=== PATIENT | male | born 1945 | race Caucasian/White ===

== ENCOUNTER → 2017-02-25 | Outpatient (POV) | payer MEDICARE, SELFPAY | PROVIDERS: Family Provider Emergency Medicine; PCP Emergency Medicine; Visit Provider Internal Medicine | DX: C91.10 Chronic lymphocytic leukemia of B-cell type not having achieved remission (principal) | CPT/HCPCS: 99212; 80053; 85025; J1642 ==

== ENCOUNTER 2017-02-27 08:40 | Outpatient (CLI) | payer MEDICARE, SELFPAY | END 2017-02-27 12:40 | disposition home or self-care (01) | PROVIDERS: Visit Provider Internal Medicine | DX: C91.10 Chronic lymphocytic leukemia of B-cell type not having achieved remission (principal); Z51.11 Encounter for antineoplastic chemotherapy | CPT/HCPCS: 96413; 96415; J1642; J9310 ==

== ENCOUNTER 2017-04-03 08:34 | Outpatient (CLI) | payer MEDICARE, SELFPAY ==
[2017-04-03] VITALS (14 sets, daily range): BP systolic 102–139; BP diastolic 66–85; PULSE 49–61; RESP 18–20; TEMP 36.5–36.7; O2SAT 95–98; BMI 30.7
[2017-04-03 09:21] LABS: Basophils % 0.5 % (0.1-2.0); Eosinophils # 0.1 K/mm3 (0.0-0.4); Eosinophils % 1.4 % (0.1-12.0); Hematocrit 38.1 % (42.0-52.0); Hemoglobin 12.7 g/dL (14.1-18.0); Lymphocytes # 4.8 K/mm3 (0.7-4.5); Lymphocytes % 54.6 K/mm3 (10-50); Mean Corpuscular HGB Conc 33.5 g/dL (31.8-35.4); Mean Corpuscular Hemoglobin 33.9 pg (27.0-31.2); Mean Corpuscular Volume 101.3 fl (80-94); Mean Platelet Volume 8.7 fl (7.4-10.4); Monocytes # 0.3 K/mm3 (0.1-1.0); Monocytes % 3.1 % (1.7-9.3); Neutrophils # 3.6 K/mm3 (1.8-7.8); Neutrophils % 40.5 % (37.0-80.0); Platelet Count 63 K/mm3 (142-424); Red Blood Count 3.76 M/mm3 (4.60-6.20); Red Cell Distribution Width 13.1 % (11.5-17.5); White Blood Count 8.9 K/mm3 (4.8-10.8)
[2017-04-03 09:27] LABS: MANUAL DIFFERENTIAL MANUAL DIFFERENTIAL (MANUAL DIFF)
[2017-04-03 10:26] LABS: Eosinophils % 1 % (0-3); Lymphocytes % 50 % (10-50); Monocytes % 2 % (2-9); Neutrophils % 43 % (42-76); Platelet Estimate Moderate Decrease; Total Cells Counted 100
== END 2017-04-03 13:45 | disposition home or self-care (01) ==
LOC: INF 08:44
PROVIDERS: Family Provider Emergency Medicine; PCP Emergency Medicine; Visit Provider Internal Medicine
DX: C91.10 Chronic lymphocytic leukemia of B-cell type not having achieved remission (principal); Z51.11 Encounter for antineoplastic chemotherapy
CPT/HCPCS: 85007; 85025; 96413; 96415; J9310

== ENCOUNTER 2017-05-01 08:35 | Outpatient (CLI) | payer MEDICARE, SELFPAY ==
[2017-05-01] VITALS (15 sets, daily range): BP systolic 110–142; BP diastolic 62–84; PULSE 50–68; RESP 18–20; TEMP 36.4–36.6; O2SAT 96–97; BMI 31.1
[2017-05-01 09:04] LABS: Basophils % 0.4 % (0.1-2.0); Eosinophils # 0.1 K/mm3 (0.0-0.4); Hematocrit 36.5 % (42.0-52.0); Hemoglobin 12.4 g/dL (14.1-18.0); Lymphocytes # 4.9 K/mm3 (0.7-4.5); Lymphocytes % 54.8 K/mm3 (10-50); Mean Platelet Volume 8.5 fl (7.4-10.4); Monocytes # 0.3 K/mm3 (0.1-1.0); Monocytes % 2.9 % (1.7-9.3); Neutrophils # 3.6 K/mm3 (1.8-7.8); Neutrophils % 40.9 % (37.0-80.0); Platelet Count 72 K/mm3 (142-424); Red Blood Count 3.65 M/mm3 (4.60-6.20); Red Cell Distribution Width 13.3 % (11.5-17.5); White Blood Count 8.9 K/mm3 (4.8-10.8)
[2017-05-01 09:08] LABS: MANUAL DIFFERENTIAL MANUAL DIFFERENTIAL (MANUAL DIFF)
[2017-05-01 09:45] LABS: Lymphocytes % 57 % (10-50); Monocytes % 2 % (2-9); Neutrophils % 39 % (42-76); Total Cells Counted 100
[2017-05-01 09:46] LABS: Macrocytosis 1+; Platelet Estimate Moderate Decrease
== END 2017-05-01 13:10 | disposition home or self-care (01) ==
LOC: INF 09:00
PROVIDERS: Family Provider Emergency Medicine; PCP Emergency Medicine; Visit Provider Internal Medicine
DX: C91.10 Chronic lymphocytic leukemia of B-cell type not having achieved remission (principal); Z51.11 Encounter for antineoplastic chemotherapy
CPT/HCPCS: 85007; 85025; 96413; 96415; J9310

== ENCOUNTER 2017-05-29 08:43 | Outpatient (CLI) | payer MEDICARE, SELFPAY ==
[2017-05-29] VITALS (13 sets, daily range): BP systolic 100–139; BP diastolic 60–88; PULSE 49–67; RESP 18; TEMP 36.4–36.5; O2SAT 96–97; BMI 31.0
[2017-05-29 09:05] LABS: Basophils % 0.5 % (0.1-2.0); Eosinophils # 0.1 K/mm3 (0.0-0.4); Eosinophils % 0.9 % (0.1-12.0); Hematocrit 36.9 % (42.0-52.0); Hemoglobin 12.6 g/dL (14.1-18.0); Lymphocytes # 4.5 K/mm3 (0.7-4.5); Lymphocytes % 55.5 K/mm3 (10-50); Mean Corpuscular HGB Conc 34.1 g/dL (31.8-35.4); Mean Corpuscular Hemoglobin 34.2 pg (27.0-31.2); Mean Corpuscular Volume 100.3 fl (80-94); Mean Platelet Volume 9.6 fl (7.4-10.4); Monocytes # 0.2 K/mm3 (0.1-1.0); Monocytes % 2.4 % (1.7-9.3); Neutrophils # 3.3 K/mm3 (1.8-7.8); Neutrophils % 40.7 % (37.0-80.0); Platelet Count 63 K/mm3 (142-424); Red Blood Count 3.68 M/mm3 (4.60-6.20); Red Cell Distribution Width 13.5 % (11.5-17.5); White Blood Count 8.2 K/mm3 (4.8-10.8)
[2017-05-29 09:47] LABS: MANUAL DIFFERENTIAL MANUAL DIFFERENTIAL (MANUAL DIFF)
[2017-05-29 10:22] LABS: Eosinophils % 1 % (0-3); Lymphocytes % 41 % (10-50); Monocytes % 4 % (2-9); Neutrophils % 53 % (42-76); Platelet Estimate Moderate Increase; Total Cells Counted 100
[2017-05-29 10:23] LABS: Macrocytosis 1+
== END 2017-05-29 13:40 | disposition home or self-care (01) ==
LOC: INF 08:43
PROVIDERS: Family Provider Emergency Medicine; PCP Emergency Medicine; Visit Provider Internal Medicine
DX: Z51.11 Encounter for antineoplastic chemotherapy (principal); C91.10 Chronic lymphocytic leukemia of B-cell type not having achieved remission
CPT/HCPCS: 85007; 85025; 96413; 96415; J9310

== ENCOUNTER 2017-06-26 08:25 | Outpatient (CLI) | payer MEDICARE, SELFPAY ==
[2017-06-26 08:38] VITALS: BMI 31.6
[2017-06-26 08:48] LABS: Basophils % 0.4 % (0.1-2.0); Eosinophils # 0.1 K/mm3 (0.0-0.4); Eosinophils % 1.7 % (0.1-12.0); Hematocrit 36.2 % (42.0-52.0); Hemoglobin 11.9 g/dL (14.1-18.0); Lymphocytes # 3.4 K/mm3 (0.7-4.5); Lymphocytes % 48.5 K/mm3 (10-50); Mean Corpuscular Hemoglobin 34.3 pg (27.0-31.2); Mean Corpuscular Volume 104.2 fl (80-94); Mean Platelet Volume 9.4 fl (7.4-10.4); Monocytes # 0.2 K/mm3 (0.1-1.0); Monocytes % 2.3 % (1.7-9.3); Neutrophils # 3.3 K/mm3 (1.8-7.8); Neutrophils % 47.1 % (37.0-80.0); Platelet Count 70 K/mm3 (142-424); Red Blood Count 3.48 M/mm3 (4.60-6.20); Red Cell Distribution Width 13.6 % (11.5-17.5)
[2017-06-26 09:03] LABS: Alanine Aminotransferase 21 U/L (12-78); Albumin Level 3.3 gm/dL (3.4-5.0); Albumin/Globulin Ratio 1.4 (1.1-1.8); Alkaline Phosphatase 73 U/L (46-116); Aspartate Amino Transferase 13 U/L (15-37); Bilirubin,Total 0.7 mg/dL (0.2-1.0); Blood Urea Nitrogen 20 mg/dL (7-18); Calcium 8.3 mg/dL (8.5-10.1); Carbon Dioxide 28 mmol/L (21.0-32.0); Chloride 107 mmol/L (98-107); Creatinine Clearance Estimated 92 mL/min (0-300); Estimated Glomerular Filt Rate 111 ml/min (>60); GFR (African American) 135 ML/MIN (>60); Globulin 2.4 gm/dl (1.3-3.2); Glucose 129 mg/dL (74-106); Sodium 140 mmol/L (136-145); Total Protein,Serum 5.7 gm/dL (6.4-8.2)
--- NOTE | 2017-06-26 09:42 | PC.NURSE ---
06/26/2017 0935-pt returned from md clinic. md ordered to hold treatment for today, pt is going to be starting a different therapy. pac access removed after flushing per protocol, no bleeding noted-bandaid appplied. scheduled for pt to return to outpt clinic in 1 mo for pac flush. pt d/c'd home-pt able to ambulate self from facility.
== END 2017-06-26 09:40 | disposition home or self-care (01) ==
LOC: INF 09:40
PROVIDERS: Family Provider Emergency Medicine; PCP Emergency Medicine; Visit Provider Internal Medicine
DX: C91.10 Chronic lymphocytic leukemia of B-cell type not having achieved remission (principal)
CPT/HCPCS: 80053; 85025; J1642

== ENCOUNTER → 2017-07-26 11:26 | Outpatient (REF) | payer MEDICARE, SELFPAY ==
[2017-07-29 06:10] LABS: PSA, Free 0.18 ng/mL; Prostate Specific Ag 0.8 ng/mL (0.0-4.0)
== END ==
LOC: LAB 11:26
PROVIDERS: Visit Provider Nurse Practitioner Family
DX: N40.0 Benign prostatic hyperplasia without lower urinary tract symptoms (principal); R10.9 Unspecified abdominal pain
CPT/HCPCS: 84153; 84154

== ENCOUNTER 2017-07-31 12:30 | Outpatient (CLI) | payer MEDICARE, SELFPAY ==
[2017-07-31 12:36] VITALS: BMI 31.9
[2017-07-31 13:00] LABS: Basophils # 0.1 K/mm3 (0-0.2); Basophils % 0.5 % (0.1-2.0); Eosinophils # 0.1 K/mm3 (0.0-0.4); Eosinophils % 0.3 % (0.1-12.0); Hematocrit 33.9 % (42.0-52.0); Hemoglobin 11.8 g/dL (14.1-18.0); Lymphocytes # 20.8 K/mm3 (0.7-4.5); Lymphocytes % 80.4 K/mm3 (10-50); Mean Corpuscular HGB Conc 34.7 g/dL (31.8-35.4); Mean Corpuscular Hemoglobin 35.5 pg (27.0-31.2); Mean Corpuscular Volume 102.3 fl (80-94); Mean Platelet Volume 9.5 fl (7.4-10.4); Monocytes # 0.3 K/mm3 (0.1-1.0); Neutrophils # 4.6 K/mm3 (1.8-7.8); Neutrophils % 17.7 % (37.0-80.0); Platelet Count 94 K/mm3 (142-424); Red Blood Count 3.32 M/mm3 (4.60-6.20); Red Cell Distribution Width 13.6 % (11.5-17.5); White Blood Count 25.8 K/mm3 (4.8-10.8)
[2017-07-31 13:06] LABS: MANUAL DIFFERENTIAL MANUAL DIFFERENTIAL (MANUAL DIFF)
[2017-07-31 13:18] LABS: Alanine Aminotransferase 22 U/L (12-78); Albumin Level 3.4 gm/dL (3.4-5.0); Albumin/Globulin Ratio 1.4 (1.1-1.8); Alkaline Phosphatase 70 U/L (46-116); Aspartate Amino Transferase 16 U/L (15-37); Bilirubin,Total 0.7 mg/dL (0.2-1.0); Blood Urea Nitrogen 20 mg/dL (7-18); Calcium 8.2 mg/dL (8.5-10.1); Carbon Dioxide 28 mmol/L (21.0-32.0); Chloride 108 mmol/L (98-107); Creatinine Clearance Estimated 93 mL/min (0-300); Creatinine,Serum 0.74 mg/dL (0.70-1.30); Estimated Glomerular Filt Rate 105 ml/min (>60); GFR (African American) 127 ML/MIN (>60); Globulin 2.4 gm/dl (1.3-3.2); Glucose 100 mg/dL (74-106); Sodium 142 mmol/L (136-145); Total Protein,Serum 5.8 gm/dL (6.4-8.2)
[2017-07-31 13:42] LABS: Lymphocytes % 80 % (10-50); Monocytes % 5 % (2-9); Neutrophils % 15 % (42-76); Platelet Estimate Marked Decrease; RBC Morphology Normal; Total Cells Counted 100
== END 2017-07-31 13:05 | disposition home or self-care (01) ==
LOC: INF 12:41
PROVIDERS: Family Provider Emergency Medicine; PCP Emergency Medicine; Visit Provider Internal Medicine
DX: C91.10 Chronic lymphocytic leukemia of B-cell type not having achieved remission (principal); Z45.2 Encounter for adjustment and management of vascular access device
CPT/HCPCS: 80053; 85007; 85025; J1642

== ENCOUNTER 2017-08-21 08:55 | Outpatient (CLI) | payer MEDICARE, SELFPAY ==
[2017-08-21 09:06] VITALS: BMI 31.0
[2017-08-21 09:40] LABS: Basophils # 0.2 K/mm3 (0-0.2); Basophils % 0.8 % (0.1-2.0); Eosinophils # 0.1 K/mm3 (0.0-0.4); Eosinophils % 0.5 % (0.1-12.0); Hematocrit 36.9 % (42.0-52.0); Hemoglobin 11.8 g/dL (14.1-18.0); Lymphocytes # 24.3 K/mm3 (0.7-4.5); Mean Corpuscular Hemoglobin 33.4 pg (27.0-31.2); Mean Corpuscular Volume 104.4 fl (80-94); Mean Platelet Volume 8.6 fl (7.4-10.4); Monocytes # 0.3 K/mm3 (0.1-1.0); Monocytes % 1.2 % (1.7-9.3); Neutrophils # 3.3 K/mm3 (1.8-7.8); Platelet Count 99 K/mm3 (142-424); Red Blood Count 3.54 M/mm3 (4.60-6.20); Red Cell Distribution Width 13.7 % (11.5-17.5)
[2017-08-21 09:43] LABS: Neutrophils % 11.6 % (37.0-80.0)
[2017-08-21 09:50] LABS: Alanine Aminotransferase 20 U/L (12-78); Albumin Level 3.2 gm/dL (3.4-5.0); Albumin/Globulin Ratio 1.3 (1.1-1.8); Alkaline Phosphatase 61 U/L (46-116); Anion Gap 9.7 mEq/L (5-15); Blood Urea Nitrogen 17 mg/dL (7-18); Calcium 8.6 mg/dL (8.5-10.1); Carbon Dioxide 29 mmol/L (21.0-32.0); Chloride 109 mmol/L (98-107); Creatinine Clearance Estimated 93 mL/min (0-300); Estimated Glomerular Filt Rate 111 ml/min (>60); GFR (African American) 135 ML/MIN (>60); Globulin 2.5 gm/dl (1.3-3.2); Glucose 103 mg/dL (74-106); Sodium 144 mmol/L (136-145); Total Protein,Serum 5.7 gm/dL (6.4-8.2)
[2017-08-21 09:51] LABS: Aspartate Amino Transferase 16 U/L (15-37); Potassium 3.7 mmoL/L (3.5-5.1)
[2017-08-21 10:00] LABS: White Blood Count 27.9 K/mm3 (4.8-10.8)
[2017-08-21 10:01] LABS: MANUAL DIFFERENTIAL MANUAL DIFFERENTIAL (MANUAL DIFF)
[2017-08-21 10:39] LABS: Anisocytosis 1+; Lymphocytes % 83 % (10-50); Macrocytosis 1+; Monocytes % 3 % (2-9); Neutrophils % 14 % (42-76); Total Cells Counted 100
[2017-08-21 10:41] LABS: Platelet Estimate Marked Decrease
== END 2017-08-21 09:30 | disposition home or self-care (01) ==
LOC: INF 09:03
PROVIDERS: Family Provider Emergency Medicine; PCP Emergency Medicine; Visit Provider Internal Medicine
DX: C91.10 Chronic lymphocytic leukemia of B-cell type not having achieved remission (principal)
CPT/HCPCS: 80053; 85007; 85025; J1642

== ENCOUNTER 2017-08-28 09:38 | Outpatient (CLI) | payer MEDICARE, SELFPAY ==
[2017-08-28 10:36] VITALS: BMI 31.0
[2017-08-28 10:45] VITALS: BP 105/69; PULSE 51; RESP 20; TEMP 36.6; O2SAT 99
[2017-08-28 11:08] LABS: Basophils # 0.3 K/mm3 (0-0.2); Basophils % 0.8 % (0.1-2.0); Eosinophils # 0.2 K/mm3 (0.0-0.4); Eosinophils % 0.4 % (0.1-12.0); Hematocrit 38.3 % (42.0-52.0); Hemoglobin 12.2 g/dL (14.1-18.0); Lymphocytes % 86.2 K/mm3 (10-50); Mean Corpuscular HGB Conc 31.8 g/dL (31.8-35.4); Mean Corpuscular Hemoglobin 33.1 pg (27.0-31.2); Mean Corpuscular Volume 104.3 fl (80-94); Mean Platelet Volume 8.4 fl (7.4-10.4); Monocytes # 0.4 K/mm3 (0.1-1.0); Monocytes % 1.2 % (1.7-9.3); Neutrophils # 4.1 K/mm3 (1.8-7.8); Platelet Count 108 K/mm3 (142-424); Red Blood Count 3.68 M/mm3 (4.60-6.20); Red Cell Distribution Width 13.2 % (11.5-17.5); White Blood Count 35.9 K/mm3 (4.8-10.8)
[2017-08-28 11:10] LABS: Alanine Aminotransferase 19 U/L (12-78); Albumin Level 3.3 gm/dL (3.4-5.0); Albumin/Globulin Ratio 1.3 (1.1-1.8); Alkaline Phosphatase 68 U/L (46-116); Anion Gap 10.1 mEq/L (5-15); Aspartate Amino Transferase 15 U/L (15-37); Bilirubin,Total 0.8 mg/dL (0.2-1.0); Blood Urea Nitrogen 18 mg/dL (7-18); Calcium 8.3 mg/dL (8.5-10.1); Carbon Dioxide 29 mmol/L (21.0-32.0); Chloride 108 mmol/L (98-107); Creatinine Clearance Estimated 93 mL/min (0-300); Creatinine,Serum 0.94 mg/dL (0.70-1.30); Estimated Glomerular Filt Rate 79 ml/min (>60); GFR (African American) 96 ML/MIN (>60); Globulin 2.6 gm/dl (1.3-3.2); Glucose 103 mg/dL (74-106); Potassium 4.1 mmoL/L (3.5-5.1); Sodium 143 mmol/L (136-145); Total Protein,Serum 5.9 gm/dL (6.4-8.2)
[2017-08-28 11:29] LABS: Neutrophils % 11.4 % (37.0-80.0)
[2017-08-28 11:30] LABS: MANUAL DIFFERENTIAL MANUAL DIFFERENTIAL (MANUAL DIFF)
[2017-08-28 11:31] LABS: Lymphocytes % 93 % (10-50); Macrocytosis 1+; Monocytes % 2 % (2-9); Neutrophils % 5 % (42-76); Platelet Estimate Slight Decrease; Total Cells Counted 100
[2017-08-28 11:32] LABS: Hypochromasia 1+
== END 2017-08-28 10:50 | disposition home or self-care (01) ==
LOC: INF 11:56
PROVIDERS: Family Provider Emergency Medicine; PCP Emergency Medicine; Visit Provider Internal Medicine
DX: C91.10 Chronic lymphocytic leukemia of B-cell type not having achieved remission (principal); R60.0 Localized edema
CPT/HCPCS: 80053; 85007; 85025; 93005; J1642

== ENCOUNTER 2017-09-04 08:15 | Outpatient (CLI) | payer MEDICARE, SELFPAY ==
[2017-09-04 13:33] VITALS: BMI 31.6
[2017-09-04 14:08] LABS: Basophils # 0.1 K/mm3 (0-0.2); Basophils % 0.2 % (0.1-2.0); Eosinophils # 0.1 K/mm3 (0.0-0.4); Eosinophils % 0.5 % (0.1-12.0); Hematocrit 34.8 % (42.0-52.0); Hemoglobin 11.1 g/dL (14.1-18.0); Lymphocytes # 21.9 K/mm3 (0.7-4.5); Lymphocytes % 89.7 K/mm3 (10-50); Mean Corpuscular HGB Conc 31.9 g/dL (31.8-35.4); Mean Corpuscular Hemoglobin 33.3 pg (27.0-31.2); Mean Corpuscular Volume 104.4 fl (80-94); Mean Platelet Volume 8.9 fl (7.4-10.4); Monocytes # 0.3 K/mm3 (0.1-1.0); Neutrophils # 2.1 K/mm3 (1.8-7.8); Platelet Count 98 K/mm3 (142-424); Red Blood Count 3.33 M/mm3 (4.60-6.20); Red Cell Distribution Width 13.2 % (11.5-17.5); White Blood Count 24.4 K/mm3 (4.8-10.8)
[2017-09-04 14:10] LABS: Alanine Aminotransferase 16 U/L (12-78); Albumin Level 3.1 gm/dL (3.4-5.0); Albumin/Globulin Ratio 1.3 (1.1-1.8); Alkaline Phosphatase 67 U/L (46-116); Anion Gap 9.6 mEq/L (5-15); Aspartate Amino Transferase 14 U/L (15-37); Blood Urea Nitrogen 17 mg/dL (7-18); Calcium 7.7 mg/dL (8.5-10.1); Carbon Dioxide 29 mmol/L (21.0-32.0); Chloride 108 mmol/L (98-107); Creatinine Clearance Estimated 94 mL/min (0-300); Estimated Glomerular Filt Rate 74 ml/min (>60); GFR (African American) 89 ML/MIN (>60); Globulin 2.3 gm/dl (1.3-3.2); Glucose 123 mg/dL (74-106); Potassium 3.6 mmoL/L (3.5-5.1); Sodium 143 mmol/L (136-145); Total Protein,Serum 5.4 gm/dL (6.4-8.2)
[2017-09-04 14:30] LABS: MANUAL DIFFERENTIAL MANUAL DIFFERENTIAL (MANUAL DIFF); Neutrophils % 8.6 % (37.0-80.0)
[2017-09-04 14:32] LABS: Lymphocytes % 85 % (10-50); Macrocytosis 1+; Monocytes % 1 % (2-9); Neutrophils % 10 % (42-76); Platelet Estimate Moderate Decrease; Total Cells Counted 100
== END 2017-09-04 15:16 | disposition home or self-care (01) ==
LOC: INF 08:23
PROVIDERS: Family Provider Emergency Medicine; PCP Emergency Medicine; Visit Provider Internal Medicine
DX: C91.10 Chronic lymphocytic leukemia of B-cell type not having achieved remission (principal); I99.8 Other disorder of circulatory system; Z45.2 Encounter for adjustment and management of vascular access device
CPT/HCPCS: 80053; 85007; 85025; J1642

== ENCOUNTER 2017-09-23 13:21 | Outpatient (CLI) | payer MEDICARE, SELFPAY ==
[2017-09-23 13:17] VITALS: BMI 31.0
[2017-09-23 13:53] LABS: Alanine Aminotransferase 18 U/L (12-78); Albumin Level 3.2 gm/dL (3.4-5.0); Albumin/Globulin Ratio 1.3 (1.1-1.8); Alkaline Phosphatase 65 U/L (46-116); Anion Gap 11.7 mEq/L (5-15); Aspartate Amino Transferase 11 U/L (15-37); Bilirubin,Total 0.9 mg/dL (0.2-1.0); Blood Urea Nitrogen 19 mg/dL (7-18); Calcium 7.9 mg/dL (8.5-10.1); Carbon Dioxide 28 mmol/L (21.0-32.0); Chloride 113 mmol/L (98-107); Creatinine Clearance Estimated 89 mL/min (0-300); Creatinine,Serum 1.04 mg/dL (0.70-1.30); Estimated Glomerular Filt Rate 71 ml/min (>60); GFR (African American) 85 ML/MIN (>60); Globulin 2.4 gm/dl (1.3-3.2); Glucose 125 mg/dL (74-106); Potassium 3.7 mmoL/L (3.5-5.1); Sodium 149 mmol/L (136-145); Total Protein,Serum 5.6 gm/dL (6.4-8.2)
[2017-09-23 14:08] LABS: Basophils # 0.2 K/mm3 (0-0.2); Basophils % 0.7 % (0.1-2.0); Eosinophils # 0.1 K/mm3 (0.0-0.4); Eosinophils % 0.3 % (0.1-12.0); Hematocrit 33.6 % (42.0-52.0); Hemoglobin 10.6 g/dL (14.1-18.0); Lymphocytes # 27.4 K/mm3 (0.7-4.5); Mean Corpuscular HGB Conc 31.7 g/dL (31.8-35.4); Mean Corpuscular Hemoglobin 32.5 pg (27.0-31.2); Mean Corpuscular Volume 102.6 fl (80-94); Mean Platelet Volume 9.2 fl (7.4-10.4); Monocytes # 0.4 K/mm3 (0.1-1.0); Monocytes % 1.3 % (1.7-9.3); Neutrophils # 5.3 K/mm3 (1.8-7.8); Neutrophils % 15.7 % (37.0-80.0); Platelet Count 106 K/mm3 (142-424); Red Blood Count 3.27 M/mm3 (4.60-6.20); White Blood Count 33.5 K/mm3 (4.8-10.8)
[2017-09-23 14:11] LABS: MANUAL DIFFERENTIAL MANUAL DIFFERENTIAL (MANUAL DIFF)
[2017-09-23 15:17] LABS: Eosinophils % 1 % (0-3); Lymphocytes % 81 % (10-50); Macrocytosis 1+; Monocytes % 2 % (2-9); Neutrophils % 16 % (42-76); Platelet Estimate Moderate Decrease; Total Cells Counted 100
== END 2017-09-23 13:43 | disposition home or self-care (01) ==
LOC: INF 13:21
PROVIDERS: Family Provider Emergency Medicine; PCP Emergency Medicine; Visit Provider Internal Medicine
DX: C91.10 Chronic lymphocytic leukemia of B-cell type not having achieved remission (principal)
CPT/HCPCS: 80053; 85007; 85025; J1642

== ENCOUNTER → 2017-09-30 06:52 | Outpatient (CLI) | payer MEDICARE, SELFPAY ==
--- NOTE | 2017-09-30 06:55 | NM_ITS ---
History and Indications: Coronary artery disease, hypertension, shortness of breath Procedure: Patient received a 0.4 mg of Lexiscan, resting heart rate was 61 bpm, resting blood pressure 159/71, with Lexiscan maximum heart rate achieved was 85 bpm just less than 85% of the maximum predicted heart rate and a blood pressure was 126/72. With Lexiscan patient complained of shortness of breath and nausea. Electrocardiogram: Resting electrocardiogram showed sinus rhythm nonspecific ST-T changes, with Lexiscan there is less than 1.[address] segment depression noted from the baseline EKG. The EKG portion of the Lexiscan Myoview is nondiagnostic. Cardiac stress and resting SPECT images: Cardiac stress and rest SPECT images were obtained using technetium 99 Myoview 31.6 mCi at stress and 10.7 mCi at rest. Gated SPECT further analysis of segmental wall motion and calculation of the ejection fraction also done. Cardiac stress and rest SPECT images show a fixed defect involving the wall with normal contractility gated SPECT is likely secondary to soft tissue attenuation, no reversible ischemia seen, computer derived ejection fraction is 49% with no obvious regional wall motion abnormality, right ventricle is normal size and contractility. Conclusion: 1. The EKG portion of the Lexiscan Myoview is nondiagnostic. 2. No obvious scintigraphic evidence of reversible ischemia seen, a fixed defect in the inferior wall is likely secondary to soft tissue attenuation from the diaphragm, computer derived ejection fraction is 49% with no obvious regional wall motion abnormality, right ventricle is normal size and contractility.
--- NOTE | 2017-09-30 06:55 | CA_ITS ---
PROCEDURE: 2-D M-mode and color Doppler study INDICATIONS FOR THE TEST: Chest pain COPD Heart Murmur Tobacco Smoking Palpitations Fatigue Syncope Edema Hypertension+Diabetes Mellitus Rheumatic Fever SOB ARITA Obesity+Hyperlipidemia+ Family History HD Additional History liudmila, cad, mi, afib, stents PATIENT INFORMATION HEIGHT:69 WEIGHT:213 GENDER: Male B/P:149/79 2-D/M-MODE INTERPRETATION: 2-D MEASUREMENTS OBSERVED VALUES IN CMS Right Ventricular Dimension (RVDd) 2.5 Interventricular Septum (Thickness)(IVsd) 1.0 Left Ventricular Internal Dimensions(LVIDd) 5.7 Left Ventricular Posterior Wall (Thickness)(LVPWd) 0.9 Aortic Root 3.5 Aortic Cusp Separation 1.9 Left Atrial Dimensions (LAD) 4.4 2D 1. Left atrium is mildly enlarged, left ventricle is normal size, mild concentric left ventricular hypertrophy, visually estimated ejection fraction 55% with no obvious regional wall motion abnormality. 2. The right atrium and right ventricle are normal size and contractility. 3. The aortic valve is minimally thickened and fibrosed. 4. The mitral and tricuspid valve are grossly normal. 5. The pulmonic valve is poorly visualized. 6. No significant pericardial effusion noted. DOPPLER INTERROGATION: Doppler interrogation of the aortic, mitral and tricuspid valvular presence of mild mitral and tricuspid regurgitation, tricuspid and jet velocity is insufficient for calculation of the right ventricular systolic pressure, grade 1 diastolic dysfunction seen without tissue Doppler evidence of raised left atrial pressure. CONCLUSION: 1. Mildly left atrium, normal left ventricular size, mild concentric left ventricular hypertrophy, visually estimated ejection fraction 55% with no obvious regional wall motion abnormality, grade 1 diastolic dysfunction seen without tissue Doppler evidence of raised left atrial pressure. 2. Mild mitral and tricuspid regurgitation 3. No significant pericardial effusion noted.
--- NOTE | 2017-09-30 07:53 | HMH.ITSHM ---
ASA LOSARTAN PANTOPRAZOLE ATORVASTATIN IMBRUVICA
== END ==
PROVIDERS: Family Provider Emergency Medicine; PCP Emergency Medicine; Visit Provider Physician Assistant
DX: I25.10 Atherosclerotic heart disease of native coronary artery without angina pectoris (principal); R06.00 Dyspnea, unspecified; R00.1 Bradycardia, unspecified; R94.31 Abnormal electrocardiogram [ECG] [EKG]; R60.9 Edema, unspecified
CPT/HCPCS: 78452; 93017; 93306; A9502; J2785

== ENCOUNTER 2017-10-16 09:00 | Outpatient (RCR) | payer MEDICARE, SELFPAY ==
--- NOTE | 2017-09-03 11:35 | HMH.PTOPWND ---
Rehab Outpt Wound Evaluation Rehab OP Wound Evaluation Start: 09/03/17 10:02 Freq: Status: Active Protocol: Document 09/03/17 11:27 KEN (Rec: 09/03/17 11:35 PHORMATTY [id number]) Electronically Signed By Chucho Samayoa, LINETTE 09/03/17 11:27 Subjective/History History History Pt is a 72 yo white male who presents with edelmira LE edema x 3 -4 mos with insidious onset of symptoms. He has hx of CLL x 7 yrs which he has received chemo for on/off since his diagnosis. He reports ni pain or numbness associated with his edema, but he does have moderate to severe tenderness to palpation in edelmira lower legs . He has PMH of CAD, FL, HTN. Lymphedema Eval Classification of Lymphedema Secondary Lymphedema Yes Other Lymphedema Cause Yes: CVI and CLL Stemmer's sign Stemmer's Sign no Stage of Lymphedema Lymphedema stages Stage I (Pitting edema, reduces w/ elevation, no fibrosis) Skin Changes Dry Skin Yes Taut, Shiny Skin Yes Redness Yes Blisters Yes Wounds Yes Discoloration of Skin Yes Chemo Therapy Has received chemo therapy yes Affected Extremities Areas Affected by Lymphedema/Edema Right Lower Extremity Left Lower Extremity Lower Extremity Measurements Left MTP Measurement (cm) 22.8 Heel Measurement (cm) 35.3 10 cm Proximal to Lateral Malleoli 27.6 Measurement (cm) 20 cm Proximal to Lateral Malleoli 35.0 Measurement (cm) 30 cm Proximal to Lateral Malleoli 41.2 Measurement (cm) 40 cm Proximal to Lateral Malleoli 37.7 Measurement (cm) 50 cm Proximal to Lateral Malleoli 43.5 Measurement (cm) 60 cm Proximal to Lateral Malleoli 49.5 Measurement (cm) Right MTP Measurement (cm) 23.6 Heel Measurement (cm) 35.5 10 cm Proximal to Lateral Malleoli 27.2 Measurement (cm) 20 cm Proximal to Lateral Malleoli 33.3 Measurement (cm) 30 cm Proximal to Lateral Malleoli 40.8 Measurement (cm) 40 cm Proximal to Lateral Malleoli 37.4 Measurement (cm) 50 cm Proximal to Lateral Malleoli 43.0 Measurement (cm) 60 cm Proximal to Lateral Malleoli 49.3 Measureme
== END 2017-10-16 09:01 | disposition home or self-care (01) ==
LOC: PT 09:00
PROVIDERS: Family Provider Emergency Medicine; PCP Emergency Medicine; Visit Provider Internal Medicine
DX: I89.0 Lymphedema, not elsewhere classified (principal); C91.10 Chronic lymphocytic leukemia of B-cell type not having achieved remission
CPT/HCPCS: 97140; 97162; 97760

== ENCOUNTER → 2017-10-22 20:04 | Outpatient (CLI) | payer MEDICARE, SELFPAY | PROVIDERS: PCP Emergency Medicine; Visit Provider Nurse Practitioner Family | DX: G47.33 Obstructive sleep apnea (adult) (pediatric) (principal) | CPT/HCPCS: 95811 ==

== ENCOUNTER 2017-10-23 08:24 | Outpatient (CLI) | payer MEDICARE, SELFPAY ==
[2017-10-23 08:42] VITALS: BMI 31.1
[2017-10-23 08:58] LABS: Basophils # 0.2 K/mm3 (0-0.2); Basophils % 0.6 % (0.1-2.0); Eosinophils # 0.1 K/mm3 (0.0-0.4); Eosinophils % 0.4 % (0.1-12.0); Hematocrit 32.1 % (42.0-52.0); Hemoglobin 10.5 g/dL (14.1-18.0); Lymphocytes % 82.2 K/mm3 (10-50); Mean Corpuscular HGB Conc 32.6 g/dL (31.8-35.4); Mean Corpuscular Hemoglobin 33.5 pg (27.0-31.2); Mean Corpuscular Volume 102.6 fl (80-94); Mean Platelet Volume 8.6 fl (7.4-10.4); Monocytes # 0.4 K/mm3 (0.1-1.0); Monocytes % 1.4 % (1.7-9.3); Neutrophils # 4.3 K/mm3 (1.8-7.8); Neutrophils % 15.4 % (37.0-80.0); Platelet Count 146 K/mm3 (142-424); Red Blood Count 3.13 M/mm3 (4.60-6.20); Red Cell Distribution Width 13.2 % (11.5-17.5)
[2017-10-23 09:01] LABS: MANUAL DIFFERENTIAL MANUAL DIFFERENTIAL (MANUAL DIFF)
[2017-10-23 09:13] LABS: Alanine Aminotransferase 17 U/L (12-78); Albumin Level 3.2 gm/dL (3.4-5.0); Albumin/Globulin Ratio 1.1 (1.1-1.8); Alkaline Phosphatase 75 U/L (46-116); Anion Gap 10.3 mEq/L (5-15); Aspartate Amino Transferase 9 U/L (15-37); Bilirubin,Total 0.8 mg/dL (0.2-1.0); Blood Urea Nitrogen 21 mg/dL (7-18); Calcium 8.4 mg/dL (8.5-10.1); Carbon Dioxide 30 mmol/L (21.0-32.0); Chloride 108 mmol/L (98-107); Creatinine Clearance Estimated 57 mL/min (0-300); Creatinine,Serum 1.62 mg/dL (0.70-1.30); Estimated Glomerular Filt Rate 42 ml/min (>60); GFR (African American) 51 ML/MIN (>60); Globulin 2.8 gm/dl (1.3-3.2); Glucose 113 mg/dL (74-106); Potassium 4.3 mmoL/L (3.5-5.1); Sodium 144 mmol/L (136-145)
[2017-10-23 09:41] LABS: Lymphocytes % 83 % (10-50); Monocytes % 4 % (2-9); Neutrophils % 13 % (42-76); Total Cells Counted 100
[2017-10-23 09:44] LABS: Macrocytosis 1+; Platelet Estimate Normal
== END 2017-10-23 08:45 | disposition home or self-care (01) ==
LOC: INF 08:24
PROVIDERS: Family Provider Emergency Medicine; PCP Emergency Medicine; Visit Provider Internal Medicine
DX: C91.10 Chronic lymphocytic leukemia of B-cell type not having achieved remission (principal)
CPT/HCPCS: 80053; 85007; 85025; J1642

== ENCOUNTER 2017-11-14 08:26 | Outpatient (CLI) | payer MEDICARE, SELFPAY ==
[2017-11-14 08:30] VITALS: BMI 29.2
[2017-11-14 08:54] LABS: Basophils # 0.2 K/mm3 (0-0.2); Basophils % 0.7 % (0.1-2.0); Eosinophils # 0.2 K/mm3 (0.0-0.4); Hematocrit 30.7 % (42.0-52.0); Hemoglobin 10.2 g/dL (14.1-18.0); Lymphocytes # 18.8 K/mm3 (0.7-4.5); Lymphocytes % 84.7 K/mm3 (10-50); Mean Corpuscular HGB Conc 33.1 g/dL (31.8-35.4); Mean Corpuscular Hemoglobin 33.6 pg (27.0-31.2); Mean Corpuscular Volume 101.5 fl (80-94); Monocytes # 0.5 K/mm3 (0.1-1.0); Monocytes % 2.2 % (1.7-9.3); Neutrophils # 2.5 K/mm3 (1.8-7.8); Platelet Count 157 K/mm3 (142-424); Red Blood Count 3.02 M/mm3 (4.60-6.20); Red Cell Distribution Width 13.6 % (11.5-17.5); White Blood Count 22.2 K/mm3 (4.8-10.8)
[2017-11-14 08:55] LABS: Neutrophils % 11.3 % (37.0-80.0)
[2017-11-14 08:57] LABS: MANUAL DIFFERENTIAL MANUAL DIFFERENTIAL (MANUAL DIFF)
[2017-11-14 09:07] LABS: Alanine Aminotransferase 15 U/L (12-78); Albumin Level 2.8 gm/dL (3.4-5.0); Albumin/Globulin Ratio 0.9 (1.1-1.8); Alkaline Phosphatase 66 U/L (46-116); Anion Gap 9.1 mEq/L (5-15); Aspartate Amino Transferase 10 U/L (15-37); Bilirubin,Total 0.7 mg/dL (0.2-1.0); Blood Urea Nitrogen 15 mg/dL (7-18); Calcium 8.1 mg/dL (8.5-10.1); Carbon Dioxide 31 mmol/L (21.0-32.0); Chloride 108 mmol/L (98-107); Creatinine Clearance Estimated 68 mL/min (0-300); Creatinine,Serum 1.25 mg/dL (0.70-1.30); Estimated Glomerular Filt Rate 57 ml/min (>60); GFR (African American) 69 ML/MIN (>60); Globulin 3.2 gm/dl (1.3-3.2); Glucose 92 mg/dL (74-106); Potassium 3.1 mmoL/L (3.5-5.1); Sodium 145 mmol/L (136-145)
[2017-11-14 09:29] LABS: Lymphocytes % 91 % (10-50); Monocytes % 2 % (2-9); Neutrophils % 7 % (42-76); Total Cells Counted 100
[2017-11-14 09:31] LABS: Macrocytosis 1+; Platelet Estimate Normal
== END 2017-11-14 08:45 | disposition home or self-care (01) ==
LOC: INF 08:27
PROVIDERS: PCP Emergency Medicine; Visit Provider Internal Medicine
DX: C91.10 Chronic lymphocytic leukemia of B-cell type not having achieved remission (principal); Z45.2 Encounter for adjustment and management of vascular access device
CPT/HCPCS: 80053; 85007; 85025; J1642

== ENCOUNTER 2017-12-12 08:45 | Outpatient (CLI) | payer MEDICARE, SELFPAY ==
[2017-12-12 08:56] VITALS: BMI 27.0
[2017-12-12 09:16] LABS: Basophils # 0.1 K/mm3 (0-0.2); Basophils % 0.3 % (0.1-2.0); Eosinophils % 0.2 % (0.1-12.0); Hematocrit 29.4 % (42.0-52.0); Hemoglobin 9.4 g/dL (14.1-18.0); Lymphocytes % 49.5 K/mm3 (10-50); Mean Corpuscular HGB Conc 31.8 g/dL (31.8-35.4); Mean Corpuscular Hemoglobin 31.9 pg (27.0-31.2); Mean Corpuscular Volume 100.4 fl (80-94); Mean Platelet Volume 8.1 fl (7.4-10.4); Monocytes # 0.4 K/mm3 (0.1-1.0); Monocytes % 1.5 % (1.7-9.3); Neutrophils # 12.7 K/mm3 (1.8-7.8); Neutrophils % 48.5 % (37.0-80.0); Platelet Count 210 K/mm3 (142-424); Red Blood Count 2.93 M/mm3 (4.60-6.20); Red Cell Distribution Width 13.8 % (11.5-17.5); White Blood Count 26.2 K/mm3 (4.8-10.8)
[2017-12-12 09:19] LABS: MANUAL DIFFERENTIAL MANUAL DIFFERENTIAL (MANUAL DIFF)
[2017-12-12 09:30] LABS: Alanine Aminotransferase 12 U/L (12-78); Albumin Level 2.4 gm/dL (3.4-5.0); Albumin/Globulin Ratio 0.6 (1.1-1.8); Alkaline Phosphatase 79 U/L (46-116); Anion Gap 15.7 mEq/L (5-15); Aspartate Amino Transferase 7 U/L (15-37); Bilirubin,Total 0.8 mg/dL (0.2-1.0); Blood Urea Nitrogen 15 mg/dL (7-18); Calcium 8.5 mg/dL (8.5-10.1); Carbon Dioxide 25 mmol/L (21.0-32.0); Chloride 102 mmol/L (98-107); Creatinine Clearance Estimated 72 mL/min (0-300); Creatinine,Serum 1.12 mg/dL (0.70-1.30); Estimated Glomerular Filt Rate 65 ml/min (>60); GFR (African American) 78 ML/MIN (>60); Globulin 3.7 gm/dl (1.3-3.2); Glucose 109 mg/dL (74-106); Potassium 3.7 mmoL/L (3.5-5.1); Sodium 139 mmol/L (136-145); Total Protein,Serum 6.1 gm/dL (6.4-8.2)
[2017-12-12 10:03] LABS: Lymphocytes % 49 % (10-50); Monocytes % 3 % (2-9); Neutrophils % 44 % (42-76); Total Cells Counted 100
[2017-12-12 10:04] LABS: Platelet Estimate Normal
== END 2017-12-12 09:05 | disposition home or self-care (01) ==
LOC: INF 08:55
PROVIDERS: Family Provider Emergency Medicine; PCP Emergency Medicine; Visit Provider Internal Medicine Medical Oncology
DX: C91.10 Chronic lymphocytic leukemia of B-cell type not having achieved remission (principal)
CPT/HCPCS: 80053; 85007; 85025; J1642

== ENCOUNTER 2018-01-23 08:49 | Outpatient (CLI) | payer MEDICARE, SELFPAY ==
[2018-01-23 08:49] VITALS: BMI 26.6
[2018-01-23 09:30] LABS: Basophils # 0.2 K/mm3 (0-0.2); Basophils % 0.8 % (0.1-2.0); Eosinophils # 0.2 K/mm3 (0.0-0.4); Eosinophils % 1.1 % (0.1-12.0); Hematocrit 33.2 % (42.0-52.0); Hemoglobin 10.6 g/dL (14.1-18.0); Lymphocytes # 14.1 K/mm3 (0.7-4.5); Lymphocytes % 68.8 % (10-50); Mean Corpuscular Hemoglobin 32.8 pg (27.0-31.2); Mean Corpuscular Volume 102.4 fl (80-94); Mean Platelet Volume 8.2 fl (7.4-10.4); Monocytes # 0.4 K/mm3 (0.1-1.0); Monocytes % 1.8 % (1.7-9.3); Neutrophils # 5.6 K/mm3 (1.8-7.8); Neutrophils % 27.4 % (37.0-80.0); Platelet Count 137 K/mm3 (142-424); Red Blood Count 3.24 M/mm3 (4.60-6.20); Red Cell Distribution Width 15.1 % (11.5-17.5); White Blood Count 20.5 K/mm3 (4.8-10.8)
[2018-01-23 09:33] LABS: MANUAL DIFFERENTIAL MANUAL DIFFERENTIAL (MANUAL DIFF)
[2018-01-23 09:38] LABS: Alanine Aminotransferase 14 U/L (12-78); Albumin Level 2.9 gm/dL (3.4-5.0); Alkaline Phosphatase 77 U/L (46-116); Anion Gap 11.6 mEq/L (5-15); Aspartate Amino Transferase 5 U/L (15-37); Bilirubin,Total 0.6 mg/dL (0.2-1.0); Blood Urea Nitrogen 18 mg/dL (7-18); Calcium 8.3 mg/dL (8.5-10.1); Carbon Dioxide 27 mmol/L (21.0-32.0); Chloride 105 mmol/L (98-107); Creatinine Clearance Estimated 79 mL/min (50-200); Creatinine,Serum 0.72 mg/dL (0.70-1.30); Estimated Glomerular Filt Rate 108 ml/min (>60); GFR (African American) 131 ML/MIN (>60); Globulin 2.8 gm/dl (1.3-3.2); Glucose 92 mg/dL (74-106); Potassium 3.6 mmoL/L (3.5-5.1); Sodium 140 mmol/L (136-145); Total Protein,Serum 5.7 gm/dL (6.4-8.2)
[2018-01-23 10:09] LABS: Hypochromasia 1+; Lymphocytes % 79 % (10-50); Monocytes % 1 % (2-9); Neutrophils % 19 % (42-76); Total Cells Counted 100
[2018-01-23 10:10] LABS: Platelet Estimate Normal
== END 2018-01-23 10:25 | disposition home or self-care (01) ==
LOC: INF 08:49
PROVIDERS: Visit Provider Internal Medicine Medical Oncology
DX: Z45.2 Encounter for adjustment and management of vascular access device (principal); C91.10 Chronic lymphocytic leukemia of B-cell type not having achieved remission
CPT/HCPCS: 36415; 80053; 85007; 85025; J1642

== ENCOUNTER 2018-02-20 09:45 | Outpatient (CLI) | payer MEDICARE, SELFPAY ==
[2018-02-20 09:56] VITALS: BMI 28.6
[2018-02-20 10:21] LABS: Basophils # 0.1 K/mm3 (0-0.2); Basophils % 0.5 % (0.1-2.0); Eosinophils # 0.3 K/mm3 (0.0-0.4); Eosinophils % 1.6 % (0.1-12.0); Hemoglobin 11.3 g/dL (14.1-18.0); Lymphocytes # 10.6 K/mm3 (0.7-4.5); Lymphocytes % 68.7 % (10-50); Mean Corpuscular HGB Conc 32.3 g/dL (31.8-35.4); Mean Corpuscular Hemoglobin 32.6 pg (27.0-31.2); Mean Corpuscular Volume 100.9 fl (80-94); Mean Platelet Volume 8.3 fl (7.4-10.4); Monocytes # 0.4 K/mm3 (0.1-1.0); Monocytes % 2.8 % (1.7-9.3); Neutrophils # 4.1 K/mm3 (1.8-7.8); Neutrophils % 26.5 % (37.0-80.0); Platelet Count 113 K/mm3 (142-424); Red Blood Count 3.46 M/mm3 (4.60-6.20); Red Cell Distribution Width 14.9 % (11.5-17.5); White Blood Count 15.5 K/mm3 (4.8-10.8)
[2018-02-20 10:25] LABS: MANUAL DIFFERENTIAL MANUAL DIFFERENTIAL (MANUAL DIFF)
[2018-02-20 10:33] LABS: Alanine Aminotransferase 16 U/L (12-78); Albumin/Globulin Ratio 1.2 (1.1-1.8); Alkaline Phosphatase 71 U/L (46-116); Anion Gap 12.9 mEq/L (5-15); Aspartate Amino Transferase 7 U/L (15-37); Bilirubin,Total 0.5 mg/dL (0.2-1.0); Blood Urea Nitrogen 25 mg/dL (7-18); Calcium 8.2 mg/dL (8.5-10.1); Carbon Dioxide 26 mmol/L (21.0-32.0); Chloride 105 mmol/L (98-107); Creatinine Clearance Estimated 86 mL/min (50-200); Creatinine,Serum 0.81 mg/dL (0.70-1.30); Estimated Glomerular Filt Rate 94 ml/min (>60); GFR (African American) 114 ML/MIN (>60); Globulin 2.6 gm/dl (1.3-3.2); Glucose 100 mg/dL (74-106); Potassium 3.9 mmoL/L (3.5-5.1); Sodium 140 mmol/L (136-145); Total Protein,Serum 5.6 gm/dL (6.4-8.2)
[2018-02-20 10:45] LABS: Eosinophils % 1 % (0-3); Lymphocytes % 65 % (10-50); Monocytes % 2 % (2-9); Neutrophils % 32 % (42-76); Total Cells Counted 100
[2018-02-20 10:49] LABS: Anisocytosis 1+; Macrocytosis 1+; Platelet Estimate Normal
== END 2018-02-20 11:00 | disposition home or self-care (01) ==
LOC: INF 09:54
PROVIDERS: Visit Provider Internal Medicine Medical Oncology
DX: C91.10 Chronic lymphocytic leukemia of B-cell type not having achieved remission (principal); Z45.2 Encounter for adjustment and management of vascular access device
CPT/HCPCS: 80053; 85007; 85025; J1642

== ENCOUNTER 2018-03-20 10:10 | Outpatient (CLI) | payer MEDICARE, SELFPAY ==
[2018-03-20 10:20] VITALS: BMI 32.4
[2018-03-20 10:36] LABS: Basophils # 0.1 K/mm3 (0-0.2); Basophils % 0.5 % (0.1-2.0); Eosinophils # 0.2 K/mm3 (0.0-0.4); Eosinophils % 0.9 % (0.1-12.0); Hematocrit 36.4 % (42.0-52.0); Hemoglobin 11.5 g/dL (14.1-18.0); Lymphocytes # 10.5 K/mm3 (0.7-4.5); Lymphocytes % 64.2 % (10-50); Mean Corpuscular HGB Conc 31.6 g/dL (31.8-35.4); Mean Corpuscular Hemoglobin 32.1 pg (27.0-31.2); Mean Corpuscular Volume 101.7 fl (80-94); Mean Platelet Volume 8.7 fl (7.4-10.4); Monocytes # 0.6 K/mm3 (0.1-1.0); Monocytes % 3.5 % (1.7-9.3); Neutrophils % 30.9 % (37.0-80.0); Platelet Count 113 K/mm3 (142-424); Red Blood Count 3.58 M/mm3 (4.60-6.20); Red Cell Distribution Width 14.7 % (11.5-17.5); White Blood Count 16.3 K/mm3 (4.8-10.8)
[2018-03-20 10:40] LABS: MANUAL DIFFERENTIAL MANUAL DIFFERENTIAL (MANUAL DIFF)
[2018-03-20 10:47] LABS: Alanine Aminotransferase 18 U/L (12-78); Albumin Level 3.1 gm/dL (3.4-5.0); Albumin/Globulin Ratio 1.1 (1.1-1.8); Alkaline Phosphatase 74 U/L (46-116); Anion Gap 11.9 mEq/L (5-15); Aspartate Amino Transferase 14 U/L (15-37); Bilirubin,Total 0.7 mg/dL (0.2-1.0); Blood Urea Nitrogen 25 mg/dL (7-18); Calcium 7.9 mg/dL (8.5-10.1); Carbon Dioxide 27 mmol/L (21.0-32.0); Chloride 107 mmol/L (98-107); Creatinine Clearance Estimated 91 mL/min (50-200); Creatinine,Serum 0.99 mg/dL (0.70-1.30); Estimated Glomerular Filt Rate 75 ml/min (>60); GFR (African American) 90 ML/MIN (>60); Globulin 2.7 gm/dl (1.3-3.2); Glucose 111 mg/dL (74-106); Potassium 3.9 mmoL/L (3.5-5.1); Sodium 142 mmol/L (136-145); Total Protein,Serum 5.8 gm/dL (6.4-8.2)
[2018-03-20 11:15] LABS: Lymphocytes % 65 % (10-50); Monocytes % 4 % (2-9); Neutrophils % 31 % (42-76); Total Cells Counted 100
[2018-03-20 11:20] LABS: Macrocytosis 1+
[2018-03-20 11:25] LABS: Platelet Estimate Moderate Decrease
== END 2018-03-20 10:35 | disposition home or self-care (01) ==
LOC: INF 10:18
PROVIDERS: Visit Provider Internal Medicine Medical Oncology
DX: Z45.2 Encounter for adjustment and management of vascular access device (principal); C91.10 Chronic lymphocytic leukemia of B-cell type not having achieved remission
CPT/HCPCS: 80053; 85007; 85025; J1642

== ENCOUNTER → 2018-03-24 10:33 | Outpatient (CLI) | payer MEDICARE, SELFPAY ==
[2018-03-24 11:46] LABS: Anion Gap 8.7 mEq/L (5-15); Blood Urea Nitrogen 20 mg/dL (7-18); Calcium 8.4 mg/dL (8.5-10.1); Carbon Dioxide 31 mmol/L (21.0-32.0); Chloride 106 mmol/L (98-107); Creatinine,Serum 1.06 mg/dL (0.70-1.30); Estimated Glomerular Filt Rate 69 ml/min (>60); GFR (African American) 84 ML/MIN (>60); Glucose 102 mg/dL (74-106); Potassium 3.7 mmoL/L (3.5-5.1); Sodium 142 mmol/L (136-145)
== END ==
PROVIDERS: Visit Provider Internal Medicine Cardiovascular Disease
DX: G47.33 Obstructive sleep apnea (adult) (pediatric); I25.10 Atherosclerotic heart disease of native coronary artery without angina pectoris; R00.1 Bradycardia, unspecified; R06.09 Other forms of dyspnea; R60.0 Localized edema; R94.31 Abnormal electrocardiogram [ECG] [EKG]; Z95.5 Presence of coronary angioplasty implant and graft; E78.49 Other hyperlipidemia
CPT/HCPCS: 36415; 80048

== ENCOUNTER 2018-04-24 13:30 | Outpatient (CLI) | payer MEDICARE, SELFPAY ==
[2018-04-24 13:45] VITALS: BMI 29.2
[2018-04-24 14:07] LABS: Basophils # 0.1 K/mm3 (0-0.2); Basophils % 0.6 % (0.1-2.0); Eosinophils # 0.2 K/mm3 (0.0-0.4); Eosinophils % 1.3 % (0.1-12.0); Hematocrit 35.1 % (42.0-52.0); Hemoglobin 11.7 g/dL (14.1-18.0); Lymphocytes # 9.9 K/mm3 (0.7-4.5); Lymphocytes % 68.1 % (10-50); Mean Corpuscular HGB Conc 33.3 g/dL (31.8-35.4); Mean Corpuscular Hemoglobin 32.9 pg (27.0-31.2); Mean Corpuscular Volume 98.7 fl (80-94); Mean Platelet Volume 8.8 fl (7.4-10.4); Monocytes # 0.5 K/mm3 (0.1-1.0); Monocytes % 3.7 % (1.7-9.3); Neutrophils # 3.9 K/mm3 (1.8-7.8); Neutrophils % 26.5 % (37.0-80.0); Platelet Count 118 K/mm3 (142-424); Red Blood Count 3.56 M/mm3 (4.60-6.20); Red Cell Distribution Width 14.5 % (11.5-17.5); White Blood Count 14.6 K/mm3 (4.8-10.8)
[2018-04-24 14:10] LABS: MANUAL DIFFERENTIAL MANUAL DIFFERENTIAL (MANUAL DIFF)
[2018-04-24 14:29] LABS: Eosinophils % 1 % (0-3); Lymphocytes % 68 % (10-50); Monocytes % 2 % (2-9); Neutrophils % 29 % (42-76); Platelet Estimate Normal; RBC Morphology Normal; Total Cells Counted 100
[2018-04-24 14:32] LABS: Alanine Aminotransferase 16 U/L (12-78); Albumin Level 3.1 gm/dL (3.4-5.0); Albumin/Globulin Ratio 1.2 (1.1-1.8); Alkaline Phosphatase 65 U/L (46-116); Anion Gap 9.1 mEq/L (5-15); Aspartate Amino Transferase 15 U/L (15-37); Bilirubin,Total 0.7 mg/dL (0.2-1.0); Blood Urea Nitrogen 25 mg/dL (7-18); Calcium 8.4 mg/dL (8.5-10.1); Carbon Dioxide 28 mmol/L (21.0-32.0); Chloride 106 mmol/L (98-107); Creatinine Clearance Estimated 86 mL/min (50-200); Creatinine,Serum 0.99 mg/dL (0.70-1.30); Estimated Glomerular Filt Rate 75 ml/min (>60); GFR (African American) 90 ML/MIN (>60); Globulin 2.6 gm/dl (1.3-3.2); Glucose 88 mg/dL (74-106); Potassium 4.1 mmoL/L (3.5-5.1); Sodium 139 mmol/L (136-145); Total Protein,Serum 5.7 gm/dL (6.4-8.2)
== END 2018-04-24 14:00 | disposition home or self-care (01) ==
LOC: INF 13:43
PROVIDERS: Visit Provider Internal Medicine Medical Oncology
DX: Z45.2 Encounter for adjustment and management of vascular access device (principal); C91.10 Chronic lymphocytic leukemia of B-cell type not having achieved remission
CPT/HCPCS: 80053; 85007; 85025; J1642

== ENCOUNTER 2018-05-02 09:38 | Outpatient (CLI) | payer MEDICARE, SELFPAY ==
--- NOTE | 2018-05-02 09:41 | CT_ITS ---
CT chest w con HISTORY: ITS.REASON: LEUKEMIA ORDERING PHYSICIAN: Capri Gonzales MD PATIENT AGE: 73 years COMPARISON: 06/17/2012 TECHNIQUE: Axial images obtained following the administration of 75 mL of Optiray 350. Sagittal, and coronal reformatted images are also generated and reviewed. All CT scans at the facility use one or more dose reduction, viz: automated exposure control, ma/kV adjustment per patient size (including targeted exams where dose is matched to indication, i.e. head), or iterative reconstruction technique. FINDINGS: There are scattered small mediastinal and neck for lymph nodes. These are slightly larger than when compared to the previous exam. Coronary artery calcifications are present. The largest axillary node on the right measures approximately 2 x 1.4 cm previously 1.2 x 0.4 cm. The largest mediastinal node is in the right paratracheal area at 1.6 x 1.7 cm previously 1.7 x 1 cm. No evidence of aortic aneurysm or dissection or central pulmonary embolus. There is a small hiatal hernia with mild thickening of the distal esophagus. Mildly enlarged nodes are present posterior to the distal esophagus measuring 2.4 x 2.3 cm previously 1.5 x 1.5 cm. No lobar consolidation or collapse is evident. There are mild atelectatic changes in the left lung base. No effusions or infiltrates. There are degenerative changes in the thoracic spine with slight loss of height at T12 which may be old. IMPRESSION: 1. Mild axillary and mediastinal adenopathy. Mildly enlarged nodes are present also along the distal esophagus posteriorly. The adenopathy is slightly worsened when compared to the previous exam. 2. Coronary artery calcifications.
--- NOTE | 2018-05-02 09:41 | CT_ITS ---
CT abdomen pelvis w con CLINICAL INDICATION: ITS.REASON: LEUKEMIA ORDERING PHYSICIAN: Capri Gonzales MD PATIENT AGE: 73 years COMPARISON: None TECHNIQUE: Axial images obtained with sagittal and coronal reformats. All CT scans at the facility use one or more dose reduction, viz: automated exposure control, ma/kV adjustment per patient size (including targeted exams where dose is matched to indication, i.e. head), or iterative reconstruction technique. PROCEDURE: Oral Contrast: Redicat IV Contrast: 75 mL's Optiray 350 performed in conjunction with the chest CT. FINDINGS: The liver, spleen, adrenal glands, pancreas, and kidneys have an unremarkable appearance. Gallstone is noted. Mesenteric adenopathy is once again noted which is decreased in volume when compared to the previous study. There is dilatation of the infrarenal abdominal aorta at 3 cm. No intestinal obstruction or free air. Colonic diverticulosis. No evidence of diverticulitis. No evidence of appendicitis. Urinary bladder wall is thickened. There is mild dilatation of the left common iliac artery at 2 cm and the left internal iliac artery at 1.7 cm. No acute bony findings. There is a small focal hernia containing fat IMPRESSION: 1. Mesenteric adenopathy. This has improved since 11/12/2017 2. Cholelithiasis. 3. Fusiform dilatation of the abdominal aorta and left common and internal iliac arteries not significant changed
== END 2018-05-02 10:30 | disposition home or self-care (01) ==
LOC: RAD 09:39
PROVIDERS: PCP Emergency Medicine; Visit Provider Internal Medicine Medical Oncology
DX: C91.10 Chronic lymphocytic leukemia of B-cell type not having achieved remission (principal)
CPT/HCPCS: 71260; 74177; J1642; Q9967

== ENCOUNTER 2018-05-22 12:00 | Outpatient (CLI) | payer MEDICARE, SELFPAY ==
[2018-05-22 12:22] VITALS: BMI 32.2
[2018-05-22 12:31] LABS: Basophils # 0.1 K/mm3 (0-0.2); Basophils % 0.6 % (0.1-2.0); Eosinophils # 0.1 K/mm3 (0.0-0.4); Eosinophils % 0.7 % (0.1-12.0); Hematocrit 36.7 % (42.0-52.0); Hemoglobin 12.4 g/dL (14.1-18.0); Lymphocytes # 8.9 K/mm3 (0.7-4.5); Lymphocytes % 68.3 % (10-50); Mean Corpuscular HGB Conc 33.6 g/dL (31.8-35.4); Mean Corpuscular Hemoglobin 33.4 pg (27.0-31.2); Mean Corpuscular Volume 99.2 fl (80-94); Mean Platelet Volume 9.6 fl (7.4-10.4); Monocytes # 0.4 K/mm3 (0.1-1.0); Monocytes % 2.9 % (1.7-9.3); Neutrophils # 3.6 K/mm3 (1.8-7.8); Neutrophils % 27.3 % (37.0-80.0); Platelet Count 101 K/mm3 (142-424); Red Cell Distribution Width 14.3 % (11.5-17.5)
[2018-05-22 12:35] LABS: MANUAL DIFFERENTIAL MANUAL DIFFERENTIAL (MANUAL DIFF)
[2018-05-22 12:49] LABS: Lymphocytes % 70 % (10-50); Monocytes % 2 % (2-9); Neutrophils % 28 % (42-76); Platelet Estimate Normal; RBC Morphology Normal; Total Cells Counted 100
[2018-05-22 12:51] LABS: Alanine Aminotransferase 20 U/L (12-78); Albumin Level 3.4 gm/dL (3.4-5.0); Albumin/Globulin Ratio 1.2 (1.1-1.8); Alkaline Phosphatase 68 U/L (46-116); Anion Gap 11.9 mEq/L (5-15); Aspartate Amino Transferase 26 U/L (15-37); Bilirubin,Total 1.3 mg/dL (0.2-1.0); Blood Urea Nitrogen 25 mg/dL (7-18); Calcium 8.6 mg/dL (8.5-10.1); Carbon Dioxide 29 mmol/L (21.0-32.0); Chloride 104 mmol/L (98-107); Creatinine Clearance Estimated 87 mL/min (50-200); Creatinine,Serum 1.03 mg/dL (0.70-1.30); Estimated Glomerular Filt Rate 71 ml/min (>60); GFR (African American) 86 ML/MIN (>60); Globulin 2.8 gm/dl (1.3-3.2); Glucose 91 mg/dL (74-106); Potassium 3.9 mmoL/L (3.5-5.1); Sodium 141 mmol/L (136-145); Total Protein,Serum 6.2 gm/dL (6.4-8.2)
== END 2018-05-22 13:26 | disposition home or self-care (01) ==
LOC: INF 13:27
PROVIDERS: Visit Provider Internal Medicine Medical Oncology
DX: Z45.2 Encounter for adjustment and management of vascular access device (principal); C91.10 Chronic lymphocytic leukemia of B-cell type not having achieved remission
CPT/HCPCS: 80053; 85007; 85025; J1642

== ENCOUNTER 2018-06-16 10:04 | Outpatient (CLI) | payer MEDICARE, SELFPAY | END 2018-06-16 10:30 | disposition home or self-care (01) | LOC: INF 10:04 | PROVIDERS: Visit Provider Internal Medicine Medical Oncology | DX: Z45.2 Encounter for adjustment and management of vascular access device (principal); C91.90 Lymphoid leukemia, unspecified not having achieved remission | CPT/HCPCS: 96523; J1642 ==

== ENCOUNTER → 2018-07-07 08:42 | Outpatient (CLI) | payer MEDICARE, SELFPAY | PROVIDERS: PCP Emergency Medicine; Visit Provider Internal Medicine Cardiovascular Disease | DX: R06.02 Shortness of breath (principal) | CPT/HCPCS: 93225; 93226 ==

== ENCOUNTER 2018-07-10 10:15 | Outpatient (CLI) | payer MEDICARE, SELFPAY ==
[2018-07-10 10:20] VITALS: BMI 31.3
[2018-07-10 10:40] LABS: Basophils # 0.1 K/mm3 (0-0.2); Basophils % 0.4 % (0.1-2.0); Eosinophils # 0.1 K/mm3 (0.0-0.4); Eosinophils % 0.7 % (0.1-12.0); Hematocrit 35.5 % (42.0-52.0); Hemoglobin 11.8 g/dL (14.1-18.0); Lymphocytes # 8.3 K/mm3 (0.7-4.5); Lymphocytes % 61.8 % (10-50); Mean Corpuscular HGB Conc 33.1 g/dL (31.8-35.4); Mean Corpuscular Hemoglobin 32.2 pg (27.0-31.2); Mean Corpuscular Volume 97.3 fl (80-94); Mean Platelet Volume 8.9 fl (7.4-10.4); Monocytes # 0.4 K/mm3 (0.1-1.0); Monocytes % 2.7 % (1.7-9.3); Neutrophils # 4.6 K/mm3 (1.8-7.8); Neutrophils % 34.3 % (37.0-80.0); Platelet Count 134 K/mm3 (142-424); Red Blood Count 3.65 M/mm3 (4.60-6.20); Red Cell Distribution Width 14.7 % (11.5-17.5); White Blood Count 13.4 K/mm3 (4.8-10.8)
[2018-07-10 10:41] LABS: MANUAL DIFFERENTIAL MANUAL DIFFERENTIAL (MANUAL DIFF)
[2018-07-10 10:52] LABS: Alanine Aminotransferase 23 U/L (12-78); Albumin Level 3.4 gm/dL (3.4-5.0); Albumin/Globulin Ratio 1.2 (1.1-1.8); Alkaline Phosphatase 66 U/L (46-116); Anion Gap 11.6 mEq/L (5-15); Aspartate Amino Transferase 11 U/L (15-37); Bilirubin,Total 1.4 mg/dL (0.2-1.0); Blood Urea Nitrogen 21 mg/dL (7-18); Calcium 8.4 mg/dL (8.5-10.1); Carbon Dioxide 28 mmol/L (21.0-32.0); Chloride 104 mmol/L (98-107); Creatinine Clearance Estimated 90 mL/min (50-200); Creatinine,Serum 0.79 mg/dL (0.70-1.30); Estimated Glomerular Filt Rate 97 ml/min (>60); GFR (African American) 117 ML/MIN (>60); Globulin 2.8 gm/dl (1.3-3.2); Glucose 86 mg/dL (74-106); Potassium 3.6 mmoL/L (3.5-5.1); Sodium 140 mmol/L (136-145); Total Protein,Serum 6.2 gm/dL (6.4-8.2)
[2018-07-10 11:36] LABS: Eosinophils % 2 % (0-3); Lymphocytes % 63 % (10-50); Monocytes % 3 % (2-9); Neutrophils % 32 % (42-76); Total Cells Counted 100
[2018-07-10 11:37] LABS: Platelet Estimate Slight Decrease; RBC Morphology Normal
== END 2018-07-10 11:05 | disposition home or self-care (01) ==
LOC: INF 10:18
PROVIDERS: Visit Provider Internal Medicine Medical Oncology
DX: Z45.2 Encounter for adjustment and management of vascular access device (principal); C91.10 Chronic lymphocytic leukemia of B-cell type not having achieved remission
CPT/HCPCS: 80053; 85007; 85025; J1642

== ENCOUNTER → 2018-07-15 15:00 | Outpatient (CLI) | payer MEDICARE, SELFPAY ==
--- NOTE | 2018-07-15 15:03 | NVE_ITS ---
Venous Exam Indications: 729.5 Pain in limb. IMPRESSIONS 1. There is no evidence of significant Reflux. 2. No evidence of deep or superficial vein thrombosis involving the left lower extremity Left lower extremity venous duplex evaluation. Doppler flow study including spectral analysis, color and shankar scale imaging. Location: Vascular laboratory. Patient status: Outpatient. CRITICAL FINDINGS - Reported to: MONA - Read back and verified. - 07/15/18 - 1530 - NONE Tables: Venous flow and imaging: + +-------+ + Location Overall Flow properties + +-------+ + Left common femoral Patent Normal phasicity; spontaneous; normal augmentation; compressible + +-------+ + Left saphenofemoral junction Patent Compressible + +-------+ + Left profunda femoral Patent Compressible + +-------+ + Left femoral Patent Normal phasicity; spontaneous; normal augmentation; compressible + +-------+ + Left greater saphenous Patent Normal phasicity; spontaneous; normal augmentation; compressible + +-------+ + Left popliteal Patent Normal phasicity; spontaneous; normal augmentation; compressible + +-------+ + Left posterior tibial Patent Compressible + +-------+ + Left peroneal Patent Compressible + +-------+ + Left gastrocnemius Patent Compressible + +-------+ + Left soleal Patent Compressible + +-------+ + (Report amended ) Electronically signed by: Jose Giron [id number]
== END ==
PROVIDERS: PCP Family Medicine; Visit Provider Family Medicine
DX: M79.605 Pain in left leg (principal)
CPT/HCPCS: 93971

== ENCOUNTER 2018-07-31 12:00 | Outpatient (CLI) | payer MEDICARE, SELFPAY ==
[2018-07-31 12:07] VITALS: BMI 31.1
[2018-07-31 12:31] LABS: Basophils # 0.1 K/mm3 (0-0.2); Basophils % 0.4 % (0.1-2.0); Eosinophils # 0.1 K/mm3 (0.0-0.4); Eosinophils % 0.6 % (0.1-12.0); Hematocrit 34.2 % (42.0-52.0); Hemoglobin 11.7 g/dL (14.1-18.0); Lymphocytes # 6.9 K/mm3 (0.7-4.5); Lymphocytes % 52.5 % (10-50); MANUAL DIFFERENTIAL MANUAL DIFFERENTIAL (MANUAL DIFF); Mean Corpuscular HGB Conc 34.1 g/dL (31.8-35.4); Mean Corpuscular Hemoglobin 33.4 pg (27.0-31.2); Mean Corpuscular Volume 98.1 fl (80-94); Mean Platelet Volume 9.3 fl (7.4-10.4); Monocytes # 0.5 K/mm3 (0.1-1.0); Monocytes % 3.6 % (1.7-9.3); Neutrophils # 5.6 K/mm3 (1.8-7.8); Neutrophils % 42.9 % (37.0-80.0); Platelet Count 119 K/mm3 (142-424); Red Blood Count 3.49 M/mm3 (4.60-6.20); Red Cell Distribution Width 14.6 % (11.5-17.5); White Blood Count 13.1 K/mm3 (4.8-10.8)
[2018-07-31 12:43] LABS: Alanine Aminotransferase 20 U/L (12-78); Albumin Level 3.1 gm/dL (3.4-5.0); Albumin/Globulin Ratio 1.2 (1.1-1.8); Alkaline Phosphatase 64 U/L (46-116); Anion Gap 12.6 mEq/L (5-15); Aspartate Amino Transferase 10 U/L (15-37); Blood Urea Nitrogen 25 mg/dL (7-18); Carbon Dioxide 27 mmol/L (21.0-32.0); Chloride 105 mmol/L (98-107); Creatinine Clearance Estimated 89 mL/min (50-200); Creatinine,Serum 0.85 mg/dL (0.70-1.30); Estimated Glomerular Filt Rate 89 ml/min (>60); GFR (African American) 108 ML/MIN (>60); Globulin 2.5 gm/dl (1.3-3.2); Glucose 116 mg/dL (74-106); Potassium 3.6 mmoL/L (3.5-5.1); Sodium 141 mmol/L (136-145); Total Protein,Serum 5.6 gm/dL (6.4-8.2)
[2018-07-31 12:55] LABS: Eosinophils % 1 % (0-3); Lymphocytes % 52 % (10-50); Monocytes % 3 % (2-9); Neutrophils % 44 % (42-76); Platelet Estimate Moderate Decrease; Total Cells Counted 100
== END 2018-07-31 12:20 | disposition home or self-care (01) ==
LOC: INF 12:05
PROVIDERS: Visit Provider Internal Medicine Medical Oncology
DX: C91.10 Chronic lymphocytic leukemia of B-cell type not having achieved remission (principal)
CPT/HCPCS: 80053; 85007; 85025; J1642

== ENCOUNTER 2018-10-19 15:57 | Observation (INO) ==
[2018-10-19 16:25] LABS: Basophils % 0.4 % (0.1-2.0); Eosinophils # 0.1 K/mm3 (0.0-0.4); Eosinophils % 0.8 % (0.1-12.0); Hematocrit 27.1 % (42.0-52.0); Lymphocytes # 4.8 K/mm3 (0.7-4.5); Lymphocytes % 41.5 % (10-50); Mean Corpuscular HGB Conc 33.1 g/dL (31.8-35.4); Mean Corpuscular Volume 100.7 fl (80-94); Mean Platelet Volume 10.1 fl (7.4-10.4); Monocytes # 0.5 K/mm3 (0.1-1.0); Monocytes % 4.6 % (1.7-9.3); Neutrophils # 6.1 K/mm3 (1.8-7.8); Neutrophils % 52.8 % (37.0-80.0); Platelet Count 117 K/mm3 (142-424); Red Blood Count 2.69 M/mm3 (4.60-6.20); Red Cell Distribution Width 14.3 % (11.5-17.5); White Blood Count 11.6 K/mm3 (4.8-10.8)
[2018-10-19 16:37] LABS: INR 1.32 (0.9-1.1); Prothrombin Time 13.5 seconds (9.4-11.8)
[2018-10-19 16:39] LABS: Activated Partial Thrombo Time 42.7 seconds (23.6-34.0)
[2018-10-19 16:40] LABS: Albumin/Globulin Ratio 1.3 (1.1-1.8); Anion Gap 10.5 mEq/L (5-15); Bilirubin,Total 2.8 mg/dL (0.2-1.0); Calcium 8.1 mg/dL (8.5-10.1); Globulin 2.4 gm/dl (1.3-3.2); Total Protein,Serum 5.4 gm/dL (6.4-8.2)
--- NOTE | 2018-10-19 17:21 | Emergency Department Note ---
ED Disposition Clinical Impression: DVT (deep venous thrombosis), Edema, Stented coronary artery Disposition: Admitted As Inpatient Condition on Discharge: Fair Referrals: Harleen Barrientos MD [Primary Care Provider] - Time of Disposition: 17:28 - Critical Care Critical Care Time: No Attestation: On 10/19/18, the high probability of a clinically significant, sudden or life threatening deterioration of the following system(s) required my full and direct attention, intervention and personal management. The time I documented below is in addition to time spent performing reported procedures but includes the following listed in this critical care notation. Medical Decision Making - Medical Records Medical records reviewed: Yes: I reviewed the patient's medical records. - Shemar Inquiry Pt receiving controlled substance: No Vital Signs: 10/19/18 16:01 Temperature 98.5 F Temperature Source Oral Pulse Rate [Right Brachial] 60 Respiratory Rate 22 Blood Pressure [Right Arm] 90/40 L Blood Pressure Mean [Right Arm] 56 Blood Pressure Source [Right Arm] Automatic Cuff Blood Pressure Position [Right Arm] Sitting 02 Sat by Pulse Oximetry 95 Oxygen Delivery Method Room Air - Lab Data Lab results reviewed: Yes: I reviewed the patient's lab results. Lab Results 10/19/18 16:15: WBC 11.6 H, RBC 2.69 L, Hgb 9.0 L, Hct 27.1 L, MCV 100.7 H, MCH 33.4 H, MCHC 33.1, RDW 14.3, Plt Count 117 L, MPV 10.1, Neut % (Auto) 52.8, Lymph % (Auto) 41.5, [place] % (Auto) 4.6, Eos % (Auto) 0.8, Baso % (Auto) 0.4, Neut # (Auto) 6.1, Lymph # (Auto) 4.8 H, [place] # (Auto) 0.5, Eos # (Auto) 0.1, Ba so # (Auto) 0.0 10/19/18 16:15: PT 13.5 H, INR 1.32 H, APTT 42.7 H 10/19/18 16:15: Sodium 142, Potassium 3.5, Chloride 108 H, Carbon Dioxide 27, Anion Gap 10.5, BUN 41 H, Creatinine 1.17, Estimated Creat Clear 67, Estimated GFR 61, Est GFR ( Amer) 74, Glucose 88, Calcium 8.1 L, Total Bilirubin 2.8 H, AST 23, ALT 16, Alkaline Phosphatase 56, Total Protein 5.4 L, Albumin 3.0 L, Globulin 2.4, Albumin/Globulin Ratio 1.3 10/19/18 16:15: B-Natriuretic Peptide 8 Result diagrams: 10/19/18 16:15 10/19/18 16:15 Orders (Tests/Meds): ED MEDICATIONS Generic Name Dose Route Start Last Admin Trade Name Merline PRN Reason Stop Dose Admin Sodium Chloride 500 mls @ 500 mls/hr 10/19/18 16:34 10/19/18 16:35 Sod Chlor 0.9% 500ml Bag IV 10/19/18 17:33 500 mls/hr .Q1H LYNDSAY Administration General Adult HPI - General Chief complaint: Weakness Stated complaint: blood clot in r leg bruises Time Seen by Provider: 10/19/18 17:20 Mode of Arrival: Family Vehicle Limitations: No Limitations Description of Symptoms (Recalled from ER Triage Doc. by RN): blood clot diagnosed earlier. blurred vision, bruising, sent to be evaluated per his pcp, difficulty with hands swelling, legs swelling; has a history of cancer, cardiac issues - History of Present Illness HPI narrative: This patient is a 73-year-old male who has had bladder cancer and surgery for that. The patient is also had 2 stents placed in his heart. The patient now has swollen lower legs. The patient was seen and had ultrasound of his right leg approximately a week ago and still has problems with that. His report by the patient shows a yellow thrombosis. The patient now has tenderness around his vascular tree up to his mid thigh. Patient did not have this amount of tenderness in the past and has just begun to have this in the last day. Has swelling in both legs to 4+. Brawny edema is also put present. Cellulitis seems to be playing a part as well. Onset (ago): day(s) Location: left, right, lower extremity Radiation: non-radiation Severity: severe Quality: aching Consistency: constant Relieving factors: immobilization Exacerbating factors: movement Treatments prior to arrival: none - Related Data Home Medications Medication Instructions Recorded Confirmed nitroglycerin 0.4 mg sublingual 0.4 mg SUBLINGUAL Q5M PRN 03/12/17 07/31/18 tablet Ascorbic Acid [Vitamin C] 500 mg PO DAILY 04/03/17 07/31/18 Cholecalciferol (Vitamin D3) 1,000 unit PO DAILY 04/03/17 07/31/18 [Vitamin D3 1,000 Unit Cap] Multivit-Min/FA/Lycopen/Lutein 1 each PO DAILY 04/03/17 07/31/18 [Centrum Silver Men Tablet] ibrutinib 420 mg tablet 420 mg PO DAILY tab 07/26/17 07/31/18 Tamsulosin HCl [Flomax 0.4mg 0.4 mg PO HS 11/22/17 07/31/18 capsule] finasteride 5 mg tablet 5 mg PO DAILY 12/12/17 07/31/18 aspirin 81 mg tablet,delayed 81 mg PO DAILY 02/13/18 07/31/18 release clopidogrel 75 mg tablet 75 mg PO DAILY 02/13/18 07/31/18 oxybutynin chloride ER 10 mg 10 mg PO DAILY 03/20/18 07/31/18 tablet,extended release 24 hr Potassium Chloride [Pot Chlor 8 80 meq PO DAILY 06/16/18 07/31/18 mEq Cap] Previous Rx's Medication Instructions Recorded atorvastatin 40 mg tablet 40 mg PO QDAY #90 tab 01/08/18 pantoprazole 40 mg tablet,delayed 40 mg PO QAM #90 tab 01/08/18 release losartan 100 1 tab PO DAILY #90 tab 07/14/18 mg-hydrochlorothiazide 25 mg tablet Rivaroxaban [Xarelto 15mg tablet] 15 mg PO BID 30 Days #60 tab 10/09/18 Allergies Allergy/AdvReac Type Severity Reaction Status Date / Time levofloxacin [From Levaquin] Allergy Unknown Verified 07/31/18 12:42 [facility] History - Hepatitis A Screen Drug use history?: No High risk sexual behaviors?: No History of sexually transmitted infection?: No Currently employed?: No Childcare worker?: No Do you have indoor plumbing?: Yes Do you have electricity?: Yes Attestation statement:: This patient has been screened for Hepatitis A risk factors. I have reviewed the patient's past medical history: Yes Medical History: Reports:: Atrial Fibrillation, Cancer, Coronary Artery Disease, Hyperlipidemia, Hypertension, Myocardial Infarction Denies:: Diabetes Mellitus Type 1, Diabetes Mellitus Type 2, Internal Pac emaker, Lung Disease, MRSA, Seizures Other Medical History: Reports: Other. Denies: Blood Transfusion Reaction Comment: Afib Other Surgeries: Yes: No Previous Surgery, Cardiac Catheterization, Coronary Stent, Other. No: Pacemaker Amputation: No Fractures: No Comment: Port - Social History Smoking Status: Never smoker Alcohol Intake: never Alcohol Intake Frequency:: other Substance Use Type: denies use Occupational Status: employed Housing: house Household Members: significant other Family Hx:: No significant family history ROS Obtained: Yes All systems reviewed & no additional complaints - Constitutional Constitutional: Reports system reviewed and no additional complaints, except as docu - Eyes Eyes: Reports system reviewed and no additional complaints, except as docu - ENT Ears, Nose, Mouth, and Throat: Reports system reviewed and no additional complaints, except as docu - Cardiovascular Cardiovascular: Reports system reviewed and no additional complaints, except as docu - Respiratory Respiratory: Yes system reviewed and no additional complaints, except as docu - Gastrointestinal Gastrointestingal: Reports: system reviewed and no additional complaints, except as docu - Genitourinary Male Genitourinary: Reports system reviewed and no additional complaints, except as docu - Musculoskeletal Musculoskeletal: Reports joint stiffness - Neurologic Neurologic: Reports system reviewed and no additional complaints, except as docu Physical Exam - General General appearance: alert, in no apparent distress - Chest Chest inspection: Present: normal inspection, symmetric chest wall rise. Absent: tenderness - Respiratory Respiratory exam: Present: normal lung sounds bilaterally. Absent: respiratory distress - Cardiovascular Cardiovascular exam: Present: regular rate, normal rhythm. Absent: JVD - Abdominal Exam Abdominal exam: Present: soft, normal bowel sounds. Absent: distention, tenderness, guarding - Expanded Lower Extremity Exam Right Upper leg exam: Present: tenderness Knee exam: Present: tenderness, swelling Lower leg exam: Present: tenderness, swelling Ankle exam: Present: tenderness, swelling Foot/toe exam: Present: tenderness, swelling - Neurological Exam Neurological exam: Present: alert, oriented X3, CN II-XII intact Procedures - Risk/Benefits of Procedure(s) Were Explained: Yes
[2018-10-19 23:52] LABS: ABG Base Excess -2.1 mmol/L (-2.4-2.3); ABG HCO3 21.6 mmhg (22.0-26.0); ABG Oxygen Saturation 94 % (90-100); ABG PCO2 30.9 mmhg (35.0-45.0); ABG PH 7.46 mmol/L (7.35-7.45); ABG PO2 74.6 mmhg (80-100); ABG TCO2 22.6 mmhg (23-27); Allen's Test Y; Oxygen 2 %
--- NOTE | 2018-10-20 07:28 | Pharmacy Consult Notes ---
[facility] Pharmacy VTE Monitoring - Patient Demographics Admission date: 10/19/18 Report Date: 10/20/18 Time: 07:28 Allergies/Adverse Reactions: Patient Allergies levofloxacin [From Levaquin] Allergy (Unknown, Verified 07/31/18 12:42) Height: 1.7 m Weight: 97.664 kg Patient Problems: Current Active Problems DVT (deep venous thrombosis) (Acute) Edema (Acute) Stented coronary artery (Chronic) - VTE Risk Labs: VTE Related Lab Results Hgb 9.0 g/dL (14.1-18.0) L 10/19/18 16:15 Hct 27.1 % (42.0-52.0) L 10/19/18 16:15 Plt Count 117 K/mm3 (142-424) L 10/19/18 16:15 PT 13.5 seconds (9.4-11.8) H 10/19/18 16:15 INR 1.32 (0.9-1.1) H 10/19/18 16:15 APTT 42.7 seconds (23.6-34.0) H 10/19/18 16:15 BUN 41 mg/dL (7-18) H 10/19/18 16:15 Creatinine 1.17 mg/dL (0.70-1.30) 10/19/18 16:15 Estimated Creat Clear 67 mL/min (50-200) 10/19/18 16:15 VTE Score: 3 VTE Risk Level: Low Risk - Prophylaxis VTE Prophylaxis Ordered?: Yes Types of VTE Prophylaxis: Pharmacological Pharmacologic Type: Enoxaparin - VTE Diagnosis Confirmed Treatment or plan recommended: Continue Current Treatment
--- NOTE | 2018-10-20 07:36 | Non-Invasive Vascular Report ---
"Venous Exam Indications: 729.5 Pain in limb. 782.3 Edema. IMPRESSIONS 1. There is no evidence of significant reflux. 2. No evidence of deep or superficial vein thrombosis involving the veins of the left upper extremity 3. Pt has thickened joiner of theCephalic vein consistent with an old, chronicSVT. History: Left upper extremity pain. Swelling in the left upper extremity. PMH: Deep vein thrombosis. LLE DVT 10/09/18. Xarelto since then. Risk factors: Former tobacco use. Left upper extremity venous duplex. Doppler flow study including spectral analysis, color and shankar scale imaging. Location: Vascular laboratory. Patient status: Inpatient. Tables: Venous flow and imaging: + +-------+ + |Location |Overall|Flow properties | + +-------+ + |Left internal jugular|Patent |Normal phasicity; spontaneous; | | | |compressible | + +-------+ + |Left subclavian |Patent |Normal phasicity; spontaneous; normal | | | |augmentation; compressible | + +-------+ + |Left axillary |Patent |Normal phasicity; spontaneous; normal | | | |augmentation; compressible | + +-------+ + |Left brachial |Patent |Normal phasicity; spontaneous; normal | | | |augmentation; compressible | + +-------+ + |Left cephalic |Patent |Diminished phasicity; diminished | | | |spontaneity; normal augmentation ; | | | |compressible | + +-------+ + |Left basilic |Patent |Normal phasicity; spontaneous; normal | | | |augmentation; compressible | + +-------+ + |Left radial |Patent |Compressible | + +-------+ + |Left ulnar |Patent |Compressible | + +-------+ + Electronically signed by: Lita Whitley [id number]"
--- NOTE | 2018-10-20 07:57 | Non-Invasive Vascular Report ---
"Venous Exam Indications: 729.5 Pain in limb. IMPRESSIONS 1. There is no evidence of significant Reflux. 2. No evidence of acute deep or superficial vein thrombosis involving the left lower extremity 3. Appears to be 1 small area within the gastrocnemius,of chronic old thrombus. Vessel compresses around this section. Left lower extremity venous duplex evaluation. Doppler flow study including spectral analysis, color and shankar scale imaging. Location: Vascular laboratory. Patient status: Inpatient. Incidental findings: A conspicuous lymph is noted incidentally on the left. Tables: Venous flow and imaging: + + + + + |Location |Overall |Flow properties |Comments | + + + + + |Left common femoral|Patent |Normal phasicity; | | | | |spontaneous; | | | | |normal | | | | |augmentation; | | | | |compressible | | + + + + + |Left saphenofemoral|Patent |Compressible | | |junction | | | | + + + + + |Left profunda |Patent |Compressible | | |femoral | | | | + + + + + |Left femoral |Patent |Normal phasicity; | | | | |spontaneous; | | | | |normal | | | | |augmentation; | | | | |compressible | | + + + + + |Left greater |Patent |Normal phasicity; | | |saphenous | |spontaneous; | | | | |normal | | | | |augmentation; | | | | |compressible | | + + + + + |Left popliteal |Patent |Normal phasicity; | | | | |spontaneous; | | | | |normal | | | | |augmentation; | | | | |compressible | | + + + + + |Left posterior |Patent |Compressible |Small portion of| |tibial | | |vein visualized.| + + + + + |Left peroneal |Not visualized | | | + + + + + |Left gastrocnemius |Partially |Partially |Appears to have | | |occluded |compressible |old chronic DVT,| | | | |compresses | | | | |around chronic | | | | |area. | + + + + + |Left soleal |Not visualized | | | + + + + + (Report amended ) Electronically signed by: Jose Giron [id number]"
--- NOTE | 2018-10-20 08:04 | Consult Report ---
*Admission Date: 10/19/18 *Reason for consult:: "Check port site" *History of present illness: Patient had right venous access port placed by Dr. Hagan in 2010. Apparently this is no longer being utilized for chemotherapy. He does have some tenderness when it is accessed for flushing. Review of Systems - Review of Systems Review of systems:: other [facility] History Medical History: Reports:: Atrial Fibrillation, Cancer, Coronary Artery Disease, Hyperlipidemia, Hypertension, Myocardial Infarction Denies:: Diabetes Mellitus Type 1, Diabetes Mellitus Type 2, Internal Pacemaker, Lung Disease, MRSA, Seizures *Have you ever received a pneumonia vaccine?: No *Have you received a flu vaccine this season?: No Other Medical History: Reports: Other. Denies: Blood Transfusion Reaction Other Surgeries: Yes: No Previous Surgery, Cardiac Catheterization, Coronary Stent, Other. No: Pacemaker Amputation: No Fractures: No - *Social History Educational Level: Completed High School Smoking Status: Never smoker Alcohol Intake: never Alcohol Intake Frequency:: other Substance Use Type: denies use *Occupational Status:: employed Housing: house Household Members: spouse *Travel in the last 8 weeks: None - Psychiatric History Expresses thoughts of harming self/others: None Suicide Plan Description: No Plan Family Hx:: No significant family history Meds Home Medications Medication Instructions Recorded Confirmed Type nitroglycerin 0.4 mg sublingual 0.4 mg SUBLINGUAL Q5M PRN 03/12/17 07/31/18 History tablet Ascorbic Acid [Vitamin C] 500 mg PO DAILY 04/03/17 07/31/18 History Cholecalciferol (Vitamin D3) 1,000 unit PO DAILY 04/03/17 07/31/18 History [Vitamin D3 1,000 Unit Cap] Multivit-Min/FA/Lycopen/Lutein 1 each PO DAILY 04/03/17 07/31/18 History [Centrum Silver Men Tablet] ibrutinib 420 mg tablet 420 mg PO DAILY tab 07/26/17 07/31/18 History Tamsulosin HCl [Flomax 0.4mg 0.4 mg PO HS 11/22/17 07/31/18 History capsule] finasteride 5 mg tablet 5 mg PO DAILY 12/12/17 07/31/18 History atorvastatin 40 mg tablet 40 mg PO QDAY #90 tab 01/08/18 07/31/18 Rx pantoprazole 40 mg tablet,delayed 40 mg PO QAM #90 tab 01/08/18 07/31/18 Rx release aspirin 81 mg tablet,delayed 81 mg PO DAILY 02/13/18 07/31/18 History release clopidogrel 75 mg tablet 75 mg PO DAILY 02/13/18 07/31/18 History oxybutynin chloride ER 10 mg 10 mg PO DAILY 03/20/18 07/31/18 History tablet,extended release 24 hr Potassium Chloride [Pot Chlor 8 80 meq PO DAILY 06/16/18 07/31/18 History mEq Cap] losartan 100 1 tab PO DAILY #90 tab 07/14/18 07/31/18 Rx mg-hydrochlorothiazide 25 mg tablet Rivaroxaban [Xarelto 15mg tablet] 15 mg PO BID 30 Days #60 tab 10/09/18 Rx Allergies Allergy/AdvReac Type Severity Reaction Status Date / Time levofloxacin [From Levaquin] Allergy Unknown Verified 07/31/18 12:42 Exam Vital signs and Labs for Last 24 Hours: Temp Pulse Resp BP Pulse Ox 98.6 F 61 18 103/52 L 100 10/20/18 07:51 10/20/18 07:51 10/20/18 07:51 10/20/18 07:51 10/20/18 07:51 Laboratory Results - last 24 hr 10/19/18 16:15: WBC 11.6 H, RBC 2.69 L, Hgb 9.0 L, Hct 27.1 L, MCV 100.7 H, MCH 33.4 H, MCHC 33.1, RDW 14.3, Plt Count 117 L, MPV 10.1, Neut % (Auto) 52.8, Lymph % (Auto) 41.5, [place] % (Auto) 4.6, Eos % (Auto) 0.8, Baso % (Auto) 0.4, Neut # (Auto) 6.1, Lymph # (Auto) 4.8 H, [place] # (Auto) 0.5, Eos # (Auto) 0.1, Baso # (Auto) 0.0 10/19/18 16:15: PT 13.5 H, INR 1.32 H, APTT 42.7 H 10/19/18 16:15: Sodium 142, Potassium 3.5, Chloride 108 H, Carbon Dioxide 27, Anion Gap 10.5, BUN 41 H, Creatinine 1.17, Estimated Creat Clear 67, Estimated GFR 61, Est GFR ( Amer) 74, Glucose 88, Calcium 8.1 L, Total Bilirubin 2.8 H, AST 23, ALT 16, Alkaline Phosphatase 56, Total Protein 5.4 L, Albumin 3.0 L, Globulin 2.4, Albumin/Globulin Ratio 1.3 10/19/18 16:15: B-Natriuretic Peptide 8 10/19/18 19:52: POC Glucose 103 10/19/18 23:41: POC Glucose 103 10/19/18 23:45: Troponin I 0.07 H 10/19/18 23:51: Specimen Source R/r, O2 % 2, ABG pH 7.46 H, ABG pCO2 30.9 L, ABG pO2 74.6 L, ABG HCO3 21.6 L, ABG Total CO2 22.6 L, ABG O2 Saturation 94, ABG Base Excess -2.1, Jose Test Y 10/20/18 05:41: POC Glucose 129 H I & O for Last 24 hours: Intake & Output 10/17/18 10/18/18 10/19/18 10/20/18 11:59 11:59 11:59 11:59 Intake Total 664 / 664 Output Total 650 / 650 Balance Weight 215 lb 5 oz - Routine Chest/Breast/Axilla Exam Comments: Port site is clean and intact. No abnormalities. Results - Labs 10/19/18 16:15 10/19/18 16:15 Laboratory Results - last 24 hr 10/19/18 16:15: WBC 11.6 H, RBC 2.69 L, Hgb 9.0 L, Hct 27.1 L, MCV 100.7 H, MCH 33.4 H, MCHC 33.1, RDW 14.3, Plt Count 117 L, MPV 10.1, Neut % (Auto) 52.8, Lymph % (Auto) 41.5, [place] % (Auto) 4.6, Eos % (Auto) 0.8, Baso % (Auto) 0.4, Neut # (Auto) 6.1, Lymph # (Auto) 4.8 H, [place] # (Auto) 0.5, Eos # (Auto) 0.1, Baso # (Auto) 0.0 10/19/18 16:15: PT 13.5 H, INR 1.32 H, APTT 42.7 H 10/19/18 16:15: Sodium 142, Potassium 3.5, Chloride 108 H, Carbon Dioxide 27, Anion Gap 10.5, BUN 41 H, Creatinine 1.17, Estimated Creat Clear 67, Estimated GFR 61, Est GFR ( Amer) 74, Glucose 88, Calcium 8.1 L, Total Bilirubin 2.8 H, AST 23, ALT 16, Alkaline Phosphatase 56, Total Protein 5.4 L, Albumin 3.0 L, Globulin 2.4, Albumin/Globulin Ratio 1.3 10/19/18 16:15: B-Natriuretic Peptide 8 10/19/18 19:52: POC Glucose 103 10/19/18 23:41: POC Glucose 103 10/19/18 23:45: Troponin I 0.07 H 10/19/18 23:51: Specimen Source R/r, O2 % 2, ABG pH 7.46 H, ABG pCO2 30.9 L, ABG pO2 74.6 L, ABG HCO3 21.6 L, ABG Total CO2 22.6 L, ABG O2 Saturation 94, ABG Base Excess -2.1, Jose Test Y 10/20/18 05:41: POC Glucose 129 H Assessment and Plan - Assessment and plan all Dx Assessment and Plan for all problems:: New port site abnormalities. If port is problematic and no longer necessary it may be removed in the future but I would advocate doing so when patient is not anticoagulated as there are no indications for immediate removal.
--- NOTE | 2018-10-20 09:18 | History & Physical Report ---
*Admission Date: 10/19/18 *Chief complaint: Edema and pain in left lower extremity. *History of present illness: Mr. Anne is a 73-year-old male with a history of atrial fibrillation, coronary artery disease status post angioplasty with stent., Hyperlipidemia, hypertension, OR, GERD, BPH, peripheral vascular disease, sleep apnea and CLL diagnosed in 2015 currently on oral chemotherapy who presented to [facility] emergency room after having increased pain and edema in his left lower extremity. He states he was also worried about swelling and pain in the left arm. Patient also was complaining of pain in his right shoulder area and around the site of his Port-A-Cath. He does have a history of DVT recently diagnosed and placed on Xarelto. He has noticed increased bruising on his legs and arms. He does has discontinued the Xarelto on his own. He is also on aspirin and Plavix for his stent. Evaluation in the emergency room included CT of the head and the chest which were negative. He did have venous Doppler studies done of the left arm and left leg with negative preliminary reports. This a.m. patient has some discomfort in his midsternal chest area. He states this started after being placed on CPAP at a higher pressure than what he is used to. It does hurt to take a deep breath. He does denies shortness of breath. He is trying to eat his breakfast. He notes all the bruising on his left arm and legs. [facility] History Medical History: Reports:: Atrial Fibrillation, Cancer, Coronary Artery Disease, Hyperlipidemia, Hypertension, Myocardial Infarction Denies:: Diabetes Mellitus Type 1, Diabetes Mellitus Type 2, Internal Pac emaker, Lung Disease, MRSA, Seizures *Have you ever received a pneumonia vaccine?: No *Have you received a flu vaccine this season?: No Other Medical History: Reports: Other. Denies: Blood Transfusion Reaction Other Surgeries: Yes: No Previous Surgery, Cardiac Catheterization, Coronary Stent, Other. No: Pacemaker Amputation: No Fractures: No - *Social History Educational Level: Completed High School Smoking Status: Never smoker Alcohol Intake: never Alcohol Intake Frequency:: other Substance Use Type: denies use *Occupational Status:: employed Housing: house Household Members: spouse *Travel in the last 8 weeks: None - Psychiatric History Expresses thoughts of harming self/others: None Suicide Plan Description: No Plan Family Hx:: No significant family history Meds Home Medications Medication Instructions Recorded Confirmed Type nitroglycerin 0.4 mg sublingual 0.4 mg SUBLINGUAL Q5M PRN 03/12/17 07/31/18 History tablet Cholecalciferol (Vitamin D3) 1,000 unit PO DAILY 04/03/17 07/31/18 History [Vitamin D3 1,000 Unit Cap] Tamsulosin HCl [Flomax 0.4mg 0.4 mg PO HS 11/22/17 07/31/18 History capsule] finasteride 5 mg tablet 5 mg PO DAILY 12/12/17 07/31/18 History aspirin 81 mg tablet,delayed 81 mg PO DAILY 02/13/18 07/31/18 History release clopidogrel 75 mg tablet 75 mg PO DAILY 02/13/18 07/31/18 History Potassium Chloride [Pot Chlor 8 80 meq PO DAILY 06/16/18 07/31/18 History mEq Cap] Rivaroxaban [Xarelto 15mg tablet] 15 mg PO BID 30 Days #60 tab 10/09/18 Rx Ascorbic Acid [Vitamin C] 1,000 mg PO DAILY 10/20/18 10/20/18 History Atorvastatin Calcium [Atorvastatin 40 mg PO HS 10/20/18 10/20/18 History 40mg Tab] Echinacea Angust,Purpurea Rtxt 1 each PO DAILY 10/20/18 10/20/18 History [Echinacea 500 mg Capsule] Ibrutinib [Imbruvica] 420 mg PO DAILY 10/20/18 10/20/18 History Losartan/Hydrochlorothiazide 1 tab PO DAILY 10/20/18 10/20/18 History [Losartan-Hctz 100-25 mg Tab] Multivitamin with Minerals [Men's 1 each PO DAILY 10/20/18 10/20/18 History One Daily] Oxybutynin Chloride [Oxybutynin 10 mg PO DAILY 10/20/18 10/20/18 History Chloride ER] Pantoprazole Sodium [Protonix 40mg 40 mg PO DAILY 10/20/18 10/20/18 History tablet] Allergies Allergy/AdvReac Type Severity Reaction Status Date / Time levofloxacin [From Levaquin] Allergy Unknown Verified 07/31/18 12:42 Exam Vital signs and Labs for Last 24 Hours: Temp Pulse Resp BP Pulse Ox 98.6 F 61 18 103/52 L 100 10/20/18 07:51 10/20/18 07:51 10/20/18 07:51 10/20/18 07:51 10/20/18 07:51 Laboratory Results - last 24 hr 10/19/18 16:15: WBC 11.6 H, RBC 2.69 L, Hgb 9.0 L, Hct 27.1 L, MCV 100.7 H, MCH 33.4 H, MCHC 33.1, RDW 14.3, Plt Count 117 L, MPV 10.1, Neut % (Auto) 52.8, Lymph % (Auto) 41.5, [place] % (Auto) 4.6, Eos % (Auto) 0.8, Baso % (Auto) 0.4, Neut # (Auto) 6.1, Lymph # (Auto) 4.8 H, [place] # (Auto) 0.5, Eos # (Auto) 0.1, Baso # (Auto) 0.0 10/19/18 16:15: PT 13.5 H, INR 1.32 H, APTT 42.7 H 10/19/18 16:15: Sodium 142, Potassium 3.5, Chloride 108 H, Carbon Dioxide 27, Anion Gap 10.5, BUN 41 H, Creatinine 1.17, Estimated Creat Clear 67, Estimated GFR 61, Est GFR ( Amer) 74, Glucose 88, Calcium 8.1 L, Total Bilirubin 2.8 H, AST 23, ALT 16, Alkaline Phosphatase 56, Total Protein 5.4 L, Albumin 3.0 L, Globulin 2.4, Albumin/Globulin Ratio 1.3 10/19/18 16:15: B-Natriuretic Peptide 8 10/19/18 19:52: POC Glucose 103 10/19/18 23:41: POC Glucose 103 10/19/18 23:45: Troponin I 0.07 H 10/19/18 23:51: Specimen Source R/r, O2 % 2, ABG pH 7.46 H, ABG pCO2 30.9 L, ABG pO2 74.6 L, ABG HCO3 21.6 L, ABG Total CO2 22.6 L, ABG O2 Saturation 94, ABG Base Excess -2.1, Jose Test Y 10/20/18 05:41: POC Glucose 129 H I & O for Last 24 hours: Intake & Output 10/17/18 10/18/18 10/19/18 10/20/18 11:59 11:59 11:59 11:59 Intake Total 904 / 904 Output Total 650 / 650 Balance 254 / 254 Weight 215 lb 5 oz
--- NOTE | 2018-10-20 09:54 | H&P/Discharge Summary ---
<Francisca Kruse - Last Filed: 10/20/18 09:51> General - General Admission date:: 10/19/18 t Discharge date: 10/20/18 *Admission Date: 10/19/18 *History of present illness: Mr. Anne is a 73-year-old male with a history of atrial fibrillation, coronary artery disease status post angioplasty with stent., Hyperlipidemia, hypertension, [place], GERD, BPH, peripheral vascular disease, sleep apnea and CLL diagnosed in 2014 currently on oral chemotherapy who presented to [facility] emergency room after having increased pain and edema in his left lower extremity. He states he was also worried about swelling and pain in the left arm. Patient also was complaining of pain in his right shoulder area around the site of his Port-A-Cath. He does have a history of DVT recently diagnosed and placed on Xarelto. He has noticed increased bruising on his legs and arms. He discontinued the Xarelto on his own. He is also on aspirin and Plavix for the stent. Evaluation in the emergency room included CT of the head and the chest which were negative. He did have venous Doppler studies done of the left arm and left leg with negative preliminary reports. This a.m. patient has some discomfort in his midsternal chest area. He states this started after being placed on CPAP at a higher pressure than what he is used to. It does hurt to take a deep breath. He does denies shortness of breath. He is trying to eat his breakfast. He notes all the bruising on his left arm and legs. [facility] History Medical History: Reports:: Atherosclerotic Heart Disease, Atrial Fibrillation, Cancer, Coronary Artery Disease, Hyperlipidemia, Hypertension, Myocardial Infarction, Peripheral Vascular Disease Denies:: Diabetes Mellitus Type 1, Diabetes Mellitus Type 2, Gastroesophageal Reflux Disease(GERD), Internal Pacemaker, Lung Disease, MRSA, Seizures *Have you ever received a pneumonia vaccine?: No *Have you received a flu vaccine this season?: No Other Medical History: Reports: Other. Denies: Blood Transfusion Reaction Other Surgeries: Yes: No Previous Surgery, Cardiac Catheterization, Coronary Stent, Other (TURP). No: Pacemaker Amputation: No Fractures: No - *Social History Educational Level: Completed High School Smoking Status: Never smoker Alcohol Intake: never Alcohol Intake Frequency:: other Substance Use Type: denies use *Occupational Status:: employed Housing: house Household Members: spouse *Travel in the last 8 weeks: None - Psychiatric History Expresses thoughts of harming self/others: None Suicide Plan Description: No Plan Family Hx:: No significant family history Review of Systems - Constitutional Denies body ache(s), Denies fever(s), Denies headache(s), Denies lack of energy - Eyes Denies change in vision - ENT Denies ear pain, Denies headache(s), Denies sore throat, Denies dizziness - *Cardiovascular Denies chest pain, Denies shortness of breath - *Respiratory Denies chest congestion, Denies cough, Denies shortness of breath, Denies coughing up blood - *Gastrointestinal Denies abdominal pain, Denies change in stools, Denies constipation, Denies bright, red blood in stools, Denies black, tarry stools, Denies nausea, Denies vomiting - *Genitourinary Denies difficulty urinating, Denies blood in urine - *Musculoskeletal Comments: Bilateral leg edema and bruising. Pain in the left leg. - *Neurologic Denies abnormal walking, Denies abnormal speech, Denies behavioral changes, De nies seizure-like activity, Denies dizziness Exam Vital signs and Labs for Last 24 Hours: Temp Pulse Resp BP Pulse Ox 98.6 F 61 18 103/52 L 100 10/20/18 07:51 10/20/18 07:51 10/20/18 07:51 10/20/18 07:51 10/20/18 07:51 Laboratory Results - last 24 hr 10/19/18 16:15: WBC 11.6 H, RBC 2.69 L, Hgb 9.0 L, Hct 27.1 L, MCV 100.7 H, MCH 33.4 H, MCHC 33.1, RDW 14.3, Plt Count 117 L, MPV 10.1, Neut % (Auto) 52.8, Lymph % (Auto) 41.5, [facility] % (Auto) 4.6, Eos % (Auto) 0.8, Baso % (Auto) 0.4, Neut # (Auto) 6.1, Lymph # (Auto) 4.8 H, [facility] # (Auto) 0.5, Eos # (Auto) 0.1, Baso # (Auto) 0.0 10/19/18 16:15: PT 13.5 H, INR 1.32 H, APTT 42.7 H 10/19/18 16:15: Sodium 142, Potassium 3.5, Chloride 108 H, Carbon Dioxide 27, Anion Gap 10.5, BUN 41 H, Creatinine 1.17, Estimated Creat Clear 67, Estimated GFR 61, Est GFR ( Amer) 74, Glucose 88, Calcium 8.1 L, Total Bilirubin 2.8 H, AST 23, ALT 16, Alkaline Phosphatase 56, Total Protein 5.4 L, Albumin 3.0 L, Globulin 2.4, Albumin/Globulin Ratio 1.3 10/19/18 16:15: B-Natriuretic Peptide 8 10/19/18 19:52: POC Glucose 103 10/19/18 23:41: POC Glucose 103 10/19/18 23:45: Troponin I 0.07 H 10/19/18 23:51: Specimen Source R/r, O2 % 2, ABG pH 7.46 H, ABG pCO2 30.9 L, ABG pO2 74.6 L, ABG HCO3 21.6 L, ABG Total CO2 22.6 L, ABG O2 Saturation 94, ABG Base Excess -2.1, Jose Test Y 10/20/18 05:41: POC Glucose 129 H I & O for Last 24 hours: Intake & Output 10/17/18 10/18/18 10/19/18 10/20/18 11:59 11:59 11:59 11:59 Intake Total 904 / 904 Output Total 650 / 650 Balance 254 / 254 Weight 215 lb 5 oz Radiology Reports for the Last 24 Hours: Chest x-ray 10/19/2018 IMPRESSION: Left basilar atelectasis. CT of the head 10/19/2018 IMPRESSION: ...... No acute intracranial findings. Stable CT of the head. 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 Absent: conjunctival icterus, scleral injection ENT: Present: mucous membranes moist, oropharynx clear - *Routine Neck Exam Present: supple. Absent: full ROM, carotid bruit, lymphadenopathy, thyromegaly - *Routine Respiratory Exam Present: CTA bilaterally (Anteriorly and posteriorly) - *Routine Cardiovascular Exam Present: RRR - *Routine Abdominal Exam Present: soft, normoactive bowel sounds. Absent: tenderness - *Routine Extremities Exam Present: edema (Bilateral lower leg and left arm) - *Routine Skin Exam Present: ecchymosis (Left arm and bilateral lower legs) - *Routine Neurological Exam Present: alert, oriented X3 Hospital Course Hospital Course: After admission patient was placed on CPAP machine from home for sleep apnea. Pressure was set up to high causing some midsternal chest discomfort. He slept intermittently without it. This was his only complaint the following a.m. He feels his leg pain improved. The following morning preliminary vascular Doppler studies were reported as negative. He will thus be discharged home on Lovenox while discontinuing Xarelto and aspirin. He will remain on Plavix. He will follow-up in the office with Dr. Barrientos. See discharge orders.. Results Labs on day of discharge: Labs from last 24 hours 10/20/18 10/19/18 10/19/18 05:41 23:51 23:45 WBC RBC Hgb Hct MCV MCH MCHC RDW Plt Count MPV Neut % (Auto) Lymph % (Auto) [facility] % (Auto) Eos % (Auto) Baso % (Auto) Neut # (Auto) Lymph # (Auto) [facility] # (Auto) Eos # (Auto) Baso # (Auto) PT INR APTT Specimen Source R/r O2 % 2 ABG pH 7.46 H ABG pCO2 30.9 L ABG pO2 74.6 L ABG HCO3 21.6 L ABG Total CO2 22.6 L ABG O2 Saturation 94 ABG Base Excess -2.1 Jose Test Y Sodium Potassium Chloride Carbon Dioxide Anion Gap BUN Creatinine Estimated Creat Clear Estimated GFR Est GFR ( Amer) Glucose POC Glucose 129 H Calcium Total Bilirubin AST ALT Alkaline Phosphatase Troponin I 0.07 H B-Natriuretic Peptide Total Protein Albumin Globulin Albumin/Globulin Ratio 10/19/18 10/19/18 10/19/18 23:41 19:52 16:15 WBC RBC Hgb Hct MCV MCH MCHC RDW Plt Count MPV Neut % (Auto) Lymph % (Auto) [facility] % (Auto) Eos % (Auto) Baso % (Auto) Neut # (Auto) Lymph # (Auto) [facility] # (Auto) Eos # (Auto) Baso # (Auto) PT INR APTT Specimen Source O2 % ABG pH ABG pCO2 ABG pO2 ABG HCO3 ABG Total CO2 ABG O2 Saturation ABG Base Excess Jose Test Sodium Potassium Chloride Carbon Dioxide Anion Gap BUN Creatinine Estimated Creat Clear Estimated GFR Est GFR ( Amer) Glucose POC Glucose 103 103 Calcium Total Bilirubin AST ALT Alkaline Phosphatase Troponin I B-Natriuretic Peptide 8 Total Protein Albumin Globulin Albumin/Globulin Ratio 10/19/18 10/19/18 10/19/18 16:15 16:15 16:15 WBC 11.6 H RBC 2.69 L Hgb 9.0 L Hct 27.1 L MCV 100.7 H MCH 33.4 H MCHC 33.1 RDW 14.3 Plt Count 117 L MPV 10.1 Neut % (Auto) 52.8 Lymph % (Auto) 41.5 [facility] % (Auto) 4.6 Eos % (Auto) 0.8 Baso % (Auto) 0.4 Neut # (Auto) 6.1 Lymph # (Auto) 4.[address] [facility] # (Auto) 0.5 Eos # (Auto) 0.1 Baso # (Auto) 0.0 PT 13.5 H INR 1.32 H APTT 42.7 H Specimen Source O2 % ABG pH ABG pCO2 ABG pO2 ABG HCO3 ABG Total CO2 ABG O2 Saturation ABG Base Excess Jose Test Sodium 142 Potassium 3.5 Chloride 108 H Carbon Dioxide 27 Anion Gap 10.5 BUN 41 H Creatinine 1.17 Estimated Creat Clear 67 Estimated GFR 61 Est GFR ( Amer) 74 Glucose 88 POC Glucose Calcium 8.1 L Total Bilirubin 2.8 H AST 23 ALT 16 Alkaline Phosphatase 56 Troponin I B-Natriuretic Peptide Total Protein 5.4 L Albumin 3.0 L Globulin 2.4 Albumin/Globulin Ratio 1.3 DS: Diagnosis - Discharge Diagnosis (1) Ecchymosis Status: Acute (2) DVT (deep venous thrombosis) Status: Acute (3) Edema Status: Acute (4) Stented coronary artery Status: Chronic (5) CLL (chronic lymphocytic leukemia) Status: Acute (6) CAD (coronary artery disease) Status: Chronic Problem details: Discharge Plan - Patient Discharge Instructions ACTIVITY: Ambulate as tolerated DIET: continue same diet Patient Instructions: DI for Deep Vein Thrombosis - Follow up Plan Follow up with: Francisca Kruse APRN [Nurse Practitioner] - 10/27/18 10:45 am Harleen Barrientos MD [Primary Care Provider] - 1 week Disposition: Home Health Service Home Medications: Home Medications Medication Instructions Recorded Confirmed Type nitroglycerin 0.4 mg sublingual 0.4 mg SUBLINGUAL Q5M PRN 03/12/17 10/20/18 History tablet Cholecalciferol (Vitamin D3) 1,000 unit PO DAILY 04/03/17 10/20/18 History [Vitamin D3 1,000 Unit Cap] Tamsulosin HCl [Flomax 0.4mg 0.4 mg PO HS 11/22/17 10/20/18 History capsule] aspirin 81 mg tablet,delayed 81 mg PO DAILY 02/13/18 10/20/18 History release Potassium Chloride [Pot Chlor 8 80 meq PO DAILY 06/16/18 10/20/18 History mEq Cap] Ascorbic Acid [Vitamin C] 1,000 mg PO DAILY 10/20/18 10/20/18 History Atorvastatin Calcium [Atorvastatin 40 mg PO HS 10/20/18 10/20/18 History 40mg Tab] Clopidogrel Bisulfate [Plavix 75mg 75 mg PO DAILY 30 Days #30 tab 10/20/18 Rx Tab] Echinacea Angust,Purpurea Rtxt 1 each PO DAILY 10/20/18 10/20/18 History [Echinacea 500 mg Capsule] Enoxaparin Sodium [Lovenox 100 mg SQ DAILY 30 Days #30 syringe 10/20/18 Rx 100mg/mL syringe] Ibrutinib [Imbruvica] 420 mg PO DAILY 10/20/18 10/20/18 History Losartan/Hydrochlorothiazide 1 tab PO DAILY 10/20/18 10/20/18 History [Losartan-Hctz 100-25 mg Tab] Multivitamin with Minerals [Men's 1 each PO DAILY 10/20/18 10/20/18 History One Daily] Oxybutynin Chloride [Oxybutynin 10 mg PO DAILY 10/20/18 10/20/18 History Chloride ER] Pantoprazole Sodium [Protonix 40mg 40 mg PO DAILY 10/20/18 10/20/18 History tablet] Prescriptions/Medication Reconciliation: New Enoxaparin Sodium [Lovenox 100mg/mL syringe] 100 mg SQ DAILY 30 Days #30 syringe Clopidogrel Bisulfate [Plavix 75mg Tab] 75 mg PO DAILY 30 Days #30 tab Continued aspirin 81 mg tablet,delayed release 81 mg PO DAILY nitroglycerin 0.4 mg sublingual tablet 0.4 mg SUBLINGUAL Q5M PRN PRN Reason: Chest Pain Cholecalciferol (Vitamin D3) [Vitamin D3 1,000 Unit Cap] 1,000 unit PO DAILY Atorvastatin Calcium [Atorvastatin 40mg Tab] 40 mg PO HS Oxybutynin Chloride [Oxybutynin Chloride ER] 10 mg PO DAILY Ascorbic Acid [Vitamin C] 1,000 mg PO DAILY Multivitamin with Minerals [Men's One Daily] 1 each PO DAILY Losartan/Hydrochlorothiazide [Losartan-Hctz 100-25 mg Tab] 1 tab PO DAILY Echinacea Angust,Purpurea Rtxt [Echinacea 500 mg Capsule] 1 each PO DAILY Ibrutinib [Imbruvica] 420 mg PO DAILY Tamsulosin HCl [Flomax 0.4mg capsule] 0.4 mg PO HS Potassium Chloride [Pot Chlor 8 mEq Cap] 80 meq PO DAILY Pantoprazole Sodium [Protonix 40mg tablet] 40 mg PO DAILY Discontinued Rivaroxaban [Xarelto 15mg tablet] 15 mg PO BID - Problem Reconciliation Problems Reviewed?: Yes <Harleen Barrientos - Last Filed: 10/20/18 11:42> General - General Admission date:: 10/19/18 Exam Vital signs and Labs for Last 24 Hours: Temp Pulse Resp BP Pulse Ox 98.6 F 60 18 103/52 L 100 10/20/18 07:51 10/20/18 08:00 10/20/18 10:28 10/20/18 07:51 10/20/18 07:51 Laboratory Results - last 24 hr 10/19/18 16:15: WBC 11.6 H, RBC 2.69 L, Hgb 9.0 L, Hct 27.1 L, MCV 100.7 H, MCH 33.4 H, MCHC 33.1, RDW 14.3, Plt Count 117 L, MPV 10.1, Neut % (Auto) 52.8, Lymph % (Auto) 41.5, [facility] % (Auto) 4.6, Eos % (Auto) 0.8, Baso % (Auto) 0.4, Neut # (Auto) 6.1, Lymph # (Auto) 4.8 H, [facility] # (Auto) 0.5, Eos # (Auto) 0.1, Baso # (Auto) 0.0 10/19/18 16:15: PT 13.5 H, INR 1.32 H, APTT 42.7 H 10/19/18 16:15: Sodium 142, Potassium 3.5, Chloride 108 H, Carbon Dioxide 27, Anion Gap 10.5, BUN 41 H, Creatinine 1.17, Estimated Creat Clear 67, Estimated GFR 61, Est GFR ( Amer) 74, Glucose 88, Calcium 8.1 L, Total Bilirubin 2.8 H, AST 23, ALT 16, Alkaline Phosphatase 56, Total Protein 5.4 L, Albumin 3.0 L, Globulin 2.4, Albumin/Globulin Ratio 1.3 10/19/18 16:15: B-Natriuretic Peptide 8 10/19/18 19:52: POC Glucose 103 10/19/18 23:41: POC Glucose 103 10/19/18 23:45: Troponin I 0.07 H 10/19/18 23:51: Specimen Source R/r, O2 % 2, ABG pH 7.46 H, ABG pCO2 30.9 L, ABG pO2 74.6 L, ABG HCO3 21.6 L, ABG Total CO2 22.6 L, ABG O2 Saturation 94, ABG Base Excess -2.1, Jose Test Y 10/20/18 05:41: POC Glucose 129 H I & O for Last 24 hours: Intake & Output 10/17/18 10/18/18 10/19/18 10/20/18 11:59 11:59 11:59 11:59 Intake Total 904 / 904 Output Total 650 / 650 Balance 254 / 254 Weight 215 lb 5 oz Results Labs on day of discharge: Labs from last 24 hours 10/20/18 10/19/18 10/19/18 05:41 23:51 23:45 WBC RBC Hgb Hct MCV MCH MCHC RDW Plt Count MPV Neut % (Auto) Lymph % (Auto) [facility] % (Auto) Eos % (Auto) Baso % (Auto) Neut # (Auto) Lymph # (Auto) [facility] # (Auto) Eos # (Auto) Baso # (Auto) PT INR APTT Specimen Source R/r O2 % 2 ABG pH 7.46 H ABG pCO2 30.9 L ABG pO2 74.6 L ABG HCO3 21.6 L ABG Total CO2 22.6 L ABG O2 Saturation 94 ABG Base Excess -2.1 Jose Test Y Sodium Potassium Chloride Carbon Dioxide Anion Gap BUN Creatinine Estimated Creat Clear Estimated GFR Est GFR (Located Within [facility] Am) Glucose POC Glucose 129 H Calcium Total Bilirubin AST ALT Alkaline Phosphatase Troponin I 0.07 H B-Natriuretic Peptide Total Protein Albumin Globulin Albumin/Globulin Ratio 10/19/18 10/19/18 10/19/18 23:41 19:52 16:15 WBC RBC Hgb Hct MCV MCH MCHC RDW Plt Count MPV Neut % (Auto) Lymph % (Auto) [facility] % (Auto) Eos % (Auto) Baso % (Auto) Neut # (Auto) Lymph # (Auto) [facility] # (Auto) Eos # (Auto) Baso # (Auto) PT INR APTT Specimen Source O2 % ABG pH ABG pCO2 ABG pO2 ABG HCO3 ABG Total CO2 ABG O2 Saturation ABG Base Excess Jose Test Sodium Potassium Chloride Carbon Dioxide Anion Gap BUN Creatinine Estimated Creat Clear Estimated GFR Est GFR (Located Within [facility] Am) Glucose POC Glucose 103 103 Calcium Total Bilirubin AST ALT Alkaline Phosphatase Troponin I B-Natriuretic Peptide 8 Total Protein Albumin Globulin Albumin/Globulin Ratio 10/19/18 10/19/18 10/19/18 16:15 16:15 16:15 WBC 11.6 H RBC 2.69 L Hgb 9.0 L Hct 27.1 L MCV 100.7 H MCH 33.4 H MCHC 33.1 RDW 14.3 Plt Count 117 L MPV 10.1 Neut % (Auto) 52.8 Lymph % (Auto) 41.5 [facility] % (Auto) 4.6 Eos % (Auto) 0.8 Baso % (Auto) 0.4 Neut # (Auto) 6.1 Lymph # (Auto) 4.[address] [facility] # (Auto) 0.5 Eos # (Auto) 0.1 Baso # (Auto) 0.0 PT 13.5 H INR 1.32 H APTT 42.7 H Specimen Source O2 % ABG pH ABG pCO2 ABG pO2 ABG HCO3 ABG Total CO2 ABG O2 Saturation ABG Base Excess Jose Test Sodium 142 Potassium 3.5 Chloride 108 H Carbon Dioxide 27 Anion Gap 10.5 BUN 41 H Creatinine 1.17 Estimated Creat Clear 67 Estimated GFR 61 Est GFR ( Amer) 74 Glucose 88 POC Glucose Calcium 8.1 L Total Bilirubin 2.8 H AST 23 ALT 16 Alkaline Phosphatase 56 Troponin I B-Natriuretic Peptide Total Protein 5.4 L Albumin 3.0 L Globulin 2.4 Albumin/Globulin Ratio 1.3 DS: Diagnosis - Discharge Diagnosis (1) Ecchymosis Status: Acute (2) DVT (deep venous thrombosis) Status: Acute (3) Edema Status: Acute (4) Stented coronary artery Status: Chronic (5) CLL (chronic lymphocytic leukemia) Status: Acute (6) CAD (coronary artery disease) Status: Chronic Problem details: Discharge Plan - Problem Reconciliation Problems Reviewed?: Yes
== END 2018-10-20 13:50 | disposition home health service (06) ==
LOC: ER 15:57 → 2ND 15:57
PROVIDERS: ADMIT Emergency Medicine; ATTEND Emergency Medicine
DX: I48.91 Unspecified atrial fibrillation
CPT/HCPCS: 36415; 70450; 71010; 71020; 71045; 71046; 80053; 82803; 82962; 83880; 84484; 85025; 85610; 85730; 93005; 93971; 96365; 99284; G0378

== ENCOUNTER 2018-10-20 14:32 | Inpatient (IN) ==
[2018-10-20 15:47] LABS: Microscopic, Urine URINE MICROSCOPIC (MICROSCOPIC)
--- NOTE | 2018-10-20 15:47 | Emergency Department Note ---
ED Disposition Clinical Impression: Weakness, GI bleed, DVT (deep venous thrombosis), Anemia Disposition: [facility] Condition on Discharge: Fair Referrals: Harleen Barrientos MD [Primary Care Provider] - Time of Disposition: 19:37 - Critical Care Critical Care Time: No Attestation: On 10/20/18, the high probability of a clinically significant, sudden or life threatening deterioration of the following system(s) required my full and direct attention, intervention and personal management. The time I documented below is in addition to time spent performing reported procedures but includes the following listed in this critical care notation. Medical Decision Making - Medical Records Medical records reviewed: Yes: I reviewed the patient's medical records. - Shemar Inquiry Pt receiving controlled substance: No Shemar was queried for this patient: No Vital Signs: 10/20/18 15:12 10/20/18 15:54 10/20/18 16:49 Temperature 98.2 F Temperature Source Oral Pulse Rate [Left Radial] 60 60 58 L Respiratory Rate 22 Blood Pressure [Right Arm] 103/50 L 114/63 111/56 L Blood Pressure Mean [Right Arm] 67 80 74 Blood Pressure Source [Right Arm] Automatic Cuff Blood Pressure Position [Right Arm] Sitting 02 Sat by Pulse Oximetry 94 L 96 98 Oxygen Delivery Method Room Air 10/20/18 18:13 10/20/18 19:09 Temperature Temperature Source Pulse Rate [Left Radial] 58 L 66 Respiratory Rate Blood Pressure [Right Arm] 112/68 121/63 Blood Pressure Mean [Right Arm] 82 82 Blood Pressure Source [Right Arm] Blood Pressure Position [Right Arm] 02 Sat by Pulse Oximetry 98 98 Oxygen Delivery Method - Lab Data Lab results reviewed: Yes: I reviewed the patient's lab results. Lab Results 10/20/18 15:40: Urine Color Yellow, Urine Appearance Clear, Urine pH 6.0, Ur Specific [place] 1.020, Urine Protein Negative, Urine Glucose (UA) Negative, Urine Ketones Negative, Urine Blood Trace-i, Urine Nitrate Negative, Urine Bilirubin Negative, Urine Urobilinogen 0.2, Ur Leukocyte Esterase Negative, Urine RBC Occasional, Urine WBC Occasional, Ur Squamous Epith Cells Occasional, Urine Bacteria Trace, Urine Mucus 2+ 10/20/18 16:13: WBC 9.5, RBC 2.43 L, Hgb 8.2 L, Hct 24.4 L, MCV 100.3 H, MCH 33.9 H, MCHC 33.8, RDW 14.3, Plt Count 113 L, MPV 8.5, Neut % (Auto) 61.9, Lymph % (Auto) 32.8, [place] % (Auto) 4.6, Eos % (Auto) 0.4, Baso % (Auto) 0.3, Neut # (Auto) 5.9, Lymph # (Auto) 3.1, [place] # (Auto) 0.4, Eos # (Auto) 0.0, Baso # (Aut o) 0.0 10/20/18 16:13: Sodium 140, Potassium 4.0, Chloride 107, Carbon Dioxide 27, Anion Gap 10.0, BUN 29 H D, Creatinine 0.96, Estimated Creat Clear 96, Estimated GFR 77, Est GFR ( Amer) 93 D, Glucose 102, Calcium 7.8 L, Total Bilirubin 2.9 H, AST 15 D, ALT 15, Alkaline Phosphatase 56, Troponin I 0.06, Total Protein 5.2 L, Albumin 2.8 L, Globulin 2.4, Albumin/Globulin Ratio 1.2 10/20/18 16:13: B-Natriuretic Peptide 12 10/20/18 17:06: Lactate 0.9 10/20/18 18:40: Stool Occult Blood Positive A Result diagrams: 10/20/18 16:13 10/20/18 16:13 Orders (Tests/Meds): ED MEDICATIONS Discontinued Medications Generic Name Dose Route Start Last Admin Trade Name Freq PRN Reason Stop Dose Admin Ioversol 70 ml 10/20/18 16:54 10/20/18 16:55 Rad-Optiray 350 100ml Vial IV 10/20/18 16:55 70 ml ONCE ONE Administration Protocol Sodium Chloride 40 ml 10/20/18 16:54 10/20/18 16:55 Rad-Ns 50ml Vial IV 10/20/18 16:55 40 ml ONCE ONE Administration Sodium Chloride 10 ml 10/20/18 16:54 10/20/18 16:55 Rad-Saline Flush 10ml Syringe IV 10/20/18 16:55 10 ml ONCE ONE Administration ORDERS Category Date Time Status Procalcitonin Routine Lab 10/20/18 15:55 Received Blood Culture Stat Micro 10/20/18 17:12 Received - Physician Consults Physician Consulted: gurinder Time: 19:35 Reason -: Admission, Pt condition Comment/Response: eval gi bleed General Adult HPI - General Chief complaint: Weakness Stated complaint: Dizzy weak Time Seen by Provider: 10/20/18 15:46 Mode of Arrival: EMS Limitations: No Limitations Description of Symptoms (Recalled from ER Triage Doc. by RN): pt DC from hospital this am but states he had to call the EMS to help him get in the house after DC due to weakness. States when he stands up he gets really dizzy. - History of Present Illness HPI narrative: dyspnea, severe generalized weakness, severe pain in left leg. Large blister on dorsum left pretibial area, leg is red and warm to touch - Related Data Home Medications Medication Instructions Recorded Confirmed nitroglycerin 0.4 mg sublingual 0.4 mg SUBLINGUAL Q5M PRN 03/12/17 10/20/18 tablet Cholecalciferol (Vitamin D3) 1,000 unit PO DAILY 04/03/17 10/20/18 [Vitamin D3 1,000 Unit Cap] Tamsulosin HCl [Flomax 0.4mg 0.4 mg PO HS 11/22/17 10/20/18 capsule] aspirin 81 mg tablet,delayed 81 mg PO DAILY 02/13/18 10/20/18 release Potassium Chloride [Pot Chlor 8 80 meq PO DAILY 06/16/18 10/20/18 mEq Cap] Ascorbic Acid [Vitamin C] 1,000 mg PO DAILY 10/20/18 10/20/18 Atorvastatin Calcium [Atorvastatin 40 mg PO HS 10/20/18 10/20/18 40mg Tab] Echinacea Angust,Purpurea Rtxt 1 each PO DAILY 10/20/18 10/20/18 [Echinacea 500 mg Capsule] Ibrutinib [Imbruvica] 420 mg PO DAILY 10/20/18 10/20/18 Losartan/Hydrochlorothiazide 1 tab PO DAILY 10/20/18 10/20/18 [Losartan-Hctz 100-25 mg Tab] Multivitamin with Minerals [Men's 1 each PO DAILY 10/20/18 10/20/18 One Daily] Oxybutynin Chloride [Oxybutynin 10 mg PO DAILY 10/20/18 10/20/18 Chloride ER] Pantoprazole Sodium [Protonix 40mg 40 mg PO DAILY 10/20/18 10/20/18 tablet] Previous Rx's Medication Instructions Recorded Clopidogrel Bisulfate [Plavix 75mg 75 mg PO DAILY 30 Days #30 tab 10/20/18 Tab] Enoxaparin Sodium [Lovenox 100 mg SQ DAILY 30 Days #30 syringe 10/20/18 100mg/mL syringe] Allergies Allergy/AdvReac Type Severity Reaction Status Date / Time levofloxacin [From Levaquin] Allergy Unknown Verified 07/31/18 12:42 [facility] History - Hepatitis A Screen Drug use history?: No High risk sexual behaviors?: No History of sexually transmitted infection?: No Currently employed?: No Childcare worker?: No Do you have indoor plumbing?: Yes Do you have electricity?: Yes Attestation statement:: This patient has been screened for Hepatitis A risk factors. I have reviewed the patient's past medical history: Yes Medical History: Reports:: Atherosclerotic Heart Disease, Atrial Fibrillation, Cancer, Coronary Artery Disease, Hyperlipidemia, Hypertension, Myocardial Infarction, Peripheral Vascular Disease Denies:: Diabetes Mellitus Type 1, Diabetes Mellitus Type 2, Gastroesophageal Reflux Disease(GERD), Internal Pacemaker, Lung Disease, MRSA, Seizures Other Medical History: Reports: Other. Denies: Blood Transfusion Reaction Comment: Afib Other Surgeries: Yes: No Previous Surgery, Cardiac Catheterization, Coronary Stent, Other (TURP). No: Pacemaker Amputation: No Fractures: No Comment: [place] - Social History Smoking Status: Never smoker Alcohol Intake: never Alcohol Intake Frequency:: other Substance Use Type: denies use Occupational Status: employed Housing: house Household Members: spouse Family Hx:: No significant family history ROS Obtained: Yes All systems reviewed & no additional complaints - Constitutional Constitutional: Reports chills, Denies fever(s) - Eyes Eyes: Denies change in vision - Cardiovascular Cardiovascular: Denies chest pain, Denies chest pain at rest, Reports dyspnea, Reports edema, Reports leg edema - Respiratory Respiratory: Yes dyspnea, Yes dyspnea on exertion, No pain on inspiration - Gastrointestinal Gastrointestingal: Reports: abdominal pain. Denies: diarrhea, vomiting - Musculoskeletal Musculoskeletal: Denies joint pain, Denies joint stiffness, Denies joint swelling - Integumentary/Breasts Skin/Breast: Reports redness, Reports skin ulcer, Reports sores, Reports skin swelling - Neurologic Neurologic: Reports numbness, Reports other (toes left foot) - Hematologic/Lymphatic Henatologic/Lymphatic: Denies easy bleeding, Denies easy bruising Physical Exam - General General appearance: alert, in distress - Head Head exam: atraumatic, normocephalic, normal inspection - Eye Eye exam: Present: normal appearance, PERRL, EOMI - ENT ENT exam: Present: normal exam, normal oropharynx, mucous membranes moist, TM's normal bilaterally, normal external ear exam - Neck Neck exam: Present: normal inspection, full ROM, trachea midline. Absent: meningismus, lymphadenopathy - Chest Chest inspection: Present: normal inspection, symmetric chest wall rise. Absent: tenderness - Respiratory Respiratory exam: Present: normal lung sounds bilaterally. Absent: respiratory distress - Cardiovascular Cardiovascular exam: Present: regular rate, normal rhythm. Absent: JVD - Abdominal Exam Abdominal exam: Present: soft, tenderness, other (luq pain). Absent: distention - Rectal Exam Rectal exam: Present: normal inspection, heme (+) stool - Extremities Exam Extremities exam: Present: tenderness, other (severe swelling, redness, dolor to both lower extremities, l>r). Absent: normal inspection, full ROM - Neurological Exam Neurological exam: Present: alert, oriented X3, CN II-XII intact - Psychiatric Psychiatric exam: Present: normal affect, normal mood - Skin Skin exam: Present: warm, dry, erythema, other (cap refill 3-4 seconds B). Absent: intact, normal color
[2018-10-20 15:51] LABS: Appearance,Urine CLEAR (Clear); Bilirubin,Urine Negative (Negative); Blood, Urine TRACE-I (Negative); Color,Urine YELLOW (Yellow); Glucose,Urine (UA) Negative (Negative); Ketones,Urine Negative (Negative); Leukocyte Esterase,Urine Negative (Negative); Protein,Urine Negative (Negative); Urobilinogen,Urine 0.2 EU/dl (0.2)
[2018-10-20 16:00] LABS: RBC,Urine Occasional #/hpf (0-3)
[2018-10-20 16:01] LABS: Bacteria,Urine Trace /lpf; Mucus,Urine 2+ /lpf; Squamous Epithelial Cell,Urine Occasional #/hpf (0-5); WBC,Urine Occasional #/hpf (0-3)
[2018-10-20 16:30] LABS: Basophils % 0.3 % (0.1-2.0); Eosinophils % 0.4 % (0.1-12.0); Hematocrit 24.4 % (42.0-52.0); Hemoglobin 8.2 g/dL (14.1-18.0); Lymphocytes # 3.1 K/mm3 (0.7-4.5); Lymphocytes % 32.8 % (10-50); Mean Corpuscular HGB Conc 33.8 g/dL (31.8-35.4); Mean Corpuscular Volume 100.3 fl (80-94); Mean Platelet Volume 8.5 fl (7.4-10.4); Monocytes # 0.4 K/mm3 (0.1-1.0); Monocytes % 4.6 % (1.7-9.3); Neutrophils # 5.9 K/mm3 (1.8-7.8); Neutrophils % 61.9 % (37.0-80.0); Platelet Count 113 K/mm3 (142-424); Red Blood Count 2.43 M/mm3 (4.60-6.20); Red Cell Distribution Width 14.3 % (11.5-17.5); White Blood Count 9.5 K/mm3 (4.8-10.8)
[2018-10-20 16:58] LABS: Albumin Level 2.8 gm/dL (3.4-5.0); Albumin/Globulin Ratio 1.2 (1.1-1.8); Bilirubin,Total 2.9 mg/dL (0.2-1.0); Calcium 7.8 mg/dL (8.5-10.1); Globulin 2.4 gm/dl (1.3-3.2); Total Protein,Serum 5.2 gm/dL (6.4-8.2)
[2018-10-21 06:32] LABS: Calcium 7.5 mg/dL (8.5-10.1)
--- NOTE | 2018-10-21 06:58 | Consult Report ---
*Admission Date: 10/21/18 *Reason for consult:: Anemia, GI bleed *History of present illness: Mr. Anne is a 73-year-old male with a history of atrial fibrillation, coronary artery disease status post angioplasty with stent., Hyperlipidemia, hypertension, [place], GERD, BPH, peripheral vascular disease, sleep apnea and CLL diagnosed in 2014 currently on oral chemotherapy. He was recently admitted and has been treated for DVT. He is on Xarelto. He was discharged yesterday morning and readmitted yesterday afternoon after he spirits and weakness. Evaluation in the emergency department revealed a slightly lower hemoglobin. He was admitted for inpatient management. Surgical consultation was obtained for "GI bleed". Patient denies any hematemesis. Denies any coffee-ground emesis. Denies any rectal bleeding. Denies any melena. Review of Systems - Review of Systems Review of systems:: other - *Neurologic Reports numbness, Reports other (toes left foot) [facility] History Medical History: Reports:: Atherosclerotic Heart Disease, Atrial Fibrillation, Cancer, Coronary Artery Disease, Deep Vein Thrombosis, Hyperlipidemia, Hypertension, Myocardial Infarction, Peripheral Vascular Disease Denies:: Diabetes Mellitus Type 1, Diabetes Mellitus Type 2, Gastroesophageal Reflux Disease(GERD), Internal Pacemaker, Lung Disease, MRSA, Seizures *Have you ever received a pneumonia vaccine?: No *Have you received a flu vaccine this season?: No Other Medical History: Reports: Chemotherapy, Other. Denies: Blood Transfusion Reaction Other Surgeries: Yes: No Previous Surgery, Cardiac Catheterization, Colonoscopy, Coronary Stent, Other (TURP). No: Pacemaker Amputation: No Fractures: No - *Social History Educational Level: Completed College Smoking Status: Never smoker Alcohol Intake: never Alcohol Intake Frequency:: other Substance Use Type: denies use *Occupational Status:: employed Housing: house Household Members: spouse *Travel in the last 8 weeks: None - Psychiatric History Expresses thoughts of harming self/others: None Suicide Plan Description: No Plan Family Hx:: Unable to obtain Meds Home Medications Medication Instructions Recorded Confirmed Type nitroglycerin 0.4 mg sublingual 0.4 mg SUBLINGUAL Q5M PRN 03/12/17 10/20/18 History tablet Cholecalciferol (Vitamin D3) 1,000 unit PO DAILY 04/03/17 10/20/18 History [Vitamin D3 1,000 Unit Cap] Tamsulosin HCl [Flomax 0.4mg 0.4 mg PO HS 11/22/17 10/21/18 History capsule] aspirin 81 mg tablet,delayed 81 mg PO DAILY 02/13/18 10/20/18 History release Potassium Chloride [Pot Chlor 8 80 meq PO DAILY 06/16/18 10/20/18 History mEq Cap] Ascorbic Acid [Vitamin C] 1,000 mg PO DAILY 10/20/18 10/21/18 History Atorvastatin Calcium [Atorvastatin 40 mg PO HS 10/20/18 10/21/18 History 40mg Tab] Clopidogrel Bisulfate [Plavix 75mg 75 mg PO DAILY 30 Days #30 tab 10/20/18 Rx Tab] Echinacea Angust,Purpurea Rtxt 1 each PO DAILY 10/20/18 10/21/18 History [Echinacea 500 mg Capsule] Enoxaparin Sodium [Lovenox 100 mg SQ DAILY 30 Days #30 syringe 10/20/18 Rx 100mg/mL syringe] Ibrutinib [Imbruvica] 420 mg PO DAILY 10/20/18 10/20/18 History Losartan/Hydrochlorothiazide 1 tab PO DAILY 10/20/18 10/21/18 History [Losartan-Hctz 100-25 mg Tab] Multivitamin with Minerals [Men's 1 each PO DAILY 10/20/18 10/21/18 History One Daily] Oxybutynin Chloride [Oxybutynin 10 mg PO DAILY 10/20/18 10/21/18 History Chloride ER] Pantoprazole Sodium [Protonix 40mg 40 mg PO DAILY 10/20/18 10/21/18 History tablet] Allergies Allergy/AdvReac Type Severity Reaction Status Date / Time levofloxacin [From Levaquin] Allergy Unknown Verified 07/31/18 12:42 Exam Vital signs and Labs for Last 24 Hours: Temp Pulse Resp BP Pulse Ox 98.0 F 56 L 20 118/59 L 96 10/21/18 04:00 10/21/18 04:00 10/21/18 04:00 10/21/18 04:00 10/21/18 04:00 Laboratory Results - last 24 hr 10/20/18 15:40: Urine Color Yellow, Urine Appearance Clear, Urine pH 6.0, Ur Specific [place] 1.020, Urine Protein Negative, Urine Glucose (UA) Negative, Urine Ketones Negative, Urine Blood Trace-i, Urine Nitrate Negative, Urine Bilirubin Negative, Urine Urobilinogen 0.2, Ur Leukocyte Esterase Negative, Urine RBC Occasional, Urine WBC Occasional, Ur Squamous Epith Cells Occasional, Urine Bacteria Trace, Urine Mucus 2+ 10/20/18 16:13: WBC 9.5, RBC 2.43 L, Hgb 8.2 L, Hct 24.4 L, MCV 100.3 H, MCH 33.9 H, MCHC 33.8, RDW 14.3, Plt Count 113 L, MPV 8.5, Neut % (Auto) 61.9, Lymph % (Auto) 32.8, [place] % (Auto) 4.6, Eos % (Auto) 0.4, Baso % (Auto) 0.3, Neut # (Auto) 5.9, Lymph # (Auto) 3.1, [place] # (Auto) 0.4, Eos # (Auto) 0.0, Baso # (Aut o) 0.0 10/20/18 16:13: Sodium 140, Potassium 4.0, Chloride 107, Carbon Dioxide 27, Anion Gap 10.0, BUN 29 H D, Creatinine 0.96, Estimated Creat Clear 96, Estimated GFR 77, Est GFR ( Amer) 93 D, Glucose 102, Calcium 7.8 L, Total Bilirubin 2.9 H, AST 15 D, ALT 15, Alkaline Phosphatase 56, Troponin I 0.06, Total Protein 5.2 L, Albumin 2.8 L, Globulin 2.4, Albumin/Globulin Ratio 1.2 10/20/18 16:13: B-Natriuretic Peptide 12 10/20/18 17:06: Lactate 0.9 10/20/18 18:40: Stool Occult Blood Positive A I & O for Last 24 hours: Intake & Output 10/18/18 10/19/18 10/20/18 10/21/18 11:59 11:59 11:59 11:59 Intake Total 980 / 980 Output Total 950 / 950 Balance 30 / 30 Weight 214 lb 3 oz - *Routine Abdominal Exam Present: soft. Absent: tenderness Results - Labs 10/20/18 16:13 10/20/18 16:13 Laboratory Results - last 24 hr 10/20/18 15:40: Urine Color Yellow, Urine Appearance Clear, Urine pH 6.0, Ur Specific [place] 1.020, Urine Protein Negative, Urine Glucose (UA) Negative, Urine Ketones Negative, Urine Blood Trace-i, Urine Nitrate Negative, Urine Bi lirubin Negative, Urine Urobilinogen 0.2, Ur Leukocyte Esterase Negative, Urine RBC Occasional, Urine WBC Occasional, Ur Squamous Epith Cells Occasional, Urine Bacteria Trace, Urine Mucus 2+ 10/20/18 16:13: WBC 9.5, RBC 2.43 L, Hgb 8.2 L, Hct 24.4 L, MCV 100.3 H, MCH 33.9 H, MCHC 33.8, RDW 14.3, Plt Count 113 L, MPV 8.5, Neut % (Auto) 61.9, Lymph % (Auto) 32.8, [place] % (Auto) 4.6, Eos % (Auto) 0.4, Baso % (Auto) 0.3, Neut # (Auto) 5.9, Lymph # (Auto) 3.1, [place] # (Auto) 0.4, Eos # (Auto) 0.0, Baso # (Auto) 0.0 10/20/18 16:13: Sodium 140, Potassium 4.0, Chloride 107, Carbon Dioxide 27, Anion Gap 10.0, BUN 29 H D, Creatinine 0.96, Estimated Creat Clear 96, Estimated GFR 77, Est GFR ( Amer) 93 D, Glucose 102, Calcium 7.8 L, Total Bilirubin 2.9 H, AST 15 D, ALT 15, Alkaline Phosphatase 56, Troponin I 0.06, Total Protein 5.2 L, Albumin 2.8 L, Globulin 2.4, Albumin/Globulin Ratio 1.2 10/20/18 16:13: B-Natriuretic Peptide 12 10/20/18 17:06: Lactate 0.9 10/20/18 18:40: Stool Occult Blood Positive A Assessment and Plan - Assessment and plan all Dx Assessment and Plan for all problems:: Patient has some symptomatic anemia. He is on Xarelto for DVT. Etiology of the anemia is not definitively secondary to any GI blood loss. He gives no history consistent with GI blood loss. Would not pursue endoscopic measures due to lack of correlation as this being a source and due to risk of bleeding secondary to blood thinners. May treat empirically with antacids if deemed appropriate.
[2018-10-21 07:12] LABS: Anion Gap 2.6 mEq/L (5-15)
[2018-10-21 07:32] LABS: Basophils % 0.3 % (0.1-2.0); Eosinophils # 0.1 K/mm3 (0.0-0.4); Eosinophils % 0.8 % (0.1-12.0); Lymphocytes # 2.2 K/mm3 (0.7-4.5); Lymphocytes % 36.3 % (10-50); Mean Corpuscular HGB Conc 32.3 g/dL (31.8-35.4); Monocytes # 0.4 K/mm3 (0.1-1.0); Monocytes % 5.9 % (1.7-9.3); Neutrophils # 3.4 K/mm3 (1.8-7.8); Neutrophils % 56.7 % (37.0-80.0); Platelet Count 106 K/mm3 (142-424); Red Blood Count 2.15 M/mm3 (4.60-6.20); Red Cell Distribution Width 14.5 % (11.5-17.5); White Blood Count 6.1 K/mm3 (4.8-10.8)
[2018-10-21 07:34] LABS: Hemoglobin 7.1 g/dL (14.1-18.0)
--- NOTE | 2018-10-21 07:34 | Pharmacy Consult Notes ---
[facility] Pharmacy VTE Monitoring - Patient Demographics Admission date: 10/20/18 Report Date: 10/21/18 Time: 07:34 Allergies/Adverse Reactions: Patient Allergies levofloxacin [From Levaquin] Allergy (Unknown, Verified 07/31/18 12:42) Height: 1.7 m Weight: 97.154 kg Patient Problems: Current Active Problems DVT (deep venous thrombosis) (Acute) Weakness (Acute) GI bleed (Acute) Anemia (Acute) - VTE Risk Labs: VTE Related Lab Results Hgb 8.2 g/dL (14.1-18.0) L 10/20/18 16:13 Hct 24.4 % (42.0-52.0) L 10/20/18 16:13 Plt Count 113 K/mm3 (142-424) L 10/20/18 16:13 BUN 27 mg/dL (7-18) H 10/21/18 05:48 Creatinine 1.05 mg/dL (0.70-1.30) 10/21/18 05:48 Estimated Creat Clear 89 mL/min (50-200) 10/21/18 05:48 VTE Score: 6 VTE Risk Level: Moderate Risk - Prophylaxis VTE Prophylaxis Ordered?: Yes Types of VTE Prophylaxis: TEDS Knee High Location of Applied Device: Bilateral Lower Extremeties - VTE Diagnosis Confirmed Treatment or plan recommended: Continue Current Treatment
--- NOTE | 2018-10-21 09:21 | History & Physical Report ---
*Admission Date: 10/20/18 <Francisca Kruse - 10/21/18 09:53> *Chief complaint: Dizziness and leg pain <Francisca Kruse 10/21/18 09:53> *History of present illness: Mr. Anne is a 73-year-old male with a history of atrial fibrillation, coronary artery disease status post angioplasty with stent., Hyperlipidemia, hypertension, PR, GERD, BPH, peripheral vascular disease, sleep apnea and CLL diagnosed in 2014 currently on oral chemotherapy. He was recently admitted to [facility] on 10/19/2018 with left leg pain and possible DVT of the left lower extremity and left upper extremity. He was already being treated for DVT in the right lower extremity with Xarelto. After this he developed extensive ecchymosis on arms and legs after taking a couple of doses of the Xarelto. Doppler studies of the left leg and left arm were negative and patient was thus discharged yesterday with plans to start Lovenox at home. He did receive a dose of Lovenox yesterday. When he arrived home yesterday he was unable to get out of the car due to dizziness. He was brought back to the emergency room for re-evaluation. He was discovered to have a decrease in his hemoglobin/hematocrit from 12 on admission to 9 and a further decrease to 8.2 and then 7.1 and a positive stool for occult blood. He was admitted with a surgical consultation. Patient denies having abdominal pain, nausea, vomiting, bloody or black stools. He ate a little dinner last night without any problems. He is n.p.o. this a.m. for surgical consult. He feels the ecchymosis and swelling in arms and legs has improved. With sitting up he has had no dizziness. He did receive morphine last night for pain in the legs which aided in his sleeping. <Francisca Kruse - 10/21/18 09:53> [facility] History Medical History: Reports:: Atherosclerotic Heart Disease, Atrial Fibrillation, Cancer, Coronary Artery Disease, Deep Vein Thrombosis, Hyperlipidemia, Hypertension, Myocardial Infarction, Peripheral Vascular Disease Denies:: Diabetes Mellitus Type 1, Diabetes Mellitus Type 2, Gastroesophageal Reflux Disease(GERD), Internal Pacemaker, Lung Disease, MRSA, Seizures <Francisca Kruse 10/21/18 09:53> *Have you ever received a pneumonia vaccine?: No <UriahFrancisca 10/21/18 09:53> *Have you received a flu vaccine this season?: No <KruseFrancisca 10/21/18 09:53> Other Medical History: Reports: Chemotherapy, Other. Denies: Blood Transfusion Reaction <KruseFrancisca 10/21/18 09:53> Other Surgeries: Yes: No Previous Surgery, Cardiac Catheterization, Colonoscopy, Coronary Stent, Other (TURP). No: Pacemaker <Francisca Kruse 10/21/18 09:53> Amputation: No <KruseFrancisca 10/21/18 09:53> Fractures: No <KruseFrancisca 10/21/18 09:53> - *Social History Educational Level: Completed College <UriahFrancisca 10/21/18 09:53> Smoking Status: Never smoker <UriahFrancisca 10/21/18 09:53> Alcohol Intake: never <Francisca Kruse 10/21/18 09:53> Alcohol Intake Frequency:: other <Francisca Kruse 10/21/18 09:53> Substance Use Type: denies use <KruseFrancisca 10/21/18 09:53> *Occupational Status:: employed <KruseFrancisca 10/21/18 09:53> Housing: house <KruseFrancisca 10/21/18 09:53> Household Members: spouse <UriahFrancisca 10/21/18 09:53> *Travel in the last 8 weeks: None <Francisca Kruse 10/21/18 09:53> - Psychiatric History Expresses thoughts of harming self/others: None <Francisca Kruse 10/21/18 09:53> Suicide Plan Description: No Plan <UriahFrancisca 10/21/18 09:53> Family Hx:: Unable to obtain <Francisca Kruse 10/21/18 09:53> Review of Systems - Constitutional Reports weakness, Denies chills, Denies headache(s) <Francisca Kruse 10/21/18 09:53> - ENT Denies ear pain, Denies sore throat <Francisca Kruse 10/21/18 09:53> - *Cardiovascular Reports leg swelling, Denies chest pain, Denies shortness of breath <Francisca Kruse 10/21/18 09:53> - *Respiratory Denies chest congestion, Denies cough, Denies shortness of breath <Francisca Kruse 10/21/18 09:53> - *Gastrointestinal Denies abdominal pain, Denies change in bowel habits, Denies change in stools, Denies heartburn, Denies vomiting blood, Denies bright, red blood in stools, Denies black, tarry stools, Denies nausea, Denies vomiting <Francisca Kruse 10/21/18 09:53> - *Genitourinary Denies difficulty urinating <Francisca Kruse 10/21/18 09:53> - *Musculoskeletal Comments: Has had difficulty with walking due to the edema in both his legs. <Francisca Kruse 10/21/18 09:53> - *Neurologic Reports dizziness, Denies confusion <Francisca Kruse 10/21/18 09:53> Meds Home Medications Medication Instructions Recorded Confirmed Type nitroglycerin 0.4 mg sublingual 0.4 mg SUBLINGUAL Q5MINP PRN 03/12/17 10/21/18 History tablet Cholecalciferol (Vitamin D3) 1,000 unit PO DAILY 04/03/17 10/21/18 History [Vitamin D3 1,000 Unit Cap] Tamsulosin HCl [Flomax 0.4mg 0.4 mg PO HS 11/22/17 10/21/18 History capsule] aspirin 81 mg tablet,delayed 81 mg PO DAILY 02/13/18 10/21/18 History release Potassium Chloride [Pot Chlor 8 8 meq PO DAILY 06/16/18 10/21/18 History mEq Cap] Ascorbic Acid [Vitamin C] 1,000 mg PO DAILY 10/20/18 10/21/18 History Atorvastatin Calcium [Atorvastatin 40 mg PO HS 10/20/18 10/21/18 History 40mg Tab] Echinacea Angust,Purpurea Rtxt 1 each PO DAILY 10/20/18 10/21/18 History [Echinacea 500 mg Capsule] Enoxaparin Sodium [Lovenox 100 mg SQ DAILY 30 Days #30 syringe 10/20/18 10/21/18 Rx 100mg/mL syringe] Ibrutinib [Imbruvica] 420 mg PO DAILY 10/20/18 10/21/18 History Losartan/Hydrochlorothiazide 1 tab PO DAILY 10/20/18 10/21/18 History [Losartan-Hctz 100-25 mg Tab] Multivitamin with Minerals [Men's 1 each PO DAILY 10/20/18 10/21/18 History One Daily] Oxybutynin Chloride [Oxybutynin 10 mg PO DAILY 10/20/18 10/21/18 History Chloride ER] Pantoprazole Sodium [Protonix 40mg 40 mg PO DAILY 10/20/18 10/21/18 History tablet] Clopidogrel Bisulfate [Plavix 75mg 75 mg PO DAILY 10/21/18 10/21/18 History Tab] <Harleen Barrientos - 10/21/18 10:03> Allergies Allergy/AdvReac Type Severity Reaction Status Date / Time [facility] Allergy Unknown Verified 07/31/18 12:42 <Harleen Barrientos - 10/21/18 10:03> Exam Vital signs and Labs for Last 24 Hours: Temp Pulse Resp BP Pulse Ox 98.0 F 50 L 17 101/54 L 93 L 10/21/18 08:00 10/21/18 08:00 10/21/18 08:00 10/21/18 08:00 10/21/18 08:00 Laboratory Results - last 24 hr 10/20/18 15:40: Urine Color Yellow, Urine Appearance Clear, Urine pH 6.0, Ur Specific [place] 1.020, Urine Protein Negative, Urine Glucose (UA) Negative, Urine Ketones Negative, Urine Blood Trace-i, Urine Nitrate Negative, Urine Bilirubin Negative, Urine Urobilinogen 0.2, Ur Leukocyte Esterase Negative, Urine RBC Occasional, Urine WBC Occasional, Ur Squamous Epith Cells Occasional, Urine Bacteria Trace, Urine Mucus 2+ 10/20/18 16:13: WBC 9.5, RBC 2.43 L, Hgb 8.2 L, Hct 24.4 L, MCV 100.3 H, MCH 33.9 H, MCHC 33.8, RDW 14.3, Plt Count 113 L, MPV 8.5, Neut % (Auto) 61.9, Lymph % (Auto) 32.8, [place] % (Auto) 4.6, Eos % (Auto) 0.4, Baso % (Auto) 0.3, Neut # (Auto) 5.9, Lymph # (Auto) 3.1, [place] # (Auto) 0.4, Eos # (Auto) 0.0, Baso # (Auto) 0.0 10/20/18 16:13: Sodium 140, Potassium 4.0, Chloride 107, Carbon Dioxide 27, Anion Gap 10.0, BUN 29 H D, Creatinine 0.96, Estimated Creat Clear 96, Estimated GFR 77, Est GFR ( Amer) 93 D, Glucose 102, Calcium 7.8 L, Total Bilirubin 2.9 H, AST 15 D, ALT 15, Alkaline Phosphatase 56, Troponin I 0.06, Total Protein 5.2 L, Albumin 2.8 L, Globulin 2.4, Albumin/Globulin Ratio 1.2 10/20/18 16:13: B-Natriuretic Peptide 12 10/20/18 17:06: Lactate 0.9 10/20/18 18:40: Stool Occult Blood Positive A 10/21/18 05:48: WBC 6.1 D, RBC 2.15 L, Hgb 7.1 L*, Hct 22.0 L*, MCV 102.0 H, MCH 32.9 H, MCHC 32.3, RDW 14.5, Plt Count 106 L, MPV 9.0, Neut % (Auto) 56.7, Lymph % (Auto) 36.3, [place] % (Auto) 5.9, Eos % (Auto) 0.8, Baso % (Auto) 0.3, Neut # (Auto) 3.4, Lymph # (Auto) 2.2, [place] # (Auto) 0.4, Eos # (Auto) 0.1, Baso # (Auto) 0.0 10/21/18 05:48: Sodium 133 L, Potassium 3.6, Chloride 107, Carbon Dioxide 27, Anion Gap 2.6 L, BUN 27 H, Creatinine 1.05, Estimated Creat Clear 89, Estimated GFR 70, Est GFR ( Amer) 84, Glucose 96, Calcium 7.5 L <Harleen Barrientos - 10/21/18 10:03> Temp Pulse Resp BP Pulse Ox 98.0 F 50 L 17 101/54 L 93 L 10/21/18 08:00 10/21/18 08:00 10/21/18 08:00 10/21/18 08:00 10/21/18 08:00 Laboratory Results - last 24 hr 10/20/18 15:40: Urine Color Yellow, Urine Appearance Clear, Urine pH 6.0, Ur Specific [place] 1.020, Urine Protein Negative, Urine Glucose (UA) Negative, Urine Ketones Negative, Urine Blood Trace-i, Urine Nitrate Negative, Urine Bilirubin Negative, Urine Urobilinogen 0.2, Ur Leukocyte Esterase Negative, Urine RBC Occasional, Urine WBC Occasional, Ur Squamous Epith Cells Occasional, Urine Bacteria Trace, Urine Mucus 2+ 10/20/18 16:13: WBC 9.5, RBC 2.43 L, Hgb 8.2 L, Hct 24.4 L, MCV 100.3 H, MCH 33.9 H, MCHC 33.8, RDW 14.3, Plt Count 113 L, MPV 8.5, Neut % (Auto) 61.9, Lymph % (Auto) 32.8, [place] % (Auto) 4.6, Eos % (Auto) 0.4, Baso % (Auto) 0.3, Neut # (Auto) 5.9, Lymph # (Auto) 3.1, [place] # (Auto) 0.4, Eos # (Auto) 0.0, Baso # (Auto) 0.0 10/20/18 16:13: Sodium 140, Potassium 4.0, Chloride 107, Carbon Dioxide 27, Anion Gap 10.0, BUN 29 H D, Creatinine 0.96, Estimated Creat Clear 96, Estimated GFR 77, Est GFR ( Amer) 93 D, Glucose 102, Calcium 7.8 L, Total Bilirubin 2.9 H, AST 15 D, ALT 15, Alkaline Phosphatase 56, Troponin I 0.06, Total Protein 5.2 L, Albumin 2.8 L, Globulin 2.4, Albumin/Globulin Ratio 1.2 10/20/18 16:13: B-Natriuretic Peptide 12 10/20/18 17:06: Lactate 0.9 10/20/18 18:40: Stool Occult Blood Positive A 10/21/18 05:48: WBC 6.1 D, RBC 2.15 L, Hgb 7.1 L*, Hct 22.0 L*, MCV 102.0 H, MCH 32.9 H, MCHC 32.3, RDW 14.5, Plt Count 106 L, MPV 9.0, Neut % (Auto) 56.7, Lymph % (Auto) 36.3, [place] % (Auto) 5.9, Eos % (Auto) 0.8, Baso % (Auto) 0.3, Neut # (Auto) 3.4, Lymph # (Auto) 2.2, [place] # (Auto) 0.4, Eos # (Auto) 0.1, Baso # (Auto) 0.0 10/21/18 05:48: Sodium 133 L, Potassium 3.6, Chloride 107, Carbon Dioxide 27, Anion Gap 2.6 L, BUN 27 H, Creatinine 1.05, Estimated Creat Clear 89, Estimated GFR 70, Est GFR ( Amer) 84, Glucose 96, Calcium 7.5 L <Francisca Kruse - 10/21/18 09:53> I & O for Last 24 hours: Intake & Output 10/18/18 10/19/18 10/20/18 10/21/18 11:59 11:59 11:59 11:59 Intake Total 980 / 980 Output Total 950 / 950 Balance 30 / 30 Weight 214 lb 3 oz <Harleen Barrientos - 10/21/18 10:03> Intake & Output 10/18/18 10/19/18 10/20/18 10/21/18 11:59 11:59 11:59 11:59 Intake Total 980 / 980 Output Total 950 / 950 Balance 30 / 30 Weight 214 lb 3 oz <Francisca Kruse 10/21/18 09:53> Radiology Reports for the Last 24 Hours: 10/20/2018 CT of chest IMPRESSION: 1. No evidence of pulmonary embolus. 2. Nodularity in the posterior aspect of the lower trachea which could be due to an area of secretions or a nodule within the posterior trachea. 3. Bilateral lower lobe atelectatic changes. 4. Cholelithiasis. CT of left lower leg 10/20/2018 IMPRESSION: Diffuse subcutaneous edema. No abscess or soft tissue gas CT of right lower leg IMPRESSION: Diffuse subcutaneous edema. No abscess or soft tissue gas <Francisca Kruse 10/21/18 09:53> - Constitutional no acute distress <Francisca Kruse 10/21/18 09:53> Comments: Appears comfortable at present <Francisca Kruse 10/21/18 09:53> - *Routine HEENT Exam Head: Present: normocephalic, atraumatic <Francisca Kruse 10/21/18 09:53> Eye: Present: PERRL. Absent: conjunctival icterus, scleral injection <Francisca Kruse 10/21/18 09:53> ENT: Present: mucous membranes moist, oropharynx clear <Francisca Kruse 10/21/18 09:53> - *Routine Neck Exam Present: supple. Absent: carotid bruit, lymphadenopathy, thyromegaly <Francisca Kruse 10/21/18 09:53> - *Routine Respiratory Exam Present: CTA bilaterally (Anteriorly and posteriorly) <Francisca Kruse 10/21/18 09:53> - *Routine Cardiovascular Exam Present: RRR <Francisca Kruse 10/21/18 09:53> - *Routine Abdominal Exam Present: soft, normoactive bowel sounds. Absent: tenderness, distended <Francisca Kruse 10/21/18 09:53> - *Routine Extremities Exam Present: edema (Edema of both legs and left arm is greatly improved.) <Francisca Kruse 10/21/18 09:53> - *Routine Skin Exam Present: ecchymosis (Appears more faded today in both left arm and left leg.) <Francisca Kruse 10/21/18 09:53> - *Routine Neurological Exam Present: alert, oriented X3 <Francisca Kruse 10/21/18 09:53> Assessment and Plan (1) Anemia Current visit: Yes Status: Acute Category: Medical Code(s): D64.9 - Anemia, unspecified (2) DVT (deep venous thrombosis) Current visit: Yes Status: Acute Category: Medical Code(s): I82.409 - Acute embolism and thrombosis of unspecified deep veins of unspecified lower extremity (3) GI bleed Current visit: Yes Status: Acute Category: Medical Code(s): K92.2 - Gastrointestinal hemorrhage, unspecified (4) Weakness Current visit: Yes Status: Acute Category: Medical Code(s): R53.1 - Weakness (5) CLL (chronic lymphocytic leukemia) Current visit: No Status: Acute Category: Medical Code(s): C91.90 - Lymphoid leukemia, unspecified not having achieved remission (6) Ecchymosis Current visit: No Status: Acute Category: Medical Code(s): R58 - Hemorrhage, not elsewhere classified (7) Edema Current visit: No Status: Acute Category: Medical Code(s): R60.9 - Edema, unspecified <Francisca Kruse - 10/21/18 09:13> (1) Anemia Current visit: Yes Status: Acute Category: Medical Code(s): D64.9 - Anemia, unspecified (2) DVT (deep venous thrombosis) Current visit: Yes Status: Acute Category: Medical Code(s): I82.409 - Acute embolism and thrombosis of unspecified deep veins of unspecified lower extremity (3) GI bleed Current visit: Yes Status: Acute Category: Medical Code(s): K92.2 - Gastrointestinal hemorrhage, unspecified (4) Weakness Current visit: Yes Status: Acute Category: Medical Code(s): R53.1 - Weakness (5) CLL (chronic lymphocytic leukemia) Current visit: No Status: Acute Category: Medical Code(s): C91.90 - Lymphoid leukemia, unspecified not having achieved remission (6) Ecchymosis Current visit: No Status: Acute Category: Medical Code(s): R58 - Hemorrhage, not elsewhere classified (7) Edema Current visit: No Status: Acute Qualifiers: Category: Medical Code(s): R60.9 - Edema, unspecified <Harleen Barrientos - 10/21/18 10:03> - Assessment and plan all Dx Assessment and Plan for all problems:: Risks and benefits of blood transfusions discussed with patient including the low possibility of transmitting HIV, Hep B and Hep C and having blood transfusion reactions to TRALI. However, I reassured him that he might benefit more from the transfusions at this time given the fact that it is dropping consistently. I also spoke to over the phone at bedside and all questions were answered. No scope interventions at time per Dr. Zhu. Will continue protonix. Will need to be on lovenox for blood thinners as he has CLL and currently on chemo medication. Will handover patient to Dr. Lagos (on-call physician) to continue care. <FloydHarleen - 10/21/18 10:03> We will give 2 units of packed red blood cells today. We will continue with the Lovenox for anticoagulation. PPI. Patient has been seen by surgery and will not need an EGD today. Will order diet. <Francisca Kruse - 10/21/18 09:53>
[2018-10-22 00:42] LABS: Hematocrit 28.1 % (42.0-52.0)
[2018-10-22 00:45] LABS: Hemoglobin 9.3 g/dL (14.1-18.0)
[2018-10-22 07:04] LABS: Basophils % 0.4 % (0.1-2.0); Eosinophils # 0.1 K/mm3 (0.0-0.4); Eosinophils % 0.7 % (0.1-12.0); Hematocrit 28.3 % (42.0-52.0); Hemoglobin 9.3 g/dL (14.1-18.0); Lymphocytes # 3.1 K/mm3 (0.7-4.5); Lymphocytes % 37.8 % (10-50); Mean Corpuscular HGB Conc 32.9 g/dL (31.8-35.4); Mean Corpuscular Volume 98.7 fl (80-94); Monocytes # 0.4 K/mm3 (0.1-1.0); Monocytes % 4.7 % (1.7-9.3); Neutrophils # 4.6 K/mm3 (1.8-7.8); Neutrophils % 56.5 % (37.0-80.0); Platelet Count 115 K/mm3 (142-424); Red Blood Count 2.86 M/mm3 (4.60-6.20); Red Cell Distribution Width 15.8 % (11.5-17.5); White Blood Count 8.1 K/mm3 (4.8-10.8)
[2018-10-22 07:09] LABS: Anion Gap 11.2 mEq/L (5-15); Calcium 7.8 mg/dL (8.5-10.1)
--- NOTE | 2018-10-22 08:16 | Progress Note ---
<Francisca Kruse - Last Filed: 10/22/18 08:29> Internal Medicine - PN: Subj *Date: 10/22/18 *Time: 08:29 Interval history: Patient states his legs continue to hurt as well his his left arm. He has difficulty in using the left arm and his left handed. Thus he has been trying to eat with his right hand. Pain pill helps at times. Morphine does help. He has not been out of bed. Is voiding QS. He is eating fair. He has had no nausea or vomiting. Exam Vital signs and Labs for Last 24 Hours: Temp Pulse Resp BP Pulse Ox 99.1 F 62 16 120/90 97 10/22/18 04:00 10/22/18 04:00 10/22/18 00:00 10/22/18 04:00 10/22/18 04:00 Laboratory Results - last 24 hr 10/21/18 10:28: Blood Type A Positive, Antibody Screen Negative, Crossmatch (AHG) See Detail 10/21/18 11:14: Blood Type Confirm A Positive 10/22/18 00:30: Hgb 9.3 L D, Hct 28.1 L 10/22/18 06:44: WBC 8.1 D, RBC 2.86 L D, Hgb 9.3 L, Hct 28.3 L, MCV 98.7 H, MCH 32.4 H, MCHC 32.9, RDW 15.8, Plt Count 115 L, MPV 10.0, Neut % (Auto) 56.5, Lymph % (Auto) 37.8, [place] % (Auto) 4.7, Eos % (Auto) 0.7, Baso % (Auto) 0.4, Neut # (Auto) 4.6, Lymph # (Auto) 3.1, [place] # (Auto) 0.4, Eos # (Auto) 0.1, Baso # (Auto) 0.0 10/22/18 06:44: Sodium 141, Potassium 3.2 L, Chloride 107, Carbon Dioxide 26, Anion Gap 11.2, BUN 20 H D, Creatinine 0.98, Estimated Creat Clear 94, Estimated GFR 75, Est GFR ( Amer) 91, Glucose 98, Calcium 7.8 L I & O for Last 24 hours: Intake & Output 10/19/18 10/20/18 10/21/18 08/14/19 11:59 11:59 11:59 11:59 Intake Total 980 / 980 2928 / 2928 Output Total 950 / 950 2875 / 2875 Balance 53 / 53 Weight 214 lb 3 oz 215 lb 3 oz - Constitutional no acute distress Comments: Sitting up in the bed and trying to eat breakfast. He is currently in pain. - *Routine Respiratory Exam Present: CTA bilaterally (Anteriorly and posteriorly) - *Routine Cardiovascular Exam Present: RRR - *Routine Abdominal Exam Present: soft, normoactive bowel sounds. Absent: tenderness - *Routine Extremities Exam Present: edema (Bilateral leg edema. Legs do have more erythema today.) Comments: Left arm has less edema and ecchymosis today. - *Routine Neurological Exam Present: alert, oriented X3 Legs are warm to touch today. Assessment and Plan (1) Anemia Current visit: Yes Status: Acute Category: Medical Code(s): D64.9 - Anemia, unspecified (2) DVT (deep venous thrombosis) Current visit: Yes Status: Acute Category: Medical Code(s): I82.409 - Acute embolism and thrombosis of unspecified deep veins of unspecified lower extremity (3) GI bleed Current visit: Yes Status: Acute Category: Medical Code(s): K92.2 - [place] strointestinal hemorrhage, unspecified (4) Weakness Current visit: Yes Status: Acute Category: Medical Code(s): R53.1 - Weakness (5) CLL (chronic lymphocytic leukemia) Current visit: No Status: Acute Category: Medical Code(s): C91.90 - Lymphoid leukemia, unspecified not having achieved remission (6) Ecchymosis Current visit: No Status: Acute Category: Medical Code(s): R58 - Hemorrhage, not elsewhere classified (7) Edema Current visit: No Status: Acute Category: Medical Code(s): R60.9 - Edema, unspecified (8) Hypokalemia Current visit: Yes Status: Acute Category: Medical Code(s): E87.6 - Hypokalemia (9) Cellulitis Current visit: Yes Status: Acute Category: Medical Code(s): L03.90 - Cellulitis, unspecified - Assessment and plan all Dx Assessment and Plan for all problems:: Add potassium and daily Rocephin IV. Will also give a dose of Lasix 40 mg IV. Continue with pain management. <Ricco Lagos - Last Filed: 10/22/18 09:23> Internal Medicine - PN: Subj *Date: 10/22/18 *Time: 09:22 Exam Vital signs and Labs for Last 24 Hours: Temp Pulse Resp BP Pulse Ox 97.9 F 64 16 100/53 L 92 L 10/22/18 08:51 10/22/18 08:51 10/22/18 08:51 10/22/18 08:51 10/22/18 08:51 Laboratory Results - last 24 hr 10/21/18 10:28: Blood Type A Positive, Antibody Screen Negative, Crossmatch (AHG) See Detail 10/21/18 11:14: Blood Type Confirm A Positive 10/22/18 00:30: Hgb 9.3 L D, Hct 28.1 L 10/22/18 06:44: WBC 8.1 D, RBC 2.86 L D, Hgb 9.3 L, Hct 28.3 L, MCV 98.7 H, MCH 32.4 H, MCHC 32.9, RDW 15.8, Plt Count 115 L, MPV 10.0, Neut % (Auto) 56.5, Lymph % (Auto) 37.8, [place] % (Auto) 4.7, Eos % (Auto) 0.7, Baso % (Auto) 0.4, Neut # (Auto) 4.6, Lymph # (Auto) 3.1, [place] # (Auto) 0.4, Eos # (Auto) 0.1, Baso # (Auto) 0.0 10/22/18 06:44: Sodium 141, Potassium 3.2 L, Chloride 107, Carbon Dioxide 26, Anion Gap 11.2, BUN 20 H D, Creatinine 0.98, Estimated Creat Clear 94, Estimated GFR 75, Est GFR ( Amer) 91, Glucose 98, Calcium 7.8 L I & O for Last 24 hours: Intake & Output 10/19/18 10/20/18 10/21/18 10/22/18 23:59 23:59 23:59 23:59 Intake Total 3621 / 3621 527 / 527 Output Total 400 / 400 2525 / 2925 900 / 900 Balance -400 / -400 1096 / 696 -373 / -373 Weight 214 lb 3 oz 214 lb 3 oz 215 lb 3 oz Assessment and Plan (1) Anemia Current visit: Yes Status: Acute Category: Medical Code(s): D64.9 - A nemia, unspecified (2) DVT (deep venous thrombosis) Current visit: Yes Status: Acute Category: Medical Code(s): I82.409 - Acute embolism and thrombosis of unspecified deep veins of unspecified lower extremity (3) GI bleed Current visit: Yes Status: Acute Category: Medical Code(s): K92.2 - Gastrointestinal hemorrhage, unspecified (4) Weakness Current visit: Yes Status: Acute Category: Medical Code(s): R53.1 - Weakness (5) CLL (chronic lymphocytic leukemia) Current visit: No Status: Acute Category: Medical Code(s): C91.90 - Lymphoid leukemia, unspecified not having achieved remission (6) Ecchymosis Current visit: No Status: Acute Category: Medical Code(s): R58 - Hemorrhage, not elsewhere classified (7) Edema Current visit: No Status: Acute Qualifiers: Category: Medical Code(s): R60.9 - Edema, unspecified (8) Hypokalemia Current visit: Yes Status: Acute Category: Medical Code(s): E87.6 - Hypokalemia (9) Cellulitis Current visit: Yes Status: Acute Category: Medical Code(s): L03.90 - Cellulitis, unspecified - Assessment and plan all Dx Assessment and Plan for all problems:: Saw patient, agree with above note.
--- NOTE | 2018-10-22 11:08 | Progress Note ---
Subjective Narrative: Patient is without new complaints. He denies any melena. Exam Vital signs and Labs for Last 24 Hours: Temp Pulse Resp BP Pulse Ox 97.9 F 64 16 100/53 L 92 L 10/22/18 08:51 10/22/18 08:51 10/22/18 08:51 10/22/18 08:51 10/22/18 08:51 Laboratory Results - last 24 hr 10/21/18 10:28: Blood Type A Positive, Antibody Screen Negative, Crossmatch (AHG) See Detail 10/21/18 11:14: Blood Type Confirm A Positive 10/22/18 00:30: Hgb 9.3 L D, Hct 28.1 L 10/22/18 06:44: WBC 8.1 D, RBC 2.86 L D, Hgb 9.3 L, Hct 28.3 L, MCV 98.7 H, MCH 32.4 H, MCHC 32.9, RDW 15.8, Plt Count 115 L, MPV 10.0, Neut % (Auto) 56.5, Lymph % (Auto) 37.8, [place] % (Auto) 4.7, Eos % (Auto) 0.7, Baso % (Auto) 0.4, Neut # (Auto) 4.6, Lymph # (Auto) 3.1, [place] # (Auto) 0.4, Eos # (Auto) 0.1, Baso # (Auto) 0.0 10/22/18 06:44: Sodium 141, Potassium 3.2 L, Chloride 107, Carbon Dioxide 26, Anion Gap 11.2, BUN 20 H D, Creatinine 0.98, Estimated Creat Clear 94, Estimated GFR 75, Est GFR ( Amer) 91, Glucose 98, Calcium 7.8 L I & O for Last 24 hours: Intake & Output 10/19/18 10/20/18 10/21/18 10/22/18 11:59 11:59 11:59 11:59 Intake Total 980 / 980 3168 / 3168 Output Total 950 / 950 3625 / 3625 Balance -457 / -457 Weight 214 lb 3 oz 215 lb 3 oz - *Routine Abdominal Exam Present: soft. Absent: tenderness Progress Note: A&P (1) Anemia Status: Acute Current Visit: Yes (2) DVT (deep venous thrombosis) Status: Acute Current Visit: Yes (3) GI bleed Status: Acute Current Visit: Yes (4) Weakness Status: Acute Current Visit: Yes (5) CLL (chronic lymphocytic leukemia) Status: Acute Current Visit: No (6) Ecchymosis Status: Acute Current Visit: No (7) Edema Status: Acute Current Visit: No (8) Hypokalemia Status: Acute Current Visit: Yes (9) Cellulitis Status: Acute Current Visit: Yes Assessment and Plan for All Diagnoses:: Patient had good response with ongoing hemoglobin and hematocrit stability after transfusion of 2 units of packed red blood cells. No clinical GI blood loss. Continue to monitor. If he has evidence of clinical GI bleeding or continues to drop his hemoglobin/hematocrit may consider careful EGD. However, the patient had been on several therapeutic anticoagulants with anemia with only microscopic Hemoccult positivity without clinical GI blood loss.
[2018-10-23 06:31] LABS: Basophils % 0.2 % (0.1-2.0); Eosinophils # 0.1 K/mm3 (0.0-0.4); Eosinophils % 1.2 % (0.1-12.0); Hematocrit 27.7 % (42.0-52.0); Lymphocytes # 3.1 K/mm3 (0.7-4.5); Lymphocytes % 39.4 % (10-50); Mean Corpuscular HGB Conc 32.6 g/dL (31.8-35.4); Mean Corpuscular Volume 99.6 fl (80-94); Mean Platelet Volume 8.7 fl (7.4-10.4); Monocytes # 0.4 K/mm3 (0.1-1.0); Neutrophils # 4.2 K/mm3 (1.8-7.8); Neutrophils % 54.2 % (37.0-80.0); Platelet Count 131 K/mm3 (142-424); Red Blood Count 2.78 M/mm3 (4.60-6.20); Red Cell Distribution Width 15.8 % (11.5-17.5); White Blood Count 7.8 K/mm3 (4.8-10.8)
[2018-10-23 06:40] LABS: Anion Gap 12.2 mEq/L (5-15); Calcium 7.7 mg/dL (8.5-10.1)
--- NOTE | 2018-10-23 08:19 | Progress Note ---
<Vannesa Bedoya - Last Filed: 10/23/18 08:16> Internal Medicine - PN: Subj *Date: 10/23/18 *Time: 08:16 Interval history: Patient states he feels about the same today. He is eating and drinking with no difficulty and he did rest well last night. His main complaint is of his left arm which she says is still very tender from the shoulder to the hand. He has not been using this arm and has been trying to eat with his right arm. He does also complain of some bilateral lower leg pain. Exam Vital signs and Labs for Last 24 Hours: Temp Pulse Resp BP Pulse Ox 98.3 F 78 22 106/67 L 95 10/23/18 04:00 10/23/18 04:00 10/23/18 04:00 10/23/18 04:00 10/23/18 04:00 Laboratory Results - last 24 hr 10/23/18 05:55: WBC 7.8, RBC 2.78 L, Hgb 9.0 L, Hct 27.7 L, MCV 99.6 H, MCH 32.5 H, MCHC 32.6, RDW 15.8, Plt Count 131 L, MPV 8.7, Neut % (Auto) 54.2, Lymph % (Auto) 39.4, Alfalfa % (Auto) 5.0, Eos % (Auto) 1.2, Baso % (Auto) 0.2, Neut # (Auto) 4.2, Lymph # (Auto) 3.1, Alfalfa # (Auto) 0.4, Eos # (Auto) 0.1, Baso # (Auto) 0.0 10/23/18 05:55: Sodium 142, Potassium 3.2 L, Chloride 105, Carbon Dioxide 28, Anion Gap 12.2, BUN 29 H D, Creatinine 1.00, Estimated Creat Clear 94, Estimated GFR 74, Est GFR ( Amer) 89, Glucose 112 H, Calcium 7.7 L I & O for Last 24 hours: Intake & Output 10/20/18 10/21/18 10/22/18 10/23/18 11:59 11:59 11:59 11:59 Intake Total 980 / 980 3168 / 3168 1260 / 1260 Output Total 950 / 950 3625 / 4505 2059 / 2059 Balance -457 / -1337 -800 / -800 Weight 214 lb 3 oz 215 lb 3 oz 217 lb 2 oz Microbiology Reports for the Last 24 Hours: Microbiology 10/20/18 17:12 Blood Blood Culture - Preliminary NO GROWTH AFTER 48 HOURS 10/20/18 17:06 Blood Blood Culture - Preliminary NO GROWTH AFTER 48 HOURS - Constitutional no acute distress - *Routine Respiratory Exam Present: CTA bilaterally - *Routine Cardiovascular Exam Present: RRR - *Routine Abdominal Exam Present: soft, normoactive bowel sounds. Absent: tenderness - *Routine Extremities Exam Present: edema (bilateral LE edema with ecchymosis of the lower legs, left arm with edema and ecchymosis as well, very ttp) - *Routine Neurological Exam Present: alert, oriented X3 Assessment and Plan (1) Anemia Current visit: Yes Status: Acute Category: Medical Code(s): D64.9 - Anemia, unspecified (2) DVT (deep venous thrombosis) Current visit: Yes Status: Acute Category: Medical Code(s): I82.409 - Acute embolism and thrombosis of unspecified deep veins of unspecified lower extremity (3) GI bleed Current visit: Yes Status: Acute Category: Medical Code(s): K92.2 - Gastrointestinal hemorrhage, unspecified (4) Weakness Current visit: Yes Status: Acute Category: Medical Code(s): R53.1 - Weakness (5) CLL (chronic lymphocytic leukemia) Current visit: No Status: Acute Category: Medical Code(s): C91.90 - Lymphoid leukemia, unspecified not having achieved remission (6) Ecchymosis Current visit: No Status: Acute Category: Medical Code(s): R58 - Hemorrhage, not elsewhere classified (7) Edema Current visit: No Status: Acute Category: Medical Code(s): R60.9 - Edema, unspecified (8) Hypokalemia Current visit: Yes Status: Acute Category: Medical Code(s): E87.6 - Hypokalemia (9) Cellulitis Current visit: Yes Status: Acute Category: Medical Code(s): L03.90 - Cellulitis, unspecified - Assessment and plan all Dx Assessment and Plan for all problems:: Antibiotics were initiated yesterday. Patient's potassium is still low, therefore will increase potassium replacement dose. H&H is still stable. Will discuss further care with Dr. Lagos. <Ricco Lagos - Last Filed: 10/23/18 10:53> Internal Medicine - PN: Subj *Date: 10/23/18 *Time: 10:53 Exam Vital signs and Labs for Last 24 Hours: Temp Pulse Resp BP Pulse Ox 98.8 F 54 L 14 109/69 L 91 L 10/23/18 08:00 10/23/18 08:00 10/23/18 08:00 10/23/18 08:00 10/23/18 08:00 Laboratory Results - last 24 hr 10/23/18 05:55: WBC 7.8, RBC 2.78 L, Hgb 9.0 L, Hct 27.7 L, MCV 99.6 H, MCH 32.5 H, MCHC 32.6, RDW 15.8, Plt Count 131 L, MPV 8.7, Neut % (Auto) 54.2, Lymph % (Auto) 39.4, [place]alfa % (Auto) 5.0, Eos % (Auto) 1.2, Baso % (Auto) 0.2, Neut # (Auto) 4.2, Lymph # (Auto) 3.1, [place]alf[place] # (Auto) 0.4, Eos # (Auto) 0.1, Baso # (Auto) 0.0 10/23/18 05:55: Sodium 142, Potassium 3.2 L, Chloride 105, Carbon Dioxide 28, Anion Gap 12.2, BUN 29 H D, Creatinine 1.00, Estimated Creat Clear 94, Estimated GFR 74, Est GFR ( Amer) 89, Glucose 112 H, Calcium 7.7 L I & O for Last 24 hours: Intake & Output 10/20/18 10/21/18 10/22/18 10/23/18 23:59 23:59 23:59 23:59 Intake Total 3621 / 3621 587 / 587 1620 / 1620 Output Total 400 / 400 2525 / 2925 3710 / 3710 550 / 550 Balance -400 / -400 1096 / 696 -3123 / -3123 1070 / 1070 Weight 214 lb 3 oz 214 lb 3 oz 215 lb 3 oz 217 lb 2 oz Microbiology Reports for the Last 24 Hours: Microbiology 10/20/18 17:12 Blood Blood Culture - Preliminary NO GROWTH AFTER 48 HOURS 10/20/18 17:06 Blood Blood Culture - Preliminary NO GROWTH AFTER 48 HOURS Assessment and Plan (1) Anemia Current visit: Yes Status: Acute Category: Medical Code(s): D64.9 - Anemia, unspecified (2) DVT (deep venous thrombosis) Current visit: Yes Status: Acute Category: Medical Code(s): I82.409 - Acute embolism and thrombosis of unspecified deep veins of unspecified lower extremity (3) GI bleed Current visit: Yes Status: Acute Category: Medical Code(s): K92.2 - Gastrointestinal hemorrhage, unspecified (4) Weakness Current visit: Yes Status: Acute Category: Medical Code(s): R53.1 - Weakness (5) CLL (chronic lymphocytic leukemia) Current visit: No Status: Acute Category: Medical Code(s): C91.90 - Lymphoid leukemia, unspecified not having achieved remission (6) Ecchymosis Current visit: No Status: Acute Category: Medical Code(s): R58 - Hemorrhage, not elsewhere classified (7) Edema Current visit: No Status: Acute Qualifiers: Category: Medical Code(s): R60.9 - Edema, unspecified (8) Hypokalemia Current visit: Yes Status: Acute Category: Medical Code(s): E87.6 - Hypokalemia (9) Cellulitis Current visit: Yes Status: Acute Category: Medical Code(s): L03.90 - Cellulitis, unspecified - Assessment and plan all Dx Assessment and Plan for all problems:: Saw patient, agree with above note.
--- NOTE | 2018-10-23 12:46 | Consult Report ---
*Admission Date: 10/20/18 *Reason for consult:: recommendations regarding anticoagulation *History of present illness: Mr. Anne is a 73-year-old male with a history of atrial fibrillation, coronary artery disease status post angioplasty with stent., Hyperlipidemia, hypertension, [place], GERD, BPH, peripheral vascular disease, sleep apnea and CLL diagnosed in 2014 currently on oral chemotherapy. He was recently admitted and has been treated for DVT. He is on Xarelto. He was discharged yesterday morning and readmitted yesterday afternoon after he spirits and weakness. Evaluation in the emergency department revealed a slightly lower hemoglobin. He was admitted for inpatient management. Surgical consultation was obtained for "GI bleed". Patient denies any hematemesis. Denies any coffee-ground emesis. Denies any rectal bleeding. Denies any melena. [facility] History Medical History: Reports:: Atherosclerotic Heart Disease, Atrial Fibrillation, Cancer, Coronary Artery Disease, Deep Vein Thrombosis, Hyperlipidemia, Hypertension, Myocardial Infarction, Peripheral Vascular Disease Denies:: Diabetes Mellitus Type 1, Diabetes Mellitus Type 2, Gastroesophageal Reflux Disease(GERD), Internal Pacemaker, Lung Disease, MRSA, Seizures *Have you ever received a pneumonia vaccine?: No *Have you received a flu vaccine this season?: No Other Medical History: Reports: Chemotherapy, Other. Denies: Blood Transfusion Reaction Other Surgeries: Yes: No Previous Surgery, Cardiac Catheterization, Colonoscopy, Coronary Stent, Other (TURP). No: Pacemaker Amputation: No Fractures: No - *Social History Educational Level: Completed College Smoking Status: Never smoker Alcohol Intake: never Alcohol Intake Frequency:: other Substance Use Type: denies use *Occupational Status:: employed Housing: house Household Members: spouse *Travel in the last 8 weeks: None - Psychiatric History Expresses thoughts of harming self/others: None Suicide Plan Description: No Plan Family Hx:: Unable to obtain Review of Systems - *Neurologic Reports dizziness, Reports numbness, Reports weakness, Reports other (toes left foot), Denies confusion, Denies headache(s) Meds Home Medications Medication Instructions Recorded Confirmed Type nitroglycerin 0.4 mg sublingual 0.4 mg SUBLINGUAL Q5MINP PRN 03/12/17 10/21/18 History tablet Cholecalciferol (Vitamin D3) 1,000 unit PO DAILY 04/03/17 10/21/18 History [Vitamin D3 1,000 Unit Cap] Tamsulosin HCl [Flomax 0.4mg 0.4 mg PO HS 11/22/17 10/21/18 History capsule] Potassium Chloride [Pot Chlor 8 8 meq PO DAILY 06/16/18 10/21/18 History mEq Cap] Ascorbic Acid [Vitamin C] 1,000 mg PO DAILY 10/20/18 10/21/18 History Atorvastatin Calcium [Atorvastatin 40 mg PO HS 10/20/18 10/21/18 History 40mg Tab] Echinacea Angust,Purpurea Rtxt 1 each PO DAILY 10/20/18 10/21/18 History [Echinacea 500 mg Capsule] Enoxaparin Sodium [Lovenox 100 mg SQ DAILY 30 Days #30 syringe 10/20/18 10/21/18 Rx 100mg/mL syringe] Ibrutinib [Imbruvica] 420 mg PO DAILY 10/20/18 10/21/18 History Losartan/Hydrochlorothiazide 1 tab PO DAILY 10/20/18 10/21/18 History [Losartan-Hctz 100-25 mg Tab] Multivitamin with Minerals [Men's 1 each PO DAILY 10/20/18 10/21/18 History One Daily] Oxybutynin Chloride [Oxybutynin 10 mg PO DAILY 10/20/18 10/21/18 History Chloride ER] Pantoprazole Sodium [Protonix 40mg 40 mg PO DAILY 10/20/18 10/21/18 History tablet] Clopidogrel Bisulfate [Plavix 75mg 75 mg PO DAILY 10/21/18 10/21/18 History Tab] Allergies Allergy/AdvReac Type Severity Reaction Status Date / Time levofloxacin [From Levuin] Allergy Unknown Verified 07/31/18 12:42 Exam Vital signs and Labs for Last 24 Hours: Temp Pulse Resp BP Pulse Ox 98.8 F 54 L 14 109/69 L 91 L 10/23/18 08:00 10/23/18 08:00 10/23/18 08:00 10/23/18 08:00 10/23/18 08:00 Laboratory Results - last 24 hr 10/23/18 05:55: WBC 7.8, RBC 2.78 L, Hgb 9.0 L, Hct 27.7 L, MCV 99.6 H, MCH 32.5 H, MCHC 32.6, RDW 15.8, Plt Count 131 L, MPV 8.7, Neut % (Auto) 54.2, Lymph % (Auto) 39.4, [place] % (Auto) 5.0, Eos % (Auto) 1.2, Baso % (Auto) 0.2, Neut # (Auto) 4.2, Lymph # (Auto) 3.1, [place] # (Auto) 0.4, Eos # (Auto) 0.1, Baso # (Auto) 0.0 10/23/18 05:55: Sodium 142, Potassium 3.2 L, Chloride 105, Carbon Dioxide 28, Anion Gap 12.2, BUN 29 H D, Creatinine 1.00, Estimated Creat Clear 94, Estimated GFR 74, Est GFR ( Amer) 89, Glucose 112 H, Calcium 7.7 L I & O for Last 24 hours: Intake & Output 10/20/18 10/21/18 10/22/18 10/23/18 23:59 23:59 23:59 23:59 Intake Total 3621 / 3621 587 / 587 1620 / 1620 Output Total 400 / 400 2525 / 2925 3710 / 3710 550 / 550 Balance -400 / -400 1096 / 696 -3123 / -3123 1070 / 1070 Weight 214 lb 3 oz 214 lb 3 oz 215 lb 3 oz 217 lb 2 oz Microbiology Reports for the Last 24 Hours: Microbiology 10/20/18 17:12 Blood Blood Culture - Preliminary NO GROWTH AFTER 48 HOURS 10/20/18 17:06 Blood Blood Culture - Preliminary NO GROWTH AFTER 48 HOURS Internal Medicine - CN: Reslt - Labs CBC & Chem 7: 10/23/18 05:55 10/23/18 05:55 Labs: Short CBC 10/23/18 Range/Units 05:55 WBC 7.8 (4.8-10.8) K/mm3 Hgb 9.0 L (14.1-18.0) g/dL Hct 27.7 L (42.0-52.0) % Plt Count 131 L (142-424) K/mm3 BMP 10/23/18 05:55 Sodium 142 Potassium 3.2 L Chloride 105 Carbon Dioxide 28 BUN 29 H D Creatinine 1.00 Glucose 112 H Calcium 7.7 L Assessment and Plan (1) Anemia Current visit: Yes Status: Acute Category: Medical Code(s): D64.9 - Anemia , unspecified (2) DVT (deep venous thrombosis) Current visit: Yes Status: Acute Category: Medical Code(s): I82.409 - Acute embolism and thrombosis of unspecified deep veins of unspecified lower extremity (3) GI bleed Current visit: Yes Status: Acute Category: Medical Code(s): K92.2 - Gastrointestinal hemorrhage, unspecified (4) Weakness Current visit: Yes Status: Acute Category: Medical Code(s): R53.1 - Weakness (5) CLL (chronic lymphocytic leukemia) Current visit: No Status: Acute Category: Medical Code(s): C91.90 - Lymphoid leukemia, unspecified not having achieved remission (6) Ecchymosis Current visit: No Status: Acute Category: Medical Code(s): R58 - Hemorrhage, not elsewhere classified (7) Edema Current visit: No Status: Acute Qualifiers: Category: Medical Code(s): R60.9 - Edema, unspecified (8) Hypokalemia Current visit: Yes Status: Acute Category: Medical Code(s): E87.6 - Hypokalemia (9) Cellulitis Current visit: Yes Status: Acute Category: Medical Code(s): L03.90 - Cellulitis, unspecified
--- NOTE | 2018-10-23 12:53 | Consult Report ---
*Admission Date: 10/20/18 *History of present illness: Mr. Anne is a 73-year-old male with a history of atrial fibrillation, lomax ry artery disease status post angioplasty with stent., Hyperlipidemia, hypertension, [place], GERD, BPH, peripheral vascular disease, sleep apnea and CLL diagnosed in 2014 currently on oral chemotherapy. He was recently admitted and has been treated for DVT. He is on Xarelto. He was discharged yesterday morning and readmitted yesterday afternoon after he spirits and weakness. Evaluation in the emergency department revealed a slightly lower hemoglobin. He was admitted for inpatient management. Surgical consultation was obtained for "GI bleed". Patient denies any hematemesis. Denies any coffee-ground emesis. Denies any rectal bleeding. Denies any melena. Patient seen in consultation for CLL. He has long standing disease and has been on Imbruvica for some time. He recently developed a DVT in RLE and had Xarelto added to his prior regimen of ASA and plavix for cardiac issues. He was admitted with anemia. He developed significant bruising of his LUE with tightness. Also bruising over his abdominal wall Stool was heme +. He has been transfused and HGB seems stable at 9.0. ROS: No SOB or chest pain PE: NAD with ? of scleral icterus No adenopathy chest clear COR: RR Abd: soft with some bruising on abdominal wall Bilateral LE swelling with tenderness Marcked ecchymosis involving all most all of his LUE A: His anemia is due to blood loss into soft tissue and bowel. His Xarelto has been stopped and Lovenox started. I agree with this as the next most reasonable step. I do not believe that his bleeding is related to Imbruvica. If he stabilizes, lovenox is resonable. If he continues to bleed with anticoagulation, an IVC filter may be needed instead. For completeness sale, I have ordered a Direct [place] and retic count to r/o hemolysis which can occur in patient with CLL. [facility] History Medical History: Reports:: Atherosclerotic Heart Disease, Atrial Fibrillation, Cancer, Coronary Artery Disease, Deep Vein Thrombosis, Hyperlipidemia, Hypertension, Myocardial Infarction, Peripheral Vascular Disease Denies:: Diabetes Mellitus Type 1, Diabetes Mellitus Type 2, Gastroesophageal Reflux Disease(GERD), Internal Pacemaker, Lung Disease, MRSA, Seizures *Have you ever received a pneumonia vaccine?: No *Have you received a flu vaccine this season?: No Other Medical History: Reports: Chemotherapy, Other. Denies: Blood Transfusion Reaction Other Surgeries: Yes: No Previous Surgery, Cardiac Catheterization, Colonoscopy, Coronary Stent, Other (TURP). No: Pacemaker Amputation: No Fractures: No - *Social History Educational Level: Completed College Smoking Status: Never smoker Alcohol Intake: never Alcohol Intake Frequency:: other Substance Use Type: denies use *Occupational Status:: employed Housing: house Household Members: spouse *Travel in the last 8 weeks: None - Psychiatric History Expresses thoughts of harming self/others: None Suicide Plan Description: No Plan Family Hx:: Unable to obtain Review of Systems - *Neurologic Reports dizziness, Reports numbness, Reports weakness, Reports other (toes left foot), Denies confusion, Denies headache(s) Meds Home Medications Medication Instructions Recorded Confirmed Type nitroglycerin 0.4 mg sublingual 0.4 mg SUBLINGUAL Q5MINP PRN 03/12/17 10/21/18 History tablet Cholecalciferol (Vitamin D3) 1,000 unit PO DAILY 04/03/17 10/21/18 History [Vitamin D3 1,000 Unit Cap] Tamsulosin HCl [Flomax 0.4mg 0.4 mg PO HS 11/22/17 10/21/18 History capsule] Potassium Chloride [Pot Chlor 8 8 meq PO DAILY 06/16/18 10/21/18 History mEq Cap] Ascorbic Acid [Vitamin C] 1,000 mg PO DAILY 10/20/18 10/21/18 History Atorvastatin Calcium [Atorvastatin 40 mg PO HS 10/20/18 10/21/18 History 40mg Tab] Echinacea Angust,Purpurea Rtxt 1 each PO DAILY 10/20/18 10/21/18 History [Echinacea 500 mg Capsule] Enoxaparin Sodium [Lovenox 100 mg SQ DAILY 30 Days #30 syringe 10/20/18 10/21/18 Rx 100mg/mL syringe] Ibrutinib [Imbruvica] 420 mg PO DAILY 10/20/18 10/21/18 History Losartan/Hydrochlorothiazide 1 tab PO DAILY 10/20/18 10/21/18 History [Losartan-Hctz 100-25 mg Tab] Multivitamin with Minerals [Men's 1 each PO DAILY 10/20/18 10/21/18 History One Daily] Oxybutynin Chloride [Oxybutynin 10 mg PO DAILY 10/20/18 10/21/18 History Chloride ER] Pantoprazole Sodium [Protonix 40mg 40 mg PO DAILY 10/20/18 10/21/18 History tablet] Clopidogrel Bisulfate [Plavix 75mg 75 mg PO DAILY 10/21/18 10/21/18 History Tab] Allergies Allergy/AdvReac Type Severity Reaction Status Date / Time levofloxacin [From Levaquin] Allergy Unknown Verified 07/31/18 12:42 Exam Vital signs and Labs for Last 24 Hours: Temp Pulse Resp BP Pulse Ox 98.8 F 54 L 14 109/69 L 91 L 10/23/18 08:00 10/23/18 08:00 10/23/18 08:00 10/23/18 08:00 10/23/18 08:00 Laboratory Results - last 24 hr 10/23/18 05:55: WBC 7.8, RBC 2.78 L, Hgb 9.0 L, Hct 27.7 L, MCV 99.6 H, MCH 32.5 H, MCHC 32.6, RDW 15.8, Plt Count 131 L, MPV 8.7, Neut % (Auto) 54.2, Lymph % ( Auto) 39.4, [place] % (Auto) 5.0, Eos % (Auto) 1.2, Baso % (Auto) 0.2, Neut # (Auto) 4.2, Lymph # (Auto) 3.1, [place] # (Auto) 0.4, Eos # (Auto) 0.1, Baso # (Auto) 0.0 10/23/18 05:55: Sodium 142, Potassium 3.2 L, Chloride 105, Carbon Dioxide 28, Anion Gap 12.2, BUN 29 H D, Creatinine 1.00, Estimated Creat Clear 94, Estimated GFR 74, Est GFR ( Amer) 89, Glucose 112 H, Calcium 7.7 L I & O for Last 24 hours: Intake & Output 10/20/18 10/21/18 10/22/18 10/23/18 23:59 23:59 23:59 23:59 Intake Total 3621 / 3621 587 / 587 1620 / 1620 Output Total 400 / 400 2525 / 2925 3710 / 3710 550 / 550 Balance -400 / -400 1096 / 696 -3123 / -3123 1070 / 1070 Weight 214 lb 3 oz 214 lb 3 oz 215 lb 3 oz 217 lb 2 oz Microbiology Reports for the Last 24 Hours: Microbiology 10/20/18 17:12 Blood Blood Culture - Preliminary NO GROWTH AFTER 48 HOURS 10/20/18 17:06 Blood Blood Culture - Preliminary NO GROWTH AFTER 48 HOURS Internal Medicine - CN: Reslt - Labs CBC & Chem 7: 10/23/18 05:55 10/23/18 05:55 Labs: Short CBC 10/23/18 Range/Units 05:55 WBC 7.8 (4.8-10.8) K/mm3 Hgb 9.0 L (14.1-18.0) g/dL Hct 27.7 L (42.0-52.0) % Plt Count 131 L (142-424) K/mm3 BMP 10/23/18 05:55 Sodium 142 Potassium 3.2 L Chloride 105 Carbon Dioxide 28 BUN 29 H D Creatinine 1.00 Glucose 112 H Calcium 7.7 L Assessment and Plan (1) Anemia Current visit: Yes Status: Acute Category: Medical Code(s): D64.9 - Anemia, unspecified (2) DVT (deep venous thrombosis) Current visit: Yes Status: Acute Category: Medical Code(s): I82.409 - Acute embolism and thrombosis of unspecified deep veins of unspecified lower extremity (3) GI bleed Current visit: Yes Status: Acute Category: Medical Code(s): K92.2 - Marry rointestinal hemorrhage, unspecified (4) Weakness Current visit: Yes Status: Acute Category: Medical Code(s): R53.1 - Weakness (5) CLL (chronic lymphocytic leukemia) Current visit: No Status: Acute Category: Medical Code(s): C91.90 - Lymphoid leukemia, unspecified not having achieved remission (6) Ecchymosis Current visit: No Status: Acute Category: Medical Code(s): R58 - Hemorrhage, not elsewhere classified (7) Edema Current visit: No Status: Acute Qualifiers: Category: Medical Code(s): R60.9 - Edema, unspecified (8) Hypokalemia Current visit: Yes Status: Acute Category: Medical Code(s): E87.6 - Hypokalemia (9) Cellulitis Current visit: Yes Status: Acute Category: Medical Code(s): L03.90 - Cellulitis, unspecified
--- NOTE | 2018-10-24 07:50 | Progress Note ---
Subjective Narrative: Patient without complaints. No clinical evidence of any gi bleeding. Exam Vital signs and Labs for Last 24 Hours: Temp Pulse Resp BP Pulse Ox 98.6 F 52 L 18 125/53 L 96 10/24/18 03:56 10/24/18 03:56 10/24/18 03:56 10/24/18 03:56 10/24/18 03:56 Laboratory Results - last 24 hr 10/21/18 10:28: Crossmatch (AHG) See Detail 10/23/18 13:36: Retic Count (auto) 3.1 10/23/18 13:36: Direct Antiglob Test Negative I & O for Last 24 hours: Intake & Output 10/21/18 10/22/18 10/23/18 10/24/18 11:59 11:59 11:59 11:59 Intake Total 980 / 980 3168 / 3168 1680 / 1680 1891 / 1891 Output Total 950 / 950 3625 / 4505 2610 / 2610 2640 / 2640 Balance 30 / 30 -457 / -1337 -930 / -930 -749 / -749 Weight 214 lb 3 oz 215 lb 3 oz 217 lb 2 oz 213 lb 2 oz - *Routine Abdominal Exam Present: soft Progress Note: A&P (1) Anemia Status: Acute Current Visit: Yes (2) DVT (deep venous thrombosis) Status: Acute Current Visit: Yes (3) GI bleed Status: Acute Current Visit: Yes (4) Weakness Status: Acute Current Visit: Yes (5) CLL (chronic lymphocytic leukemia) Status: Acute Current Visit: No (6) Ecchymosis Status: Acute Current Visit: No (7) Edema Status: Acute Current Visit: No (8) Hypokalemia Status: Acute Current Visit: Yes (9) Cellulitis Status: Acute Current Visit: Yes Assessment and Plan for All Diagnoses:: H/H stable since transfusion with no clinical evidence of bleeding. Check CBC today.
--- NOTE | 2018-10-24 08:12 | Progress Note ---
Internal Medicine - PN: Subj *Date: 10/24/18 *Time: 08:10 Interval history: Patient feels better today, less pain and swelling in legs and left arm. Exam Vital signs and Labs for Last 24 Hours: Temp Pulse Resp BP Pulse Ox 98.6 F 52 L 18 125/53 L 96 10/24/18 03:56 10/24/18 03:56 10/24/18 03:56 10/24/18 03:56 10/24/18 03:56 Laboratory Results - last 24 hr 10/21/18 10:28: Crossmatch (AHG) See Detail 10/23/18 13:36: Retic Count (auto) 3.1 10/23/18 13:36: Direct Antiglob Test Negative Vital Signs - 24 hr 10/23/18 16:00 10/23/18 20:00 10/24/18 03:56 Temperature 98.4 F 98.6 F 98.6 F Pulse Rate [Left Radial] 54 L 61 52 L Respiratory Rate 20 18 18 Blood Pressure [Right Arm] 144/69 H 126/60 125/53 L 02 Sat by Pulse Oximetry 97 93 L 96 I & O for Last 24 hours: Intake & Output 10/21/18 10/22/18 10/23/18 10/24/18 23:59 23:59 23:59 23:59 Intake Total 3621 / 3621 587 / 587 2100 / 2100 1411 / 1411 Output Total 2525 / 2925 3710 / 3710 1890 / 1890 1300 / 1300 Balance 1096 / 696 -3123 / -3123 210 / 210 111 / 111 Weight 214 lb 3 oz 215 lb 3 oz 217 lb 2 oz 213 lb 2 oz - Constitutional no acute distress - *Routine HEENT Exam Head: Present: normocephalic Eye: Present: EOMI, PERRL ENT: Present: mucous membranes moist - *Routine Neck Exam Present: supple. Absent: lymphadenopathy - *Routine Respiratory Exam Present: CTA bilaterally - *Routine Cardiovascular Exam Present: RRR - *Routine Abdominal Exam Present: soft, normoactive bowel sounds. Absent: tenderness - *Routine Extremities Exam Present: edema (of both legs and left arm, has decreased slightly today). Absent: cyanosis, clubbing - *Routine Skin Exam Present: warm, ecchymosis (fading) - *Routine Neurological Exam Present: alert, oriented X3 Assessment and Plan (1) Anemia Current visit: Yes Status: Acute Category: Medical Code(s): D64.9 - Anemi a, unspecified (2) DVT (deep venous thrombosis) Current visit: Yes Status: Acute Category: Medical Code(s): I82.409 - Acute embolism and thrombosis of unspecified deep veins of unspecified lower extremity (3) GI bleed Current visit: Yes Status: Acute Category: Medical Code(s): K92.2 - Gastrointestinal hemorrhage, unspecified (4) Weakness Current visit: Yes Status: Acute Category: Medical Code(s): R53.1 - Weakness (5) CLL (chronic lymphocytic leukemia) Current visit: No Status: Acute Category: Medical Code(s): C91.90 - Lymphoid leukemia, unspecified not having achieved remission (6) Ecchymosis Current visit: No Status: Acute Category: Medical Code(s): R58 - Hemorrhage, not elsewhere classified (7) Edema Current visit: No Status: Acute Qualifiers: Category: Medical Code(s): R60.9 - Edema, unspecified (8) Hypokalemia Current visit: Yes Status: Acute Category: Medical Code(s): E87.6 - Hypokalemia (9) Cellulitis Current visit: Yes Status: Acute Category: Medical Code(s): L03.90 - Cellulitis, unspecified - Assessment and plan all Dx Assessment and Plan for all problems:: Labs pending at this time. Patient has improved, possible discharge later today.
[2018-10-24 09:40] LABS: Basophils % 0.3 % (0.1-2.0); Eosinophils # 0.1 K/mm3 (0.0-0.4); Eosinophils % 1.4 % (0.1-12.0); Hematocrit 29.3 % (42.0-52.0); Hemoglobin 9.6 g/dL (14.1-18.0); Lymphocytes # 3.8 K/mm3 (0.7-4.5); Lymphocytes % 44.8 % (10-50); Mean Corpuscular HGB Conc 32.7 g/dL (31.8-35.4); Mean Corpuscular Volume 99.4 fl (80-94); Mean Platelet Volume 8.4 fl (7.4-10.4); Monocytes # 0.4 K/mm3 (0.1-1.0); Monocytes % 4.6 % (1.7-9.3); Neutrophils # 4.1 K/mm3 (1.8-7.8); Neutrophils % 48.8 % (37.0-80.0); Platelet Count 148 K/mm3 (142-424); Red Blood Count 2.95 M/mm3 (4.60-6.20); Red Cell Distribution Width 15.5 % (11.5-17.5); White Blood Count 8.4 K/mm3 (4.8-10.8)
--- NOTE | 2018-10-26 21:55 | Discharge Summary ---
General - General Admission date:: 10/20/18 Discharge date: 10/24/18 HPI HPI: Mr. Serna is a 73-year-old male with a history of atrial fibrillation, coronary artery disease status post angioplasty with stent., Hyperlipidemia, hypertension, NH, GERD, BPH, peripheral vascular disease, sleep apnea and CLL diagnosed in 2014 currently on oral chemotherapy. He was recently admitted to [facility] on 10/19/2018 with left leg pain and possible DVT of the left lower extremity and left upper extremity. He was already being treated for DVT in the right lower extremity with Xarelto. After this he developed extensive ecchymosis on arms and legs after taking a couple of doses of the Xarelto. Doppler studies of the left leg and left arm were negative and patient was thus discharged yesterday with plans to start Lovenox at home. He did receive a dose of Lovenox yesterday. When he arrived home yesterday he was unable to get out of the car due to dizziness. He was brought back to the emergency room for re-evaluation. He was discovered to have a decrease in his hemoglobin/hematocrit from 12 on admission to 9 and a further decrease to 8.2 and then 7.1 and a positive stool for occult blood. He was admitted with a surgical consultation. Patient denies having abdominal pain, nausea, vomiting, bloody or black stools. He ate a little dinner last night without any problems. He is n.p.o. this a.m. for surgical consult. He feels the ecchymosis and swelling in arms and legs has improved. With sitting up he has had no dizziness. He did receive morphine last night for pain in the legs which aided in his sleeping. Hospital Course Hospital Course: The patient's CT of the chest showed no evidence of PE. He had a CT of the bilateral lower legs showing diffuse subcutaneous edema but no abscess or soft tissue gas. He was given 2 units of packed red blood cells and continued on Lovenox for anticoagulation. A PPI was ordered. He was seen in consultation by Dr. Zhu who felt the patient would not need a scope. He was in agreement with treating empirically with antacids. The patient's hemoglobin improved and remained stable. He had continued pain in his legs and left arm. Pain medication did help. His potassium was low and was replaced. He was started on daily Rocephin for cellulitis and was given some IV Lasix. Dr. Zhu felt there was no clinical GI blood loss and it was fine to continue to monitor the patient's H&H. He was able to eat and drink without difficulty. Hematology and oncology was consulted as patient has CLL. Dr. Garcia felt he could be continued on Lovenox, but if he continued to bleed, an IVC filter might be needed. He also ordered a direct Ysabel and reticulocyte count to rule out hemolysis. His reticulocyte count was normal. His direct Ysabel test was negative. He began having less pain and swelling in his legs and left arm and was felt stable to be discharged. He will follow-up in the office [facility] in 4 days. Objective Vital signs: Temp Pulse Resp BP Pulse Ox 98.3 F 59 L 18 123/67 94 L 10/24/18 08:00 10/24/18 08:00 10/24/18 08:00 10/24/18 08:00 10/24/18 08:00 Narrative: - Constitutional no acute distress Comments: Appears comfortable at present - *Routine HEENT Exam Head: Present: normocephalic, atraumatic Eye: Present: PERRL. Absent: conjunctival icterus, scleral injection ENT: Present: mucous membranes moist, oropharynx clear - *Routine Neck Exam Present: supple. Absent: carotid bruit, lymphadenopathy, thyromegaly - *Routine Respiratory Exam Present: CTA bilaterally (Anteriorly and posteriorly) - *Routine Cardiovascular Exam Present: RRR - *Routine Abdominal Exam Present: soft, normoactive bowel sounds. Absent: tenderness, distended - *Routine Extremities Exam Present: edema (Edema of both legs and left arm is greatly improved.) - *Routine Skin Exam Present: ecchymosis (Appears more faded today in both left arm and left leg.) - *Routine Neurological Exam Present: alert, oriented X3 DS: Diagnosis - Discharge Diagnosis (1) Anemia Status: Acute (2) DVT (deep venous thrombosis) Status: Acute (3) GI bleed Status: Acute (4) Weakness Status: Acute (5) CLL (chronic lymphocytic leukemia) Status: Acute (6) Ecchymosis Status: Acute (7) Edema Status: Acute (8) Hypokalemia Status: Acute (9) Cellulitis Status: Acute Discharge Plan - Patient Discharge Instructions ACTIVITY: Continue current activity DIET: continue same diet Patient Instructions: DI for Cellulitis -- Adult, Chronic Lymphocytic Leukemia, Anemia, DI for Deep Vein Thrombosis, DI for Gastrointestinal Bleeding - Follow up Plan Follow up with: Ricco Lagos MD [Staff Physician] - 10/28/18 2:15 pm Disposition: Home, Self-[facility] Medications: Home Medications Medication Instructions Recorded Confirmed Type nitroglycerin 0.4 mg sublingual 0.4 mg SUBLINGUAL Q5MINP PRN 03/12/17 10/21/18 History tablet Cholecalciferol (Vitamin D3) 1,000 unit PO DAILY 04/03/17 10/21/18 History [Vitamin D3 1,000 Unit Cap] Tamsulosin HCl [Flomax 0.4mg 0.4 mg PO HS 11/22/17 10/21/18 History capsule] Potassium Chloride [Pot Chlor 8 8 meq PO DAILY 06/16/18 10/21/18 History mEq Cap] Ascorbic Acid [Vitamin C] 1,000 mg PO DAILY 10/20/18 10/21/18 History Atorvastatin Calcium [Atorvastatin 40 mg PO HS 10/20/18 10/21/18 History 40mg Tab] Echinacea Angust,Purpurea Rtxt 1 each PO DAILY 10/20/18 10/21/18 History [Echinacea 500 mg Capsule] Enoxaparin Sodium [Lovenox 100 mg SQ DAILY 30 Days #30 syringe 10/20/18 10/21/18 Rx 100mg/mL syringe] Ibrutinib [Imbruvica] 420 mg PO DAILY 10/20/18 10/21/18 History Losartan/Hydrochlorothiazide 1 tab PO DAILY 10/20/18 10/21/18 History [Losartan-Hctz 100-25 mg Tab] Multivitamin with Minerals [Men's 1 each PO DAILY 10/20/18 10/21/18 History One Daily] Oxybutynin Chloride [Oxybutynin 10 mg PO DAILY 10/20/18 10/21/18 History Chloride ER] Pantoprazole Sodium [Protonix 40mg 40 mg PO DAILY 10/20/18 10/21/18 History tablet] Ferrous Sulfate [Ferrous Sulfate 325 mg PO BID #60 tab 10/24/18 Rx 325mg Tablet] cephALEXin [cephALEXin 500mg 500 mg PO BID #14 cap 10/24/18 Rx capsule*] Prescriptions/Medication Reconciliation: New cephALEXin [cephALEXin 500mg capsule*] 500 mg PO BID #14 cap Ferrous Sulfate [Ferrous Sulfate 325mg Tablet] 325 mg PO BID #60 tab Continued nitroglycerin 0.4 mg sublingual tablet 0.4 mg SUBLINGUAL Q5MINP PRN PRN Reason: Chest Pain Cholecalciferol (Vitamin D3) [Vitamin D3 1,000 Unit Cap] 1,000 unit PO DAILY Atorvastatin Calcium [Atorvastatin 40mg Tab] 40 mg PO HS Oxybutynin Chloride [Oxybutynin Chloride ER] 10 mg PO DAILY Ascorbic Acid [Vitamin C] 1,000 mg PO DAILY Multivitamin with Minerals [Men's One Daily] 1 each PO DAILY Losartan/Hydrochlorothiazide [Losartan-Hctz 100-25 mg Tab] 1 tab PO DAILY Echinacea Angust,Purpurea Rtxt [Echinacea 500 mg Capsule] 1 each PO DAILY Ibrutinib [Imbruvica] 420 mg PO DAILY Tamsulosin HCl [Flomax 0.4mg capsule] 0.4 mg PO HS Potassium Chloride [Pot Chlor 8 mEq Cap] 8 meq PO DAILY Pantoprazole Sodium [Protonix 40mg tablet] 40 mg PO DAILY Enoxaparin Sodium [Lovenox 100mg/mL syringe] 100 mg SQ DAILY 30 Days #30 syringe Discontinued Clopidogrel Bisulfate [Plavix 75mg Tab] 75 mg PO DAILY - Problem Reconciliation Problems Reviewed?: Yes
== END 2018-10-24 14:50 | disposition home or self-care (01) | DRG 556 ==
LOC: ER 14:32 → 2ND 14:32 → OBSVTOIN 20:30 → 2ND 20:31
PROVIDERS: ADMIT Family Medicine; ATTEND Emergency Medicine
CPT/HCPCS: 36415; 70450; 71010; 71020; 71045; 71046; 71275; 73700; 80048; 80053; 81001; 82272; 82803; 82962; 83605; 83880; 84145; 84484; 85014; 85018; 85025; 85044; 85610; 85730; 86850; 86880; 87040; 93005; 93971; 96365; 97110; 97116; 97161; 99284; 99285; G0328; G0378; J1642; J2543; P9016; Q9967

== ENCOUNTER 2018-11-06 12:24 | Outpatient (CLI) | payer MEDICARE, SELFPAY ==
[2018-11-06 12:31] VITALS: BMI 31.3
[2018-11-06 12:43] LABS: Basophils # 0.1 K/mm3 (0-0.2); Basophils % 0.6 % (0.1-2.0); Eosinophils # 0.1 K/mm3 (0.0-0.4); Hemoglobin 11.7 g/dL (14.1-18.0); Lymphocytes # 5.5 K/mm3 (0.7-4.5); Lymphocytes % 62.8 % (10-50); Mean Corpuscular HGB Conc 31.7 g/dL (31.8-35.4); Mean Corpuscular Hemoglobin 32.5 pg (27.0-31.2); Mean Corpuscular Volume 102.6 fl (80-94); Mean Platelet Volume 7.9 fl (7.4-10.4); Monocytes # 0.6 K/mm3 (0.1-1.0); Monocytes % 6.4 % (1.7-9.3); Neutrophils # 2.6 K/mm3 (1.8-7.8); Neutrophils % 29.2 % (37.0-80.0); Platelet Count 242 K/mm3 (142-424); Red Cell Distribution Width 15.6 % (11.5-17.5); White Blood Count 8.8 K/mm3 (4.8-10.8)
[2018-11-06 12:44] LABS: MANUAL DIFFERENTIAL MANUAL DIFFERENTIAL (MANUAL DIFF)
[2018-11-06 12:56] LABS: Alanine Aminotransferase 55 U/L (12-78); Albumin Level 3.1 gm/dL (3.4-5.0); Albumin/Globulin Ratio 1.2 (1.1-1.8); Alkaline Phosphatase 69 U/L (46-116); Aspartate Amino Transferase 31 U/L (15-37); Bilirubin,Total 0.8 mg/dL (0.2-1.0); Blood Urea Nitrogen 20 mg/dL (7-18); Calcium 8.3 mg/dL (8.5-10.1); Carbon Dioxide 27 mmol/L (21.0-32.0); Chloride 107 mmol/L (98-107); Creatinine Clearance Estimated 87 mL/min (50-200); Creatinine,Serum 0.88 mg/dL (0.70-1.30); Estimated Glomerular Filt Rate 85 ml/min (>60); GFR (African American) 103 ML/MIN (>60); Globulin 2.6 gm/dl (1.3-3.2); Glucose 111 mg/dL (74-106); Sodium 140 mmol/L (136-145); Total Protein,Serum 5.7 gm/dL (6.4-8.2)
[2018-11-06 13:12] LABS: Lymphocytes % 66 % (10-50); Monocytes % 5 % (2-9); Neutrophils % 27 % (42-76); Total Cells Counted 100
[2018-11-06 13:15] LABS: Macrocytosis 1+; Platelet Estimate Normal
== END 2018-11-06 12:40 | disposition home or self-care (01) ==
LOC: INF 12:24
PROVIDERS: Visit Provider Internal Medicine Medical Oncology
DX: C91.10 Chronic lymphocytic leukemia of B-cell type not having achieved remission (principal); Z45.2 Encounter for adjustment and management of vascular access device
CPT/HCPCS: 80053; 85007; 85025; J1642

== ENCOUNTER 2018-12-04 13:40 | Outpatient (CLI) | payer MEDICARE, SELFPAY ==
[2018-12-04 13:43] VITALS: BMI 31.9
[2018-12-04 14:02] LABS: Basophils % 0.4 % (0.1-2.0); Eosinophils # 0.1 K/mm3 (0.0-0.4); Eosinophils % 1.8 % (0.1-12.0); Hematocrit 36.5 % (42.0-52.0); Hemoglobin 11.3 g/dL (14.1-18.0); Lymphocytes # 2.7 K/mm3 (0.7-4.5); Mean Corpuscular HGB Conc 30.9 g/dL (31.8-35.4); Mean Corpuscular Hemoglobin 32.1 pg (27.0-31.2); Mean Corpuscular Volume 103.8 fl (80-94); Mean Platelet Volume 8.6 fl (7.4-10.4); Monocytes # 0.2 K/mm3 (0.1-1.0); Monocytes % 3.5 % (1.7-9.3); Neutrophils # 3.4 K/mm3 (1.8-7.8); Neutrophils % 52.3 % (37.0-80.0); Platelet Count 70 K/mm3 (142-424); Red Blood Count 3.51 M/mm3 (4.60-6.20); Red Cell Distribution Width 16.5 % (11.5-17.5); White Blood Count 6.4 K/mm3 (4.8-10.8)
[2018-12-04 14:27] LABS: Alanine Aminotransferase 36 U/L (12-78); Albumin Level 3.1 gm/dL (3.4-5.0); Albumin/Globulin Ratio 1.2 (1.1-1.8); Alkaline Phosphatase 69 U/L (46-116); Anion Gap 11.1 mEq/L (5-15); Bilirubin,Total 0.8 mg/dL (0.2-1.0); Blood Urea Nitrogen 18 mg/dL (7-18); Calcium 8.3 mg/dL (8.5-10.1); Carbon Dioxide 27 mmol/L (21.0-32.0); Chloride 105 mmol/L (98-107); Creatinine Clearance Estimated 89 mL/min (50-200); Creatinine,Serum 0.84 mg/dL (0.70-1.30); Estimated Glomerular Filt Rate 90 ml/min (>60); GFR (African American) 109 ML/MIN (>60); Globulin 2.6 gm/dl (1.3-3.2); Glucose 107 mg/dL (74-106); Sodium 139 mmol/L (136-145); Total Protein,Serum 5.7 gm/dL (6.4-8.2)
[2018-12-04 14:34] LABS: Aspartate Amino Transferase 22 U/L (15-37); Potassium 4.1 mmoL/L (3.5-5.1)
[2018-12-12 17:02] LABS: Miscellaneous Test 0.147
== END 2018-12-04 15:30 | disposition home or self-care (01) ==
LOC: INF 13:42
PROVIDERS: Visit Provider Internal Medicine Medical Oncology
DX: C91.10 Chronic lymphocytic leukemia of B-cell type not having achieved remission (principal)
CPT/HCPCS: 80053; 85025; J1642

== ENCOUNTER 2019-01-02 12:59 | Outpatient (CLI) | payer MEDICARE, SELFPAY ==
[2019-01-02 13:02] VITALS: BMI 32.4
[2019-01-02 13:32] LABS: Basophils % 0.6 % (0.1-2.0); Eosinophils # 0.1 K/mm3 (0.0-0.4); Eosinophils % 1.2 % (0.1-12.0); Hematocrit 40.7 % (42.0-52.0); Hemoglobin 13.2 g/dL (14.1-18.0); Lymphocytes # 3.4 K/mm3 (0.7-4.5); Lymphocytes % 50.3 % (10-50); Mean Corpuscular HGB Conc 32.5 g/dL (31.8-35.4); Mean Corpuscular Hemoglobin 34.2 pg (27.0-31.2); Mean Corpuscular Volume 105.2 fl (80-94); Mean Platelet Volume 9.2 fl (7.4-10.4); Monocytes # 0.2 K/mm3 (0.1-1.0); Monocytes % 3.1 % (1.7-9.3); Neutrophils % 44.8 % (37.0-80.0); Platelet Count 71 K/mm3 (142-424); Red Blood Count 3.87 M/mm3 (4.60-6.20); Red Cell Distribution Width 15.5 % (11.5-17.5); White Blood Count 6.8 K/mm3 (4.8-10.8)
[2019-01-02 14:01] LABS: MANUAL DIFFERENTIAL MANUAL DIFFERENTIAL (MANUAL DIFF)
[2019-01-02 14:02] LABS: Lymphocytes % 40 % (10-50); Monocytes % 3 % (2-9); Neutrophils % 38 % (42-76); Platelet Estimate Moderate Decrease; Total Cells Counted 100
== END 2019-01-02 13:30 | disposition home or self-care (01) ==
LOC: INF 12:59
PROVIDERS: Visit Provider Internal Medicine Medical Oncology
DX: C91.10 Chronic lymphocytic leukemia of B-cell type not having achieved remission (principal); Z45.2 Encounter for adjustment and management of vascular access device
CPT/HCPCS: 85007; 85025; J1642

== ENCOUNTER → 2019-01-19 13:39 | Outpatient (CLI) | payer MEDICARE, SELFPAY ==
--- NOTE | 2019-01-19 13:43 | CA_ITS ---
APPROVED REPORT Bilateral Lower Extremity Venous Study for DVT. Welt Cutter: ZHAO Indications Lower Extremity Pain: Right Risk Factors Prior Phlebitis/DVT Vein Imaging CFV (R): compressive, spontaneous, phasic, augmentation SFJ (R): compressive, spontaneous, phasic, augmentation FEM (R): compressive, spontaneous, phasic, augmentation POP (R): compressive, spontaneous, phasic, augmentation PTV (R): Compressible GSV (R): Compressible Peroneals (R):Compressible GAS (R): Compressible Findings No evidence of DVT or superficial thrombophlebitis in the veins scanned of the right lower extremity. Conclusion No evidence of DVT or superficial thrombophlebitis in the veins scanned of the right lower extremity. Electronically signed by : Jose Giron MD 01/20/2019 18:15:43
== END ==
PROVIDERS: PCP Emergency Medicine; Visit Provider Family Medicine
DX: M79.604 Pain in right leg (principal); I82.401 Acute embolism and thrombosis of unspecified deep veins of right lower extremity
CPT/HCPCS: 93971

== ENCOUNTER 2019-02-12 13:18 | Outpatient (CLI) | payer MEDICARE, SELFPAY ==
[2019-02-12 13:21] VITALS: BMI 33.0
[2019-02-12 13:39] LABS: Basophils % 0.7 % (0.1-2.0); Eosinophils # 0.1 K/mm3 (0.0-0.4); Hematocrit 41.6 % (42.0-52.0); Hemoglobin 13.6 g/dL (14.1-18.0); Lymphocytes # 2.8 K/mm3 (0.7-4.5); Lymphocytes % 60.1 % (10-50); Mean Corpuscular HGB Conc 32.7 g/dL (31.8-35.4); Mean Corpuscular Hemoglobin 34.6 pg (27.0-31.2); Mean Corpuscular Volume 105.6 fl (80-94); Mean Platelet Volume 9.4 fl (7.4-10.4); Monocytes # 0.2 K/mm3 (0.1-1.0); Neutrophils # 1.6 K/mm3 (1.8-7.8); Neutrophils % 34.3 % (37.0-80.0); Platelet Count 70 K/mm3 (142-424); Red Blood Count 3.94 M/mm3 (4.60-6.20); Red Cell Distribution Width 14.3 % (11.5-17.5); White Blood Count 4.7 K/mm3 (4.8-10.8)
[2019-02-12 13:43] LABS: MANUAL DIFFERENTIAL MANUAL DIFFERENTIAL (MANUAL DIFF)
[2019-02-12 13:49] LABS: Alanine Aminotransferase 18 U/L (12-78); Albumin Level 3.7 gm/dL (3.4-5.0); Albumin/Globulin Ratio 1.5 (1.1-1.8); Alkaline Phosphatase 77 U/L (46-116); Anion Gap 12.8 mEq/L (5-15); Aspartate Amino Transferase 16 U/L (15-37); Bilirubin,Total 1.7 mg/dL (0.2-1.0); Blood Urea Nitrogen 26 mg/dL (7-18); Calcium 7.7 mg/dL (8.5-10.1); Carbon Dioxide 27 mmol/L (21.0-32.0); Chloride 105 mmol/L (98-107); Creatinine Clearance Estimated 92 mL/min (50-200); Creatinine,Serum 0.91 mg/dL (0.70-1.30); Estimated Glomerular Filt Rate 82 ml/min (>60); GFR (African American) 99 ML/MIN (>60); Globulin 2.4 gm/dl (1.3-3.2); Glucose 120 mg/dL (74-106); Potassium 3.8 mmoL/L (3.5-5.1); Sodium 141 mmol/L (136-145); Total Protein,Serum 6.1 gm/dL (6.4-8.2)
[2019-02-12 13:54] LABS: Eosinophils % 2 % (0-3); Lymphocytes % 61 % (10-50); Microcytosis 1+; Monocytes % 5 % (2-9); Neutrophils % 32 % (42-76); Platelet Estimate Normal; RBC Morphology Normal; Total Cells Counted 100
== END 2019-02-12 13:29 | disposition home or self-care (01) ==
LOC: INF 13:18
PROVIDERS: Visit Provider Internal Medicine Medical Oncology
DX: C91.10 Chronic lymphocytic leukemia of B-cell type not having achieved remission (principal); Z45.2 Encounter for adjustment and management of vascular access device
CPT/HCPCS: 80053; 85007; 85025; J1642

== ENCOUNTER 2019-02-25 10:04 | Outpatient (CLI) | payer MEDICARE, SELFPAY ==
--- NOTE | 2019-02-25 | CT_ITS ---
PROCEDURE: CT CHEST WO/W CON CLINCAL INDICATION: LYMPHOCYTIC LEUKEMIA Follow-up leukemia COMPARISON: [facility] CT angio chest from 10/20/2018 TECHNIQUE: IV Contrast: 75ml Optiray 350 Axial images obtained with sagittal and coronal reformats. All CT scans at the facility use one or more dose reduction, viz: automated exposure control, ma/kV adjustment per patient size (including targeted exams where dose is matched to indication, i.e. head), or iterative reconstruction technique. FINDINGS: There are mildly prominent mediastinal lymph nodes noted throughout the mediastinum including the posterior mediastinum posterior to the esophagus measuring up to 2.4 x 1.4 cm. Overall, the mediastinal lymph nodes do not appear significantly changed. There are mildly prominent bilateral axillary lymph nodes which do appear slightly more prominent measuring up to 1.6 x 1.4 cm in the right axillary region previously at 1.1 by 0.7 cm. There is MediPort catheter present from the right subclavian approach. The Atelectatic changes are present in the lung bases. No effusions or infiltrates. Coronary artery calcifications are present IMPRESSION: 1. Mild mediastinal and axillary adenopathy. Axillary lymph nodes have slightly increased in size compared to the previous exam. 2. No effusions or infiltrates. No suspicious pulmonary nodules. Dictated by: Jose Giron MD 02/26/2019 04:55 Electronically signed by Jose Giron MD in [facility] 02/26/2019 04:55
--- NOTE | 2019-02-25 | CT_ITS ---
PROCEDURE: CT ABDOMEN PELVIS WO/W CON CLINICAL INDICATION: LYMPHOCYTIC LEUKEMIA Follow-up lymphoma [facility] abdomen pelvis w con from 05/02/2018 TECHNIQUE: IV Contrast: 75ML OPTIRAY 350 Oral Contrast 450ml Redicat Axial images obtained with sagittal and coronal reformats. All CT scans at the facility use one or more dose reduction, viz: automated exposure control, ma/kV adjustment per patient size (including targeted exams where dose is matched to indication, i.e. head), or iterative reconstruction technique. FINDINGS: There is a small 4 mm hypodensity in the right hepatic lobe anteriorly nonspecific too small to categorize and probably unchanged. The liver is otherwise unremarkable. Gallstones are present. The spleen, pancreas, adrenal glands, and kidneys have an unremarkable appearance. Fusiform infrarenal abdominal aortic aneurysm is present measuring 2.9 cm transverse with mild ectasia of the right iliac artery at 1.8 cm in the left common iliac artery at 1.4 cm. The no intestinal obstruction or free air. No evidence of appendicitis. There diverticulosis of the sigmoid colon but no evidence of diverticulitis. There is a mild amount of retained colonic feces. There is fairly extensive adenopathy within the mesenteries and retroperitoneum. This has increased compared to the previous exam. For example, there is a 2 x 1.7 cm lymph node in the right lower quadrant previously measuring 1.2 by 1 cm. No abnormal fluid collections. There is mild thickening of the urinary bladder which is nonspecific. No acute bony anomalies. IMPRESSION: 1. Interval progression of abdominal and retroperitoneal adenopathy. 2. Mild dilatation of the infrarenal abdominal aorta at 2.9 cm with mild dilatation of the iliac arteries not significantly changed Dictated by: Jose Giron MD 02/26/2019 05:12 Electronically signed by Jose Giron MD in [facility] 02/26/2019 05:12
[2019-02-25 09:49] VITALS: BMI 32.1
[2019-02-25 10:24] LABS: Blood Urea Nitrogen 24 mg/dL (7-18); Creatinine Clearance Estimated 75 mL/min (50-200); Creatinine,Serum 1.22 mg/dL (0.70-1.30); Estimated Glomerular Filt Rate 59 ml/min (>60); GFR (African American) 71 ML/MIN (>60)
== END 2019-02-25 11:25 | disposition home or self-care (01) ==
LOC: RAD 10:05
PROVIDERS: PCP Emergency Medicine; Visit Provider Internal Medicine Medical Oncology
DX: C91.10 Chronic lymphocytic leukemia of B-cell type not having achieved remission (principal)
CPT/HCPCS: 71270; 74178; 82565; 84520; J1642; Q9967

== ENCOUNTER 2019-04-02 13:58 | Outpatient (CLI) | payer MEDICARE, SELFPAY ==
[2019-04-02 13:59] VITALS: BMI 32.1
[2019-04-02 14:21] LABS: Basophils # 0.1 K/mm3 (0-0.2); Basophils % 0.5 % (0.1-2.0); Eosinophils % 0.3 % (0.1-12.0); Hematocrit 40.2 % (42.0-52.0); Hemoglobin 13.5 g/dL (14.1-18.0); Lymphocytes # 6.5 K/mm3 (0.7-4.5); Lymphocytes % 66.3 % (10-50); Mean Corpuscular HGB Conc 33.5 g/dL (31.8-35.4); Mean Corpuscular Volume 104.5 fl (80-94); Mean Platelet Volume 9.8 fl (7.4-10.4); Monocytes # 0.4 K/mm3 (0.1-1.0); Monocytes % 3.6 % (1.7-9.3); Neutrophils # 2.9 K/mm3 (1.8-7.8); Neutrophils % 29.2 % (37.0-80.0); Platelet Count 89 K/mm3 (142-424); Red Blood Count 3.85 M/mm3 (4.60-6.20); Red Cell Distribution Width 13.6 % (11.5-17.5); White Blood Count 9.8 K/mm3 (4.8-10.8)
[2019-04-02 14:24] LABS: MANUAL DIFFERENTIAL MANUAL DIFFERENTIAL (MANUAL DIFF)
[2019-04-02 14:27] LABS: Lymphocytes % 61 % (10-50); Neutrophils % 33 % (42-76); Total Cells Counted 100
[2019-04-02 14:28] LABS: Acanthocytes 1+; Anisocytosis 1+; Macrocytosis 1+; Platelet Estimate Moderate Decrease; Poikilocytosis 1+
[2019-04-02 14:32] LABS: Alanine Aminotransferase 11 U/L (12-78); Albumin Level 3.5 gm/dL (3.4-5.0); Albumin/Globulin Ratio 1.7 (1.1-1.8); Alkaline Phosphatase 60 U/L (46-116); Anion Gap 10.6 mEq/L (5-15); Aspartate Amino Transferase 11 U/L (15-37); Bilirubin,Total 1.3 mg/dL (0.2-1.0); Blood Urea Nitrogen 23 mg/dL (7-18); Calcium 8.4 mg/dL (8.5-10.1); Carbon Dioxide 29 mmol/L (21.0-32.0); Chloride 106 mmol/L (98-107); Creatinine Clearance Estimated 92 mL/min (50-200); Creatinine,Serum 0.95 mg/dL (0.70-1.30); Estimated Glomerular Filt Rate 78 ml/min (>60); GFR (African American) 95 ML/MIN (>60); Globulin 2.1 gm/dl (1.3-3.2); Glucose 124 mg/dL (74-106); Potassium 3.6 mmoL/L (3.5-5.1); Sodium 142 mmol/L (136-145); Total Protein,Serum 5.6 gm/dL (6.4-8.2)
== END 2019-04-02 15:02 | disposition home or self-care (01) ==
LOC: INF 13:58
PROVIDERS: Visit Provider Internal Medicine Medical Oncology
DX: C91.10 Chronic lymphocytic leukemia of B-cell type not having achieved remission (principal)
CPT/HCPCS: 80053; 85007; 85025; J1642

== ENCOUNTER 2019-04-30 13:06 | Outpatient (CLI) | payer MEDICARE, SELFPAY ==
[2019-04-30 13:08] VITALS: BMI 31.9
[2019-04-30 13:27] LABS: Basophils # 0.1 K/mm3 (0-0.2); Basophils % 0.5 % (0.1-2.0); Eosinophils # 0.1 K/mm3 (0.0-0.4); Eosinophils % 0.6 % (0.1-12.0); Hematocrit 39.2 % (42.0-52.0); Hemoglobin 13.1 g/dL (14.1-18.0); Lymphocytes # 10.6 K/mm3 (0.7-4.5); Lymphocytes % 64.4 % (10-50); Mean Corpuscular HGB Conc 33.3 g/dL (31.8-35.4); Mean Corpuscular Hemoglobin 35.1 pg (27.0-31.2); Mean Corpuscular Volume 105.3 fl (80-94); Mean Platelet Volume 9.4 fl (7.4-10.4); Monocytes # 0.3 K/mm3 (0.1-1.0); Monocytes % 1.9 % (1.7-9.3); Neutrophils # 5.4 K/mm3 (1.8-7.8); Neutrophils % 32.6 % (37.0-80.0); Platelet Count 105 K/mm3 (142-424); Red Blood Count 3.72 M/mm3 (4.60-6.20); Red Cell Distribution Width 13.7 % (11.5-17.5); White Blood Count 16.5 K/mm3 (4.8-10.8)
[2019-04-30 13:28] LABS: Chloride 101 mmol/L (98-107); MANUAL DIFFERENTIAL MANUAL DIFFERENTIAL (MANUAL DIFF); Potassium 3.7 mmoL/L (3.5-5.1); Sodium 139 mmol/L (136-145)
[2019-04-30 13:31] LABS: Alanine Aminotransferase 10 U/L (12-78); Albumin Level 3.7 g/dl (3.5-5.0); Albumin/Globulin Ratio 1.9 (1.1-1.8); Alkaline Phosphatase 46 U/L (38-126); Anion Gap 10.7 mEq/L (5-15); Aspartate Amino Transferase 21 U/L (17-59); Blood Urea Nitrogen 20 mg/dl (9-20); Carbon Dioxide 31 mmol/L (22.0-30.0); Creatinine Clearance Estimated 87 mL/min (50-200); Estimated Glomerular Filt Rate 83 ml/min (>60); GFR (African American) 100 ML/MIN (>60); Globulin 1.9 g/dL (1.3-3.2); Total Protein,Serum 5.6 g/dl (6.3-8.2)
[2019-04-30 13:32] LABS: Calcium 8.5 mg/dl (8.4-10.2); Glucose 98 mg/dl (74-100)
[2019-04-30 14:09] LABS: Lymphocytes % 53 % (10-50); Monocytes % 4 % (2-9); Neutrophils % 35 % (42-76); Platelet Estimate Slight Decrease; Total Cells Counted 100
[2019-04-30 14:10] LABS: Macrocytosis 1+
[2019-04-30 14:11] LABS: Poikilocytosis 1+
[2019-04-30 14:13] LABS: Acanthocytes 1+; Anisocytosis 1+
== END 2019-04-30 13:10 | disposition home or self-care (01) ==
LOC: INF 13:07
PROVIDERS: PCP Emergency Medicine; Visit Provider Internal Medicine Medical Oncology
DX: C91.10 Chronic lymphocytic leukemia of B-cell type not having achieved remission (principal)
CPT/HCPCS: 80053; 85007; 85025; J1642

== ENCOUNTER 2019-06-11 12:54 | Outpatient (CLI) | payer MEDICARE, SELFPAY ==
[2019-06-11 12:55] VITALS: BP 137/71; PULSE 64; RESP 18; TEMP 36.7; O2SAT 96
[2019-06-11 12:57] VITALS: BMI 31.9
[2019-06-11 13:29] LABS: Basophils # 0.1 K/mm3 (0-0.2); Basophils % 0.5 % (0.1-2.0); Eosinophils # 0.1 K/mm3 (0.0-0.4); Eosinophils % 0.7 % (0.1-12.0); Hematocrit 38.8 % (42.0-52.0); Hemoglobin 13.2 g/dL (14.1-18.0); Lymphocytes # 9.9 K/mm3 (0.7-4.5); Lymphocytes % 62.5 % (10-50); Mean Corpuscular HGB Conc 34.2 g/dL (31.8-35.4); Mean Corpuscular Hemoglobin 35.1 pg (27.0-31.2); Mean Corpuscular Volume 102.8 fl (80-94); Mean Platelet Volume 9.8 fl (7.4-10.4); Monocytes # 0.3 K/mm3 (0.1-1.0); Monocytes % 1.7 % (1.7-9.3); Neutrophils # 5.5 K/mm3 (1.8-7.8); Neutrophils % 34.7 % (37.0-80.0); Platelet Count 122 K/mm3 (142-424); Red Blood Count 3.77 M/mm3 (4.60-6.20); Red Cell Distribution Width 13.1 % (11.5-17.5); White Blood Count 15.9 K/mm3 (4.8-10.8)
[2019-06-11 13:31] LABS: Chloride 99 mmol/L (98-107); Potassium 3.5 mmoL/L (3.5-5.1); Sodium 138 mmol/L (136-145)
[2019-06-11 13:33] LABS: Blood Urea Nitrogen 23 mg/dl (9-20); Creatinine Clearance Estimated 87 mL/min (50-200); Estimated Glomerular Filt Rate 83 ml/min (>60); GFR (African American) 100 ML/MIN (>60); MANUAL DIFFERENTIAL MANUAL DIFFERENTIAL (MANUAL DIFF)
[2019-06-11 13:34] LABS: Alanine Aminotransferase 10 U/L (12-78); Albumin Level 3.7 g/dl (3.5-5.0); Albumin/Globulin Ratio 1.7 (1.1-1.8); Alkaline Phosphatase 53 U/L (38-126); Anion Gap 12.5 mEq/L (5-15); Aspartate Amino Transferase 20 U/L (17-59); Bilirubin,Total 1.2 mg/dl (0.2-1.3); Calcium 8.5 mg/dl (8.4-10.2); Carbon Dioxide 30 mmol/L (22.0-30.0); Globulin 2.2 g/dL (1.3-3.2); Glucose 97 mg/dl (74-100); Total Protein,Serum 5.9 g/dl (6.3-8.2)
[2019-06-11 13:54] LABS: Lymphocytes % 68 % (10-50); Monocytes % 2 % (2-9); Neutrophils % 27 % (42-76); Total Cells Counted 100
[2019-06-11 13:55] LABS: Acanthocytes 1+; Anisocytosis 1+; Macrocytosis 1+; Platelet Estimate Slight Decrease; Poikilocytosis 1+
== END 2019-06-11 13:05 | disposition home or self-care (01) ==
LOC: INF 12:54
PROVIDERS: Visit Provider Internal Medicine Medical Oncology
DX: C91.10 Chronic lymphocytic leukemia of B-cell type not having achieved remission (principal); Z45.2 Encounter for adjustment and management of vascular access device
CPT/HCPCS: 80053; 85007; 85025; J1642

== ENCOUNTER 2019-07-16 10:35 | Outpatient (CLI) | payer MEDICARE, SELFPAY ==
[2019-07-16 10:40] VITALS: BMI 31.9
[2019-07-16 10:59] LABS: Basophils # 0.1 K/mm3 (0-0.2); Basophils % 0.5 % (0.1-2.0); Eosinophils # 0.1 K/mm3 (0.0-0.4); Eosinophils % 0.8 % (0.1-12.0); Hematocrit 39.9 % (42.0-52.0); Lymphocytes # 8.1 K/mm3 (0.7-4.5); Lymphocytes % 53.9 % (10-50); Mean Corpuscular HGB Conc 32.7 g/dL (31.8-35.4); Mean Corpuscular Hemoglobin 34.7 pg (27.0-31.2); Mean Corpuscular Volume 106.2 fl (80-94); Mean Platelet Volume 10.4 fl (7.4-10.4); Monocytes # 0.3 K/mm3 (0.1-1.0); Monocytes % 2.3 % (1.7-9.3); Neutrophils # 6.4 K/mm3 (1.8-7.8); Neutrophils % 42.5 % (37.0-80.0); Platelet Count 118 K/mm3 (142-424); Red Blood Count 3.76 M/mm3 (4.60-6.20); Red Cell Distribution Width 13.5 % (11.5-17.5)
[2019-07-16 11:03] LABS: MANUAL DIFFERENTIAL MANUAL DIFFERENTIAL (MANUAL DIFF)
[2019-07-16 11:09] LABS: Alanine Aminotransferase 11 U/L (12-78); Albumin Level 3.9 g/dl (3.5-5.0); Albumin/Globulin Ratio 1.9 (1.1-1.8); Alkaline Phosphatase 60 U/L (38-126); Anion Gap 7.4 mEq/L (5-15); Aspartate Amino Transferase 31 U/L (17-59); Bilirubin,Total 1.1 mg/dl (0.2-1.3); Blood Urea Nitrogen 19 mg/dl (9-20); Calcium 8.5 mg/dl (8.4-10.2); Carbon Dioxide 30 mmol/L (22.0-30.0); Chloride 102 mmol/L (98-107); Creatinine Clearance Estimated 87 mL/min (50-200); Estimated Glomerular Filt Rate 83 ml/min (>60); GFR (African American) 100 ML/MIN (>60); Globulin 2.1 g/dL (1.3-3.2); Glucose 95 mg/dl (74-100); Potassium 3.4 mmoL/L (3.5-5.1); Sodium 136 mmol/L (136-145)
[2019-07-16 11:18] LABS: Lymphocytes % 65 % (10-50); Monocytes % 4 % (2-9); Neutrophils % 31 % (42-76); Total Cells Counted 100
[2019-07-16 11:19] LABS: Anisocytosis 2+; Macrocytosis 2+; Platelet Estimate Slight Decrease
== END 2019-07-16 11:04 | disposition home or self-care (01) ==
LOC: INF 10:38
PROVIDERS: Visit Provider Internal Medicine Medical Oncology
DX: C91.10 Chronic lymphocytic leukemia of B-cell type not having achieved remission (principal)
CPT/HCPCS: 80053; 85007; 85025; J1642

== ENCOUNTER → 2019-07-31 06:46 | Outpatient (CLI) | payer MEDICARE, SELFPAY ==
--- NOTE | 2019-07-31 06:48 | NM_ITS ---
APPROVED REPORT Exam: Nuclear Stress Test Indication: CAD, 2 STENTS, HTN, HYPERLIPIDEMIA, TOB USE, SOB Patient Location: Outpatient Stress Tech: Mary Norman [place] Tech:Sadia OsmanMYRIAM RT(R)(N) Ht: 5 ft 7 in Wt: 194 lbs HR: 53 bpm BP: 131/68 mmHg BSA: 2.00 m2 BMI: 30.3 History: CAD, 2 STENTS, HTN, HYPERLIPIDEMIA, TOB USE, SOB Procedure: Patient received a 0.4 mg of intravenous Lexiscan, resting heart rate 53 bpm, resting blood pressure 131/68 mmHg, with Lexiscan maximum heart rate achived was 79 bpm which is Less than 85 % of the maximum predicted heart rate and blood pressure was 94/57 mmHg. With Lexiscan, patient denied any complaint of chest pain. Electrocardiogram Resting electrocardiogram shows likely sinus rhythm, with Lexiscan there is less than 1.[address] segment depression noted from the baseline EKG. The EKG portion of the Lexiscan is nondiagnostic. Cardiac Stress and Resting SPECT Images: Cardiac Stress and Resting SPECT images were obtained using technetium 99m Myoview 30.9 mCi stress and 10.59 mCi at rest. Gated SPECT with analysis of segmental wall motion and calculation of the ejection fraction also done. Cardiac stress and resting SPECT images show mild fixed defect in the inferior wall with normal contracted gated SPECT is likely secondary to soft tissue attenuation from diaphragm, no reversible ischemia seen. Computer derived ejection fraction is over 65% with no regional wall motion abnormality, right ventricle is normal size and contractility. Conclusion: 1. The EKG portion of the Lexiscan Myoview is nondiagnostic. 2. No scintigraphic evidence of reversible ischemia seen, computer derived ejection fraction is over 65% with no regional wall motion abnormality, right ventricle is normal size and contractility. 3. Likely normal Lexiscan Myoview study. Electronically signed by : Louie Clark, 07/31/2019 12:14:38
--- NOTE | 2019-07-31 06:48 | CA_ITS ---
APPROVED REPORT EXAM: Comprehensive 2D, Doppler, and color-flow Echocardiogram Dry Box Tender: Lita Whitley CRT Ht: 5 ft 7 in Wt: 209lbs BSA: 2.06 BP: 127/68 mmHg Indications: Shortness of Breath, Atrial Fibrillation, Obesity, CAD, Hyperlipidemia, Hypertension/HDD 2D Dimensions LVOT 2.66 cm (M/F) 1.5-2.5 M-Mode Dimensions RVDd 2.92 cm (0.9-2.6) LVDd 5.50 cm (3.5-5.7) LVDs 3.34 cm (3.5-5.7) IVSd 1.59 cm (0.6-1.1) PWd 1.14 cm (0.6-1.1) EF (Teich) 69.20% FS 39.30% EDV (Teich) 147.40 mL ESV (Teich) 45.40 mL LV Diastology E/A Ratio 0.80 Mitral Valve MV A Velocity 91.00 (40-130 cm/s) Left Ventricle Left atrium is mildly enlarged, left ventricle is normal size, mild concentric left ventricular hypertrophy, visually estimated ejection fraction 55% with no regional wall motion abnormality. Grade 1 diastolic dysfunction seen with tissue Doppler evidence of raise left atrial pressure. Right Ventricle Right atrium and right ventricular mildly enlarged with normal contractility. Aortic Valve Aortic valve is minimally thickened and fibrosed, there is no aortic stenosis or aortic insufficiency. Mitral Valve Mitral valve is grossly normal, there is mild mitral regurgitation. Tricuspid Valve Tricuspid valve is grossly normal, there is mild tricuspid regurgitation, tricuspid regurgitation jet velocity is inadequate for calculation of the right ventricular systolic pressure. Pulmonic Valve Pulmonic valve is poorly visualized. Great Vessels Aortic root is normal size. Pericardium No significant pericardial effusion noted. Conclusion 1. Mild biatrial enlargement, normal left ventricular size, mild concentric left ventricular hypertrophy, visually estimated ejection fraction 55% with no regional wall motion abnormality, grade 1 diastolic dysfunction seen with tissue Doppler evidence of raise left atrial pressure. 2. Mildly enlarged right ventricle with normal contractility 3. Mild mitral and tricuspid regurgitation. 4. No significant pericardial effusion noted. Electronically signed by : Louie Clark, 07/31/2019 13:27:27
--- NOTE | 2019-07-31 06:48 | CA_ITS ---
APPROVED REPORT Exam: Pharmacologic Technologist: Mary Austin, Ht: 5 ft 7 in Wt: 194 lbs BSA: 2.00 m2 Indications: CAD,SOA Medical History Medical History: HTN, Hyperlipidemia Medications: Vitamin C,,,,, Losartan,,,,, Pantoprazole,,,,, Atorvastatin,,,,, Nitroglycerin,,,,, SpirOnolactone,,,,, OxYbuterin,,,,, CHOLECALCIFEROL,,,,, BRUTINIB,,,,, Cardiac Risk Factors: HTN, Hyperlipidemia, Smoking Stress Test Details Test: LEXISCAN Reason for pharmacologic stress test: physical limitation. HR Resting HR: 55 bpm Max Heart Rate (APMHR): 148 bpm Max HR Achieved: 84 bpm Target HR (85% APMHR): 125 bpm % of APMHR: 56 BP Resting BP: 131/68 mmHg Max BP: 131/68 mmHg ECG Clinical Reason for Termination: Completed Protocol Exercise duration: 04:08 min Highest Stage Achieved: Stress ECG Conclusion no symptoms or arrhythmias <1.5mm ST segment changes non-diagnostic Electronically signed by : Louie Clark, 07/31/2019 12:11:38
== END ==
PROVIDERS: PCP Family Medicine; Visit Provider Nurse Practitioner Family
DX: E78.5 Hyperlipidemia, unspecified (principal); G47.33 Obstructive sleep apnea (adult) (pediatric); I25.10 Atherosclerotic heart disease of native coronary artery without angina pectoris; R00.1 Bradycardia, unspecified; R06.00 Dyspnea, unspecified; R60.9 Edema, unspecified; Z95.5 Presence of coronary angioplasty implant and graft
CPT/HCPCS: 78452; 93017; 93306; A9502; J2785

== ENCOUNTER → 2019-07-31 09:52 | Outpatient (CLI) | payer MEDICARE, SELFPAY ==
[2019-07-31 10:14] LABS: Chloride 102 mmol/L (98-107); Potassium 3.9 mmoL/L (3.5-5.1); Sodium 137 mmol/L (136-145)
[2019-07-31 10:16] LABS: Blood Urea Nitrogen 23 mg/dl (9-20); Estimated Glomerular Filt Rate 83 ml/min (>60)
[2019-07-31 10:17] LABS: Alanine Aminotransferase 10 U/L (12-78); Albumin Level 3.5 g/dl (3.5-5.0); Alkaline Phosphatase 64 U/L (38-126); Anion Gap 8.9 mEq/L (5-15); Aspartate Amino Transferase 18 U/L (17-59); Bilirubin,Direct 0.3 mg/dl (0.0-0.4); Bilirubin,Total 1.3 mg/dl (0.2-1.3); Calcium 8.7 mg/dl (8.4-10.2); Carbon Dioxide 30 mmol/L (22.0-30.0); Chol/HDL Ratio 4.4 (1-3.5); Cholesterol 74 mg/dl (140-200); GFR (African American) 100 ML/MIN (>60); Glucose 104 mg/dl (74-100); HDL Cholesterol 17 mg/dl (40-60); Total Protein,Serum 5.9 g/dl (6.3-8.2); Triglycerides 52 mg/dl (30-150); VLDL Cholesterol 10 mg/dL (0-40)
[2019-07-31 10:27] LABS: NT Pro Brain Natriuretic Pep. 25.1 pg/mL (0-125)
[2019-07-31 10:29] LABS: Direct LDL Cholesterol 53.85 mg/dL (100-129)
== END ==
PROVIDERS: Visit Provider Internal Medicine Cardiovascular Disease
DX: E78.5 Hyperlipidemia, unspecified (principal); G47.33 Obstructive sleep apnea (adult) (pediatric); I25.10 Atherosclerotic heart disease of native coronary artery without angina pectoris; R00.1 Bradycardia, unspecified; R06.00 Dyspnea, unspecified; R60.9 Edema, unspecified; Z95.5 Presence of coronary angioplasty implant and graft
CPT/HCPCS: 36415; 78452; 80048; 80061; 80076; 83880; 93017; 93306; A9502; J2785

== ENCOUNTER → 2019-08-20 11:37 | Outpatient (CLI) | payer MEDICARE, SELFPAY ==
[2019-08-20 13:35] LABS: Anion Gap 13.9 mEq/L (5-15); Blood Urea Nitrogen 23 mg/dl (9-20); Carbon Dioxide 26 mmol/L (22.0-30.0); Chloride 101 mmol/L (98-107); Estimated Glomerular Filt Rate 95 ml/min (>60); GFR (African American) 115 ML/MIN (>60); Glucose 113 mg/dl (74-100); Potassium 3.9 mmoL/L (3.5-5.1); Sodium 137 mmol/L (136-145)
[2019-08-20 13:44] LABS: NT Pro Brain Natriuretic Pep. 36.3 pg/mL (0-125)
== END ==
PROVIDERS: Visit Provider Internal Medicine Cardiovascular Disease
DX: R06.00 Dyspnea, unspecified; R60.0 Localized edema; I25.10 Atherosclerotic heart disease of native coronary artery without angina pectoris; I10 Essential (primary) hypertension; Z95.5 Presence of coronary angioplasty implant and graft; E78.5 Hyperlipidemia, unspecified; R00.1 Bradycardia, unspecified
CPT/HCPCS: 36415; 80048; 83880

== ENCOUNTER 2019-10-01 11:04 | Outpatient (CLI) | payer MEDICARE, SELFPAY ==
[2019-10-01 11:04] VITALS: BMI 29.0
[2019-10-01 11:26] LABS: Basophils # 0.1 K/mm3 (0-0.2); Basophils % 0.3 % (0.1-2.0); Eosinophils # 0.2 K/mm3 (0.0-0.4); Eosinophils % 0.7 % (0.1-12.0); Hematocrit 35.7 % (42.0-52.0); Hemoglobin 11.8 g/dL (14.1-18.0); Lymphocytes # 10.1 K/mm3 (0.7-4.5); Lymphocytes % 50.9 % (10-50); Mean Corpuscular HGB Conc 33.1 g/dL (31.8-35.4); Mean Corpuscular Volume 102.9 fl (80-94); Mean Platelet Volume 9.4 fl (7.4-10.4); Monocytes # 0.4 K/mm3 (0.1-1.0); Neutrophils # 9.2 K/mm3 (1.8-7.8); Neutrophils % 46.1 % (37.0-80.0); Platelet Count 123 K/mm3 (142-424); Red Blood Count 3.47 M/mm3 (4.60-6.20); Red Cell Distribution Width 13.9 % (11.5-17.5); White Blood Count 19.9 K/mm3 (4.8-10.8)
[2019-10-01 11:28] LABS: MANUAL DIFFERENTIAL MANUAL DIFFERENTIAL (MANUAL DIFF)
[2019-10-01 11:35] LABS: Chloride 103 mmol/L (98-107); Sodium 136 mmol/L (136-145)
[2019-10-01 11:36] LABS: Potassium 4.1 mmoL/L (3.5-5.1)
[2019-10-01 11:38] LABS: Alanine Aminotransferase 18 U/L (12-78); Alkaline Phosphatase 66 U/L (38-126); Anion Gap 10.1 mEq/L (5-15); Aspartate Amino Transferase 26 U/L (17-59); Blood Urea Nitrogen 25 mg/dl (9-20); Carbon Dioxide 27 mmol/L (22.0-30.0); Creatinine Clearance Estimated 84 mL/min (50-200); Estimated Glomerular Filt Rate 95 ml/min (>60); GFR (African American) 115 ML/MIN (>60)
[2019-10-01 11:39] LABS: Albumin Level 3.3 g/dl (3.5-5.0); Albumin/Globulin Ratio 1.4 (1.1-1.8); Calcium 8.3 mg/dl (8.4-10.2); Globulin 2.4 g/dL (1.3-3.2); Glucose 111 mg/dl (74-100); Total Protein,Serum 5.7 g/dl (6.3-8.2)
[2019-10-01 11:43] LABS: Lymphocytes % 46 % (10-50); Monocytes % 1 % (2-9); Neutrophils % 52 % (42-76); Total Cells Counted 100
[2019-10-01 11:44] LABS: Anisocytosis 1+; Macrocytosis 2+; Platelet Estimate Normal
== END 2019-10-01 11:15 | disposition home or self-care (01) ==
LOC: INF 11:04
PROVIDERS: Visit Provider Internal Medicine Medical Oncology
DX: C91.10 Chronic lymphocytic leukemia of B-cell type not having achieved remission (principal); Z45.2 Encounter for adjustment and management of vascular access device
CPT/HCPCS: 80053; 85007; 85025; J1642

== ENCOUNTER → 2019-10-22 09:48 | Outpatient (CLI) | payer MEDICARE, SELFPAY ==
[2019-10-22 10:44] LABS: Chloride 102 mmol/L (98-107); Potassium 4.6 mmoL/L (3.5-5.1); Sodium 136 mmol/L (136-145)
[2019-10-22 10:46] LABS: Blood Urea Nitrogen 34 mg/dl (9-20); Estimated Glomerular Filt Rate 73 ml/min (>60); GFR (African American) 89 ML/MIN (>60)
[2019-10-22 10:47] LABS: Anion Gap 10.6 mEq/L (5-15); Calcium 8.8 mg/dl (8.4-10.2); Carbon Dioxide 28 mmol/L (22.0-30.0); Glucose 94 mg/dl (74-100)
== END ==
PROVIDERS: Visit Provider Internal Medicine Cardiovascular Disease
DX: C95.90 Leukemia, unspecified not having achieved remission (principal); E78.5 Hyperlipidemia, unspecified; G47.33 Obstructive sleep apnea (adult) (pediatric); I11.9 Hypertensive heart disease without heart failure; I25.10 Atherosclerotic heart disease of native coronary artery without angina pectoris; R06.00 Dyspnea, unspecified; R60.9 Edema, unspecified; Z95.5 Presence of coronary angioplasty implant and graft
CPT/HCPCS: 36415; 80048

== ENCOUNTER 2019-12-03 11:52 | Outpatient (CLI) | payer MEDICARE, SELFPAY ==
[2019-12-03 11:54] VITALS: BMI 30.2
[2019-12-03 12:09] LABS: Basophils # 0.1 K/mm3 (0-0.2); Basophils % 0.5 % (0.1-2.0); Eosinophils # 0.1 K/mm3 (0.0-0.4); Eosinophils % 0.6 % (0.1-12.0); Hematocrit 39.2 % (42.0-52.0); Hemoglobin 13.1 g/dL (14.1-18.0); Lymphocytes # 8.8 K/mm3 (0.7-4.5); Mean Corpuscular HGB Conc 33.4 g/dL (31.8-35.4); Mean Corpuscular Hemoglobin 34.6 pg (27.0-31.2); Mean Corpuscular Volume 103.7 fl (80-94); Mean Platelet Volume 9.4 fl (7.4-10.4); Monocytes # 0.4 K/mm3 (0.1-1.0); Monocytes % 2.9 % (1.7-9.3); Neutrophils # 5.5 K/mm3 (1.8-7.8); Neutrophils % 36.9 % (37.0-80.0); Platelet Count 131 K/mm3 (142-424); Red Blood Count 3.78 M/mm3 (4.60-6.20); Red Cell Distribution Width 13.8 % (11.5-17.5); White Blood Count 14.8 K/mm3 (4.8-10.8)
[2019-12-03 12:11] LABS: MANUAL DIFFERENTIAL MANUAL DIFFERENTIAL (MANUAL DIFF)
[2019-12-03 12:13] LABS: Chloride 102 mmol/L (98-107); Potassium 4.4 mmoL/L (3.5-5.1); Sodium 137 mmol/L (136-145)
[2019-12-03 12:16] LABS: Alanine Aminotransferase 19 U/L (12-78); Albumin Level 3.7 g/dl (3.5-5.0); Albumin/Globulin Ratio 1.6 (1.1-1.8); Alkaline Phosphatase 59 U/L (38-126); Anion Gap 12.4 mEq/L (5-15); Aspartate Amino Transferase 23 U/L (17-59); Blood Urea Nitrogen 33 mg/dl (9-20); Calcium 8.7 mg/dl (8.4-10.2); Carbon Dioxide 27 mmol/L (22.0-30.0); Creatinine Clearance Estimated 88 mL/min (50-200); Estimated Glomerular Filt Rate 73 ml/min (>60); GFR (African American) 89 ML/MIN (>60); Globulin 2.3 g/dL (1.3-3.2); Glucose 111 mg/dl (74-100)
[2019-12-03 12:17] LABS: Anisocytosis 1+; Eosinophils % 1 % (0-3); Lymphocytes % 54 % (10-50); Macrocytosis 1+; Monocytes % 4 % (2-9); Neutrophils % 41 % (42-76); Platelet Estimate Slight Decrease; Total Cells Counted 100
== END 2019-12-03 12:12 | disposition home or self-care (01) ==
LOC: INF 11:52
PROVIDERS: Visit Provider Internal Medicine Medical Oncology
DX: C91.91 Lymphoid leukemia, unspecified, in remission (principal); Z45.2 Encounter for adjustment and management of vascular access device
CPT/HCPCS: 80053; 85007; 85025; J1642

== ENCOUNTER → 2020-01-14 08:19 | Outpatient (CLI) | payer MEDICARE, SELFPAY ==
[2020-01-14 10:33] LABS: Chloride 98 mmol/L (98-107); Potassium 4.8 mmoL/L (3.5-5.1); Sodium 136 mmol/L (136-145)
[2020-01-14 10:36] LABS: Anion Gap 11.8 mEq/L (5-15); Blood Urea Nitrogen 39 mg/dl (9-20); Carbon Dioxide 31 mmol/L (22.0-30.0); Estimated Glomerular Filt Rate 54 ml/min (>60); GFR (African American) 66 ML/MIN (>60)
[2020-01-14 10:37] LABS: Calcium 8.7 mg/dl (8.4-10.2); Glucose 77 mg/dl (74-100)
[2020-01-14 12:05] LABS: NT Pro Brain Natriuretic Pep. 12.7 pg/mL (0-125)
== END ==
PROVIDERS: Visit Provider Internal Medicine Cardiovascular Disease
DX: C91.10 Chronic lymphocytic leukemia of B-cell type not having achieved remission (principal); R06.00 Dyspnea, unspecified; I10 Essential (primary) hypertension; I11.9 Hypertensive heart disease without heart failure; I25.10 Atherosclerotic heart disease of native coronary artery without angina pectoris; R60.0 Localized edema; Z95.5 Presence of coronary angioplasty implant and graft
CPT/HCPCS: 36415; 80048; 83880

== ENCOUNTER 2020-01-27 14:40 | Emergency (ER) | payer MEDICARE, SELFPAY ==
[2020-01-27 14:42] VITALS: BP 105/62; BP 106/57; PULSE 62; PULSE 63; RESP 19; TEMP 36.6; O2SAT 96; BMI 31.9
[2020-01-27 15:12] VITALS: BP 97/56; PULSE 64; O2SAT 94
[2020-01-27 15:13] LABS: Basophils % 0.2 % (0.1-2.0); Eosinophils # 0.1 K/mm3 (0.0-0.4); Eosinophils % 0.7 % (0.1-12.0); Hemoglobin 14.4 g/dL (14.1-18.0); Lymphocytes # 5.4 K/mm3 (0.7-4.5); Lymphocytes % 69.8 % (10-50); Mean Corpuscular HGB Conc 32.7 g/dL (31.8-35.4); Mean Corpuscular Hemoglobin 34.6 pg (27.0-31.2); Mean Corpuscular Volume 105.9 fl (80-94); Mean Platelet Volume 8.4 fl (7.4-10.4); Monocytes # 0.4 K/mm3 (0.1-1.0); Monocytes % 5.6 % (1.7-9.3); Neutrophils # 1.8 K/mm3 (1.8-7.8); Neutrophils % 23.7 % (37.0-80.0); Platelet Count 150 K/mm3 (142-424); Red Blood Count 4.16 M/mm3 (4.60-6.20); Red Cell Distribution Width 13.8 % (11.5-17.5); White Blood Count 7.7 K/mm3 (4.8-10.8)
--- NOTE | 2020-01-27 15:14 | CA_ITS ---
APPROVED REPORT Right Lower Extremity Venous Study for DVT. Hop Weigher: RANDY Indications Lower Extremity Pain: Right Lower Extremity Edema: Right CAD R post knee pain after fall 2 weeks ago. Risk Factors Prior Phlebitis/DVT Malignancy Past History DVT : Left Date : 10/2018 Vein Imaging CFV (R): compressive, spontaneous, phasic, augmentation FEM (R): compressive, spontaneous, phasic, augmentation POP (R): compressive, spontaneous, phasic, augmentation PTV (R): Compressible GSV (R): compressive, spontaneous, phasic, augmentation SSV (R): Compressible Peroneals (R):Not Visualized GAS (R): Compressible Findings No evidence of DVT or superficial thrombophlebitis in the veins scanned of the right lower extremity. Conclusion No evidence of DVT or superficial thrombophlebitis in the veins scanned of the right lower extremity. Electronically signed by : Jose Giron MD 01/28/2020 17:18:53
--- NOTE | 2020-01-27 15:14 | XR_ITS ---
PROCEDURE: XR CHEST 2V CLINICAL HISTORY: Chest pain Right-sided chest pain COMPARISON: CR CXR2V XR chest 2V from 06/04/2017 CR CXR2V XR chest 2V from 11/12/2017 CR Chest from 10/19/[address] CHEST WO/W CON from 02/25/2019 FINDINGS: The cardiomediastinal silhouette and pulmonary vascularity are within normal limits. Right subclavian MediPort catheter is present with tip in the region SVC. Minimal atelectatic or fibrotic changes are present in the left lung base. There is mild kyphosis of the thoracic spine with multilevel degenerative change. IMPRESSION: Minimal left basilar atelectasis or scarring otherwise negative Dictated by: Jose Giron MD 01/27/2020 16:01 Jose Giron MD in [facility] 01/27/2020 16:01
--- NOTE | 2020-01-27 15:16 | HMH.EDGENADL ---
ED Disposition Clinical Impression: Right-sided chest wall pain, YOLIS (acute kidney injury) Contusion, knee Qualifiers: Encounter type: initial encounter Laterality: right Qualified Code(s): S80.01XA - Contusion of right knee, initial encounter Disposition: Home, Self-Care Condition on Discharge: Good Additional Instructions: Stop taking Lasix 20 mg in the evening. Follow-up with your PCP as directed tomorrow. Referrals: Chris Veronica MD [Primary Care Provider] - - Critical Care Critical Care Time: No Attestation: On , the high probability of a clinically significant, sudden or life threatening deterioration of the following system(s) required my full and direct attention, intervention and personal management. The time I documented below is in addition to time spent performing reported procedures but includes the following listed in this critical care notation. Medical Decision Making - Shemar Inquiry Pt receiving controlled substance: No Shemar was queried for this patient: No Vital Signs: 01/27/20 14:42 01/27/20 15:12 01/27/20 16:30 Temperature 98 F Temperature Source Oral Pulse Rate [Left Radial] 62 64 57 L Respiratory Rate 19 Blood Pressure [Right Arm] 105/62 L 97/56 L 96/59 L Blood Pressure Mean [Right Arm] 76 69 71 Blood Pressure Source [Right Arm] Automatic Cuff Automatic Cuff Automatic Cuff Blood Pressure Position [Right Arm] Sitting Sitting Sitting 02 Sat by Pulse Oximetry 96 94 L 95 Oxygen Delivery Method Room Air Room Air Room Air 01/27/20 17:00 Temperature Temperature Source Pulse Rate [Left Radial] 49 L Respiratory Rate Blood Pressure [Right Arm] 95/51 L Blood Pressure Mean [Right Arm] 65 Blood Pressure Source [Right Arm] Automatic Cuff Blood Pressure Position [Right Arm] Sitting 02 Sat by Pulse Oximetry 99 Oxygen Delivery Method Room Air - Lab Data Lab Results 01/27/20 14:56: WBC 7.7, RBC 4.16 L, Hgb 14.4, Hct 44.0, MCV 105.9 H, MCH 34.6 H, MCHC 32.7, RDW 13.8, Plt Count 150, MPV 8.4, Neut % (Auto) 23.7 L, Lymph % (Auto) 69.8 H, [place] % (Auto) 5.6, Eos % (Auto) 0.7, Baso % (Auto) 0.2, Neut # (Auto) 1.8, Lymph # (Auto) 5.4 H, [place] # (Auto) 0.4, Eos # (Auto) 0.1, Baso # (Auto) 0.0, Total Counted 100, Neutrophils % (Manual) 18 L, Lymphocytes % (Manual) 77 H, Monocytes % (Manual) 3, Eosinophils % (Manual) 2, Platelet Estimate Normal, RBC Morphology Normal, Macrocytosis 2+ 01/27/20 14:56: Sodium 137, Potassium 4.5, Chloride 101, Carbon Dioxide 30, Anion Gap 10.5, BUN 43 H, Creatinine 1.60 H, Estimated Creat Clear 55, Estimated GFR 43 L, Est GFR ( Amer) 52 L, Glucose 99, Calcium 9.0 01/27/20 14:56: Lactate 0.7 01/27/20 14:56: D-Dimer 1.22 01/27/20 14:56: Troponin I < 0.01 Result diagrams: 01/27/20 14:56 01/27/20 14:56 Orders (Tests/Meds): ED MEDICATIONS Generic Name Dose Route Start Last Admin Trade Name Freq PRN Reason Stop Dose Admin Sodium Chloride 1,000 mls @ 500 mls/hr 01/27/20 16:00 01/27/20 16:30 Sod Chlor 0.9% 1000ml Bag IV 02/26/20 15:59 500 mls/hr .Q2H [id number] Administration ORDERS Category Date Time Status Blood Culture Stat Micro 01/27/20 15:04 Received ECG Request by /William Stat Y 01/27/20 15:14 Ordered - Radiology Data #1 Image(s): Chest Image Reviewed: Yes I reviewed the patient's radiology image Preliminary Findings: Normal/NAD Port visualized on the right side - ECG Data Tracing #1 Sinus bradycardia at 44 bpm, no ST elevation or depression, no ectopy, normal intervals. ECG initial impression date: 01/27/20 ECG initial impression time: 17:37 Arrhythmias present: sinus gricelda Medical Decision Narrative: 74yo M evaluated for right lower extremity pain as well as right-sided chest pain. Differential diagnosis includes was not limited to: ACS, DVT/PE, musculoskeletal strain, pneumonia, recurrence of cancer versus metastasis. Patient is in no acute distress on initial evaluation. Routine labs including tr
[2020-01-27 15:18] LABS: Chloride 101 mmol/L (98-107); MANUAL DIFFERENTIAL MANUAL DIFFERENTIAL (MANUAL DIFF); Potassium 4.5 mmoL/L (3.5-5.1); Sodium 137 mmol/L (136-145)
[2020-01-27 15:21] LABS: Blood Urea Nitrogen 43 mg/dl (9-20); Creatinine Clearance Estimated 55 mL/min (50-200); Estimated Glomerular Filt Rate 43 ml/min (>60); GFR (African American) 52 ML/MIN (>60); Glucose 99 mg/dl (74-100)
[2020-01-27 15:22] LABS: Lactic Acid 0.7 mmol/L (0.7-2.1)
--- NOTE | 2020-01-27 15:26 | PC.NURSE ---
pt going to radiology
--- NOTE | 2020-01-27 15:32 | PC.NURSE ---
pt returned from radiology. medical administrative technician at bedside to perform ultrasound
[2020-01-27 15:39] LABS: D-Dimer 1.22 ug/mL (0.15-8.0)
[2020-01-27 15:41] LABS: Eosinophils % 2 % (0-3); Lymphocytes % 77 % (10-50); Monocytes % 3 % (2-9); Neutrophils % 18 % (42-76); Total Cells Counted 100
[2020-01-27 15:42] LABS: Macrocytosis 2+; Platelet Estimate Normal; RBC Morphology Normal
[2020-01-27 15:47] LABS: Anion Gap 10.5 mEq/L (5-15); Carbon Dioxide 30 mmol/L (22.0-30.0); Troponin I < 0.01 ng/ml (0.00-0.034)
[2020-01-27 16:30] VITALS: BP 96/59; PULSE 57; O2SAT 95
[2020-01-27 17:00] VITALS: BP 95/51; PULSE 49; O2SAT 99
[2020-01-27 17:30] VITALS: BP 110/53; PULSE 48; O2SAT 96
--- NOTE | 2020-01-27 17:35 | ECG_ITS ---
APPROVED REPORT Exam: Resting ECG HR:44 bpm ECG Measurements Heart Rate 44 AXES MS 134 P 31 QRSd 102 QRS 41 QT 452 T 30 QTc 386 Conclusion Marked sinus bradycardia Abnormal ECG Electronically signed by : Bernard Henry, 01/29/2020 19:22:25
[2020-01-27 18:00] VITALS: BP 110/53; PULSE 72; RESP 18; TEMP 36.7; O2SAT 97
== END 2020-01-27 18:03 | disposition home or self-care (01) ==
PROVIDERS: Emergency Provider Family Medicine; PCP Family Medicine
DX: S01.01XA Laceration without foreign body of scalp, initial encounter (principal); W01.0XXA Fall on same level from slipping, tripping and stumbling without subsequent striking against object, initial encounter; Y92.019 Unspecified place in single-family (private) house as the place of occurrence of the external cause; N17.9 Acute kidney failure, unspecified; I10 Essential (primary) hypertension; I25.2 Old myocardial infarction; I48.20 Chronic atrial fibrillation, unspecified; E78.5 Hyperlipidemia, unspecified; Z79.899 Other long term (current) drug therapy; M79.661 Pain in right lower leg
CPT/HCPCS: 71046; 80048; 83605; 84484; 85007; 85025; 85378; 87040; 93005; 93971; 96365; 99284

== ENCOUNTER → 2020-01-28 15:10 | Outpatient (CLI) | payer MEDICARE, SELFPAY ==
--- NOTE | 2020-01-28 15:15 | XR_ITS ---
PROCEDURE: XR KNEE RT 3V CLINICAL INDICATION: RT KNEE EFFUSION Pain COMPARISON: CR [id number] XR knee LT 3V from 06/04/2017 FINDINGS: No fracture or dislocation. No lytic or blastic change. There is normal mineralization. There are mild osteoarthritic changes of the medial compartment and patellofemoral joint. Generalized vascular calcification is noted. Other findings:None. IMPRESSION: Mild osteoarthritis Dictated by: Jose Giron MD 01/28/2020 16:00 Jose Giron MD in [place] 01/28/2020 16:00
== END ==
PROVIDERS: PCP Family Medicine; Visit Provider Family Medicine
DX: M25.461 Effusion, right knee (principal)
CPT/HCPCS: 73562

== ENCOUNTER → 2020-02-18 09:02 | Outpatient (CLI) | payer MEDICARE, SELFPAY ==
[2020-02-18 10:37] LABS: Chloride 99 mmol/L (98-107); Potassium 4.4 mmoL/L (3.5-5.1); Sodium 135 mmol/L (136-145)
[2020-02-18 10:40] LABS: Blood Urea Nitrogen 28 mg/dl (9-20); Estimated Glomerular Filt Rate 66 ml/min (>60); GFR (African American) 80 ML/MIN (>60)
[2020-02-18 10:41] LABS: Anion Gap 8.4 mEq/L (5-15); Calcium 8.6 mg/dl (8.4-10.2); Carbon Dioxide 32 mmol/L (22.0-30.0); Glucose 92 mg/dl (74-100)
== END ==
PROVIDERS: Visit Provider Internal Medicine Cardiovascular Disease
DX: C95.90 Leukemia, unspecified not having achieved remission (principal); G47.33 Obstructive sleep apnea (adult) (pediatric); I11.9 Hypertensive heart disease without heart failure; I25.118 Atherosclerotic heart disease of native coronary artery with other forms of angina pectoris; R60.9 Edema, unspecified; Z95.5 Presence of coronary angioplasty implant and graft; E78.49 Other hyperlipidemia
CPT/HCPCS: 36415; 80048

== ENCOUNTER 2020-05-19 10:08 | Outpatient (CLI) | payer MEDICARE, SELFPAY ==
[2020-05-19 10:13] VITALS: BMI 33.0
[2020-05-19 10:41] LABS: Chloride 103 mmol/L (98-107); Potassium 4.4 mmoL/L (3.5-5.1); Sodium 137 mmol/L (136-145)
[2020-05-19 10:42] LABS: Basophils # 0.1 K/mm3 (0-0.2); Basophils % 0.7 % (0.1-2.0); Eosinophils # 0.1 K/mm3 (0.0-0.4); Eosinophils % 0.7 % (0.1-12.0); Hematocrit 44.3 % (42.0-52.0); Hemoglobin 13.8 g/dL (14.1-18.0); Lymphocytes # 4.6 K/mm3 (0.7-4.5); Lymphocytes % 46.1 % (10-50); Mean Corpuscular HGB Conc 31.1 g/dL (31.8-35.4); Mean Corpuscular Hemoglobin 34.3 pg (27.0-31.2); Mean Corpuscular Volume 110.6 fl (80-94); Mean Platelet Volume 8.4 fl (7.4-10.4); Monocytes # 0.5 K/mm3 (0.1-1.0); Monocytes % 4.5 % (1.7-9.3); Neutrophils # 4.8 K/mm3 (1.8-7.8); Platelet Count 149 K/mm3 (142-424); Red Blood Count 4.01 M/mm3 (4.60-6.20); White Blood Count 10.1 K/mm3 (4.8-10.8)
[2020-05-19 10:43] LABS: Blood Urea Nitrogen 25 mg/dl (9-20); Creatinine Clearance Estimated 89 mL/min (50-200); Estimated Glomerular Filt Rate 83 ml/min (>60); GFR (African American) 100 ML/MIN (>60)
[2020-05-19 10:44] LABS: Alanine Aminotransferase 27 U/L (12-78); Albumin Level 4.1 g/dl (3.5-5.0); Albumin/Globulin Ratio 1.6 (1.1-1.8); Alkaline Phosphatase 72 U/L (38-126); Anion Gap 11.4 mEq/L (5-15); Aspartate Amino Transferase 28 U/L (17-59); Bilirubin,Total 1.2 mg/dl (0.2-1.3); Calcium 8.9 mg/dl (8.4-10.2); Carbon Dioxide 27 mmol/L (22.0-30.0); Globulin 2.5 g/dL (1.3-3.2); Glucose 110 mg/dl (74-100); Total Protein,Serum 6.6 g/dl (6.3-8.2)
== END 2020-05-19 10:20 | disposition home or self-care (01) ==
LOC: INF 10:08
PROVIDERS: Visit Provider Internal Medicine Medical Oncology
DX: C91.10 Chronic lymphocytic leukemia of B-cell type not having achieved remission (principal); Z45.2 Encounter for adjustment and management of vascular access device
CPT/HCPCS: 80053; 85025; J1642

== ENCOUNTER 2020-10-13 08:45 | Outpatient (CLI) | payer MEDICARE, SELFPAY ==
[2020-10-13 08:55] VITALS: BMI 31.3
[2020-10-13 09:03] LABS: Basophils % 0.4 % (0.1-2.0); Eosinophils # 0.2 K/mm3 (0.0-0.4); Hematocrit 39.1 % (42.0-52.0); Lymphocytes # 2.7 K/mm3 (0.7-4.5); Lymphocytes % 27.1 % (10-50); Mean Corpuscular HGB Conc 33.4 g/dL (31.8-35.4); Mean Corpuscular Hemoglobin 34.1 pg (27.0-31.2); Mean Corpuscular Volume 102.1 fl (80-94); Mean Platelet Volume 9.8 fl (7.4-10.4); Monocytes # 0.6 K/mm3 (0.1-1.0); Monocytes % 5.7 % (1.7-9.3); Neutrophils # 6.4 K/mm3 (1.8-7.8); Neutrophils % 64.7 % (37.0-80.0); Platelet Count 151 K/mm3 (142-424); Red Blood Count 3.83 M/mm3 (4.60-6.20); White Blood Count 9.9 K/mm3 (4.8-10.8)
[2020-10-13 09:08] LABS: Chloride 105 mmol/L (98-107); Potassium 4.1 mmoL/L (3.5-5.1); Sodium 138 mmol/L (136-145)
[2020-10-13 09:11] LABS: Alanine Aminotransferase 12 U/L (12-78); Albumin Level 3.5 g/dl (3.5-5.0); Albumin/Globulin Ratio 1.5 (1.1-1.8); Alkaline Phosphatase 69 U/L (38-126); Anion Gap 9.1 mEq/L (5-15); Aspartate Amino Transferase 20 U/L (17-59); Blood Urea Nitrogen 22 mg/dl (9-20); Carbon Dioxide 28 mmol/L (22.0-30.0); Creatinine Clearance Estimated 84 mL/min (50-200); Estimated Glomerular Filt Rate 83 ml/min (>60); GFR (African American) 100 ML/MIN (>60); Globulin 2.3 g/dL (1.3-3.2); Glucose 95 mg/dl (74-100); Total Protein,Serum 5.8 g/dl (6.3-8.2)
== END 2020-10-13 08:55 | disposition home or self-care (01) ==
LOC: INF 08:48
PROVIDERS: Visit Provider Internal Medicine Medical Oncology
DX: C91.90 Lymphoid leukemia, unspecified not having achieved remission (principal); Z45.2 Encounter for adjustment and management of vascular access device
CPT/HCPCS: 80053; 85025; J1642

== ENCOUNTER 2020-12-01 15:42 | Emergency (ER) | payer MEDICARE, SELFPAY ==
[2020-12-01 15:42] VITALS: BP 174/90; PULSE 54; RESP 20; TEMP 36.5; O2SAT 96; BMI 30.7
--- NOTE | 2020-12-01 15:42 | ECG_ITS ---
APPROVED REPORT Exam: Resting ECG HR:52 bpm ECG Measurements Heart Rate 52 AXES SC 146 P 24 QRSd 96 QRS 37 QT 460 T 47 QTc 427 Conclusion Sinus bradycardia Otherwise normal ECG Electronically signed by : Bernard Henry MD 12/02/2020 17:37:49
--- NOTE | 2020-12-01 15:43 | XR_ITS ---
PROCEDURE: XR PELVIS 1-2V CLINICAL INDICATION: 6 foot fall from ladder COMPARISON: No exams were available for comparison TECHNIQUE: XR Pelvis AP View FINDINGS: No fracture or dislocation is evident. Mild osteoarthritic changes of the hips. No lytic or blastic change. IMPRESSION: No acute findings. Dictated by: Jose Giron MD 12/01/2020 16:30 Jose Giron MD in [place] 12/01/2020 16:30
--- NOTE | 2020-12-01 15:43 | XR_ITS ---
PROCEDURE: XR CHEST PORTABLE CLINICAL HISTORY: 6 foot fall from ladder COMPARISON: CR XR CHEST 2V from 10/19/2018 CR XR CHEST PORTABLE from 10/19/[address] CHEST WO/W CON from 02/25/2019 CR XR CHEST 2V from 01/27/2020 FINDINGS: Normal heart size. The mediastinum is somewhat prominent may in part be due to mild patient rotation and the AP portable technique. Upright PA and lateral chest may provide further evaluation . The there are minimal atelectatic changes in the left lung base. No evidence of pneumothorax. No acute bony findings. Right subclavian Port-A-Cath is present with tip in the region SVC. No acute bony abnormalities. IMPRESSION: Mild left basilar atelectasis with mild prominence of the mediastinum. Dictated by: Jose Giron MD 12/01/2020 16:32 Jose Giron MD in [place] 12/01/2020 16:32
--- NOTE | 2020-12-01 15:44 | HMH.EDGENADL ---
ED Disposition Clinical Impression: Fall from ladder Qualifiers: Encounter type: initial encounter Qualified Code(s): W11.XXXA - Fall on and from ladder, initial encounter Ribs, multiple fractures Qualifiers: Encounter type: initial encounter Fracture type: closed Laterality: right Qualified Code(s): S22.41XA - Multiple fractures of ribs, right side, initial encounter for closed fracture Disposition: Home, Self-Care Condition on Discharge: Fair Instructions: DI for Rib Fracture, How to Prevent Falls Additional Instructions: Additional instructions for RIB INJURIES: See your physician as soon as possible for further evaluation. Hold a pillow against your injured ribs to help with pain when coughing or sneezing. Sleep with several pillows to help support you in the most comfortable position. Take deep breaths frequently. Use incentive spirometer 4-5 times a day. Return immediately if shortness of breath, intolerable pain, coughing of blood, abdominal pain or vomiting. Additional instructions for CONTROLLED SUBSTANCES: You have been prescribed a medication that is a controlled substance. Controlled substances include pain medications known as opiates and sedative nerve medications known as benzodiazepines. Tramadol, fioricet, and gabapentin are also controlled substances. Some common opiates include: Codeine (such as Tylenol #3) Hydrocodone (Vicodin, Lortab, Lorcet, [place]) Oxycodone (Percocet, Percodan, Oxycodone, Oxy IR) Some common benzodiazepines include: Diazepam (Valium) Lorazepam (Ativan) Alprazolam (Xanax) Clonazepam (Klonopin) Oxazepam (Serax) All of these controlled substances are highly addictive and frequently abused. Misuse can and frequently does lead to addiction as well as overdose and . Medication should be stored in a locked cabinet or other secure storage unit. Do not store the medication in a motor vehicle. Short term supplies, 3 days or less, are prescribed because of the highly addictive nature of the medication. Any of the controlled substance medication NOT taken should be disposed of properly and NOT SAVED. The recommended method of disposing of unused medications is: Place the medicines in a sealable plastic bag. If the medicine is a solid, crush it or add water to dissolve it. Add something undesirable (cat litter, coffee grounds, etc.) Dispose of sealed bag in household trash Do not flush or pour unused medicines down a sink or drain. Controlled substances should not be shared, given away or sold. Because of the addictive nature and frequent abuse, these medications are sometimes stolen. These medications should be kept in a safe place where they cannot be stolen. Do not keep them in your car or purse. Lost or stolen prescriptions for controlled substances WILL NOT BE REFILLED in this emergency department, regardless of whether a police report was filed. Prescriptions: Oxycodone HCl/Acetaminophen [Percocet 5/325mg tablet] 1 tab PO Q6HP PRN #20 tablet PRN Reason: Moderate To Severe Pain Transmission Status: Received by [id number] Referrals: Provider,Referral, [Referring] - - Critical Care Critical Care Time: No Attestation: On , the high probability of a clinically significant, sudden or life threatening deterioration of the following system(s) required my full and direct attention, intervention and personal management. The time I documented below is in addition to time spent performing reported procedures but includes the following listed in this critical care notation. Medical Decision Making - Shemar Inquiry Pt receiving controlled substance: Yes Shemar was queried for this patient: Yes Risks and benefits of using a controlled substance: were not discussed with pt by me Vital Signs: 12/01/20 15:42 12/01/20 16:01 12/01/20 16:16 Temperature 97.7 F Temperature Source Oral Pulse Rate 53 L 54 L Pulse Rate [Right] 54 L
--- NOTE | 2020-12-01 15:50 | PC.NURSE ---
pt to room 2 placed in c-collar & placed supine in stretcher.
--- NOTE | 2020-12-01 15:51 | CT_ITS ---
PROCEDURE INFORMATION: Exam: CT Cervical Spine Without Contrast Exam date and time: 12/01/2020 3:51 PM Age: 75 years old Clinical indication: Injury or trauma; Fall; Concussion/head injury; Injury details: PT fell off ladder; Additional info: Fall from ladder TECHNIQUE: Imaging protocol: Computed tomography images of the cervical spine without contrast. Radiation optimization: All CT scans at this facility use at least one of these dose optimization techniques: automated exposure control; mA and/or kV adjustment per patient size (includes targeted exams where dose is matched to clinical indication); or iterative reconstruction. COMPARISON: [facility] CT cervical spine wo con 06/04/2017 9:20 PM FINDINGS: Bones/joints: Multilevel degenerative changes of the vertebra are present, as manifested by multilevel anterior osteophytes, endplate sclerosis, and multilevel posterior disc osteophyte complexes. There is no evidence of acutely displaced fractures. There is no evidence of joint dislocation. No aggressive osseous lesions. Discs/Spinal canal/Neural foramina: The spinal canal is patent. No significant bony neural foraminal stenosis. There is diffuse uncovertebral joint hypertrophy. Trachea: There is mucoid material within the tracheal lumen. Lungs: Mild scarring in the bilateral lung apices. Vasculature: There is mild atherosclerotic calcification of the carotid arteries. Soft tissues: Unremarkable. IMPRESSION: Negative for acute skeletal pathology.
--- NOTE | 2020-12-01 15:51 | CT_ITS ---
PROCEDURE INFORMATION: Exam: CT Abdomen And Pelvis With Contrast Exam date and time: 12/01/2020 3:51 PM Age: 75 years old Clinical indication: Injury or trauma; Blunt; Generalized; Injury date: 12/01/20; Injury details: Fall 6ft from ladder; Additional info: Fall from ladder TECHNIQUE: Imaging protocol: Computed tomography of the abdomen and pelvis with contrast. Radiation optimization: All CT scans at this facility use at least one of these dose optimization techniques: automated exposure control; mA and/or kV adjustment per patient size (includes targeted exams where dose is matched to clinical indication); or iterative reconstruction. Contrast material: ISOVUE; Contrast volume: 75 ml; Contrast route: IV; COMPARISON: CT ABDOMEN PELVIS WO/W CON 02/25/2019 10:52 AM FINDINGS: Lungs: Dependent opacities in the bilateral lung bases could represent atelectasis and/or pneumonitis. Liver: Normal. No mass. Gallbladder and bile ducts: Gallstones again noted. Pancreas: Normal. No ductal dilation. Spleen: Normal. No splenomegaly. Adrenal glands: Normal. No mass. Kidneys and ureters: Tiny renal hypodensities are too small to further characterize, but most likely cysts. Stomach and bowel: Unremarkable. No obstruction. No mucosal thickening. Appendix: No evidence of appendicitis. Intraperitoneal space: Unremarkable. No free air. No significant fluid collection. Vasculature: Coronary artery calcifications. There is an infrarenal abdominal aortic aneurysm that measures up to about 3.3 cm in transaxial dimension. There is also ectasia of the bilateral iliac arteries. Lymph nodes: Unremarkable. No enlarged lymph nodes. Urinary bladder: Unremarkable as visualized. Reproductive: Unremarkable as visualized. Bones/joints: Unremarkable. No acute fracture. Soft tissues: Unremarkable. IMPRESSION: 1. No evidence of intra-abdominal trauma. No fractures. 2. Dependent bilateral pulmonary opacities compatible with atelectasis, pneumonitis, or potentially contusions COMMENTS: Consistent with the [employer]'s Incidental Findings Committee white paper (J Am Simin Radiol 2018): Any incidental renal lesion less than 1 cm or classified as too small to characterize, or any incidental cystic renal lesion characterized as simple-appearing, is likely benign. No follow-up imaging is recommended for these lesions per consensus recommendations based on imaging criteria.
--- NOTE | 2020-12-01 15:51 | CT_ITS ---
PROCEDURE INFORMATION: Exam: CTA Chest With Contrast Exam date and time: 12/01/2020 3:51 PM Age: 75 years old Clinical indication: Injury or trauma; Fall; Blunt trauma (contusions or hematomas); Injury details: Fell from ladder, right anterior chest/abd pain; Additional info: Fall from ladder TECHNIQUE: Imaging protocol: Computed tomographic angiography of the chest with contrast. 3D rendering (Not supervised by radiologist): MIP and/or 3D reconstructed images were created by the technologist. Radiation optimization: All CT scans at this facility use at least one of these dose optimization techniques: automated exposure control; mA and/or kV adjustment per patient size (includes targeted exams where dose is matched to clinical indication); or iterative reconstruction. Contrast material: ISO 370; Contrast volume: 100 ml; Contrast route: INTRAVENOUS (IV); COMPARISON: CT ANGIO CHEST 10/20/2018 4:35 PM FINDINGS: Tubes, catheters and devices: A right infusion port is present. Pulmonary arteries: Normal. No pulmonary emboli. Aorta: Aneurysmal dilation of the mid ascending thoracic aorta measuring 4 cm. The aorta demonstrates mild atherosclerotic calcification. No acute aortic pathology. Lungs: There is subpleural atelectasis of the dependent portions of the lungs. Ground-glass airspace opacifications in the bilateral lung bases. Remainder of the lungs are clear. Airways are otherwise patent and clear. Pleural spaces: Unremarkable. No pneumothorax. No pleural effusion. Heart: There is calcification of the aortic valve annulus. There is moderate atherosclerotic calcification of the coronary arteries. Heart is of normal size and morphology. No pericardial thickening or effusion. Mediastinal space: Calcified mediastinal and hilar granulomas are of no clinical concern. Mucoid material within the trachea. Lymph nodes: Unremarkable. No enlarged lymph nodes. Bones/joints: Linear fracture to the anterolateral segment of the right 6th rib. Linear fracture to the anterolateral segment of the right 7th rib. No other acute skeletal pathology. Moderate multilevel degenerative changes of the spine, as manifested by multilevel anterior osteophytes and multilevel decrease in intervertebral disc space. Soft tissues: Unremarkable. IMPRESSION: 1. Lung base findings are most in favor with atelectasis and perhaps superimposed chronic interstitial disease. Superimposed infectious pneumonic process should be entertained in the appropriate clinical setting. Pulmonary contusions are felt much less likely, due to the morphology of the consolidations. 2. Minimally displaced linear fractures to the anterolateral segments of the right 6th and 7th ribs. 3. No other acute posttraumatic thoracic injury is appreciated. 4. Incidental findings as detailed above. COMMENTS: Please review abdomen and pelvic CT performed concomitantly.
--- NOTE | 2020-12-01 15:54 | CT_ITS ---
PROCEDURE INFORMATION: Exam: CT Lumbar Spine Without Contrast Exam date and time: 12/01/2020 3:54 PM Age: 75 years old Clinical indication: Injury or trauma; Fall; Blunt trauma (contusions or hematomas); Additional info: Fall from ladder TECHNIQUE: Imaging protocol: Computed tomography images of the lumbar spine without contrast. Radiation optimization: All CT scans at this facility use at least one of these dose optimization techniques: automated exposure control; mA and/or kV adjustment per patient size (includes targeted exams where dose is matched to clinical indication); or iterative reconstruction. COMPARISON: [facility] CT lumbar spine wo con 06/04/2017 9:27 PM FINDINGS: Vertebrae: No acute fracture. Normal alignment. Discs/Spinal canal/Neural foramina: No significant disc protrusion. No severe spinal canal stenosis. No significant neural foraminal narrowing. Lungs: Pulmonary opacities could represent atelectasis or pneumonitis. Vasculature: The infrarenal abdominal aorta measures up to 3.3 cm. There is ectasia of the bilateral iliac arteries. This is better seen on comparison CT abdomen pelvis. Soft tissues: Unremarkable. IMPRESSION: 1. No acute osseous injury 2. Pulmonary opacities could represent atelectasis or pneumonitis
--- NOTE | 2020-12-01 15:54 | CT_ITS ---
PROCEDURE INFORMATION: Exam: CT Thoracic Spine Without Contrast Exam date and time: 12/01/2020 3:54 PM Age: 75 years old Clinical indication: Pain in thoracic spine; Additional info: Fall from ladder TECHNIQUE: Imaging protocol: Computed tomography images of the thoracic spine without contrast. Radiation optimization: All CT scans at this facility use at least one of these dose optimization techniques: automated exposure control; mA and/or kV adjustment per patient size (includes targeted exams where dose is matched to clinical indication); or iterative reconstruction. COMPARISON: CT CERVICAL SPINE WO CON 12/01/2020 4:27 PM FINDINGS: Vertebrae: No acute fracture. Normal alignment. Discs/Spinal canal/Neural foramina: No significant disc protrusion. No severe spinal canal stenosis. No significant neural foraminal narrowing. Soft tissues: Unremarkable. Lungs: Mostly dependent pulmonary opacities may represent atelectasis or pneumonitis. Clinical correlation recommended. Heart: Coronary artery calcifications. IMPRESSION: No evidence of acute osseous injury
--- NOTE | 2020-12-01 15:55 | CT_ITS ---
PROCEDURE INFORMATION: Exam: CT Head Without Contrast Exam date and time: 12/01/2020 3:55 PM Age: 75 years old Clinical indication: Injury or trauma; Fall; Abrasion; Not specified; Injury details: PT fell off ladder; Additional info: Fall from ladder TECHNIQUE: Imaging protocol: Computed tomography of the head without contrast. 3D rendering (Not supervised by radiologist): MIP and/or 3D reconstructed images were created by the technologist. Radiation optimization: All CT scans at this facility use at least one of these dose optimization techniques: automated exposure control; mA and/or kV adjustment per patient size (includes targeted exams where dose is matched to clinical indication); or iterative reconstruction. COMPARISON: CT HEAD/BRAIN WO CON 10/19/2018 4:17 PM FINDINGS: Brain: Age related brain involution is present. No acute intracranial hemorrhage, mass effect, midline shift, or brain herniation. Diffuse subcortical and periventricular white matter hypodensities are most in favor with chronic small vessel disease. Cerebral ventricles: There is ex vacuo ventriculomegaly. Paranasal sinuses: Visualized sinuses are unremarkable. No fluid levels. Mastoid air cells: Visualized mastoid air cells are well aerated. Bones/joints: Unremarkable. No acute fracture. Soft tissues: Unremarkable. IMPRESSION: Negative for acute intracranial pathology.
[2020-12-01 16:01] VITALS: BP 123/69; PULSE 53; RESP 18; O2SAT 88
[2020-12-01 16:06] LABS: Alanine Aminotransferase 16 U/L (12-78); Albumin Level 3.8 g/dl (3.5-5.0); Albumin/Globulin Ratio 1.7 (1.1-1.8); Alkaline Phosphatase 59 U/L (38-126); Aspartate Amino Transferase 30 U/L (17-59); Basophils # 0.1 K/mm3 (0-0.2); Basophils % 0.9 % (0.1-2.0); Bilirubin,Total 1.1 mg/dl (0.2-1.3); Blood Urea Nitrogen 20 mg/dl (9-20); Calcium 8.6 mg/dl (8.4-10.2); Carbon Dioxide 27 mmol/L (22.0-30.0); Chloride 104 mmol/L (98-107); Creatinine Clearance Estimated 85 mL/min (50-200); Eosinophils # 0.2 K/mm3 (0.0-0.4); Eosinophils % 1.9 % (0.1-12.0); Estimated Glomerular Filt Rate 83 ml/min (>60); GFR (African American) 100 ML/MIN (>60); Globulin 2.2 g/dL (1.3-3.2); Glucose 92 mg/dl (74-100); Hematocrit 40.3 % (42.0-52.0); Lymphocytes # 3.5 K/mm3 (0.7-4.5); Lymphocytes % 34.9 % (10-50); Mean Corpuscular HGB Conc 32.3 g/dL (31.8-35.4); Mean Corpuscular Hemoglobin 34.9 pg (27.0-31.2); Mean Corpuscular Volume 107.9 fl (80-94); Mean Platelet Volume 9.4 fl (7.4-10.4); Monocytes # 0.6 K/mm3 (0.1-1.0); Monocytes % 5.5 % (1.7-9.3); Neutrophils # 5.6 K/mm3 (1.8-7.8); Neutrophils % 56.8 % (37.0-80.0); Platelet Count 136 K/mm3 (142-424); Red Blood Count 3.73 M/mm3 (4.60-6.20); Red Cell Distribution Width 14.4 % (11.5-17.5); Sodium 141 mmol/L (136-145); White Blood Count 9.9 K/mm3 (4.8-10.8)
[2020-12-01 16:16] VITALS: BP 134/73; PULSE 54; RESP 17; O2SAT 93
[2020-12-01 16:58] VITALS: BP 117/72; PULSE 46; RESP 16; O2SAT 85
[2020-12-01 17:00] VITALS: BP 128/65; PULSE 55; RESP 16; O2SAT 92
--- NOTE | 2020-12-01 17:00 | PC.NURSE ---
C-COLLAR REMOVED BY DR BLUM.
--- NOTE | 2020-12-01 18:13 | PC.NURSE ---
family in lobby updated
[2020-12-01 18:45] VITALS: BP 110/70; PULSE 50; RESP 16; TEMP 36.8; O2SAT 98
== END 2020-12-01 18:47 | disposition home or self-care (01) ==
PROVIDERS: Emergency Provider Emergency Medicine; PCP Family Medicine
DX: S22.41XA Multiple fractures of ribs, right side, initial encounter for closed fracture (principal); M54.2 Cervicalgia; W11.XXXA Fall on and from ladder, initial encounter; Y92.015 Private garage of single-family (private) house as the place of occurrence of the external cause; E78.5 Hyperlipidemia, unspecified; I10 Essential (primary) hypertension; I25.2 Old myocardial infarction; I25.10 Atherosclerotic heart disease of native coronary artery without angina pectoris; I48.0 Paroxysmal atrial fibrillation; Z79.899 Other long term (current) drug therapy
CPT/HCPCS: 29799; 70450; 71045; 71275; 72125; 72128; 72131; 72170; 74177; 80053; 85025; 93005; 96374; 96375; 99284; J2405; Q9967

== ENCOUNTER → 2020-12-09 14:34 | Outpatient (CLI) | payer MEDICARE, SELFPAY ==
--- NOTE | 2020-12-09 14:45 | XR_ITS ---
PROCEDURE: XR CHEST 2V CLINICAL HISTORY: PLEURITIC CHEST PAIN COMPARISON: CR XR CHEST PORTABLE from 10/19/2018 CR XR CHEST 2V from 01/27/2020 CR XR CHEST PORTABLE from 12/01/[address] ANGIO CHEST from 12/01/2020 FINDINGS: The cardiomediastinal silhouette and pulmonary vascularity are within normal limits. There is a right subclavian MediPort catheter in place with the tip in the region the SVC. There are atelectatic changes in the lung bases. No lobar consolidation or collapse is evident. There is mild pleural thickening along the right hemithorax laterally. No acute bony findings. IMPRESSION: Bibasilar atelectasis Dictated by: Jose Giron MD 12/09/2020 15:01 Jose Giron MD in [place] 12/09/2020 15:01
[2020-12-09 15:26] LABS: Basophils # 0.1 K/mm3 (0-0.2); Basophils % 0.7 % (0.1-2.0); Eosinophils # 0.2 K/mm3 (0.0-0.4); Eosinophils % 1.6 % (0.1-12.0); Hematocrit 45.7 % (42.0-52.0); Hemoglobin 14.9 g/dL (14.1-18.0); Lymphocytes # 3.2 K/mm3 (0.7-4.5); Lymphocytes % 26.7 % (10-50); Mean Corpuscular HGB Conc 32.5 g/dL (31.8-35.4); Mean Corpuscular Hemoglobin 34.5 pg (27.0-31.2); Mean Corpuscular Volume 106.1 fl (80-94); Mean Platelet Volume 8.3 fl (7.4-10.4); Monocytes # 0.7 K/mm3 (0.1-1.0); Monocytes % 5.6 % (1.7-9.3); Neutrophils # 7.8 K/mm3 (1.8-7.8); Neutrophils % 65.3 % (37.0-80.0); Platelet Count 177 K/mm3 (142-424); Red Blood Count 4.31 M/mm3 (4.60-6.20); Red Cell Distribution Width 13.8 % (11.5-17.5)
== END ==
PROVIDERS: Visit Provider Family Medicine
DX: R07.81 Pleurodynia (principal)
CPT/HCPCS: 36415; 71046; 85025

== ENCOUNTER → 2021-01-09 15:42 | Outpatient (CLI) | payer MEDICARE, SELFPAY ==
--- NOTE | 2021-01-09 15:45 | XR_ITS ---
PROCEDURE: XR RIBS RT MIN 3V W CXR1V CLINICAL INDICATION: Multiple fractures of ribs, right side, subsequent encounter COMPARISON: CR XR CHEST 2V from 01/27/[address] ANGIO CHEST from 12/01/2020 CR XR CHEST PORTABLE from 12/01/2020 CR XR CHEST 2V from 12/09/2020 FINDINGS: Frontal view of the chest shows mild bibasilar atelectasis. A right subclavian MediPort catheter is present with the tip in the region of the SVC. Nondisplaced fracture involves the right 6th rib anteriorly. No displaced rib fractures apparent. No evidence of pneumothorax. IMPRESSION: Nondisplaced right 6th rib fracture. Bibasilar atelectasis Dictated by: Jose Giron MD 01/09/2021 17:46 Jose Giron MD in [facility] 01/09/2021 17:46
== END ==
PROVIDERS: PCP Family Medicine; Visit Provider Family Medicine
DX: S22.41XD Multiple fractures of ribs, right side, subsequent encounter for fracture with routine healing (principal)
CPT/HCPCS: 71101

== ENCOUNTER 2021-01-19 08:55 | Outpatient (CLI) | payer MEDICARE, SELFPAY ==
[2021-01-19 09:18] VITALS: BMI 31.8
[2021-01-19 09:56] LABS: Basophils # 0.1 K/mm3 (0-0.2); Basophils % 0.8 % (0.1-2.0); Eosinophils # 0.1 K/mm3 (0.0-0.4); Eosinophils % 1.7 % (0.1-12.0); Hematocrit 43.9 % (42.0-52.0); Hemoglobin 14.3 g/dL (14.1-18.0); Lymphocytes % 25.7 % (10-50); Mean Corpuscular HGB Conc 32.4 g/dL (31.8-35.4); Mean Corpuscular Hemoglobin 34.8 pg (27.0-31.2); Mean Corpuscular Volume 107.2 fl (80-94); Mean Platelet Volume 9.5 fl (7.4-10.4); Monocytes # 0.4 K/mm3 (0.1-1.0); Monocytes % 5.5 % (1.7-9.3); Neutrophils # 5.1 K/mm3 (1.8-7.8); Neutrophils % 66.3 % (37.0-80.0); Platelet Count 120 K/mm3 (142-424); Red Cell Distribution Width 14.3 % (11.5-17.5); White Blood Count 7.7 K/mm3 (4.8-10.8)
[2021-01-19 10:11] LABS: Alanine Aminotransferase 18 U/L (12-78); Albumin Level 3.6 g/dl (3.5-5.0); Albumin/Globulin Ratio 1.5 (1.1-1.8); Alkaline Phosphatase 69 U/L (38-126); Anion Gap 11.2 mEq/L (5-15); Aspartate Amino Transferase 27 U/L (17-59); Bilirubin,Total 0.8 mg/dl (0.2-1.3); Blood Urea Nitrogen 27 mg/dl (9-20); Calcium 8.4 mg/dl (8.4-10.2); Carbon Dioxide 26 mmol/L (22.0-30.0); Chloride 107 mmol/L (98-107); Creatinine Clearance Estimated 86 mL/min (50-200); Estimated Glomerular Filt Rate 111 ml/min (>60); GFR (African American) 134 ML/MIN (>60); Globulin 2.4 g/dL (1.3-3.2); Glucose 90 mg/dl (74-100); Potassium 4.2 mmoL/L (3.5-5.1); Sodium 140 mmol/L (136-145)
== END 2021-01-19 10:20 | disposition home or self-care (01) ==
LOC: INF 08:55
PROVIDERS: PCP Family Medicine; Visit Provider Internal Medicine Medical Oncology
DX: C91.10 Chronic lymphocytic leukemia of B-cell type not having achieved remission (principal); Z45.2 Encounter for adjustment and management of vascular access device
CPT/HCPCS: 80053; 85025; J1642

== ENCOUNTER 2021-04-27 10:29 | Outpatient (CLI) | payer MEDICARE, SELFPAY ==
[2021-04-27 10:33] VITALS: BMI 31.1
[2021-04-27 10:54] LABS: Basophils % 0.6 % (0.1-2.0); Chloride 107 mmol/L (98-107); Eosinophils # 0.2 K/mm3 (0.0-0.4); Eosinophils % 2.6 % (0.1-12.0); Hematocrit 39.6 % (42.0-52.0); Hemoglobin 13.2 g/dL (14.1-18.0); Lymphocytes # 1.6 K/mm3 (0.7-4.5); Lymphocytes % 22.8 % (10-50); Mean Corpuscular HGB Conc 33.3 g/dL (31.8-35.4); Mean Corpuscular Volume 102.2 fl (80-94); Mean Platelet Volume 8.7 fl (7.4-10.4); Monocytes # 0.4 K/mm3 (0.1-1.0); Monocytes % 6.1 % (1.7-9.3); Neutrophils # 4.8 K/mm3 (1.8-7.8); Neutrophils % 67.9 % (37.0-80.0); Platelet Count 121 K/mm3 (142-424); Red Blood Count 3.88 M/mm3 (4.60-6.20); Red Cell Distribution Width 13.7 % (11.5-17.5); White Blood Count 7.1 K/mm3 (4.8-10.8)
[2021-04-27 10:55] LABS: Sodium 136 mmol/L (136-145)
[2021-04-27 10:57] LABS: Alanine Aminotransferase 17 U/L (12-78); Aspartate Amino Transferase 25 U/L (17-59); Blood Urea Nitrogen 17 mg/dl (9-20); Creatinine Clearance Estimated 85 mL/min (50-200); Estimated Glomerular Filt Rate 110 ml/min (>60); GFR (African American) 133 ML/MIN (>60)
[2021-04-27 10:58] LABS: Albumin Level 3.5 g/dl (3.5-5.0); Albumin/Globulin Ratio 1.7 (1.1-1.8); Alkaline Phosphatase 69 U/L (38-126); Bilirubin,Total 0.8 mg/dl (0.2-1.3); Calcium 7.4 mg/dl (8.4-10.2); Carbon Dioxide 25 mmol/L (22.0-30.0); Globulin 2.1 g/dL (1.3-3.2); Glucose 107 mg/dl (74-100); Total Protein,Serum 5.6 g/dl (6.3-8.2)
== END 2021-04-27 10:42 | disposition home or self-care (01) ==
LOC: INF 10:30
PROVIDERS: PCP Family Medicine; Visit Provider Internal Medicine Medical Oncology
DX: C91.90 Lymphoid leukemia, unspecified not having achieved remission (principal); Z45.2 Encounter for adjustment and management of vascular access device
CPT/HCPCS: 80053; 85025; J1642

== ENCOUNTER 2021-04-30 09:00 | Emergency (ER) | payer MEDICARE, SELFPAY ==
[2021-04-30 09:05] VITALS: BP 141/89; PULSE 77; RESP 18; TEMP 37.2; O2SAT 93; BMI 32.2
--- NOTE | 2021-04-30 09:38 | HMH.EDUTC ---
[facility] Clinical Impression: Bronchitis Sinusitis Qualifiers: Sinusitis location: unspecified location Chronicity: unspecified Qualified Code(s): J32.9 - Chronic sinusitis, unspecified Disposition: Home, Self-Care Condition on Discharge: Good Instructions: Sinusitis, Acute Bronchitis, DI for Sinusitis Additional Instructions: ? Start antibiotic today. Be sure to complete entire prescription even if feeling better ? Monitor temp. Tylenol every 4 hours as needed and / or ibuprofen every 6 hours as needed ( As long as your primary care physician has told you that it ok to take both. For fever/aches/pains ER if no less than 101 despite Tylenol or Motrin ? Humidifier/vaporizer or hot steamy shower ? Mucinex for your cough congestion. Be sure to drink lots of water. *Promethazine DM cough syrup will cause drowsiness. Use only at night. No driving, operating machinery or caring for small children after taking it Follow up IMMEDIATELY for new or worsening of symptoms OR no noticeable improvement over the next 48-72 hours. 911 immediately for any life threatening symptoms such as chest pain or difficulty breathing Prescriptions: Amoxicillin/Potassium Clav [Augmentin 875-125 Tablet] 1 tab PO Q12H 7 Days #14 tab Transmission Status: Received by [facility] Fluticasone Propionate [Flonase 50mcg nasal spray 16gm] 1 spr NS DAILY #1 each Transmission Status: Received by [facility] guaiFENesin [Mucinex 600mg tablet] 600 mg PO BID PRN #20 tab PRN Reason: Congestion Transmission Status: Received by [facility] Referrals: Alexandro Araujo MD [Primary Care Provider] - As needed Time of Disposition: 09:51 Medical Decision Making - Shemar Inquiry Pt receiving controlled substance: No Shemar was queried for this patient: No Vital Signs: 04/30/21 09:05 04/30/21 10:05 Temperature 99.0 F 99.0 F Temperature Source Oral Pulse Rate 77 Pulse Rate [Left Brachial] 77 Respiratory Rate 18 18 Blood Pressure 141/89 H Blood Pressure [Left Arm] 141/89 H Blood Pressure Mean [Left Arm] 106 Blood Pressure Source [Left Arm] Automatic Cuff Blood Pressure Position [Left Arm] Sitting 02 Sat by Pulse Oximetry 93 L Oxygen Delivery Method Room Air - Lab Data Lab Results 04/30/21 09:27: Influenza Type A Ag Negative, Influenza Type B Ag Negative 04/30/21 09:56: Chlamy pneumoniae PCR Not detected, Adenovirus (PCR) Not detected, B. pertussis DNA (PCR) Not detected, Coronavirus OC43 (PCR) Not detected, Coronavirus HKU1 (PCR) Not detected, Coronavirus 229E (PCR) Not detected, SARS-CoV-2 (PCR) Detected A, Coronavirus NL63 (PCR) Not detected, Human Metapneumovir PCR Not detected, Influenza A (H1) PCR Not detected, Influ A (H1N1/09) PCR Not detected, Influenza A (H3) PCR Not detected, Influenza Type A (PCR) Not detected, Influenza Type B (PCR) Not detected, M. pneumoniae (PCR) Not detected, Parainfluenza 1 (PCR) Not detected, Parainfluenza 2 (PCR) Not detected, Parainfluenza 3 (PCR) Not detected, Parainfluenza 4 (PCR) Not detected, RSV (PCR) Not detected, Entero/Rhino (PCR) Not detected Orders (Tests/Meds): ED MEDICATIONS Discontinued Medications Generic Name Dose Route Start Last Admin Trade Name Freq PRN Reason Stop Dose Admin Methylprednisolone Sodium Succinate 125 mg 04/30/21 09:47 04/30/21 09:55 Methylprednisolone Sod Succ 125mg Vial IM 04/30/21 09:48 125 mg ONCE ONE Administration [facility] [place] - General Stated complaint: body aches, h/a, congestion Time Seen by Provider: 04/30/21 09:38 Mode of Arrival: Ambulatory Source of Information: Patient Limitations: No Limitations Description of Symptoms (Recalled from Triage Doc. by RN): PATIENT C/O COUGH AND CONGESTION X 1 WEEK. REPORTS HIS IS SICK WELL AND WAS TESTED FOR COVID TODAY, RESULTS UNKNOWN HEENT Symptoms (Recalled from RN notes): No Resp Symptoms (Recalled from RN notes): Yes Skin Symptoms (Recalled from
[2021-04-30 09:40] LABS: UTC Influenza A Antigen Negative (Negative); UTC Influenza B Antigen Negative (Negative)
[2021-04-30 10:05] VITALS: BP 141/89; PULSE 77; RESP 18; TEMP 37.2; O2SAT 95
[2021-04-30 10:54] LABS: Adenovirus,PCR Not Detected (NotDetected); Bordetella Pertussis Not Detected (NotDetected); Chlamydophila Pneumoniae, PCR Not Detected (NotDetected); Coronavirus 229E Not Detected (NotDetected); Coronavirus NL63 Not Detected (NotDetected); Coronavirus OC43 Not Detected (NotDetected); Coronovirus HKU1,PCR Not Detected (NotDetected); Human Metapneumovirus Not Detected (NotDetected); Influenza A, PCR Not Detected (NotDetected); Influenza AH1, 2009 Not Detected (NotDetected); Influenza AH1, PCR Not Detected (NotDetected); Influenza AH3,PCR Not Detected (NotDetected); Influenza B, PCR Not Detected (NotDetected); Mycoplasma Pneumoniae, PCR Not Detected (NotDetected); Parainfluenza 1, PCR Not Detected (NotDetected); Parainfluenza 2, PCR Not Detected (NotDetected); Parainfluenza 3, PCR Not Detected (NotDetected); Parainfluenza 4, PCR Not Detected (NotDetected); Respiratory Syncytial Virus Not Detected (NotDetected); Rhinovirus/Enterovirus Not Detected (NotDetected)
[2021-04-30 17:05] LABS: Coronavirus 19, PCR Detected (NotDetected)
== END 2021-04-30 10:13 | disposition home or self-care (01) ==
PROVIDERS: Emergency Provider Nurse Practitioner; PCP Family Medicine
DX: U07.1 COVID-19 (principal); J20.9 Acute bronchitis, unspecified; J32.9 Chronic sinusitis, unspecified
CPT/HCPCS: G0463; 87581; 87632; 87798; 87804; 96372; 99202; 99212; 99213; C9803; U0003; U0005

== ENCOUNTER → 2021-05-17 09:23 | Outpatient (CLI) | payer MEDICARE, SELFPAY ==
--- NOTE | 2021-05-17 09:28 | XR_ITS ---
FINAL REPORT CLINICAL HISTORY: BRONCHITIS; patient has port in chest COMPARISON: January 09, 2021 FINDINGS: Two views of the chest were obtained. A right subclavian chest port is present. The heart size and pulmonary vascularity are within normal limits. The mediastinum is normal. There is mild bibasilar atelectasis or scarring. There is no pneumothorax. The bony thorax is intact. IMPRESSION: Mild bibasilar atelectasis or scarring, stable. Reviewed, Interpreted and Dictated by Wade Sierra III, MD Transcribed by Cecelia Mckinney Authenticated by Wade Sierra III, MD on 05/17/2021 11:29:09 AM [facility]
== END ==
PROVIDERS: PCP Family Medicine; Visit Provider Family Medicine
DX: J40 Bronchitis, not specified as acute or chronic (principal)
CPT/HCPCS: 71046

== ENCOUNTER → 2021-05-24 09:11 | Outpatient (CLI) | payer MEDICARE, SELFPAY ==
[2021-05-24 10:31] LABS: Blood Urea Nitrogen 30 mg/dl (9-20); Estimated Glomerular Filt Rate 94 ml/min (>60); GFR (African American) 114 ML/MIN (>60)
== END ==
PROVIDERS: Visit Provider Family Medicine
DX: I71.4 Abdominal aortic aneurysm, without rupture (principal)
CPT/HCPCS: 36415; 82565; 84520

== ENCOUNTER → 2021-05-30 08:30 | Outpatient (CLI) | payer MEDICARE, SELFPAY ==
--- NOTE | 2021-05-30 08:36 | CT_ITS ---
FINAL REPORT TECHNIQUE: Then section axial CT images of the chest were obtained with contrast. Three-D reformatted images were also obtained.This study was performed with techniques to keep radiation doses as low as reasonably achievable (ALARA). Individualized dose reduction techniques using automated exposure control or adjustment of mA and/or kV according to the patient''s size were employed. CLINICAL HISTORY: AAA W/O RUPTURE 100 cc of isovue 370 and 40 cc of saline COMPARISON: December 01, 2020 FINDINGS: A right upper anterior chest wall port is present. There is no evidence of pulmonary embolism. There is no evidence of thoracic aortic aneurysm or dissection. The mediastinal vasculature is adequately opacified. There is no pulmonary artery filling defect. There are a few small scattered right paratracheal lymph nodes. There is no evidence of mediastinal or hilar mass or adenopathy. There are patchy bibasilar airspace infiltrates which is consistent with acute pneumonia. These are more evident than they were on the prior exam. No localized inflammatory process is seen within the lungs. IMPRESSION: No evidence of pulmonary embolism. Patchy bibasilar airspace infiltrates, consistent with acute pneumonia. Reviewed, Interpreted and Dictated by Cheng Mitchell MD Transcribed by Cecelia Mckinney Authenticated by Cheng Mitchell MD on 05/30/2021 11:26:33 AM [facility]
--- NOTE | 2021-05-30 08:36 | CT_ITS ---
FINAL REPORT CLINICAL HISTORY: AAA W/O RUPTURE 100 cc isovue 370 40 ml of saline FINDINGS: The liver parenchyma is homogeneous. There is a gallstone in the gallbladder. The spleen is unremarkable. The adrenals are normal. The pancreas is unremarkable. The kidneys enhance appropriately. Precontrast images demonstrate no nephrolithiasis. There is an abdominal aortic aneurysm measuring approximately 3.0 x 2.8 cm. There is mild ectasia of the common iliac arteries measuring up to 18 mm on the right and up to 19 mm on the left. There are advanced hypertrophic changes of degenerative disc disease in the lower lumbar spine. IMPRESSION: Gallstone in the gallbladder. Mild aneurysmal dilatation of the abdominal aorta and the common iliac arteries with the abdominal aorta measuring up to 3.0 cm. Reviewed, Interpreted and Dictated by Cheng Mitchell MD Transcribed by Cecelia Mckinney Authenticated by Cheng Mitchell MD on 05/30/2021 11:26:27 AM [facility]
== END ==
PROVIDERS: PCP Family Medicine; Visit Provider Family Medicine
DX: I71.2 Thoracic aortic aneurysm, without rupture (principal); I71.4 Abdominal aortic aneurysm, without rupture
CPT/HCPCS: 71275; 74178; Q9967

== ENCOUNTER 2021-07-27 10:59 | Outpatient (CLI) | payer MEDICARE, SELFPAY ==
[2021-07-27 11:00] VITALS: BMI 31.3
[2021-07-27 11:25] LABS: Chloride 107 mmol/L (98-107); Potassium 4.1 mmoL/L (3.5-5.1); Sodium 138 mmol/L (136-145)
[2021-07-27 11:26] LABS: Basophils # 0.1 K/mm3 (0-0.2); Basophils % 1.5 % (0.1-2.0); Eosinophils # 0.1 K/mm3 (0.0-0.4); Eosinophils % 1.2 % (0.1-12.0); Hematocrit 39.8 % (42.0-52.0); Hemoglobin 13.4 g/dL (14.1-18.0); Lymphocytes # 1.5 K/mm3 (0.7-4.5); Lymphocytes % 22.9 % (10-50); Mean Corpuscular HGB Conc 33.6 g/dL (31.8-35.4); Mean Corpuscular Hemoglobin 36.1 pg (27.0-31.2); Mean Corpuscular Volume 107.3 fl (80-94); Mean Platelet Volume 10.2 fl (7.4-10.4); Monocytes # 0.5 K/mm3 (0.1-1.0); Monocytes % 6.7 % (1.7-9.3); Neutrophils # 4.5 K/mm3 (1.8-7.8); Neutrophils % 67.7 % (37.0-80.0); Platelet Count 138 K/mm3 (142-424); Red Blood Count 3.71 M/mm3 (4.60-6.20); Red Cell Distribution Width 14.5 % (11.5-17.5); White Blood Count 6.7 K/mm3 (4.8-10.8)
[2021-07-27 11:28] LABS: Alanine Aminotransferase 16 U/L (12-78); Albumin Level 3.3 g/dl (3.5-5.0); Albumin/Globulin Ratio 1.7 (1.1-1.8); Alkaline Phosphatase 69 U/L (38-126); Anion Gap 8.1 mEq/L (5-15); Aspartate Amino Transferase 25 U/L (17-59); Blood Urea Nitrogen 24 mg/dl (9-20); Carbon Dioxide 27 mmol/L (22.0-30.0); Creatinine Clearance Estimated 86 mL/min (50-200); Estimated Glomerular Filt Rate 82 ml/min (>60); GFR (African American) 100 ML/MIN (>60); Total Protein,Serum 5.3 g/dl (6.3-8.2)
[2021-07-27 11:29] LABS: Calcium 8.3 mg/dl (8.4-10.2); Glucose 108 mg/dl (74-100)
== END 2021-07-27 11:24 | disposition home or self-care (01) ==
LOC: INF 11:00
PROVIDERS: Visit Provider Internal Medicine Medical Oncology
DX: C91.10 Chronic lymphocytic leukemia of B-cell type not having achieved remission (principal); Z45.2 Encounter for adjustment and management of vascular access device
CPT/HCPCS: 36591; 80053; 85025; J1642

== ENCOUNTER → 2021-08-29 08:10 | Outpatient (CLI) | payer MEDICARE, SELFPAY ==
--- NOTE | 2021-08-29 08:12 | ECG_ITS ---
APPROVED REPORT Exam: Resting ECG HR:49 bpm ECG Measurements Heart Rate 49 AXES MD 152 P 39 QRSd 105 QRS 39 QT 440 T 9 QTc 411 Conclusion SINUS BRADYCARDIA POSSIBLE INFERIOR MYOCARDIAL INFARCTION , PROBABLY OLD [30 ms Q WAVE IN II/aVF] BORDERLINE ECG UNCONFIRMED REPORT Electronically signed by : Bernard Henry MD 08/30/2021 14:43:26
== END ==
PROVIDERS: PCP Family Medicine; Visit Provider Surgery
DX: Z01.818 Encounter for other preprocedural examination (principal); Z20.822 Contact with and (suspected) exposure to COVID-19; C91.10 Chronic lymphocytic leukemia of B-cell type not having achieved remission
CPT/HCPCS: 93005; C9803; U0003; U0005

== ENCOUNTER 2021-08-31 07:35 | Day surgery (SDC) | payer MEDICARE, SELFPAY ==
[2021-08-29 08:53] VITALS: BMI 31.3
[2021-08-31] VITALS (7 sets, daily range): BP systolic 108–141; BP diastolic 55–81; PULSE 40–57; RESP 15–18; TEMP 36.3–36.6; O2SAT 93–96
--- NOTE | 2021-08-31 09:01 | P.PN_ITS ---
[facility] Anesthesia Checklist - Patient Identification Patient Identification: Arm Band, Verbal (Name & ) - Structural Data Admitted From: Home Planned Operative Procedure/s: Port Removal Consent for Planned Operative Procedure(s) Verified: Yes Verified Documents: Surgical Consent - NPO Status Verified Time NPO: 00:00 - Additional verifications Anesthesia Reactions: No Hx Blood Transfusions: Yes Blood Transfusion Reaction: No - Cardiovascular Assessment Heart Sounds: S1 & S2 - Airway Assessment C-Spine Mobility Assessed: Yes TMJ Mobility Assessed: Yes Dentition: Good Dentition - Neurological Assessment Level of Consciousness: Awake, Alert, Appropriate - Anesthesia Plan Anesthesia Risk discussed: Yes ASA Class: III Anesthesia Type: MAC [facility] History I have reviewed the patient's past medical history: Yes Medical History: Reports:: Atherosclerotic Heart Disease, Atrial Fibrillation, Cancer (lymph nodes), Coronary Artery Disease, Deep Vein Thrombosis, Hyperlipidemia, Hypertension, Myocardial Infarction, Peripheral Vascular Disease Denies:: Diabetes Mellitus Type 1, Diabetes Mellitus Type 2, Gastroesophageal Reflux Disease(GERD), Internal Pacemaker, Lung Disease, MRSA, Seizures *Have you ever received a pneumonia vaccine?: No *Have you received a flu vaccine this season?: No Other Medical History: Reports: Chemotherapy, Other. Denies: Blood Transfusion Reaction Anesthesia experience/problems:: none Other Surgeries: Yes: No Previous Surgery, Cardiac Catheterization, Colonoscopy, Coronary Stent, Other (TURP). No: Pacemaker Amputation: No Fractures: No - *Social History Last grade of school completed: Some college Smoking Status: Never smoker Alcohol Intake: never Alcohol Intake Frequency:: other Substance Use Type: denies use *Occupational Status:: employed Housing: house Household Members: spouse *Travel in the last 8 weeks: None Family Hx:: No significant family history
--- NOTE | 2021-08-31 09:28 | P.OP_ITS ---
Date of procedure: 08/31/21 Pre-op Diagnosis:: CLL status post completion of chemotherapy Post-op Diagnosis:: Same Procedure performed:: Port-A-Cath removal (catheter maintained secondary to significant tissue adherence) Surgeon:: Josué Uribe MD Anesthesia: MAC, local Estimated blood loss (mL): 5 Operative findings:: Distal portion of catheter not removed secondary to tissue adherence (secured in subcutaneous tissue) Interventional cardiology consultation pending Operative note:: After informed consent was obtained the patient was taken to the operating room and placed in the supine position. Monitored anesthesia care ensued and his right chest was prepped and draped in a sterile fashion. After infiltration local anesthetic the prior incision was sharply reopened. The subcutaneous tissue was dissected with electrocautery. Electrocautery was utilized to free the entire port hub and proximal portion of the catheter. Careful maneuvering revealed significant tissue adherence leading to increased concern for intravascular adherence. The decision was made to forego further attempts at maneuvering. A portion of the catheter was damaged secondary to heat injury. This was a site chosen for transection with a combination of Prolene and Nurolon used to secure the catheter in the deep subcutaneous tissue. The suture ends we re brought through the incision and secured to the skin with Vicryl suture. Skin was reapproximated with natali and dressings were applied. Interventional cardiology consultation for catheter removal pending. Condition: stable Disposition: PACU Specimens:: None Complications:: Distal portion of catheter not removed (secured in subcutaneous tissue) secondary to tissue adherence
--- NOTE | 2021-08-31 09:34 | XR_ITS ---
FINAL REPORT CLINICAL HISTORY: port a cath removal COMPARISON: May 17, 2021 FINDINGS: There is postoperative change in the right upper thorax. A right deep line is seen terminating in the lower SVC. The heart size is normal. The mediastinum is normal. There is worsening left base atelectasis. There are no pleural effusions. There is no pneumothorax. There is no osseous abnormality. IMPRESSION: Worsening left base atelectasis. Reviewed, Interpreted and Dictated by Wade Sierra III, MD Transcribed by Jaspreet Wheat Authenticated and [facility]
== END 2021-08-31 11:14 | disposition home or self-care (01) ==
LOC: OR 07:36
PROVIDERS: PCP Family Medicine; Visit Provider Surgery
PROC: (CPT 36590; principal; 2021-08-31 09:15)
DX: C91.90 Lymphoid leukemia, unspecified not having achieved remission (principal); I25.10 Atherosclerotic heart disease of native coronary artery without angina pectoris; I48.91 Unspecified atrial fibrillation; I10 Essential (primary) hypertension; I25.2 Old myocardial infarction; I73.9 Peripheral vascular disease, unspecified; E78.5 Hyperlipidemia, unspecified; Z92.21 Personal history of antineoplastic chemotherapy; Z53.09 Procedure and treatment not carried out because of other contraindication; T82.898A Other specified complication of vascular prosthetic devices, implants and grafts, initial encounter
CPT/HCPCS: 36590; 71045; 96374

== ENCOUNTER → 2021-10-12 12:30 | Outpatient (CLI) | payer MEDICARE, SELFPAY ==
[2021-10-12 14:17] LABS: Chloride 108 mmol/L (98-107)
[2021-10-12 14:18] LABS: Potassium 3.9 mmoL/L (3.5-5.1); Sodium 140 mmol/L (136-145)
[2021-10-12 14:20] LABS: Alanine Aminotransferase 15 U/L (12-78); Alkaline Phosphatase 82 U/L (38-126); Aspartate Amino Transferase 22 U/L (17-59); Bilirubin,Total 0.8 mg/dl (0.2-1.3); Blood Urea Nitrogen 16 mg/dl (9-20); Estimated Glomerular Filt Rate 110 ml/min (>60); GFR (African American) 133 ML/MIN (>60)
[2021-10-12 14:21] LABS: Albumin Level 3.7 g/dl (3.5-5.0); Albumin/Globulin Ratio 1.9 (1.1-1.8); Anion Gap 8.9 mEq/L (5-15); Carbon Dioxide 27 mmol/L (22.0-30.0); Total Protein,Serum 5.7 g/dl (6.3-8.2)
[2021-10-12 14:22] LABS: Glucose 107 mg/dl (74-100)
[2021-10-12 14:52] LABS: Basophils % 0.5 % (0.1-2.0); Eosinophils # 0.1 K/mm3 (0.0-0.4); Eosinophils % 1.2 % (0.1-12.0); Hematocrit 43.4 % (42.0-52.0); Hemoglobin 13.5 g/dL (14.1-18.0); Lymphocytes % 12.4 % (10-50); Mean Corpuscular Hemoglobin 33.7 pg (27.0-31.2); Mean Corpuscular Volume 108.8 fl (80-94); Mean Platelet Volume 9.4 fl (7.4-10.4); Monocytes # 0.5 K/mm3 (0.1-1.0); Monocytes % 5.7 % (1.7-9.3); Neutrophils # 6.4 K/mm3 (1.8-7.8); Neutrophils % 80.3 % (37.0-80.0); Platelet Count 145 K/mm3 (142-424); Red Blood Count 3.99 M/mm3 (4.60-6.20); Red Cell Distribution Width 13.7 % (11.5-17.5); White Blood Count 7.9 K/mm3 (4.8-10.8)
== END ==
PROVIDERS: PCP Family Medicine; Visit Provider Internal Medicine Medical Oncology
DX: C91.10 Chronic lymphocytic leukemia of B-cell type not having achieved remission (principal)
CPT/HCPCS: 36415; 80053; 85025

== ENCOUNTER → 2022-05-08 15:55 | Outpatient (CLI) | payer MEDICARE, SELFPAY ==
--- NOTE | 2022-05-08 16:11 | XR_ITS ---
FINAL REPORT CLINICAL HISTORY: LOW BACK PAIN, fell a year ago. He works as an emt. FINDINGS: AP, lateral, and oblique views of the lumbar spine were obtained. There is no acute fracture. There is mild retrolisthesis of L3 on L4. Vertebral body height is preserved. There is multilevel degenerative disc disease which is most pronounced at L5-S1. No acute paraspinal abnormality is identified. IMPRESSION: 1. Mild retrolisthesis of L3 on L4. 2. Multilevel degenerative disc disease, most pronounced at L5-S1. Reviewed, Interpreted and Dictated by Kathryn Bello MD Transcribed by Cecelia Mckinney Authenticated and [facility]
--- NOTE | 2022-05-08 16:51 | XR_ITS ---
PROCEDURE INFORMATION: Exam: XR Pelvis Exam date and time: 05/08/2022 4:52 PM Age: 77 years old Clinical indication: Pelvic pain; Patient HX: Patient fell a year ago. TECHNIQUE: Imaging protocol: Radiologic exam of the pelvis. Views: 1 or 2 view. COMPARISON: CT ABDOMEN PELVIS WO/W CON 05/30/2021 8:46 AM FINDINGS: Bones/joints: Mild degenerative spurring of both hips. No significant joint space narrowing. No fracture or dislocation. No other bone or joint finding. Soft tissues: Unremarkable. IMPRESSION: Mild DJD.
== END ==
PROVIDERS: PCP Family Medicine; Visit Provider Nurse Practitioner Family
DX: M54.50 Low back pain, unspecified (principal)
CPT/HCPCS: 72110; 72170

== ENCOUNTER → 2022-05-21 07:49 | Outpatient (CLI) | payer MEDICARE, SELFPAY ==
--- NOTE | 2022-05-21 07:53 | MR_ITS ---
FINAL REPORT CLINICAL HISTORY: LOW BACK PAIN. left hip pain. no injury or trauma COMPARISON: CT lumbar from November 2020 FINDINGS: Multiplanar MR imaging of the lumbar spine was performed without contrast. On the sagittal T2-weighted images, disc degeneration is seen at multiple levels. There are several hemangiomas. There is endplate change at L5-S1. The vertebral alignment is normal. There is no evidence of fracture. The conus has an unremarkable appearance. T12-L1: An annular bulge is present. L1-2: An annular bulge is present. L2-3: There is an annular bulge L3-4: With a small left paracentral disc protrusion. There is mild bilateral neural foraminal narrowing. L4-5: There is an annular bulge and facet arthropathy. There is a small central disc protrusion. There is mild right and moderate left neural foraminal narrowing. L5-S1: There is an annular bulge, facet arthropathy, and vertebral osteophytes. There is mild right and severe left neural foraminal narrowing. There is ectasias of the abdominal aorta of approximately 3 cm similar to the prior CT. There is mild spurring of the SI joints. IMPRESSION: Multilevel degenerative disc disease with areas of neural foraminal narrowing. Small disc protrusions at L2-L3 and L4-L5 without significant central canal stenosis. Reviewed, Interpreted and Dictated by Wade Sierra III, MD Transcribed by Jaspreet Wheat Authenticated and [facility]
== END ==
PROVIDERS: PCP Family Medicine; Visit Provider Nurse Practitioner Family
DX: M54.50 Low back pain, unspecified (principal)
CPT/HCPCS: 72148; 76376

== ENCOUNTER 2024-07-08 11:01 | Outpatient (CLI) | payer MEDICARE, SELFPAY ==
--- NOTE | 2024-07-08 11:08 | XR_ITS ---
FINAL REPORT CLINICAL HISTORY: LBP - HIP PAIN SINCE SATURDAY COMPARISON: 05/08/2022 FINDINGS: RIGHT HIP Three views were obtained. There is no fracture or dislocation. The joint spaces appear normal. No soft tissue abnormality is identified. IMPRESSION: No acute process. Reviewed, Interpreted and Dictated by Cheng Mitchell MD Transcribed by Francisca Car Authenticated and . [facility]
--- NOTE | 2024-07-08 11:08 | XR_ITS ---
FINAL REPORT CLINICAL HISTORY: LOW BACK PAIN SINCE SATURDAY FINDINGS: LUMBAR SPINE Five views were obtained. There is no acute fracture. There is moderate anterior osteophyte formation at L2-3 and L3-4. Moderate disc space narrowing is seen at L5-S1. There is moderate facet sclerosis in the lower lumbar spine. There is no malalignment. IMPRESSION: No acute process. Reviewed, Interpreted and Dictated by Cheng Mitchell MD Transcribed by Francisca Car Authenticated and [facility]
== END 2024-07-08 23:59 | disposition home or self-care (01) ==
LOC: RAD 11:03
PROVIDERS: PCP Family Medicine; Visit Provider Physician Assistant
DX: M25.551 Pain in right hip (principal); M54.50 Low back pain, unspecified
CPT/HCPCS: 72110; 73502

== ENCOUNTER 2024-07-10 06:53 | Outpatient (CLI) | payer MEDICARE, SELFPAY ==
--- NOTE | 2024-07-10 07:03 | MR_ITS ---
FINAL REPORT CLINICAL HISTORY: ACUTE MIDLINE BACK PAIN. RIGHT LEG PAIN. LOW BACK PAIN COMPARISON: 05/21/2022 FINDINGS: Multiplanar MR imaging of the lumbar spine was performed without contrast. On the sagittal T2-weighted images, there is abnormal decreased signal throughout the lumbar discs. The vertebrae are of normal height. The vertebral alignment is normal. There are endplate reactive signal changes at L5-S1. L1-2: There is no significant canal stenosis or neural foraminal narrowing. L2-3: Mild diffuse disc bulge. Mild bilateral neural foraminal narrowing. L3-4: Mild to moderate diffuse disc bulge. Posterior lateral disc protrusions. Mild to moderate bilateral neural foraminal narrowing. Right paracentral disc protrusion with mild to moderate compromise of the right lateral recess. L4-5: Mild diffuse disc bulge. Broad-based midline disc protrusion. Mild spinal canal stenosis. Mild to moderate bilateral neural foraminal narrowing. L5-S1: Mild diffuse disc bulge. Endplate hypertrophy eccentric to the left. Moderate to high-grade left neural foraminal narrowing. IMPRESSION: Multilevel changes of degenerative disc disease. Moderate to high-grade left L5-S1 neural foraminal narrowing, which appears stable. Right paracentral protrusion at L3-4 with mild to moderate compromise of the right lateral recess, which is new. Reviewed, Interpreted and Dictated by Cheng Mitchell MD Transcribed by Concepción Edmond Authenticated and [facility]
== END 2024-07-10 23:59 | disposition home or self-care (01) ==
PROVIDERS: PCP Physician Assistant; Visit Provider Physician Assistant
DX: M54.41 Lumbago with sciatica, right side (principal)
CPT/HCPCS: 72148

== ENCOUNTER 2024-07-29 14:48 | Outpatient (RCR) | payer MEDICARE, SELFPAY | END 2024-07-29 23:59 | disposition home or self-care (01) | LOC: PT 14:48 | PROVIDERS: Visit Provider Nurse Practitioner | DX: M51.26 Other intervertebral disc displacement, lumbar region (principal) | CPT/HCPCS: 97163 ==

== ENCOUNTER 2024-08-14 10:49 | Outpatient (CLI) | payer MEDICARE, SELFPAY ==
--- OUTSIDE RECORDS SUMMARY | 2024-06-26 12:54 | XMS_ITS | Encounter Summary ---
Author Organization [facility] Address [address] [id number] Care Team Providers Care Recreational Leader Name Role Phone Tab Veronica MD Primary Care Provider [phone] Reason for Referral * Imaging (Routine) - Closed Specialty Diagnoses / Procedures Referred By Contac t Referred To Contact Radiology Diagnoses CLL (chronic lymphocytic leukemia) (CMS/HCC) Procedures CT Chest w IV Contrast CT Chest wo IV Contrast Sylvia Gonzalez MD 800 [facility] [address] [address] Phone: tel: fax: Referral ID Status Reason Start Date Expiration Date Visits Re quested Visits Authorized [id number] Closed 05/27/2024 11/26/2025 1 1 * Imaging (Routine) - Closed Specialty Diagnoses / Procedures Referred By Contac t Referred To Contact Radiology Diagnoses CLL (chronic lymphocytic leukemia) (CMS/HCC) Procedures CT Soft Tissue Neck w IV Contrast CT Soft Tissue Neck wo IV Contrast Sylvia Gonzalez MD 800 [facility] [address] [place] [address] Phone: tel: fax: Referral ID Status Reason Start Date Expiration Date Visits Re quested Visits Authorized [id number] Closed 05/27/2024 11/26/2025 1 1 * Imaging (Routine) - Closed Specialty Diagnoses / Procedures Referred By Audra christensen Referred To Contact Radiology Diagnoses CLL (chronic lymphocytic leukemia) (CMS/HCC) Procedures CT Abdomen Pelvis w IV Contrast CT Abdomen Pelvis wo IV Contrast Sylvia Gonzalez MD [address] [address] Phone: tel: fax: Referral ID Status Reason Start Date Expiration Date Visits Re quested Visits Authorized [id number] Closed 05/27/2024 11/26/2025 1 1 Reason for Visit * Imaging (Routine) - Closed Specialty Diagnoses / Procedures Referred By Audra christensen Referred To Contact Radiology Diagnoses CLL (chronic lymphocytic leukemia) (CMS/HCC) Procedures CT Soft Tissue Neck w IV Contrast CT Soft Tissue Neck wo IV Contrast Sylvia Gonzalez MD [address] [address] Phone: tel: fax: Referral ID Status Reason Start Date Expiration Date Visits Re quested Visits Authorized [id number] Closed 05/27/2024 11/26/2025 1 1 Encounter Details Date Type Department Care Team (Latest Contact Info) Description 06/26/2024 12:54 PM EDT - 06/26/2024 11:59 PM EDT Hospital Encounter [facility] [address] [place] [address] CLL (chronic lymphocytic leukemia) (CMS/HCC) Discharge Disposition: Home or Self Care Social History Tobacco Use Types Packs/Day Years Used Date Smoking Tobacco: Never Smokeless Tobacco: Never Alcohol Use Standard Drinks/Week Comments Not Currently 0 (1 standard drink = 0.6 oz pur e alcohol) PHQ-2 Answer Date Recorded Patient Health Questionnaire-2 Score 0 04/30/2024 PHQ-2A Answer Date Recorded Patient Health Questionnaire-2 Score 0 05/23/2022 Sex and Gender Information Value Date Recorded Sex Assigned at Not on file Legal Sex Male 8:27 PM EDT Gender Identity Not on file Sexual Orientation Not on file documented as of this encounter Medications at Time of Discharge atorvastatin (Lipitor) 40 MG tablet Take 1 tablet (40 mg) by mouth daily. cholecalciferol (Vitamin D-3) 50 MCG (1999 UT) capsule 1 (one) time each day at the same time. cyanocobalamin (Vitamin B-12) 100 MCG tablet Take 1 tablet (100 mcg) by mouth Daily. erythromycin (Romycin) 5 MG/GM ophthalmic ointment INSTILL OINTMENT TO SUTURES TWICE DAILY FOR 7 DAYS OR DIRECTED THEN BEGIN DAILY MASSAGE 04/21/2024 fluticasone (Flonase) 50 MCG/ACT nasal spray USE 1 SPRAY(S) IN EACH NOSTRIL ONCE DAILY 01/08/2024 furosemide (Lasix) 40 MG tablet Take 1 tablet (40 mg) by mouth daily. lidocaine (Lidoderm) 5 % patch Apply 1 patch topically 1 (one) time each day over 12 hours. Remove & discard patch within 12 hours or as directed by MD. 14 patch 1 03/31/2024 loratadine (Claritin) 10 MG tablet Take 1 tablet (10 mg) by mouth 1 (one) time each day. 30 tablet 3 12/23/2023 losartan (Cozaar) 25 MG tablet Take 1 tablet (25 mg) by mouth daily. 02/13/2024 multivitamin-iron -minerals-folic acid (Centrum Silver, geriatric,) tablet Take 1 tablet by mouth Daily. nitroglycerin (Nitrostat) 0.[address] 1 tablet (0.4 mg) under the tongue every 5 (five) minutes if needed for chest pain. prednisoLONE acetate (Pred-Forte) 1 % ophthalmic suspension INSTILL 1 DROP INTO EACH EYE THREE TIMES DAILY FOR 7 DAYS 04/21/2024 tobramycin (Tobrex) 0.3 % ophthalmic solution 04/28/2024 venetoclax (Venclexta) 100 MG tabletIndications :CLL (chronic lymphocytic leukemia) ([facility]) Take 4 tablets (400 mg) by mouth 1 (one) time each day. 112 tablet 4 01/21/2024 5 documented as of this encounter Miscellaneous Notes * Lillian Carrington R - 06/26/2024 12:55 PM EDT Images from the original note were not included. 1639 Caring for Yourself after Contrast Imaging If you had ORAL contrast: ?? You can go back to your normal diet and activities as tolerated. ?? Drink plenty of fluids, unless told otherwise. If you had IV contrast: ?? You can go back to your normal diet and activities as tolerated. ?? Drink plenty of fluids, unless told otherwise. ?? Leave a bandage on the site for 30 minutes (where the IV was inserted or blood was drawn). If you had Intravesical (bladder) contrast: ?? Return to normal diet and activity. What you need to know about delayed reaction to IV contrast What is IV Contrast? ?? Contrast is a dye that is put into your body through an IV. ?? It is used for imaging scans such as CT scans and MRIs. ?? The contrast makes blood vessels, organs and other parts of your body show up better on the scan. What do I need to do after IV contrast? ?? Drink lots of fluids. This will help flush the contrast out of your system. ?? Drink 2-3 extra glasses or bottles of water within 4 hours of your scan. What is a contrast reaction? ?? A contrast reaction is a bad side effect from the contrast dye. ?? It is rare but it does happen. ?? They can be mild - such as sneezing, itching, or hives. ?? They can be severe - such as trouble breathing, throat swelling, and irregular heart beat. When do these reactions happen? ?? They often happen right after the contrast is injected. ?? Some happen hours after going home. Go to the nearest Emergency Department right away if you have any of these symptoms after you leavethe clinic or hospital. ?? Sneezing ?? Itching in your mouth, throat, eyes, ears, or skin ?? Rash or hives ?? Throwing up or stomach sickness ?? High heart rate or ?racing? of your heart ?? Feeling dizzy or woozy ?? Feeling short of breath or like you can?t take a deep breath ?? Feeling very anxious for no other reason It is very important that these reactions be treated. Tell the doctor or nurse that you are having a reaction to IV contrast dye. Do not ignore any sign of a reaction! All reactions must be assessed by a doctor. Call [phone] if you are alone and your reaction is more than mild sneezing or itching. If you have a mild reaction, call to speak with a Radiologist, explain that you havehad a contrast reaction, as this needs to be added to your medical record. documented in this encounter Plan of Treatment Upcoming Encounters Date Type Department Care Team (Late st Contact Info) Description 08/25/2024 9:30 AM EDT Office Visit [facility] Interventional Pain Medicine [address] [place] [address] Otis Hyman MD [address] [facility] [address] [place] [phone] 10/06/2024 10:00 AM EDT Clinical Support [facility] Hematology/BMT and Cellular Therapy Program [address] [address] 10/06/2024 10:30 AM EDT Office Visit [facility] Hematology/BMT and Cellular Therapy Program [address] [address] Sylvia Gonzalez MD 800 [facility] [address] [place] [phone] documented as of this encounter Procedures Procedure Name Priority Date/Time Associated Diagnosis Comments CT ABDOMEN PELVIS W IV CONTRAST Routine 06/26/2024 1:46 PM EDT CLL (chronic lymphocytic leukemia) ([facility]/HCC) CT CHEST W IV CONTRAST Routine 06/26/2024 1:46 PM EDT CLL (chronic lymphocytic leukemia) (CMS/HCC) CT SOFT TISSUE NECK W IV CONTRAST Routine 06/26/2024 1:46 PM EDT CLL (chronic lymphocytic leukemia) (CMS/HCC) documented in this encounter Results * CT Chest w IV Contrast (06/26/2024 1:46 PM EDT) Anatomical Region Laterality Modality Chest Computed Tomogra phy Addenda Addendum by Curtis England MD on 06/26/2024 3:20 PM EDT Addendum: ADDENDUM: New cluster of right suprahilar nodules with surrounding groundglass opacity. This may represent infection. Atypical infection should be considered. This was mentioned in the body of the report but not in the impression. These findings were discussed via Epic chat with SYLVIA GONZALEZ on 06/26/2024 3:20 PM by Curtis England MD. Drafted by Curtis England MD on 06/26/2024 3:18 PM Final report signed by Curtis England MD on 06/26/2024 3:20 PM Impressions 06/26/2024 2:50 PM EDT Chest: No evidence of disease progression Subclavian and superior vena cava stenosis Abdomen/Pelvis: No evidence of disease progression CRITICAL RESULT: No. COMMUNICATION: Per this written report. Drafted by Curtis England MD on 06/26/2024 2:44 PM Final report signed by Curtis England MD on 06/26/2024 2:50 PM Narrative 06/26/2024 2:50 PM EDT CLINICAL INDICATION: Hematologic malignancy, monitor TECHNIQUE: Multiple axial CT images were obtained from thoracic inlet through pubic symphysis following administration of IV contrast, Omnipaque 300, 100 mL. Reformatted images in the coronal and sagittal planes were generated from the axial data set to facilitate diagnostic accuracy. Total DLP (Dose-Length Product): 1955.18 mGy.cm (accession [id number]), 1955.18 mGy.cm (accession [id number]) Please note: The reported value represents the total of one or more individual components during the CT acquisition on this date and at this time, and as such, the same value may appear in more than one CT report depending on the interpreting/reporting physicians. COMPARISON: November 01, 2023 FINDINGS: Chest: Lymph Nodes and Mediastinum: Numerous subcentimeter lymph nodes many of which have central calcification none which appear increased in size compared to the prior exam. No mediastinal mass. Cardiovascular: There is a right subclavian port catheter. 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 There is collateralization of contrast into the paraspinal vessels. No pulmonary embolus is seen. No great vessel stenosis. There is atherosclerosis of the coronary arteries. Lungs and Pleura: Mild motion degradation lung apices. Clustered nodules in the right suprahilar region with surrounding groundglass opacity are new (series 3 image 35). There is basilar atelectasis. No pleural effusion or pneumothorax Musculoskeletal and Body Wall: Compression fracture of the T4 vertebral body with less than 50% height loss, chronic. Abdomen/Pelvis: Solid Abdominal Organs: There is a low-attenuation nodule in hepatic segment 4 which is 5 mm and too small to characterize, and likely benign. There is a stone within the gallbladder. No bile duct dilation. The pancreas, adrenal glands, and right kidney are normal. There is a low-attenuation nodule in the left kidney which is likely a cyst. There is a small nodule which is too small to characterize but likely benign. There is a low-attenuation nodule in the spleen measuring 5 mm which is too small to characterize. GI Tract/Mesentery/Peritoneum: The stomach and duodenum are normal. There is no evidence of bowel obstruction. The appendix is normal. No colonic obstruction or inflammation. No peritoneal nodularity. No free air Pelvic Viscera: The bladder is normal. Prostate size is normal. No pelvic mass. Lymph Nodes/Vasculature: Ectasia of the abdominal aorta at the level of the bifurcation measuring up to 3.1 cm. 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 Numerous subcentimeter lymph nodes are evident. No enlarging note is seen. Free Fluid: No free fluid Musculoskeletal and Body Wall: No suspicious osseous abnormality Procedure Note Curtis England MD - 06/26/2024 CLINICAL INDICATION: Hematologic malignancy, monitor TECHNIQUE: Multiple axial CT images were obtained from thoracic inlet through pubicsymphysis following administration of IV contrast, Omnipaque 300, 100 mL.Reformatted images in the coronal and sagittal planes were generated fromthe axial data set to facilitate diagnostic accuracy. Total DLP (Dose-Length Product): 1955.18 mGy.cm (accession [id number]),1954.18 mGy.cm (accession [id number]) Please note: The reported valuerepresents the total of one or more individual components during the CTacquisition on this date and at this time, and as such, the same value mayappear in more than one CT report depending on the interpreting/reportingphysicians. COMPARISON: November 01, 2023 FINDINGS: Chest: Lymph Nodes and Mediastinum: Numerous subcentimeter lymph nodes many ofwhich have central calcification none which appear increased in sizecompared to the prior exam. No mediastinal mass. Cardiovascular: There is a right subclavian port catheter. 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 There is collateralization of contrast into the paraspinalvessels. No pulmonary embolus is seen. No great vessel stenosis. There isatherosclerosis of the coronary arteries. Lungs and Pleura: Mild motion degradation lung apices. Clustered nodulesin the right suprahilar region with surrounding groundglass opacity arenew (series 3 image 35). There is basilar atelectasis. No pleural effusionor pneumothorax Musculoskeletal and Body Wall: Compression fracture of the T4 vertebralbody with less than 50% height loss, chronic. Abdomen/Pelvis: Solid Abdominal Organs: There is a low-attenuation nodule in hepaticsegment 4 which is 5 mm and too small to characterize, and likely benign.There is a stone within the gallbladder. No bile duct dilation. Thepancreas, adrenal glands, and right kidney are normal. There is alow-attenuation nodule in the left kidney which is likely a cyst. There hossein small nodule which is too small to characterize but likely benign. Thereis a low-attenuation nodule in the spleen measuring 5 mm which is toosmall to characterize. GI Tract/Mesentery/Peritoneum: The stomach and duodenum are normal. Thereis no evidence of bowel obstruction. The appendix is normal. No colonicobstruction or inflammation. No peritoneal nodularity. No free air Pelvic Viscera: The bladder is normal. Prostate size is normal. No pelvicmass. Lymph Nodes/Vasculature: Ectasia of the abdominal aorta at the level ofthe bifurcation measuring up to 3.1 cm. 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 Numerous subcentimeter lymph nodes are evident. No enlarging note isseen. Free Fluid: No free fluid Musculoskeletal and Body Wall: No suspicious osseous abnormality IMPRESSION: Chest: No evidence of disease progression Subclavian and superior vena cava stenosis Abdomen/Pelvis: No evidence of disease progression CRITICAL RESULT: No. COMMUNICATION: Per this written report. Drafted by Curtis England MD on 06/26/2024 2:44 PM Final report signed by Curtis England MD on 06/26/2024 2:50 PM Sylvia Gonzalez MD IM CT PROCEDURES Edited Resul t - Final * CT Soft Tissue Neck w IV Contrast (06/26/2024 1:46 PM EDT) Anatomical Region Laterality Modality Neck Computed Tomogra phy Impressions 07/03/2024 12:47 PM EDT 1. No cervical adenopathy. Continued decrease in size of bilateral cervical lymph nodes. 2. Chronic T4 compression fracture is stable since 06/17/2023 although new since 08/12/2020. 2. There is no pharyngeal, laryngeal or soft tissue mass. CRITICAL RESULT: No. COMMUNICATION: Per this written report. Drafted by Jackie Pedraza on 07/03/2024 12:17 PM Final report signed by Jackie Pedraza on 07/03/2024 12:47 PM Narrative 07/03/2024 12:47 PM EDT CLINICAL INDICATION: Hematologic malignancy, monitor TECHNIQUE: Helical images were obtained through the neck, and reconstructed in the axial plane on bone and soft tissue algorithm at multiple slice thicknesses. Coronal and sagittal reformatted images were created. 100 mL of Omnipaque 300 were administered intravenously. Total DLP (Dose-Length Product): 1955.18 mGy.cm. Please note: The reported value represents the total of one or more individual components during the CT acquisition on this date and at this time, and as such, the same value may appear in more than one CT report depending on the interpreting/reporting physicians. COMPARISON: CT neck 11/01/2023, 10/27/2023, CT chest 06/17/2023, CT thoracic spine 08/12/2020 FINDINGS: Diagnostic Quality: Adequate. Soft Tissues: No masses are present within the soft tissues of the neck. Lymph Nodes: Continued interval decrease in size of multistation bilateral lymph nodes. There are no pathologically enlarged or necrotic lymph nodes within the neck. Pharynx/Larynx: No definite pharyngeal or laryngeal masses are present. Oral Cavity: No large masses are present within the oral cavity within the limitations of the study. Parapharyngeal Space: No lesions are present within the parapharyngeal space. Salivary Glands: The parotid and submandibular glands are normal in size without definite focal lesions. Thyroid: No focal thyroid lesions are present, within the limitations of the study. Sinuses: Mucosal thickening paranasal sinuses. Bones/Spine: There are degenerative changes of the spine. T4 compression fracture with approximately 30% loss of central height is stable dating back to 06/17/2023. Thoracic Inlet and Lung Apices: Please see the separate report for the chest CT scan for further discussion of intrathoracic findings. Procedure Note Jackie Pedraza MD - 07/03/2024 CLINICAL INDICATION: Hematologic malignancy, monitor TECHNIQUE: Helical images were obtained through the neck, and reconstructed in theaxial plane on bone and soft tissue algorithm at multiple slicethicknesses. Coronal and sagittal reformatted images were created. 100 mLof Omnipaque 300 were administered intravenously. Total DLP (Dose-Length Product): 1955.18 mGy.cm. Please note: The reportedvalue represents the total of one or more individual components during theCT acquisition on this date and at this time, and as such, the same valuemay appear in more than one CT report depending on theinterpreting/reporting physicians. COMPARISON: CT neck 11/01/2023, 10/27/2023, CT chest 06/17/2023, CT thoracic spine08/12/2020 FINDINGS: Diagnostic Quality: Adequate. Soft Tissues: No masses are present within the soft tissues of the neck. Lymph Nodes: Continued interval decrease in size of multistation bilaterallymph nodes. There are no pathologically enlarged or necrotic lymph nodeswithin the neck. Pharynx/Larynx: No definite pharyngeal or laryngeal masses are present. Oral Cavity: No large masses are present within the oral cavity within thelimitations of the study. Parapharyngeal Space: No lesions are present within the parapharyngealspace. Salivary Glands: The parotid and submandibular glands are normal in sizewithout definite focal lesions. Thyroid: No focal thyroid lesions are present, within the limitations ofthe study. Sinuses: Mucosal thickening paranasal sinuses. Bones/Spine: There are degenerative changes of the spine. T4 compressionfracture with approximately 30% loss of central height is stable datingback to 06/17/2023. Thoracic Inlet and Lung Apices: Please see the separate report for thechest CT scan for further discussion of intrathoracic findings. IMPRESSION: 1.No cervical adenopathy. Continued decrease in size of bilateralcervical lymph nodes. 2.Chronic T4 compression fracture is stable since 06/17/2023 although newsince 08/12/2020. 2. There is no pharyngeal, laryngeal or soft tissue mass. CRITICAL RESULT: No. COMMUNICATION: Per this written report. Drafted by Jackie Pedraza on 07/03/2024 12:17 PM Final report signed by Jackie Pedraza on 07/03/2024 12:47 PM us Sylvia Gonzalez MD IMG CT PROCEDURES Final Result * CT Abdomen Pelvis w IV Contrast (06/26/2024 1:46 PM EDT) Anatomical Region Laterality Modality Abdomen, Pelvis Computed Tomogra phy Addenda Addendum by Curtis England MD on 06/26/2024 3:20 PM EDT Addendum: ADDENDUM: New cluster of right suprahilar nodules with surrounding groundglass opacity. This may represent infection. Atypical infection should be considered. This was mentioned in the body of the report but not in the impression. These findings were discussed via Epic chat with SYLVIA GONZALEZ on 06/26/2024 3:20 PM by Curtis England MD. Drafted by Curtis England MD on 06/26/2024 3:18 PM Final report signed by Curtis England MD on 06/26/2024 3:20 PM Impressions 06/26/2024 2:50 PM EDT Chest: No evidence of disease progression Subclavian and superior vena cava stenosis Abdomen/Pelvis: No evidence of disease progression CRITICAL RESULT: No. COMMUNICATION: Per this written report. Drafted by Curtis England MD on 06/26/2024 2:44 PM Final report signed by Curtis England MD on 06/26/2024 2:50 PM Narrative 06/26/2024 2:50 PM EDT CLINICAL INDICATION: Hematologic malignancy, monitor TECHNIQUE: Multiple axial CT images were obtained from thoracic inlet through pubic symphysis following administration of IV contrast, Omnipaque 300, 100 mL. Reformatted images in the coronal and sagittal planes were generated from the axial data set to facilitate diagnostic accuracy. Total DLP (Dose-Length Product): 1955.18 mGy.cm (accession [id number]), 1955.18 mGy.cm (accession [id number]) Please note: The reported value represents the total of one or more individual components during the CT acquisition on this date and at this time, and as such, the same value may appear in more than one CT report depending on the interpreting/reporting physicians. COMPARISON: November 01, 2023 FINDINGS: Chest: Lymph Nodes and Mediastinum: Numerous subcentimeter lymph nodes many of which have central calcification none which appear increased in size compared to the prior exam. No mediastinal mass. Cardiovascular: There is a right subclavian port catheter. 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 There is collateralization of contrast into the paraspinal vessels. No pulmonary embolus is seen. No great vessel stenosis. There is atherosclerosis of the coronary arteries. Lungs and Pleura: Mild motion degradation lung apices. Clustered nodules in the right suprahilar region with surrounding groundglass opacity are new (series 3 image 35). There is basilar atelectasis. No pleural effusion or pneumothorax Musculoskeletal and Body Wall: Compression fracture of the T4 vertebral body with less than 50% height loss, chronic. Abdomen/Pelvis: Solid Abdominal Organs: There is a low-attenuation nodule in hepatic segment 4 which is 5 mm and too small to characterize, and likely benign. There is a stone within the gallbladder. No bile duct dilation. The pancreas, adrenal glands, and right kidney are normal. There is a low-attenuation nodule in the left kidney which is likely a cyst. There is a small nodule which is too small to characterize but likely benign. There is a low-attenuation nodule in the spleen measuring 5 mm which is too small to characterize. GI Tract/Mesentery/Peritoneum: The stomach and duodenum are normal. There is no evidence of bowel obstruction. The appendix is normal. No colonic obstruction or inflammation. No peritoneal nodularity. No free air Pelvic Viscera: The bladder is normal. Prostate size is normal. No pelvic mass. Lymph Nodes/Vasculature: Ectasia of the abdominal aorta at the level of the bifurcation measuring up to 3.1 cm. 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 Numerous subcentimeter lymph nodes are evident. No enlarging note is seen. Free Fluid: No free fluid Musculoskeletal and Body Wall: No suspicious osseous abnormality Procedure Note Curtis England MD - 06/26/2024 CLINICAL INDICATION: Hematologic malignancy, monitor TECHNIQUE: Multiple axial CT images were obtained from thoracic inlet through pubicsymphysis following administration of IV contrast, Omnipaque 300, 100 mL.Reformatted images in the coronal and sagittal planes were generated fromthe axial data set to facilitate diagnostic accuracy. Total DLP (Dose-Length Product): 1955.18 mGy.cm (accession [id number]),1955.18 mGy.cm (accession [id number]) Please note: The reported valuerepresents the total of one or more individual components during the CTacquisition on this date and at this time, and as such, the same value mayappear in more than one CT report depending on the interpreting/reportingphysicians. COMPARISON: November 01, 2023 FINDINGS: Chest: Lymph Nodes and Mediastinum: Numerous subcentimeter lymph nodes many ofwhich have central calcification none which appear increased in sizecompared to the prior exam. No mediastinal mass. Cardiovascular: There is a right subclavian port catheter. 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 There is collateralization of contrast into the paraspinalvessels. No pulmonary embolus is seen. No great vessel stenosis. There isatherosclerosis of the coronary arteries. Lungs and Pleura: Mild motion degradation lung apices. Clustered nodulesin the right suprahilar region with surrounding groundglass opacity arenew (series 3 image 35). There is basilar atelectasis. No pleural effusionor pneumothorax Musculoskeletal and Body Wall: Compression fracture of the T4 vertebralbody with less than 50% height loss, chronic. Abdomen/Pelvis: Solid Abdominal Organs: There is a low-attenuation nodule in hepaticsegment 4 which is 5 mm and too small to characterize, and likely benign.There is a stone within the gallbladder. No bile duct dilation. Thepancreas, adrenal glands, and right kidney are normal. There is alow-attenuation nodule in the left kidney which is likely a cyst. There hossein small nodule which is too small to characterize but likely benign. Thereis a low-attenuation nodule in the spleen measuring 5 mm which is toosmall to characterize. GI Tract/Mesentery/Peritoneum: The stomach and duodenum are normal. Thereis no evidence of bowel obstruction. The appendix is normal. No colonicobstruction or inflammation. No peritoneal nodularity. No free air Pelvic Viscera: The bladder is normal. Prostate size is normal. No pelvicmass. Lymph Nodes/Vasculature: Ectasia of the abdominal aorta at the level ofthe bifurcation measuring up to 3.1 cm. 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 Numerous subcentimeter lymph nodes are evident. No enlarging note isseen. Free Fluid: No free fluid Musculoskeletal and Body Wall: No suspicious osseous abnormality IMPRESSION: Chest: No evidence of disease progression Subclavian and superior vena cava stenosis Abdomen/Pelvis: No evidence of disease progression CRITICAL RESULT: No. COMMUNICATION: Per this written report. Drafted by Curtis England MD on 06/26/2024 2:44 PM Final report signed by Curtis England MD on 06/26/2024 2:50 PM Sylvia Gonzalez MD IMG CT PROCEDURES Edited Resul t - Final documented in this encounter Visit Diagnoses Diagnosis CLL (chronic lymphocytic leukemia) (CMS/HCC) Chronic lymphoid leukemia, without mention of having achieved remission documented in this encounter Administered Medications Inactive Administered Medications - up to 3 most recent administrations Medication Order MAR Action Action Date Dose Rate Site barium sulfate (Readi-Cat 2) 2 % suspension 450 mL 450 mL, Oral, Once in imaging, 1 dose, Starting on Sat06/26/24 at 1254, Until Sat06/26/24 at 1301, Routine, Imaging Protocol Orders Given 06/26/2024 1:01 PM EDT 450 mL iohexol (OMNIPaque) 300 MG/ML injection 100 mL 100 mL, Intravenous, Once in imaging, 1 dose, Starting on Sat06/26/24 at 1254, Until 06/26/24 at 1336, Routine, Imaging Protocol Orders Given 06/26/2024 1:36 PM EDT 100 mL documented in this encounter Additional Health Concerns Assessment Noted Time A fall risk assessment has been complete d for the patient 05/27/2024 2:55 PM EDT A Body Mass Index follow-up plan has been documented for the patient 06/01/2024 2:47 PM EDT documented as of this encounter Care Teams Recreational Leader Relationship Specialty Start Date End Date Tab Veronica MD [address] [place] [address] PCP - General 07/22/20 documented as of this encounter
--- OUTSIDE RECORDS SUMMARY | 2024-07-07 13:30 | XMS_ITS | Encounter Summary ---
Author Organization [facility] Address [address] [place] [address] Care Team Providers Care Criminalist Technician Name Role Phone Tab Veronica MD Primary Care Provider [phone] Reason for Visit * Reason Comments Nurse Visit Labs Encounter Details Date Type Department Care Team (Late Contact Info) Description 07/07/2024 1:30 PM EDT Clinical Support [facility] H[facility]ology/BMT and Cellular Therapy Program [address] [place] [address] [place] [address] Social History Tobacco Use Types Packs/Day Years [...] on file documented as of this encounter Plan of Treatment Upcoming Encounters Date Type Department Care Team (Late Contact Info) Description 08/25/2024 9:30 AM EDT Office Visit [facility] Inter[facility] Medicine [address] [place] [phone] Otis Hyman MD [address] [facility] [address] [place] [phone] 10/06/2024 10:00 AM EDT Clinical Support [facility] Cellular Therapy [facility] [address] [place] [address] 10/06/2024 10:30 AM EDT Office Visit [facility] [address] [place] [phone] Ruddy Encarnacion MD [address] [facility] [address] [place] [phone] documented as of this encounter Visit Diagnoses Not on filedocumented in this encounter Additional Health Concerns Assessment Noted Time A fall risk assessment has been complete d for the patient 07/07/2024 1:59 PM EDT A Body Mass Index follow-up plan has been documented for the patient 06/01/2024 2:47 PM EDT documented as of this encounter Care Teams Criminalist Technician Relationship Specialty Start Date End Date Tab Veronica MD [address] [place] [id number] PCP - General 07/22/20 documented as of this encounter
--- OUTSIDE RECORDS SUMMARY | 2024-07-07 14:00 | XMS_ITS | Encounter Summary ---
Author Organization [facility] Address [address] [place] [address] Care Team Providers Care Cherry Grower Name Role Phone Tab Veronica MD Primary Care Provider Encounter Details Date Type Department Care Team ([facility] st Contact Info) Description 07/07/2024 2:00 PM EDT Office Visit [facility] Hematology/BMT and Cellular Therapy Program [address] [place] [address] Ruddy Encarnacion MD 800 [facility] [address] [place] [phone] CLL (chronic lymphocytic leukemia) (CMS/HCC) (Primary Dx) Social History Tobacco Use Types Packs/Day Years [...] on file documented as of this encounter Last Filed Vital Signs Vital Sign Reading Time Taken Comments Blood Pressure 149/96 07/07/2024 1:52 PM EDT Pulse - - Temperature 36.5 C (97.7 F) 07/07/2024 1:52 PM EDT Respiratory Rate - - Oxygen Saturation 99% 07/07/2024 1:52 PM EDT Inhaled Oxygen Concentration - - Weight 85.8 kg (189 lb 2.5 oz) 07/07/2024 1:52 P M EDT Height 170.2 cm (5' 7.01 ) 07/07/2024 1:52 PM ED T Body Mass Index 29.62 07/07/2024 1:52 PM EDT documented in this encounter Miscellaneous Notes * Progress Notes - Valerie Sampson, SEWING MACHINE OPERATOR FLOORPERSON - 07/07/2024 2:00 PM EDT HEMATOLOGY ONCOLOGY NOTE Patient ID: Dewey Serna is a 79 y.o. male with CLL. Referring Physician: No referring provider defined for this encounter. Primary Care Provider: Tab Veronica MD Chief Complaint: Chronic lymphocytic leukemia Treatment Plan: Obinutuzumab plus Venetoclax Subjective Mr. Serna returns today for a scheduled follow up. He reports he had been feeling well until saturday. He was vacuuming his camper and twisted to pick something up. He reports at that time he experienced a sharp pain in his low back that radiates down his right leg. He followed with his PCP who gave him a steroid injection and some flexeril with no relief. He was given a steroid dose pack to start today. He denies any saddle paresthesia, urinary incontinence or numbness and tingling down his leg. He denies any fevers, infections, nausea, vomiting, diarrhea, night sweats and unintentional weightloss. History of Present Illness: Dewey Serna, a 79 y.o. y.o. male, who initially presented for second opinion regarding the management of his chronic lymphocytic leukemia (CLL). As per the history obtained from the patient and the charts, he was in his usual state of health up until May 2012 when he was presented with cervical lymphadenopathy and lymphocytosis. The work-up was consistent with early stage CLL and at thetime FISH was normal. He was followed by observation up until January 2015 when he was treated with rituximab-cytoxin for about 3 years up until May 2017. In May 2017 he switched to ibrutinib. Due to high risk of bleeding with his AAA ibrutinib was held on 10/24/21. He started Zanubrutinib 04/25/2022 His platelet numbers have been dropping over the last 8 months. Autoimmune cytopenias are very common in patients with CLL, however the repeat marrow on 03/29/2022 did not show increased megakaryocytes but showed 82% CLL involvement. Moreover, FISH detected high risk abnormalities including del17p and cytogenetics detected complex changes. CT scans also consistent with disease progression. Started Therapy with Obintuzumab Venetoclax 06/10/2023 Review of Systems Constitutional: Negative for fatigue. HENT: Negative. Eyes: Negative. Respiratory: Negative for chest tightness, cough, shortness of breath and wheezing. Cardiovascular: Negative for chest pain and palpitations. Gastrointestinal: Negative for abdominal pain, blood in stool, diarrhea, nausea and vomiting. Genitourinary: Negative. Musculoskeletal: Positive for back pain. Skin: Negative. Neurological: Negative. Hematological: Negative. Psychiatric/Behavioral: Negative. Current Outpatient Medications: atorvastatin (Lipitor) 40 MG tablet, Take 1 tablet (40 mg) by mouth daily., Disp: , Rfl: cephalexin (Keflex) 500 MG capsule, 1 capsule., Disp: , Rfl: cholecalciferol (Vitamin D-3) 50 MCG (1999 UT) capsule, 1 (one) time each day at the same time., Disp: , Rfl: cyclobenzaprine (Flexeril) 5 MG tablet, 1 tablet Orally tid prn, Disp: , Rfl: fluticasone (Flonase) 50 MCG/ACT nasal spray, USE 1 SPRAY(S) IN EACH NOSTRIL ONCE DAILY, Disp: , Rfl: furosemide (Lasix) 40 MG tablet, Take 1 tablet (40 mg) by mouth daily., Disp: , Rfl: losartan (Cozaar) 25 MG tablet, Take 1 tablet (25 mg) by mouth daily., Disp: , Rfl: MEDROL, LENO, 4 MG tablets, 1 (one) time each day at the same time., Disp: , Rfl: beihwfzskolj-ihpw-rnjmtfld-folic acid (Centrum Silver, geriatric,) tablet, Take 1 tablet by mouth Daily., Disp: , Rfl: Naprosyn 500 MG tablet, every 12 hours., Disp: , Rfl: nitroglycerin (Nitrostat) 0.4 MG SL tablet, Place 1 tablet (0.4 mg) under the tongue every 5 (five)minutes if needed for chest pain., Disp: , Rfl: prednisoLONE acetate (Pred-Forte) 1 % ophthalmic suspension, INSTILL 1 DROP INTO EACH EYE THREE TIMES DAILY FOR 7 DAYS, Disp: , Rfl: cyanocobalamin (Vitamin B-12) 100 MCG tablet, Take 1 tablet (100 mcg) by mouth Daily. (Patient not taking: Reported on 07/07/2024), Disp: , Rfl: erythromycin (Romycin) 5 MG/GM ophthalmic ointment, INSTILL OINTMENT TO SUTURES TWICE DAILY FOR 7 DAYS OR DIRECTED THEN BEGIN DAILY MASSAGE (Patient not taking: Reported on 07/07/2024), Disp: , Rfl: lidocaine (Lidoderm) 5 % patch, Apply 1 patch topically 1 (one) time each day over 12 hours. Remove& discard patch within 12 hours or as directed by MD. (Patient not taking: Reported on 07/07/2024), Disp: 14 patch, Rfl: 1 loratadine (Claritin) 10 MG tablet, Take 1 tablet (10 mg) by mouth 1 (one) time each day. (Patient not taking: Reported on 07/07/2024), Disp: 30 tablet, Rfl: 3 tobramycin (Tobrex) 0.3 % ophthalmic solution, , Disp: , Rfl: venetoclax (Venclexta) 100 MG tablet, Take 4 tablets (400 mg) by mouth 1 (one) time each day. (Patient not taking: Reported on 07/07/2024), Disp: 112 tablet, Rfl: 4 History: Oncology History Overview Note The patient was diagnosed in 2011 and started first treatment in January 2015. The indication for treatment initiation is not clear from the notes and patient also do not recall the reason for treatment initiation. Moreover per the provided notes, following completion of Rituximab-Cytoxan treatment, patient continued with Ibrutinib maintenance with an unclear indication. Although Ibrutinib is generally considered to be well-tolerated, it has been known to increase risk of bleeding. Given his risk of GI bleeding, AAA with rupture risk, and history of Afib, we recommended holding further Ibrutinib during his initial consultation on 10/24/21. He started Zanubrutinib 04/25/2022 His platelet numbers started dropping. Autoimmune cytopenias are very common in patients with CLL, however the repeat marrow on 03/29/2023 did not show increased megakaryocytes but showed 82% CLL involvement. Moreover, FISH detected high risk abnormalities including del17p and cytogenetics detected complex changes. CT scans also consistent with disease progression. Started Therapy with Obintuzumab Venetoclax 06/10/2023 CLL (chronic lymphocytic leukemia) (CMS/HCC) 09/04/2021 Initial Diagnosis CLL (chronic lymphocytic leukemia) (CMS/HCC) 10/24/2021 Cancer Staged Staging form: Chronic Lymphocytic Leukemia / Small Lymphocytic Lymphoma, AJCC 8th Edition, Clinicalstage from 10/24/2021: Modified Tejada Stage 0 (Modified Tejada risk: Low, Binet: Stage A, Lugano: Stage I, Lymphocytosis: Absent, Adenopathy: Absent, Organomegaly: Absent, Anemia: Absent, Thrombocytopenia:Absent) - Signed by Ruddy Encarnacion MD on 10/24/2021 06/10/2023 - 11/26/2023 Chemotherapy obinutuzumab (Gazyva) 50 mg in sodium chloride 0.9 % 250 mL IVPB, 50 mg (5 % of original dose 1,000mg), Intravenous, Once, 6 of 6 cycles Dose modification: 50 mg (original dose 1,000 mg, Cycle 1, Reason: Other (See Comments), Comment: Per MD request), 900 mg (original dose 1,000 mg, Cycle 1) Administration: 50 mg (06/10/2023), 1,000 mg (07/11/2023), 900 mg (06/12/2023), 50 mg (06/11/2023), 1,000 mg (06/28/2023), 1,000 mg (09/11/2023), 1,000 mg (08/09/2023), 1,000 mg (06/21/2023), 1,000 mg (10/09/2023), 1,000 mg (11/26/2023) Past Medical History: Diagnosis Date A-fib (CMS/HCC) AAA (abdominal aortic aneurysm) (CMS/HCC) CLL (chronic lymphocytic leukemia) (CMS/HCC) Coronary artery disease DVT (deep venous thrombosis) (CMS/HCC) GI bleed Hypertension Personal history of non-Hodgkin lymphomas History of malignant lymphoma Sleep apnea, obstructive Past Surgical History: Procedure Laterality Date EYE SURGERY Bilateral HAND SURGERY N/A Hand Surgery from [facility] PORTACATH PLACEMENT N/A Central IV Line Type Port-A-Cath from [employer] Family History Problem Relation Name Age of Onset Alcohol abuse Mother Other cancer Mother Heart attack Father Objective Physical Exam: Vital Signs for this encounter: BSA: 2.01 meters squared Visit Vitals BP (!) 149/96 Temp 36.5 ??C (97.7 ??F) Ht 1.702 m (5' 7.01 ) Wt 85.8 kg (189 lb 2.5 oz) SpO2 99% BMI 29.62 kg/m?? Smoking Status Never BSA 2.01 m?? Labs in last 18 hours Labs in last 18 hours CBC WBC 11.40 (H) Hb 13.3 (L) Plt 142 (L) Hct 37.9 (L) ANC 8.61 (H) INR ??, PTT ??, Anti-Xa ?? BMP Na 139 Cl 104 BUN 22 Glu 100 (H) K 4.3 Co2 28 Cr 0.79 Ca 8.9 iCa ?? Mg ??, Phos ?? Lactate ?? LFT AST 25 AlkPhos 85 T Prot 5.8 (L) ALK 24 Bili 0.7 Alb ?? D.Bili ?? Physical Examination: General: appears stated age, no acute distress Skin: No rashes, no lesions. Head: normocephalic, atraumatic. Eyes: EOMI. Conjunctivae are pink and moist, non-erythematous. Sclera anicteric, noninjected. Lymph Nodes: No lymphadenopathy. Pulmonary: Breathing is non-labored. No cough. Lung sounds are CTA throughout bilaterally, no wheezes, rhonchi or crackles. Cardiovascular: regular heart rate and rhythm. No murmurs/rubs. Abdomen: non-distended. Extremities: No peripheral edema. Neurological: Alert and oriented x 3. Responds to verbal commands. Psychiatric: Appropriate mood and behavior. Good eye contact. Performance Status: Asymptomatic 90, Able to carry on normal activity; minor signs or symptoms of disease (ECOG equivalent 0) Pain Scale: 0 Assessment/Plan System Based Assessment: # CLL 05/30/2011: BM showed hypercellular marrow with lymphoid aggregates suggestive of limited residual involvement by CLL and megaloblastoid changes. FISH was normal. 01/09/2015: deletion 13q and deletion 17p 01/09/2015-05/09/2017: cytoxin and Rtx 05/09/2017: ibrutinib started 10/24/2021: ibrutinib on hold 03/29/2022: CLL/SLL involving 82% of in a variably cellar marrow. Cytogenetics showed complex cytogenetic and FISH detected 13q- and 17p-. NGS showed TP53 mutation, SF3B1, BTK. Plan was to start patient on zanubrutinib Returns to clinic on 04/25/2022. Clinically asymptomatic. Platelets 77. 04/19/2022: CT A/P/C=Extensive lymph nodes throughout the neck on the right and left extending intothe supraclavicular regions and more inferiorly into the mediastinum. Largest diameter around 1.5 cm. Enlarged abdominal, retroperitoneal, and mesenteric lymph nodes, increased in size from 08/12/2020 e xamination. Mild splenomegaly. Largest LN diameter around 3 cm. 04/25/2022: started zanubrutinib. His platelet numbers started dropping over the last 8 months. Autoimmune cytopenias are very commonin patients with CLL, however the repeat marrow on 03/29/2023 did not show increased megakaryocytes but showed 82% CLL involvement. Moreover, FISH detected high risk abnormalities including del17p andcytogenetics detected complex changes. CT scans also consistent with disease progression. 06/10/2023: Started treatment with Obinutuzumab +Venetoclax 07/11/2023: C2D1 Obintuzumab +Delmar 08/09/2023: C3D1 Obintuzumab +Delmar 09/11/2023: C4D1 Obintuzumab +Delmar 10/09/2023: C5D1 Obintuzumab +Delmar 11/01/2023: CT response assessment: Significant decrease in the size of multistation bilateral lymph nodes. Chest: Evidence of treatment response with marked decrease in the size and distribution of the previously identified lymphadenopathy. Abdomen/Pelvis: No evidence of recurrent or residual disease in abdomen. 11/12/2023: C6 D1 Obintuzumab +Delmar 06/14/2024: Completed treatment 06/26/2024: CT C/A/P no evidence of disease progression PLAN RTC 3 months #Chronic Cough- improved -CT 06/27/23 revealed Subpleural reticulation within the posterior lower lobes may represent hypoventilatory changes but appearances more suggestive of an element of underlying interstitial fibrosis. - CXR on 07/25 without acute cardiopulmonary process Patient has tried tessalon pearls, robitussin, brompheniramine-pseudoephedrine DM Referral made to Pulmonology that was not scheduled 08/27/23: Echo with normal LVEF PLAN Symptoms have been reported as intermittent, currently reporting no symptoms Patient to call with worsening symptoms or development of fever #Acute on Chronic Back pain Reports he has had symptoms for several years that he reports are worsening after sitting for prolonged time. Denies any saddle paresthesia, incontinence or falls. Sent Rx for lidocaine patches, patient reports little benefit. Offered to order imaging at , patient reports he previously followed with ortho content production specialist at [facility] and he will call for follow up there or primary care Encouraged him to call with worsening symptoms and we would initiate work up here. Reports significant pain since 07/05/24 that radiates down his right leg, denies saddle paresthesias, urinary incontinence of numbness and tingling. Instructed patient for urgent evaluation he should present to Emergency Department. Should he experience any difficulty voiding, numbness or tingling down leg or in groin he needs to present to emergency department. At this time he would like to follow up with primary care # Hypertension-Essential Losartan stopped per emergency department after presenting with hypotension Continue to monitor Encouraged to keep a BP log and follow with PCP # Hyperlipidemia Continue atorvastatin 40 mg/day # CAD s/p 2 stent placement in 2018 # Mild AAA w/o rupture Detected on imaging, AA measures up to 3 cm Separate aneurysmal changes also seen involving right common and left internal iliac arteries. The recommendation was to monitor, and per the patient anticoagulants discontinued due to the risk of bleeding # DIANNE On CPAP # Atrial fibrillation Chronic atrial fibrillation, per the patient In September 2021 14 day Holter monitor obtained with no actionable findings # Sensorineural hearing loss (SNHL), bilateral , BPPV -Continue to follow with ENT Patient is undergoing treatment with chemotherapy and must be monitored closely for toxicities [facility] HEMATOLOGY/BMT AND CELLULAR THERAPY PROGRAM [address] [place] [phone] / Cosigned by Ruddy Encarnacion MD at 07/07/2024 3:34 PM EDT Associated attestation - Ruddy Encarnacion MD - 07/07/2024 3:34 PM EDT I saw and examined Dewey Serna independently. I discussed the case with the SEWING MACHINE OPERATOR FLOORPERSON and agree with the note as documented. The case was discussed with the SEWING MACHINE OPERATOR FLOORPERSON, pharmacist, and clinic nurse. documented in this encounter Plan of Treatment Upcoming Encounters Date Type Department Care Team (Late st Contact Info) Description 08/25/2024 9:30 AM EDT Office Visit [facility] Interventional Pain Medicine [address] [place] [address] Otis Hyman MD [address] [facility] [address] [place] [address] 10/06/2024 10:00 AM EDT Clinical Support [facility] Hematology/BMT and Cellular Therapy Program [address] [phone] 10/06/2024 10:30 AM EDT Office Visit [facility] Hematology/BMT and Cellular Therapy Program [address] [phone] Ruddy Encarnacion MD 800 [facility] [address] [place] [address] documented as of this encounter Procedures Procedure Name Priority Date/Time Associated Diagnosis Comments CBC WITH AUTO DIFFERENTIAL Routine 07/07/2024 1:39 PM EDT CLL (chronic lymphocytic leukemia) (CMS/HCC) COMPREHENSIVE METABOLIC PANEL, PLASMA Routine 07/07/2024 1:39 PM EDT CLL (chronic lymphocytic leukemia) (CMS/HCC) documented in this encounter Results * (ABNORMAL) Comprehensive metabolic panel (07/07/2024 1:39 PM EDT) [facility] Glucose, Plasma 100(H) 74 - 99 mg/dL 07/07/2024 2:46 PM EDT [facility] BUN, Plasma 22 8 - 23 mg/dL 07/07/2024 2:46 PM EDT [facility] Creatinine, Plasma 0.79 0.70 - 1.20 mg/dL 07/07/2024 2:46 PM EDT [facility] BUN/Creatinine Ratio 07/07/2024 2:46 PM EDT [facility] Sodium, Plasma 139 136 - 145 mmol/L 07/07/2024 2:46 PM EDT [facility] Potassium, Plasma 4.3 3.6 - 4.9 mmol/L 07/07/2024 2:46 PM EDT [facility] Chloride, Plasma 104 97 - 107 mmol/L 07/07/2024 2:46 PM EDT [facility] CO2, Plasma 28 22 - 29 mmol/L 07/07/2024 2:46 PM EDT [facility] Anion Gap 7 6 - 16 mmol/L 07/07/2024 2:46 PM EDT [facility] Total Calcium, Plasma 8.9 8.9 - 10.2 mg/dL 07/07/2024 2:46 PM EDT [facility] Total Protein 5.8(L) 6.3 - 7.9 g/dL 07/07/2024 2:46 PM EDT [facility] Albumin, Plasma 4.2 3.5 - 5.2 g/dL 07/07/2024 2:46 PM EDT [facility] AST, Plasma 25 10 - 50 U/L 07/07/2024 2:46 PM EDT [facility] ALT, Plasma 24 10 - 50 U/L 07/07/2024 2:46 PM EDT [facility] Alkaline Phosphatase, Plasma 85 40 - 115 U/L 07/07/2024 2:46 PM EDT [facility] Total Bilirubin, Plasma 0.7 0.2 - 1.1 mg/dL 07/07/2024 2:46 PM EDT [facility] eGFRcr 91.5 mL/min/1.7 3m*2 07/07/2024 2:46 PM EDT [facility] Comment:Reported eGFRcr in m L/min/1.73m2 is based the CKD-EPI 2020 equation that does not use a race coefficient. Blood Venous blood specimen / Unknown Venipuncture / Unknown 07/07/2024 1:39 PM EDT 07/07/2024 2:16 PM EDT Ruddy Encarnacion MD LAB BLOOD ORDERABLES Final Res ult [facility] [address] [place] [address] * (ABNORMAL) CBC and differential (07/07/2024 1:39 PM EDT) WBC Count 11.40(H) 3.70 - 10.30 10*3/uL LAB HEMATOLOGY METHOD 07/07/2024 1:54 PM EDT [facility] RBC Count 3.78(L) 4.60 - 6.10 10*6/uL LAB HEMATOLOGY METHOD 07/07/2024 1:54 PM EDT [facility] HGB 13.3(L) 13.7 - 17.5 g/dL LAB HEMATOLOGY METHOD 07/07/2024 1:54 PM EDT [facility] HCT 37.9(L) 40.0 - 51.0 % LAB HEMATOLOGY METHOD 07/07/2024 1:54 PM EDT [facility] Platelet Count 142(L) 155 - 369 10*3/uL LAB HEMATOLOGY METHOD 07/07/2024 1:54 PM EDT [facility] MCV 100(H) 79 - 98 fL LAB HEMATOLOGY METHOD 07/07/2024 1:54 PM EDT [facility] MCH 35.2(H) 26.0 - 32.0 pg LAB HEMATOLOGY METHOD 07/07/2024 1:54 PM EDT [facility] MCHC 35.1 30.7 - 35.5 g/dL LAB HEMATOLOGY METHOD 07/07/2024 1:54 PM EDT [facility] RDW 14.9(H) 11.5 - 14.5 % LAB HEMATOLOGY METHOD 07/07/2024 1:54 PM EDT [facility] MPV 8.4(L) 8.8 - 12.5 fL LAB HEMATOLOGY METHOD 07/07/2024 1:54 PM EDT [facility] nRBC 0.0 <=0.0 per 100 WBCs LAB HEMATOLOGY METHOD 07/07/2024 1:54 PM EDT [facility] Differential Type Automated LAB HEMATOLOGY METHOD 07/07/2024 1:54 PM EDT [facility] Neutrophils % 75 % LAB HEMATOLOGY METHOD 07/07/2024 1:54 PM EDT [facility] Lymphocytes % 10 % LAB HEMATOLOGY METHOD 07/07/2024 1:54 PM EDT [facility] Monocytes % 13 % LAB HEMATOLOGY METHOD 07/07/2024 1:54 PM EDT [facility] Eosinophils % 1 % LAB HEMATOLOGY METHOD 07/07/2024 1:54 PM EDT [facility] Basophils % 0 % LAB HEMATOLOGY METHOD 07/07/2024 1:54 PM EDT [facility] Immature Granulocytes % 1 % LAB HEMATOLOGY METHOD 07/07/2024 1:54 PM EDT [facility] Neutrophils Absolute 8.61(H) 1.60 - 6.10 10*3/uL LAB HEMATOLOGY METHOD 07/07/2024 1:54 PM EDT [facility] Lymphocytes Absolute 1.17(L) 1.20 - 3.90 10*3/uL LAB HEMATOLOGY METHOD 07/07/2024 1:54 PM EDT [facility] Monocytes Absolute 1.45(H) 0.30 - 0.90 10*3/uL LAB HEMATOLOGY METHOD 07/07/2024 1:54 PM EDT [facility] Eosinophils Absolute 0.07 0.00 - 0.50 10*3/uL LAB HEMATOLOGY METHOD 07/07/2024 1:54 PM EDT [facility] Basophils Absolute 0.04 0.00 - 0.10 10*3/uL LAB HEMATOLOGY METHOD 07/07/2024 1:54 PM EDT [facility] Immature Granulocytes Absolute 0.06 0.00 - 0.06 10*3/uL LAB HEMATOLOGY METHOD 07/07/2024 1:54 PM EDT [facility] Blood Venous blood specimen / Unknown Venipuncture / Unknown 07/07/2024 1:39 PM EDT 07/07/2024 1:52 PM EDT Narrative [facility] - 07/07/2024 1:54 PM EDT Therapeutic decision making should be based on absolute values, rather than percentages. us Ruddy Encarnacion MD LAB BLOOD ORDERABLES Final Res ult [facility] [address] [place] [address] documented in this encounter Visit Diagnoses Diagnosis CLL (chronic lymphocytic leukemia) (CMS/HCC)- Primary Chronic lymphoid leukemia, without mention of having achieved remission documented in this encounter Additional Health Concerns Assessment Noted Time A fall risk assessment has been complete d for the patient 07/07/2024 1:59 PM EDT A Body Mass Index follow-up plan has been documented for the patient 06/01/2024 2:47 PM EDT documented as of this encounter Care Teams Cherry Grower Relationship Specialty Start Date End Date Tab Veronica MD [address] [place] [id number] PCP - General 07/22/20 documented as of this encounter
--- OUTSIDE RECORDS SUMMARY | 2024-07-08 04:17 | XMS_ITS ---
Author Organization Kary Address [address] [facility] 36 [facility] [address] [place] [id number] Care Team Providers Care Stain Maker Name Role Phone Michelle Veronica Primary Care Provider Vannesa Bedoya Unavailable [phone] Results Component Value Reference Range Notes X ray : Spine, lumbosacral Reviewed date:07/09/2024 10:58:30 AM Interpretation:Negative Performing Lab: Notes/Report: Negative X ray : Hip, right Reviewed date:07/09/2024 10:58:56 AM Interpretation:Negative Performing Lab: Notes/Report: Negative REASON FOR VISIT Message Encounters Encounter Location Date Provider Diagnosis [facility] [address] [facility] 36 [facility] [address] [place] [id number] 07/08/2024 Vannesa Bedoya Hip pain, right M25. 551 and Low back pain, unspecified M54.50 Assessments Encounter Date Diagnosis (ICD Code) Assessment Notes Treatment Notes Treatment Clinical Notes Section Notes 07/08/2024 Hip pain, right (ICD-10 - M25.551) 07/08/2024 Low back pain, unspecified (ICD-10 - M54.50) Plan Of Treatment Next Appt Details Provider Name:Michelle Barry er, 09/28/2024 01:00:00 PM, [address] [facility], [address], [place], [id number], Progress Notes * NIRALI GREENDOB:[birth year] (79 yo M)Acc No.[id number]:07/08/2024 Patient: NIRALI JUDGE :1945 A ge:79 Y S ex:Male Address:[address] [place] [address], [place] [address] Subjective: * Chief Complaints: * M essage * Medical History: * Surgical History: * Hospitalization/Major Diagno stic Procedure: * Medications: Objective: Assessment: * Assessment: 1. H ip pain, right - M25.551 2 . L ow back pain, unspecified - M54.50 Plan: * Treatment: 2. L ow back pain, unspecified I maging: X ray : Spine, lumbosacral * Procedure Codes: * true * Date: Generated for Brianda albarran/Renetta/eTransmitting on: 0 08/14/2024 10:52 AM EDT
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
--- OUTSIDE RECORDS SUMMARY | 2024-07-28 08:55 | XMS_ITS | Encounter Summary ---
Author Organization [facility] Address [address] [place] [address] Care Team Providers Care Direct Of Real Estate Name Role Phone Tab Veronica MD Primary Care Provider [phone] Reason for Referral * Consultation (Routine) - Authorized Specialty Diagnoses / Procedures Referred By Contac t Referred To Contact Pain Medicine Diagnoses Other intervertebral disc displacement, lumbar region Lumbar disc herniation Stenosis of lateral recess of lumbar spine Radicular pain of right lower extremity Mackenzie Gerber PA [address] [place] [address] Phone: tel: fax: [facility] Interventional Pain Medicine [address] [place] [address] Phone: tel: fax: Referral ID Status Reason Start Date Expiration Date Visits Requested Visits Authorized [id number] Authorized Specialty Services Required 08/05/2024 02/04/2026 1 [...] PA [address] [place] [address] Phone: tel: fax: [facility] [address], [address] [place] [address] Phone: tel: fax: Referral ID Status Reason Start Date Expiration Date V isits Requested Visits Authorized [id number] Closed Specialty Services Required 07/20/2024 01/19/2026 1 1 Encounter Details Date Type Department Care Team (Late st Contact Info) Description 07/28/2024 8:55 AM EDT Consult [facility] [address] [facility], [place] [phone] Mackenzie Gerber PA [address] [place] [address] Lumbar disc herniation (Primary Dx); [...] has a past medical history of A-fib ([facility]), AAA (abdominal aortic aneurysm) ([facility]), CLL (chronic lymphocytic leukemia) (CMS/HCC), Coronary artery disease, DVT (deep venous thrombosis) ([facility]), GI bleed, Hypertension, Personal history of non-Hodgkin [...] PT eval and treat Mackenzie Gerber PA-C [facility] Department of Neurosurgery Thank you for allowing [...] tablet Take 1 tablet by mouth daily. eyzwdtkrgweo-jyvx-hitdxpuc-folic acid (Centrum Silver, geriatric,) tablet Take 1 [...] Description 08/25/2024 9:30 AM EDT Office Visit [facility] Interventional Pain Medicine [address] [place] [phone] Otis Hyman MD [address] [facility] [address] [place] [phone] 10/06/2024 10:00 AM EDT Clinical Support [facility] H[facility]/B[facility] Therapy Program [address] [facility] [place] [address] 10/06/2024 10:30 AM EDT Office Visit [facility] Therapy Program [address] [place] [address] Ruddy Encarnacion MD [address] [facility] [address] [place] [address] Scheduled Referrals Name Type Priority Associated Diagnoses [...] documented as of this encounter Care Teams Direct Of Real Estate Relationship Specialty Start Date End Date Tab Veronica MD [address] [place] [address] PCP - General 07/22/20 documented as of this encounter
--- NOTE | 2024-08-14 10:52 | XR_ITS ---
FINAL REPORT CLINICAL HISTORY: cough/chest congestion COMPARISON: 08/31/2021 FINDINGS: PA and lateral views of the chest were obtained. There is a right subclavian open the superior vena cava, also seen on the prior exam. The cardiac and mediastinal silhouettes are within normal limits. The previous left base atelectasis noted on the prior chest x-ray has resolved. There is a vague right middle lobe opacity present, and pneumonia is not excluded. There is no pleural effusion or pneumothorax. No acute osseous abnormality is identified. IMPRESSION: Vague right middle lobe opacity, pneumonia is not excluded. Follow-up is suggested. Reviewed, Interpreted and Dictated by Kathryn Bello MD Transcribed by Renee Naranjo Authenticated and [facility]
--- OUTSIDE RECORDS SUMMARY | 2024-08-14 10:52 | XMS_ITS | Data Portability ---
Author Organization [facility] ADMIN Address [address] [place] [address] Assessment No assessment recorded. Plan of Treatment Reminders Order Date Submit Date Provider Last Modified By Organization Details Last Modified Time Details Appointments None record ed. Lab None record ed. Referral None record ed. Procedures None record ed. Surgeries None record ed. Imaging None record ed. Medication Orders None record ed. Patient TargetsNo targets recorded. Patient InstructionsNo instructions recorded. Reason for Referral None Reported. Results Created Date Observation Date Name Description Value Unit Range Abnormal Flag Note LastModifiedBy Organization Detail LastModifiedTime 09/03/19 24 09/03/2023 audio gram No observ ation record ed. Not Available 2023 14:23:12 09/25/19 24 09/25/2023 heari ng aid evalu ation * No observ ation record ed. [email or web address] Not Available 2023 14:23:58 Result Notes None recorded. Problems Name Problem SNOMED Code Status Onset Date Resolution Date Notes Provider Name and Address Organization Details Recorded Time Sensorineural hearing loss 73655230 Active 2023 PRASHANT BARTLETT, AUD [address] [facility]ly [facility], [place], [address] , [facility] & [place] 14:05:22 Problem Notes None recorded. Medical Equipment None Reported. Medications Name Sig Start Date Stop Date Status Note LastModified by Organization Details LastModified Time furosemide 40 mg tablet TAKE 1 TABLET BY MOUTH ONCE DAILY active Not Available Not Available No t Available atorvastatin 40 mg tablet active Not Available Not Available Not Available doxycycline hyclate 100 mg capsule TAKE 1 CAPSULE BY MOUTH TWICE DAILY active Not Available Not Available No t Available codeine sulfate 15 mg tablet TAKE 1 TABLET BY MOUTH EVERY 6 HOURS NEEDED FOR 7 DAYS FOR MODERATE PAIN active Not Available Not Available No t Available meclizine 12.5 mg tablet TAKE 1 TABLET BY MOUTH THREE TIMES DAILY NEEDED active Not Available Not Available No t Available prochlorperazi ne maleate 10 mg tablet active Not Available Not Available No t Available acyclovir 400 mg tablet TAKE 1 TABLET BY MOUTH THREE TIMES DAILY active Not Available Not Available No t Available amoxicillin 875 mg tablet TAKE 1 TABLET BY MOUTH TWICE DAILY active Not Available Not Available No t Available famotidine 20 mg tablet active Not Available Not Available No t Available prednisolone acetate 1 % eye drops,suspensi on INSTILL 1 DROP INTO RIGHT EYE THREE TIMES DAILY WEAN DIRECTED active Not Available Not Available No t Available sulfacetamide sodium 10 % eye drops INSTILL 1 DROP INTO AFFECTED EYE(S) INTO AFFECTED EYE EVERY 6 HOURS active Not Available Not Available No t Available benzonatate 100 mg capsule active Not Available Not Availab le Not Available cephalexin 500 mg capsule TAKE 1 CAPSULE BY MOUTH THREE TIMES DAILY FOR 7 DAYS active Not Available Not Available No t Available erythromycin 5 mg/gram (0.5 %) eye ointment INSTILL OINTMENT TO SUTURES TWICE DAILY FOR 7 DAYS OR DIRECTED THEN BEGIN DAILY MASSAGE active Not Available Not Available No t Available tobramycin 0.3 % eye drops active Not Available Not Available Not Available polymyxin B sulfate 10,000 unit-trimethop rim 1 mg/mL eye drops INSTILL 1 DROP INTO BOTH EYES 4 TIMES DAILY FOR 7 DAYS active Not Available Not Available No t Available losartan 25 mg tablet TAKE 1 TABLET BY MOUTH ONCE DAILY active Not Available Not Available No t Available codeine 10 mg-guaifenesin 100 mg/5 mL oral liquid TAKE 5 ML BY MOUTH TWICE DAILY NEEDED FOR COUGH active Not Available Not Available No t Available allopurinol 300 mg tablet active Not Available Not Availabl e Not Available gabapentin 100 mg capsule TAKE 1 CAPSULE BY MOUTH TWICE DAILY active Not Available Not Available No t Available methylpredniso lone 4 mg tablets in a dose pack TAKE BY MOUTH DIRECTED ON INSIDE OF PACKAGE active Not Available Not Available No t Available brompheniramin e-pseudoephedr ine-DM 2 mg-30 mg-10 mg/5 mL oral syrup active Not Available Not Available N ot Available cefdinir 300 mg capsule TAKE 1 CAPSULE BY MOUTH TWICE DAILY FOR 7 DAYS active Not Available Not Available No t Available losartan 100 mg tablet TAKE 1 TABLET BY MOUTH ONCE DAILY FOR 30 DAYS active Not Available Not Available No t Available fluticasone propionate 50 mcg/actuation nasal spray,suspensi on USE 1 SPRAY(S) IN EACH NOSTRIL ONCE DAILY active Not Available Not Available No t Available loratadine 10 mg tablet TAKE 1 TABLET BY MOUTH ONCE DAILY active Not Available Not Available No t Available naproxen 500 mg tablet TAKE 1 TABLET BY MOUTH EVERY 12 HOURS NEEDED WITH FOOD active Not Available Not Available No t Available tobramycin 0.3 %-dexamethason e 0.1 % eye drops,suspensi on INSTILL 1 INTO DROP EACH EYE 4 TIMES DAILY FOR 5-7 DAYS active Not Available Not Available No t Available cyclobenzaprin e 5 mg tablet TAKE 1 TABLET BY MOUTH THREE TIMES DAILY NEEDED active Not Available Not Available No t Available Venclexta Starting Pack 10 mg-50 mg-100 mg tablets in a dose pack active Not Available Not Available No t Available Venclexta 100 mg tablet active Not Available Not Available No t Available Brukinsa 80 mg capsule active Not Available Not Available Not Available Vitals None Recorded Social History None recorded. Functional Status None recorded. Mental Status None recorded. Family History Nothing Reported. Medical History No medical history recorded. Past Encounters Encounter ID Performer Location Encounter Start Date Encounter Closed Date Diagnosis/Indication Diagnosis SNOMED-CT Code Diagnosis ICD10 Code Diagnosis Note [id number] [facility] [place] [address] 09/03/2023 13:30:13 09/03/2023 13:36:43 Sensorineural hearing loss 39577019 H90.3 [id number] [facility] [place] [id number] 10/16/2023 15:36:43 10/16/2023 15:46:00 Sensorineural hearing loss 75136609 H90.3 [id number] [facility] [place] [id number] 04/29/2024 09:11:03 04/29/2024 09:23:33 Sensorineural hearing loss 84506028 H90.3 [id number] [facility] [address] [place] [address] 07/15/2024 11:41:09 07/15/2024 11:45:10 Sensorineural hearing loss 99730362 H90.3 Health Concerns Section Related Observation LastModified by Organization Detai ls LastModified Time None Recorded Concern Status LastModified by Organization Details LastModified Time None Recorded Advance Directives Directive None Recorded Payers Insurance Date Sequence Insurance Name Policy Number Policy Cm Covered Member ID Cm Member ID Guarantor Name 10/16/2023 [employer] [employer] Dewey GREEN 09/28/2023 1 *SELF PAY* Notes Date Note Type Note Provider Name and Address Organization Details Recorded Time 09/03/2023 text/html Mr. Green was seen today for hearing aid selection. He recently had a hearing evaluation via [facility]. 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 1-Discussed findings with Mr. Green. 2-Rec hearing aids bilaterally; he will pursue through [facility]. 3-F/u when hearing aids arrive. JOSH SÁNCHEZ [address], [place], [address], [facility] & [place] 09/03/2023 14:06:45 10/16/2023 text/html Mr. Green was seen today for a hearing aid fitting via [facility]. Mr. Green was fit with ZettaCore AI 24 R MANISHA hearing aids bilaterally. He was instructed on proper use, function, and cleaning. F/u prn. JOHS SÁNCHEZ [address], [place], [address], [facility] - [facility] & [place] 10/16/2023 15:50:13 04/29/2024 text/html Patient was seen today for a hearing aid service. Cleaned and adjusted hearing aids this date. JOSH SÁNCHEZ [address], [place], [address], [place] - [facility] & [place] 04/29/2024 09:24:03 07/15/2024 text/html Patient was seen today for a hearing aid service. Cleaned and adjusted hearing aids this date. PRASHANT BARTLETT, AUD [address] [facility]ly [facility], [place], [address], [facility] - [place] & [place] 07/15/2024 11:54:55
--- OUTSIDE RECORDS SUMMARY | 2024-08-14 10:52 | XMS_ITS | Continuity of Care Document ---
Author Organization [facility] & [place], [facility] [id number] Address [address] [place] [address] Assessment No assessment recorded. Plan of Treatment [...] instructions recorded. Reason for Referral None Reported. Problems Name Problem SNOMED Code Status Onset Date Resolution Date Notes Provider Name and Address Organization Details Recorded Time Sensorineural hearing loss [id number] Active 2023 PRASHANT BARTLETT, AUD [address]0 Formerly [facility], [place], [address] , [facility] & [place] 4 14:05:22 Problem Notes None recorded. Medical Equipment [...] SNOMED-CT Code Diagnosis ICD10 Code Diagnosis Note [id number] [facility] [place] [phone] 07/15/2024 11:41:09 07/15/2024 11:45:10 Sensorineural hearing loss 83519404 H90.3 Health Concerns Section Related Observation LastModified by Organization Detai ls LastModified Time None Recorded Concern Status LastModified by Organization Details LastModified Time None Recorded Payers Encounter Date Sequence Insurance Name Policy Number Policy Cm Covered Member ID Cm Member ID Guarantor Name 07/15/2024 [employer] Dewey GREEN Notes Date Note Type Note Provider Name and Address Organization Details Recorded Time 07/15/2024 text/html Patient was seen today for a hearing aid service. Cleaned and adjusted hearing aids this date. JOSH SÁNCHEZ [address] [facility], [place], [address], [place] - [facility] [place] & [place] 07/15/2024 11:54:55
--- OUTSIDE RECORDS SUMMARY | 2024-08-14 10:53 | XMS_ITS | Encounter Summary ---
Author Organization Healthcare Address [address] [place] [address] Care Team Providers Care Oil Well Driller Name Role Phone Tab Veronica MD Primary Care Provider [phone] Encounter Details Date Type Department Care Team ([facility] Contact Info) Description 07/10/2024 Orders Only External Location [address] [place] [id number] Provider, External Social History Tobacco Use Types Packs/Day Years [...] Upcoming Encounters Date Type Department Care Team ([facility] Contact Info) Description 08/25/2024 9:30 AM EDT Office Visit [facility] Interventional Pain Medicine [address] [place] [address] Otis Hyman MD [address] [facility] [address] [place] [phone] 10/06/2024 10:00 AM EDT Clinical Support [facility] Cellular Therapy [facility] [address] [facility], [facility] [place] [address] 10/06/2024 10:30 AM EDT Office Visit [facility]ology/BMT [facility] Cellular Therapy [facility] [address] [facility], [address] [phone] Ruddy Encarnacion MD [address] [facility] [address] [place] [address] documented as of this encounter Procedures Procedure Name Priority Date/Time Associated Diagnosis Comments MR NEURO OUTSIDE IMAGES 07/10/2024 7:05 AM EDT documented in this encounter Results * MR NEURO OUTSIDE IMAGES (07/10/2024 7:05 AM EDT) Anatomical Region Laterality Modality Magnetic Resonan ce 07/10/2024 7:05 AM EDT us External Provider IMG MRI PROCEDURES Final Resul t documented in this encounter Visit Diagnoses Not on filedocumented in this encounter Additional Health Concerns Assessment Noted Time A fall risk assessment has been complete d for the patient 07/07/2024 1:59 PM EDT A Body Mass Index follow-up plan has been documented for the patient 06/01/2024 2:47 PM EDT documented as of this encounter Care Teams Oil Well Driller Relationship Specialty Start Date End Date Tba Veronica MD [address] [place] [address] PCP - General 07/22/20 documented as of this encounter
--- OUTSIDE RECORDS SUMMARY | 2024-08-14 10:53 | XMS_ITS | Clinical Summary ---
Author Organization [facility] Address [address] [place] [place] [address] Care Team Providers Care Surveyor Oil Well Directional Name Role Phone Tab Veronica MD Primary Care Provider Allergies Active Allergy Reactions Criticality Noted Date Comments Levofloxacin Rash Low 09/04/2021 Obinutuzumab Other - please docum ent in the comment field Low 06/10/2023 Rigors/nausea Medications atorvastatin (Lipitor) 40 MG tablet Take 1 tablet (40 mg) by mouth daily. Active furosemide (Lasix) 40 MG tablet Take 1 tablet (40 mg) by mouth daily. Active nitroglycerin (Nitrostat) 0.[address] 1 tablet (0.4 mg) under the tongue every 5 (five) minutes if needed for chest pain. Active loratadine (Claritin) 10 MG tablet Take 1 tablet (10 mg) by mouth 1 (one) time each day. 30 tablet 3 4 Active fluticasone (Flonase) 50 MCG/ACT nasal spray USE 1 SPRAY(S) IN EACH NOSTRIL ONCE DAILY 4 Active losartan (Cozaar) 25 MG tablet Take 1 tablet (25 mg) by mouth daily. 4 Active lidocaine (Lidoderm) 5 % patch Apply 1 patch topically 1 (one) time each day over 12 hours. Remove & discard patch within 12 hours or as directed by . 14 patch 1 5 Active Additional Information Patient not taking.Reported on 07/28/2024 cyanocobalamin (Vitamin B-12) 100 MCG tablet Take 1 tablet (100 mcg) by mouth Daily. Active erythromycin (Romycin) 5 MG/GM ophthalmic ointment INSTILL OINTMENT TO SUTURES TWICE DAILY FOR 7 DAYS OR DIRECTED THEN BEGIN DAILY MASSAGE Active multivitamin-ir us-ydhjjebr-ydj ic acid (Centrum Silver, geriatric,) tablet Take 1 tablet by mouth Daily. Active prednisoLONE acetate (Pred-Forte) 1 % ophthalmic suspension INSTILL 1 DROP INTO EACH EYE THREE TIMES DAILY FOR 7 DAYS Active tobramycin (Tobrex) 0.3 % ophthalmic solution Active cholecalciferol (Vitamin D-3) 50 MCG (2000 UT) capsule 1 (one) time each day at the same time. Active cephalexin (Keflex) 500 MG capsule 1 capsule. Active cyclobenzaprine (Flexeril) 5 MG tablet 1 tablet Orally tid prn Active MEDROL, LENO, 4 MG tablets 1 (one) time each day at the same time. Active Naprosyn 500 MG tablet every 12 hours. Active biotin 5 MG capsule Take 1 capsule by mouth daily. Active meloxicam (Mobic) 15 MG tablet Take 1 tablet by mouth daily. Active Active Problems Problem Noted Date Diagnosed Date Other neutropenia 11/19/2023 Pancytopenia 06/17/2023 Shock 06/17/2023 Hypotension 06/17/2023 Retained plastic fragment 09/06/2021 CLL (chronic lymphocytic leukemia) 09/04/2021 Cancer Staging:Clinical stage from 10/24/2021:Modified Tejada Stage 0(Modified Tejada risk: Low, Binet: Stage A, Lugano: Stage I, Lymphocytosis: Absent, Adenopathy: Absent, Organomegaly: Absent, Anemia: Absent, Thrombocytopenia: Absent) - Signed by Sylvia Encarnacion MD on 10/24/2021 A-fib 09/04/2021 Cancer 09/04/2021 CAD (coronary artery disease) 09/04/2021 DVT (deep venous thrombosis) 09/04/2021 Hyperlipemia 09/04/2021 Essential hypertension 09/04/2021 Old DC (myocardial infarction) 09/04/2021 PVD (peripheral vascular disease) 09/04/2021 DDD (degenerative disc disease), lumbar 09/20/19 16 Back pain 09/19/2015 Encounters Date Type Department Care Team Description 07/28/2024 8:55 AM EDT Consult [facility] [address], [place] [phone] Mackenzie Gerber PA Lumbar disc herniation (Primary Dx); Other intervertebral disc displacement, lumbar region; Stenosis of lateral recess of lumbar spine; Radicular pain of right lower extremity 07/28/2024 Travel 07/10/2024 Orders Only External Location [address] [place] [phone] Provider, External 07/08/2024 Orders Only External Location [address] [place] [phone] Vannesa Bedoya PA 07/08/2024 Orders Only External Location [address] [place] [phone] Vannesa Bedoya PA 07/07/2024 2:00 PM EDT Office Visit [facility]/BMT and Cellular Therapy Program [address] [facility], [address] [place] [phone] Sylvia Encarnacion MD CLL (chronic lymphocytic leukemia) (CMS/HCC) (Primary Dx) 07/07/2024 1:30 PM EDT Clinical Support [facility] Therapy [facility] [address] [facility], [address] [place] [phone] 07/07/2024 Orders Only [facility]BMT [facility] Cellular Therapy Program [address] [facility], [address] [place] [phone] Kalpesh Morocho, PharmD 07/07/2024 Travel 06/26/2024 12:54 PM EDT - 06/26/2024 11:59 PM EDT Hospital Encounter [facility] [address] [place] [address] CLL (chronic lymphocytic leukemia) (CMS/HCC) Discharge Disposition: Home or Self Care 06/26/2024 Travel 06/10/2024 Telephone [facility] [address] [place] [phone] Marion Junior, PharmJose 06/05/2024 Orders Only [facility]BMT [facility] Cellular Therapy Program [address] [place] [phone] Elissa Brock RN 06/01/2024 2:00 PM EDT Office Visit [facility] Otolaryngology [address] [place] [address] Marcelina Bojorquez, CIRCULATING PROCESS INSPECTOR Sensorineural hearing loss (SNHL), bilateral (Primary Dx); Bilateral impacted cerumen 06/01/2024 1:30 PM EDT Office Visit [facility] Audiology [address] [place] [address] Asuncion Ocampo AuD Sensorineural hearing loss (SNHL), bilateral (Primary Dx) 06/01/2024 Travel 05/27/2024 3:00 PM EDT Office Visit [facility] Hematology/BMT and Cellular Therapy Program [address] [place] [phone] Sylvia Encarnacion MD CLL (chronic lymphocytic leukemia) ([facility]) (Primary Dx) 05/27/2024 2:30 PM EDT Clinical Support [facility] [address] [place] [phone] Eleanor Caballero, RN 05/27/2024 Orders Only [facility] [address] [place] [phone] Katerine Flores RN CLL (chronic lymphocytic leukemia) ([facility]) (Primary Dx) 05/27/2024 Travel from Last 3 Months Immunizations Immunization Administration Dates Next Due Influenza, high-dose, quadrivalent 11/14/2017, Pneumococcal Conjugate PCV 13 11/14/2017 Pneumococcal Polysaccharide PPV23 09/13/2022 SARS-CoV-2, Unspecified 03/07/2020,04/06/2019 Tdap 11/14/2017 Family History Medical History Relation Name Comments Heart attack Father Alcohol abuse Mother Other cancer Mother Relation Name Status Comments Father Mother Social History Tobacco Use Types Packs/Day Years Used Date Smoking Tobacco: Never Smokeless Tobacco: Never Tobacco Cessation:Counseling Given: Not Answered Alcohol Use Standard Drinks/Week Comments Not Currently [...] on file Sexual Orientation Not on file Last Filed Vital Signs Vital Sign Reading Time Taken Comments Blood Pressure 156/94 07/28/2024 8:37 AM EDT Pulse 67 07/28/2024 8:37 AM EDT Temperature 36.5 C (97.7 F) 07/07/2024 1:52 PM EDT Respiratory Rate 18 05/27/2024 1:58 PM EDT Oxygen Saturation 94% 07/28/2024 8:37 AM EDT Inhaled Oxygen Concentration - - Weight 86.8 kg (191 lb 6.4 oz) 07/28/2024 8:37 A M EDT Height 170.2 cm (5' 7 ) 07/28/2024 8:37 AM EDT Body Mass Index 29.98 07/28/2024 8:37 AM EDT Plan of Treatment Upcoming Encounters Date Type Department Care Team (Late st Contact Info) Description 08/25/2024 9:30 AM EDT Office Visit [facility] Interventional Pain Medicine [address] [place] [phone] Otis Hyman MD [address] [facility] [address] [place] [phone] 10/06/2024 10:00 AM EDT Clinical Support [facility]BMT [facility] Cellular Therapy [facility] [address] [facility], [address] [place] [address] [place] [phone] 10/06/2024 10:30 AM EDT Office Visit [facility]BMT [facility] Cellular Therapy [facility] [address] [facility], [address] [place] [place] [address] Sylvia Encarnacion MD [address] [facility] [address] [place] [phone] Health Maintenance Due Date Last Done Comments [facility]-Diabetes: Hemoglobin A1C 1945 [facility]-Medicare Annual Wellness (AWV) 1945 [facility]-Infant/Child/Adol SDOH Screenings 1945 Diabetes: Dental Exam 1957 [facility]- SDOH Screenings 1965 [facility]-Adult SDOH Screenings 1965 [facility]-Zoster Vaccines (1 of 2) 1966 [facility]-RSV Vaccine: 60+ Years or (1 - 1-dose 75+ series) 2022 [id number] Vaccine ( season) 2023 10/02/2021, 04/06/2020, 03/07/2020, Additional history exists [facility]-Influenza Vaccine (Season Ended) 2024 11/14/2017, 11/14/2017 [facility]-Depression Screening 04/30/2025 04/30/2024 [facility]-DTaP,Tdap,and Td Vaccines (2 - Td or Tdap) 11/15/2027 11/14/2017 [facility]-Pneumococcal Vaccine: 50+ Years Completed 09/13/2022, 11/14/2017 [facility]-Hepatitis C Screening Completed 05/29/2023 [facility]-Obesity Intervention Completed 025, 06/01/2024, 06/01/2024, Additional history exists HPV Vaccines Aged Out No longer eligi ble based on patient's age to complete this topic [facility]-HIB Vaccines Aged Out No longer e ligible based on patient's age to complete this topic [facility]-Hepatitis A Vaccines Aged Out No longer eligible based on patient's age to complete this topic [facility]-IPV Vaccines Aged Out No longer e ligible based on patient's age to complete this topic [facility]-Rotavirus Vaccines Aged Out No lo nger eligible based on patient's age to complete this topic Procedures Procedure Name Priority Date/Time Associated Diagnosis Comments MR NEURO OUTSIDE IMAGES 07/10/2024 7:05 AM EDT XR OUTSIDE IMAGES 07/08/2024 11: 09 AM EDT XR MSK OUTSIDE IMAGES 07/08/2024 11:09 AM EDT COMPREHENSIVE METABOLIC PANEL, PLASMA Routine 07/07/2024 1:39 PM EDT CLL (chronic lymphocytic leukemia) (CMS/HCC) CBC WITH AUTO DIFFERENTIAL Routine 07/07/2024 1:39 PM EDT CLL (chronic lymphocytic leukemia) (CMS/HCC) CT CHEST W IV CONTRAST Routine 1:46 PM EDT CLL (chronic lymphocytic leukemia) (CMS/HCC) CT SOFT TISSUE NECK W IV CONTRAST Routine 06/26/2024 1:46 PM EDT CLL (chronic lymphocytic leukemia) (CMS/HCC) CT ABDOMEN PELVIS W IV CONTRAST Routine 06/26/2024 1:46 PM EDT CLL (chronic lymphocytic leukemia) (CMS/HCC) COMPREHENSIVE METABOLIC PANEL, PLASMA Routine 05/27/2024 1:58 PM EDT CLL (chronic lymphocytic leukemia) (CMS/HCC) CBC WITH AUTO DIFFERENTIAL Routine 05/27/2024 1:58 PM EDT CLL (chronic lymphocytic leukemia) (CMS/HCC) HEPATITIS C ANTIBODY W/REFLEX TO HCV QUANT PCR Routine 05/29/2023 9:32 AM EDT CLL (chronic lymphocytic leukemia) (CMS/HCC) from Last 3 Months or Most Recently Relevant to Health Maintenance Results * MR NEURO OUTSIDE IMAGES (07/10/2024 7:05 AM EDT) Anatomical Region Laterality Modality Magnetic Resonan ce 07/10/2024 7:05 AM EDT us External Provider IMG MRI PROCEDURES Final Resul t * XR OUTSIDE IMAGES (07/08/2024 11:09 AM EDT) Anatomical Region Laterality Modality Radiographic Carlita ging 07/08/2024 11:0 9 AM EDT us Vannesa CLARK IMG XR PROCEDURES Final Result * XR MSK OUTSIDE IMAGES (07/08/2024 11:09 AM EDT) Anatomical Region Laterality Modality Radiographic Carilta ging 07/08/2024 11:0 9 AM EDT us Vannesa CLARK IMG XR PROCEDURES Final Result * (ABNORMAL) CBC and differential (07/07/2024 1:39 PM EDT) Only the most recent of2 resultswithin the time period is included. WBC Count 11.40(H) 3.70 - 10.30 10*3/uL LAB HEMATOLOGY METHOD 07/07/2024 1:54 PM EDT [facility] RBC Count 3.78(L) 4.60 - 6.10 10*6/uL LAB HEMATOLOGY METHOD 07/07/2024 1:54 PM EDT [facility] HGB 13.3(L) 13.7 - 17.5 g/dL LAB HEMATOLOGY METHOD 07/07/2024 1:54 PM EDT [facility] HCT 37.9(L) 40.0 - 51.0 % LAB HEMATOLOGY METHOD 07/07/2024 1:54 PM EDT [facility] Platelet Count 142(L) 155 - 369 10*3/uL LAB HEMATOLOGY METHOD 07/07/2024 1:54 PM EDT [facility] MCV 100(H) 79 - 98 fL LAB HEMATOLOGY METHOD 07/07/2024 1:54 PM EDT [facility] MCH 35.2(H) 26.0 - 32.0 pg LAB HEMATOLOGY METHOD 07/07/2024 1:54 PM EDT [facility] MCHC 35.1 30.7 - 35.5 g/dL LAB HEMATOLOGY METHOD 07/07/2024 1:54 PM EDT [facility] RDW 14.9(H) 11.5 - 14.5 % LAB HEMATOLOGY METHOD 07/07/2024 1:54 PM EDT [facility] MPV 8.4(L) 8.8 - 12.5 fL LAB HEMATOLOGY METHOD 07/07/2024 1:54 PM EDT [facility] nRBC 0.0 <=0.0 per 100 WBCs LAB HEMATOLOGY METHOD 07/07/2024 1:54 PM EDT [facility] Differential Type Automated LAB HEMATOLOGY METHOD 07/07/2024 1:54 PM EDT [facility] Neutrophils % 75 % LAB HEMATOLOGY METHOD 07/07/2024 1:54 PM EDT [facility] Lymphocytes % 10 % LAB HEMATOLOGY METHOD 07/07/2024 1:54 PM EDT [facility] Monocytes % 13 % LAB HEMATOLOGY METHOD 07/07/2024 1:54 PM EDT [facility] Eosinophils % 1 % LAB HEMATOLOGY METHOD 07/07/2024 1:54 PM EDT [facility] Basophils % 0 % LAB HEMATOLOGY METHOD 07/07/2024 1:54 PM EDT [facility] Immature Granulocytes % 1 % LAB HEMATOLOGY METHOD 07/07/2024 1:54 PM EDT [facility] Neutrophils Absolute 8.61(H) 1.60 - 6.10 10*3/uL LAB HEMATOLOGY METHOD 07/07/2024 1:54 PM EDT [facility] Lymphocytes Absolute 1.17(L) 1.20 - 3.90 10*3/uL LAB HEMATOLOGY METHOD 07/07/2024 1:54 PM EDT [facility] Monocytes Absolute 1.45(H) 0.30 - 0.90 10*3/uL LAB HEMATOLOGY METHOD 07/07/2024 1:54 PM EDT [facility] Eosinophils Absolute 0.07 0.00 - 0.50 10*3/uL LAB HEMATOLOGY METHOD 07/07/2024 1:54 PM EDT [facility] Basophils Absolute 0.04 0.00 - 0.10 10*3/uL LAB HEMATOLOGY METHOD 07/07/2024 1:54 PM EDT [facility] Immature Granulocytes Absolute 0.06 0.00 - 0.06 10*3/uL LAB HEMATOLOGY METHOD 07/07/2024 1:54 PM EDT [facility] Blood Venous blood specimen / Unknown Venipuncture / Unknown 07/07/2024 1:39 PM EDT 07/07/2024 1:52 PM EDT Narrative [facility] - 07/07/2024 1:54 PM EDT Therapeutic decision making should be based on absolute values, rather than percentages. us Sylvia Encarnacion MD LAB BLOOD ORDERABLES Final Res ult [facility] [address] [place] [address] * (ABNORMAL) Comprehensive metabolic panel (07/07/2024 1:39 PM EDT) Only the most recent of2 resultswithin the time period is included. Glucose, Plasma 100(H) 74 - 99 mg/dL 07/07/2024 2:46 PM EDT [facility] BUN, Plasma 22 8 - 23 mg/dL 07/07/2024 2:46 PM EDT [facility] Creatinine, Plasma 0.79 0.70 - 1.20 mg/dL 07/07/2024 2:46 PM EDT [facility] BUN/Creatinine Ratio 28 07/07/2024 2:46 PM EDT [facility] Sodium, Plasma 139 136 - 145 mmol/L 07/07/2024 2:46 PM EDT [facility] Potassium, Plasma 4.3 3.6 - 4.9 mmol/L 07/07/2024 2:46 PM EDT [facility] Chloride, Plasma 104 97 - 107 mmol/L 07/07/2024 2:46 PM EDT [facility] CO2, Plasma 28 22 - 29 mmol/L 07/07/2024 2:46 PM EDT [facility] Anion Gap 7 6 - 16 mmol/L 07/07/2024 2:46 PM EDT [facility] Total Calcium, Plasma 8.9 8.9 - 10.2 mg/dL 07/07/2024 2:46 PM EDT [facility] Total Protein 5.8(L) 6.3 - 7.9 g/dL 07/07/2024 2:46 PM EDT [facility] Albumin, Plasma 4.2 3.5 - 5.2 g/dL 07/07/2024 2:46 PM EDT [facility] AST, Plasma 25 10 - 50 U/L 07/07/2024 2:46 PM EDT [facility] ALT, Plasma 24 10 - 50 U/L 07/07/2024 2:46 PM EDT [facility] Alkaline Phosphatase, Plasma 85 40 - 115 U/L 07/07/2024 2:46 PM EDT [facility] Total Bilirubin, Plasma 0.7 0.2 - 1.1 mg/dL 07/07/2024 2:46 PM EDT [facility] eGFRcr 91.5 mL/min/1.7 3m*2 07/07/2024 2:46 PM EDT [facility] Comment:Reported eGFRcr in m L/min/1.73m2 is based the CKD-EPI 2020 equation that does not use a race coefficient. Blood Venous blood specimen / Unknown Venipuncture / Unknown 07/07/2024 1:39 PM EDT 07/07/2024 2:16 PM EDT us Sylvia Encarnacion MD LAB BLOOD ORDERABLES Final Res ult [facility] [address] [place] [address] * CT Abdomen Pelvis w IV Contrast [...] were discussed via Epic chat with SYLVIA ENCARNACION on 06/26/2024 3:20 PM by Curtis England [...] Total DLP (Dose-Length Product): 1955.18 mGy.cm (accession [id number]), 1955.18 mGy.cm (accession [id number]) Please note: The reported value represents the [...] Total DLP (Dose-Length Product): 1955.18 mGy.cm (accession [id number]),1955.18 mGy.cm (accession [id number]) Please note: The reported valuerepresents the total [...] Curtis England MD on 06/26/2024 2:50 PM us Sylvia Encarnacion MD IMG CT PROCEDURES Edited Resul t - Final * CT Chest w IV Contrast (06/26/2024 [...] were discussed via Epic chat with SYLVIA ENCARNACION on 06/26/2024 3:20 PM by Curtis [place] [...] Total DLP (Dose-Length Product): 1955.18 mGy.cm (accession [id number]), 1955.18 mGy.cm (accession [id number]) Please note: The reported value represents the [...] Total DLP (Dose-Length Product): 1955.18 mGy.cm (accession [id number]),1955.18 mGy.cm (accession [id number]) Please note: The reported valuerepresents the total [...] [place] MD on 06/26/2024 2:50 PM Sylvia Encarnacion MD IMG CT PROCEDURES Edited Resul t [...] by Jackie Pedraza on 07/03/2024 12:47 PM [facility] IM[facility] CT PROCEDURES Final Result * Hepatitis C antibody (05/29/2023 9:32 AM EDT) Hepatitis C Antibody Negative Negative 05/29/2023 10:31 AM EDT [facility] Blood Venous blood specimen / Unknown Venipuncture / Unknown 05/29/2023 9:32 AM EDT 05/29/2023 9:50 AM EDT Sylvia Encarnacion MD LAB BLOOD ORDERABLES Final Res ult [facility] [address] [place] [address] from Last 3 Months or Most Recently Relevant to Health Maintenance Insurance [facility] MEDICARE Advance Directives * Full Code (Latest Code Status on File) Date Activated Date Inactivated Comments 06/17/2023 3:32 PM 06/18/2023 4:58 PM Question Answer Comments Patient has decision-making capacity? Yes Care Teams Surveyor Oil Well Directional Relationship Specialty Start Date End Date Tab Veronica MD [address] [place] [address] PCP - General 07/22/20
--- OUTSIDE RECORDS SUMMARY | 2024-08-14 10:53 | XMS_ITS | Data Portability ---
Author Organization [facility] Address [address] [place] [address] Care Team Providers Care Industrial Psychology Professor Name Role Phone SUSAN WHALEN Primary Care Provider [phone] Michelle JIMENEZ Referring Provider [phone] Assessment Encounter Date Assessment Date Assessment LastModified by Organization Details LastModified Time 07/02/2024 07/02/2024 Impression: 1. Coronary artery disease: Chronic problem, stable without angina. 2. Hypertension: Chronic problem, stable. 3. Dyslipidemia 4. OSAS 5. Mild aortic insufficiency 6. LAE 7. Palpitations: Undiagnosed new problem with uncertain prognosis Plan: Medication changes: None. RTC: We will plan to follow-up in about 12 months, or sooner if needed. [email or web address] Not available 07/05/2024 22:16:32 08/11/2024 08/11/2024 Dewey Serna is a 79-year-old male with a history of CLL, hypertension, and hyperlipidemia who presents to the clinic with complaints of low back pain x 2 years that has gotten worse over the past month. Lumbar MRI from 07/10/2024 and lumbar x-rays reviewed by myself and Dr. Garcia. There is lateral recess stenosis noted at L2-3 on the right. There is also a right disc herniation noted at L3-4. There is some possible listhesis at L5-S1. However, the patient's main concern is his low back pain. He advises that his lower extremity symptoms are not overly bothersome. His lower extremity symptoms do not occur every day. Overall, his MRI is not overly impressive. We will refer him to physical therapy and to pain management. No specific follow-up is needed at this time. He should contact the office with any questions, concerns, or new or worsening symptoms. [email or web address] Not available 08/11/2024 11:05:57 Plan of Treatment Reminders Order Date Submit Date Provider Last Modified By Organization Details Last Modified Time Details Appointments RECHECK 2025 02:00P M GRICELDA ALY MD Not available Not available Not available Lab None recorded . Referral None recorded . Procedures None recorded . Surgeries None recorded . Imaging None recorded . Medication Orders None recorded . Patient TargetsNo targets recorded. Patient Instructions Encounter Date Encounter Id Patient Instructions Last Modified By Organization Details Last Modified Time 12/10/2022 [id number] body mass index: care instructions [email or web address] Not available 12/10/2022 10:48:24 Reason for Referral None Reported. Results Created Date Observation Date Name Description Value Unit Range Abnormal Flag Note LastModifiedBy Organization Detail LastModifiedTime 11/29/1911/28/2021 elect rocar diogr am No observ ation record ed. BARCODE Not Available 2021 15:45:29 12/15/1912/10/2022 elect rocar diogr am No observ ation record ed. BARCODE Not Available 2022 07:58:42 12/21/1912/18/2022 clinton r monit or No observ ation record ed. [email or web address] Not Available 2022 09:56:25 07/31/19 25 07/10/2024 MRI, lumba r spine , w/o contr ast No observ ation record ed. [email or web address] [facility] [address], [place], [address], 07/31/2024 09:18:20 Result Notes None recorded. Problems Name Problem SNOMED Code Status Onset Date Resolution Date Notes Provider Name and Address Organization Details Recorded Time History of percutaneou s coronary interventio n 237413344 Active 2020 LEYDA 2015 ZULEMA RODRIGUEZ MD [address] [place] [address], [phone] , [facility] 11:26:36 Obstructive sleep apnea syndrome 58330713 Active 2020 ZULEMA RODRIGUEZ MD [address] [place] [address], [address], [facility] 11:23:59 Leukemia 14794070 Active 2020 ZULEMA RODRIGUEZ MD [address] [place] [address], [address], [facility] 11:24:07 AV junctional rhythm 22798732 Completed 202004/17/2020 ZULEMA RODRIGUEZ MD [address] [place] [address], [address], [facility] 11:28:50 Hyperlipide isatu 65944319 Active 2020 LDL 53 ZULEMA RODRIGUEZ MD [address] [place] [address], [address], [facility] 11:25:48 Diabetes mellitus 04230867 Active 2020 ZULEMA RODRIGUEZ MD [address] [place] [address], [address], [facility] 11:26:40 History of myocardial infarction 138688344 Active 2020 ZULEMA RODRIGUEZ MD [address] [place] [address], [address], [facility] 11:26:48 Paroxysmal atrial fibrillatio n 247760748 Active 2020 ZULEMA RODRIGUEZ MD [address] [place] [address], [address], [facility] 11:26:55 Deep venous thrombosis 349385881 Active 2020 ZULEMA RODRIGUEZ MD [address] [place] [address], [address], [facility] 11:27:03 Hypertensiv e disorder 46051559 Active 2020 ZULEMA RODRIGUEZ MD [address] [place] [address], [address], [facility] 11:27:08 Peripheral vascular disease 090668256 Active 2020 ZULEMA RODRIGUEZ MD [address] [place], [address], [facility] 11:27:16 Chronotropi c incompetenc e 805990049 Active 2020 ZULEMA RODRIGUEZ MD [address] [place], [address], [facility] 12:38:52 Problem Notes None recorded. Procedures Surgical History Date Name Laterality Status Provider Name and Address Organization Details Recorded Time 12/11/19 23 EKG completed Neida Short [facility] 12/10/2022 10:25:55 12/15/19 22 Stress Test - Nuclear Lexiscan completed ZULEMA RODRIGUEZ MD [address] [place] [address] [place], [address], [facility] 12/14/2021 14:41:29 11/29/19 22 EKG completed Christine Chen [facility] 11/28/2021 14:59:29 01/04/20 21 Injection Joint/Bursa, Major, w/o US completed ALE SIMON MD [address] [place] [address] [place], [address], [facility] 01/03/2021 15:04:41 05/05/19 21 Echocardiogram completed ZULEMA RODRIGUEZ MD [address] [place], [address], [facility] 05/05/2020 12:40:09 03/29/19 21 Injection Joint/Bursa, Major, w/o US completed ALE SIMON MD [address] [place] [address], [address], [facility] 03/29/2020 11:19:21 03/08/20 Post Void Residual; Ultrasound completed [facility] 03/08/2020 15:18:50 09/30/19 20 Post Void Residual; Ultrasound completed [facility] 09/30/2019 09:42:52 01/14/20 19 Post Void Residual; Ultrasound completed Radha White [facility] 01/13/2019 13:04:49 04/30/20 19 Post Void Residual; Ultrasound completed [facility] 07/08/2018 15:04:35 04/08/19 19 Post Void Residual; Ultrasound completed [facility] 04/08/2018 10:20:30 03/18/19 19 Post Void Residual; Ultrasound completed Lillian Ndiaye [facility] 03/18/2018 09:44:28 01/29/20 18 Post Void Residual; Ultrasound completed [facility] 01/28/2018 13:38:01 01/15/20 18 Post Void Residual; Ultrasound completed [facility] 01/14/2018 14:21:21 01/14/20 18 Uroflowmetry; Complex completed [facility] 01/13/2018 10:06:47 01/11/20 18 LASER VAPORIZATION OF PROSTATE, INCLUDING CONTROL OF POSTOPERATIVE BLEEDING, COMPLETE (SURG) completed [facility] 01/13/2018 09:39:27 12/24/19 18 Cystoscopy - male completed EMELIA HARMON MD [address] [place] [address], [address], [facility] 12/23/2017 09:05:25 12/20/19 18 Urodynamics completed EMELIA HARMON MD [address] [place] [address], [address], [facility] 12/19/2017 10:30:50 12/19/19 18 Uroflowmetry; Complex completed EMELIA HARMON MD [address] [place] [address], [address], [facility] 12/18/2017 14:45:30 Cardiac Catheterization completed [facility] 04/18/2020 13:52:21 insertion of implantable venous access port completed [facility] 04/18/2020 13:54:07 Imaging Results None recorded. Procedure Notes None recorded. Medical Equipment None Reported. Allergies No known drug allergies Medications Name Sig Start Date Stop Date Status Note LastModified by Organization Details LastModified Time furosemid e 40 mg tablet Take 1 tablet every day by oral route. active Not Available Not Available No t Available atorvasta tin 40 mg tablet Take 1 tablet every day by oral route. active At Bed Time Not Available Not Available Not Available oxybutyni n chloride ER 10 mg tablet,ex tended release 24 hr Take 1 tablet every day by oral route. 03/29 completed Not Available Not Available Not Available Pyridium 200 mg tablet Take 1 tablet 3 times a day by oral route for 10 days. 03/29 completed Not Available Not Available Not Available Macrobid 100 mg capsule Take 1 capsule every 12 hours by oral route for 7 days. 03/18 completed Not Available Not Available Not Available Cipro 500 mg tablet Take 1 tablet every 12 hours by oral route. 03/18 completed Not Available Not Available Not Available nitroglyc zoraida 0.4 mg sublingua l tablet Place as needed by sublingu al route. active only used 1x in 2018 or 2017 Not Available Not Available Not Available losartan 100 mg tablet Take 1 tablet every day by oral route. active Not Available Not Available No t Available spironola ctone 50 mg tablet Take 1 tablet every day by oral route. 11/21 completed Not Available Not Available Not Available Vitamin C Daily active Not Available Not Antonella ilable Not Available Aspir-81 03/29 completed thinned blood too much per pt Not Available Not Available Not Available Vitamin D Daily active Not Available Not Antonella ilable Not Available Vitamin muti-one a day active Not Available Not Available No t Available Imbruvica 420 mg tablet Take 1 tablet every day by oral route. 11/28 completed Not Available Not Available Not Available Brukinsa 80 mg capsule Take 4 capsules every day by oral route. active Not Available Not Available No t Available Vitals Date Recorded Body weight Oxygen saturation Oxygen saturation in Arterial blood by Pulse oximetry Heart rate Systolic blood pressure Diastolic blood pressure Provider Name and Address Organization Details Last Updated DateTime 5 28289.4 4 g 97 % 97 % 64 /min 114 mm[Hg] 72 mm[Hg] [facility] 5 14:20:03 Date Recorded Body height Body mass index (BMI) Body weight Systolic blood pressure Diastolic blood pressure Provider Name and Address Organization Details Last Updated DateTime 08/11/2024 170.18 cm 29.8 kg/m2 41405.55 g 124 mm[Hg] 82 mm[Hg] Shelby Cortes [facility] 5 10:07:01 Date Recorded Body height Body mass index (BMI) Body weight Heart rate Systolic blood pressure Diastolic blood pressure Provider Name and Address Organization Details Last Updated DateTime 3 170.18 cm 30.7 kg/m2 75524.1 g 58 /min 122 mm[Hg] 90 mm[Hg] Neida Dominguez [facility] 3 10:32:16 Social History Question Answer Notes LastModified by Organizat ion Details LastModified Time Tobacco Smoking Status [email or web address]/18/2017 14:15:54 How Much Tobacco Do You Chew? None Information not available 03/29/2020 Which Illicit Or Recreational Drugs Have You Used? None Information not available 04/18/2020 Marital Status Informatio n not available 04/18/2020 What Was The Date Of Your Most Recent Tobacco Screening? 12/10/2022 [email or web address] Information not available 12/10/2022 How Much Tobacco Do You Smoke? No Information not available 03/29/2020 Has Tobacco Cessation Counseling Been Provided? No [email or web address] Information not available 12/10/2022 How Many Years Have You Smoked Tobacco? 0 Information not available 03/29/2020 Have You Recently Traveled Abroad? No Information not available 11/21/2020 Sex: Male Functional Status Question Answer Note LastModified by Organizat ion Details LastModified Time Do you use any illicit or recreational drugs? No Information not available 11/21/2020 Do you or have you ever used any other forms of tobacco or nicotine? No Information not available 11/28/2021 What is your level of alcohol consumption? None Information not available 04/18/2020 Do you or have you ever used smokeless tobacco? Never used smokeless tobacco Information not available 03/29/2020 What is your occupation? Retired Information not available 04/18/2020 Do you or have you ever used e-cigarettes or vape? Never used electronic cigarettes Information not available 03/29/2020 Mental Status None recorded. Family History Relationship Description Onset Age of this Age Resolved Age Notes LastModified by Organization Details LastModified Time Unspecified Relation Family history of malignant neoplasm [email or web address] Not available 2017 14:15:51 Medical History Condition Response Coronary Artery Disease Y Atrial Fibrillation N Thyroid Disease N Heart Arrhythmia N Emphysema N Lung Disease N COPD N Peripheral Arterial Disease N Pacemaker N Nervous Illness N Edema N Vascular Disease N Anxiety Disorder N Hiatal hernia N Arthritis Y Acid Reflux (GERD) N Cancer Y Stroke N History of Blood Thinners Y Blood Thinners N Shortness of Breath N High Cholesterol N Rheumatoid Arthritis N Arrhythmia N Endocrine Disorder N Heart Problems N Heart Conditions N Implanted Cardiac Device N Black Lung N Thyroid Problems N Chest Pain N Ulcers N Diabetes N Rheumatic Fever N Cardiomyopathy N Bleeding Disorder N Heart Murmur N Tuberculosis N AIDS/HIV N Congestive Heart Failure (CHF) N Hyperlipidemia N Asthma N Cardiac Disease Y Peripheral Vascular Disease N Jaundice N Sleep Apnea Y GERD/Reflux N Warfarin Management N Heart Disease Y Restless leg syndrome N Hypertension Y Immunizations Vaccine Type Date Status Note Provider Nam e and Address Organization Details Recorded Time COVID-19, mRNA, LNP-S, PF, 100 mcg/0.5mL dose or 50 mcg/0.25mL dose 1 completed Honey [facility] 07/02/2024 14:14:28 COVID-19, mRNA, LNP-S, PF, 100 mcg/0.5mL dose or 50 mcg/0.25mL dose 2 completed Honey [facility] 07/02/2024 14:14:28 COVID-19, mRNA, LNP-S, PF, 100 mcg/0.5mL dose or 50 mcg/0.25mL dose 0 completed [facility] 07/02/2024 14:14:29 Tdap 8 completed [facility] 07/02/2024 14:14:29 Pneumococcal conjugate PCV 13 8 completed Honey [facility] 07/02/2024 14:14:29 Influenza, high-dose, trivalent, PF 8 completed [facility] 07/02/2024 14:14:29 Past Encounters Encounter ID Performer Location Encounter Start Date Encounter Closed Date Diagnosis/Indication Diagnosis SNOMED-CT Code Diagnosis ICD10 Code Diagnosis Note [id number] EMELIA HARMON MD UROLOGY CLOSED [address] [place] [address] 1 12/18/2017 13:50:17 12/18/2017 15:02:48 Benign prostatic hyperplasia with outflow obstruction 568514427 N40.1 Chronic re tention of urine 655056298 R33.8 Orchitis a nd epididymitis 454606482 N45.3 [id number] EMELIA HARMON MD UROLOGY [facility] [address] [place] [address] 1 12/19/2017 09:24:35 12/19/2017 15:10:45 Retention of urine 653935646 R33.9 [id number] EMELIA HARMON MD UROLOGY [facility] [address] [place] [address] 1 12/19/2017 10:27:04 12/19/2017 12:36:24 Benign prostatic hyperplasia with outflow obstruction 494296024 N40.1 Acute rete ntion of urine 224695101 R33.8 [id number] EMELIA HARMON MD SURGERY SCHEDULE [address] [place] [address] 1 12/23/2017 07:32:44 12/23/2017 07:34:08 [id number] EMELIA HARMON MD UROLOGY [facility] [address] [place] [address] 1 01/13/2018 09:23:54 01/13/2018 12:34:13 Benign prostatic hyperplasia with outflow obstruction 802439577 N40.1 [id number] EMELIA HAROMN MD UROLOGY CLOSED [address] [place] [address] 1 01/14/2018 13:40:23 01/14/2018 15:12:08 Benign prostatic hyperplasia with outflow obstruction 758783402 N40.1 Urinary ur gency due to benign prostatic hypertrophy 0149475872 35071 R39.15 [id number] EMELIA HARMON MD UROLOGY [facility] [address] [place] [address] 1 01/28/2018 13:26:50 01/28/2018 13:56:44 Benign prostatic hyperplasia with outflow obstruction 736264215 N40.1 Retention of urine 11959 4002 R33.9 [id number] EMELIA HARMON MD UROLOGY [facility] [address] [place] [address] 1 03/06/2018 15:43:35 03/12/2018 07:40:56 Dysuria 31041155 R30.0 [id number] EMELIA HARMON MD UROLOGY [facility] [address] [place] [address] 1 03/18/2018 09:29:04 03/18/2018 10:08:41 Acute urinary tract infection 180641280 N39.0 Benign pro static hyperplasia with outflow obstruction 133728357 N40.1 Bladder mu scle dysfunction - overactive 732455744 N32.81 [id number] EMELIA HARMON MD UROLOGY [place] [facility] [address] [place] [address] 1 04/08/2018 09:44:20 04/08/2018 10:57:50 Benign prostatic hyperplasia with outflow obstruction 809006911 N40.1 Retention of urine 51861 4002 R33.9 [id number] EMELIA HARMON MD UROLOGY [place] [facility] [address] [place] [address] 1 07/08/2018 14:55:08 07/08/2018 15:30:08 Benign prostatic hyperplasia with outflow obstruction 661206885 N40.1 Bladder mu scle dysfunction - overactive 286765816 N32.81 [id number] EMELIA HARMON MD UROLOGY [facility] [address] [place] [address] 1 01/13/2019 12:43:56 01/13/2019 13:29:42 Benign prostatic hyperplasia with outflow obstruction 018616408 N40.1 [id number] EMELIA HARMON MD UROLOGY [facility] [address] [place] [address] 1 09/30/2019 09:29:33 09/30/2019 10:53:00 Acute urinary tract infection 177101002 N39.0 [id number] EMELIA HARMON MD UROLOGY [facility] [address] [place] [address] 03/08/2020 15:08:09 03/08/2020 15:31:09 Benign prostatic hyperplasia with outflow obstruction 269818523 N40.1 Overactive urinary bladder 105754990 N32.81 Blood in urine 77051485 R31.9 [id number] ALE ANAYA SIMON MD RHEUMATOL OGY [facility] [address] [place] [address] 03/29/2020 09:53:57 03/29/2020 10:56:28 Osteoarthritis of right knee joint 8640414457 14168 M17.11 74-year-ol d gentleman with osteoarthr itic pain involving the right knee joint. Chronic disease. I suggested him to obtain right knee x-ray. For symptomati c relief, I performed right knee intra-maik cular steroid injection. No complicati ons observed. Suggested to take Tylenol Extra Strength 2 tablets twice a day He is instructed to avoid NSAIDs because of his chronic venous stasis edema. I will contact him after review of the x-rays for physical therapy. Generalize d osteoarthritis 873911126 M15.9 generalize d osteoarthr itis with mechanical low back pain. Bilateral hip joints with restricted mobility and pain especially the right hip. Further has symptomati c right knee joint as stated above. No evidence of inflammato ry joint disease noted. No evidence of inflammato ry muscle disease noted. Because of significan t chronic venous stasis edema ,he is instructed to avoid NSAIDs. I have instructed him to work on weight loss. I also suggested him to take Tylenol Extra Strength 2 tablets twice a day. X-rays bilateral hip and lower back obtained. [id number] ZULEMA RODRIGUEZ MD CARDIOLOG Y [facility] [address] [place] [address] ,[address] [place] [address] 04/18/2020 13:30:41 04/18/2020 14:49:31 Bradycardia 84103164 R00.1 Asymptomat ic bradycardi a was noted on a recent EKG for which pacemaker implantati on was recommende d. The patient's symptoms are primarily one of exercise intoleranc e, dyspnea on exertion, and easy fatigabili ty. This may be related to chronotrop ic incompeten ce. At this point I have recommende d that he undergo 24-hour Holter monitoring . In light of his ischemic heart disease and his symptoms I suggested he undergo an echocardio gram evaluation . In light of his CLL I am going to have his CBC assessed to rule out any significan t underlying anemia that may be the contributi ng factor in his symptoms. [id number] ZULEMA RODRIGUEZ MD [facility] [address] [place] [address] 04/18/2020 14:21:15 04/18/2020 14:22:00 Palpitations 66967291 R00.2 [id number] ZULEMA RODRIGUEZ MD CARDIOLOG Y [address] ,[address] [place] [address] 05/05/2020 11:10:03 05/05/2020 13:11:57 Chronotropic incompetence 029634178 I45.89 Mr. Serna has a class II indication for permanent pacemaker implantati on. Had long discussion with the patient and his about my concerns that some of his symptoms may not be fully correctabl e with pacemaker implantati on. His present chemothera peutic agent is associated with dyspnea and easy fatigabili ty but it's clear that he demonstrat es chronotrop ic incompeten ce as well. Discussed indication s and procedural details of device implantati on with the patient. The patient understand s and accepts that potential complicati ons include, but are not limited to: , perforatio n, need for emergency surgery, bleeding, pneumothor ax, lead dislodgeme nt, device failure/ma lfunction and wound infection. The patient seems inclined to proceed with this implant but his has some reservatio ns and they will have a discussion an informed of their final decision. [id number] ZULEMA RODRIGUEZ MD [facility] [address] [place] [address] [place] [address] 05/05/2020 11:06:28 05/06/2020 08:19:42 Bradycardia 98618590 R00.1 Asymptomat ic bradycardi a was noted on a recent EKG for which pacemaker implantati on was recommende d. The patient's symptoms are primarily one of exercise intoleranc e, dyspnea on exertion, and easy fatigabili ty. This may be related to chronotrop ic incompeten ce. At this point I have recommende d that he undergo 24-hour Holter monitoring . In light of his ischemic heart disease and his symptoms I suggested he undergo an echocardio gram evaluation . In light of his CLL I am going to have his CBC assessed to rule out any significan t underlying anemia that may be the contributi ng factor in his symptoms. [id number] ALE SIMON MD RHEUMATOL [place] [address] [address] 06/23/2020 10:13:54 06/23/2020 11:31:54 Generalized osteoarthritis 536970620 M15.9 75-year-ol d gentleman with generalize d osteoarthr itis. Chronic mechanical pains involving lower back, bilateral hips and knee joints. Status post right knee intra-maik cular steroid injection with significan t improvemen t in pain, swelling and discomfort . Ambulating at his baseline. Denies any significan t discomfort or pain. Tylenol Extra Strength seems to have helped. X-rays hips, spine and right knee dated 03/29/2020 reviewed and discussed with the patient. Suggested weight loss and regular exercise. Tylenol Extra Strength 2 tablets twice a day for pain management . Avoid NSAIDs. Follow-up with me in 6 months. [id number] ZULEMA RODRIGUEZ MD CARDIOLOG [address] [place] [address] 11/21/2020 11:03:28 11/21/2020 12:04:24 Hypertensive disorder 61673779 I10 Continued current therapy Hyperlipidemia 90076592 E78.5 No change in current medical regimen Coronary arteriosclerosis 18815105 I25.10 Continued optimal medical therapy for stable ischemic heart disease Abdominal aortic aneurysm 289743822 I71.4 Mild aneurysmal findings were noted at 3 cm involving the infrarenal abdominal aorta. Serial imaging has been planned. [id number] ALE SIMON MD RHEUMATOL [place] [address] [address] 01/03/2021 12:56:49 01/03/2021 15:46:00 Generalized osteoarthritis 928330681 M15.9 75-year-ol d gentleman with generalize d osteoarthr itis. Chronic mechanical pain involving the hip joints as well as the knee joints. Mechanical low back pain. No radiculopa thy noted. X-rays hips, spine and right knee dated 03/29/2020 reviewed and discussed with the patient. Suggested weight loss and regular exercise. Tylenol Extra Strength 2 tablets twice a day for pain management . Avoid NSAIDs. Pain of bi lateral knee joints 9302163413 82053 M25.561 M25.562 Secondary to moderately advanced osteoarthr itis. We have discussed the surgical interventi ons including knee replacemen ts. However he would like to hold off on the knee replacemen ts. Today both knees were given intra-maik cular steroid injection without any complicati ons. He tolerated the procedure well. [id number] ZULEMA RODRIGUEZ MD CARDIOLOG Y [address] ,[address] [place] [address] 5 11/28/2021 14:10:39 11/28/2021 16:01:28 Obese [id number] E66.9 History of percutaneous coronary intervention [id number] Z98.890 Patient reports an atypical anginal symptom complex. Given his history of coronary artery disease I have suggested we undergo nuclear perfusion stress testing. Otherwise continued optimal medical therapy for stable ischemic heart disease Hyperlipidemia 64739442 E78.5 No change in current medical regimen Hypertensive disorder 38 717137 I10 Continued current therapy [id number] ZULEMA RODRIGUEZ MD HEART STATION [address] [place]GE ROTHMAN,[address] [place] [address] 5 12/14/2021 11:32:01 12/14/2021 14:46:47 [id number] ZULEMA RODRIGUEZ MD CARDIOLOG Y [address] [place] [address] 5 12/10/2022 10:20:37 12/10/2022 11:25:45 Obesity [id number] E66.9 History of percutaneous coronary intervention [id number] Z98.890 Continued optimal medical therapy for stable ischemic heart disease. Hyperlipidemia 09066425 E78.5 No change in current medical regimen Hypertensive disorder 38 206710 I10 Continued current therapy Paroxysmal atrial fibrillation [id number] I48.0 The patient has a questionab le history of paroxysmal atrial fibrillati on in the past. In light of reported elevated heart rates a nuclear monitoring technician will be placed. [id number] ZULEMA RODRIGUEZ MD HEART STATION [address] [place] [address] 12/10/2022 12:15:35 12/10/2022 12:16:51 [id number] GRICELDA ALY MD CARDIOLOG Y [address] [place] [address] 07/02/2024 14:08:22 07/02/2024 15:08:58 Coronary atherosclerosis [id number] I25.10 RI and LEYDA PCI 2016 (Dr Chavarria) [facility] 08/28/2023: Left Ventricle: The left ventricle is normal size. There is normal left ventricula r myocardial thickness and mass. The left ventricula r systolic function is normal. The LVEF as measured by 3D volume is 52%. Right Ventricle: The right ventricula r systolic function is normal.The left atrial size is severely increased with an indexed volume of >48 mL/m2.The aortic valve appears to be trileaflet . There is mild aortic valve regurgitat ion. There is no hemodynami homa significan t valvular aortic stenosis. Palpitations 50775513 R0 0.2 07/02/2024: Recommend Kardia monitoring Left atria l enlargement [id number] 9109 I51.7 Mild aorti c valve regurgitation 602204378 I35.1 [id number] JANEL CARMONA PA-C NEUROSURG [facility] [address] [place] [address] 08/11/2024 09:57:22 08/12/2024 04:33:32 Chronic low back pain [id number] M54.50 G89.29 Health Concerns Section Related Observation LastModified by Organization Detai ls LastModified Time None Recorded Concern Status LastModified by Organization Details LastModified Time None Recorded Advance Directives Directive None Recorded Payers Insurance Date Sequence Insurance Name Policy Number Policy Cm Covered Member ID Cm Member ID Guarantor Name 08/09/2024 1 [employer] (MEDICARE REPLACEMENT/A DVANTAGE - PPO) Dewey Serna [id number] Dewey Gibbs Daphne Notes Date Note Type Note Provider Name and Address Organization Details Recorded Time 12/10/2022 text/html Mr. Serna pres ents for f/u of:1. ASHD s/p RI and LEYDA PCI [address]44. HTN3. HLP with LDL 53 on high intensity statin Rx4. DM5. PVD6. DAINNE on BiPAP7. CLL8. Hx DVT treated with novel oral anticoagulant complicated by bleeding (? subcutaneous/GI)9. PAF ?10. Chronic kidney disease-GFR 56 Myoview stress 10/2021 showed EF of 46% without fixed or reversible defects. He reports episodes where his heart rate might increase to 160-119 beats. He is asymptomatic and notes is only on the monitor when checking his vitals at rest. He has chronic dyspnea on exertion in the absence of any orthopnea or PND. He does have some vertiginous complaints when arising from supine position or turning over in bed. He has not experienced any syncope. He denies any exertional chest pain. ZULEMA RODRIGUEZ MD [address] [place] [address], [address], [facility] 12/10/2022 10:48:42 07/02/2024 text/html 04/06/2024 Initia l visit:Mr. Serna was previously under the care of Dr Rodriguez. I reviewed his prior office notes. He presents for f/u of:1. ASCVD s/p RI and LEYDA PCI 2015 (Dr Chavarria)2. HTN3. HLP with LDL 53 on high intensity statin Rx4. DM5. PVD6. DIANNE on BiPAP7. CLL8. Hx DVT treated with oral anticoagulant complicated by bleeding (? subcutaneous/GI)9. Chronic kidney disease-GFR 56 Myoview stress 10/2021 showed EF of 46% without fixed or reversible defects. He reports that his overall health has been stable, and has no new cardiovascular concerns.He has not noted any exertional chest pain since last visit.No cough, shortness of breath + occasional palpitations. We discussed that in the context of infrequent arrhythmia symptoms, the diagnostic yield from ambulatory monitoring is low. We discussed the potential benefit of using a personal mobile telemetry device to assist in diagnosing the arrhythmia. The [employer] device can e used for self monitoring and storage of EKG tracings. These devices have a built in algorithm for detecting AFib, and can store tracing for further review. With proper use, clinical data suggests diagnositic accuracy of around 95%. EKG: Normal sinus rhythm at a rate of 64bpm.QRS duration 98 and QTc 433ms. [facility] 08/28/2023:Left Ventricle: The left ventricle is normal size. There is normal left ventricular myocardial thickness and mass. The left ventricular systolic function is normal. The LVEF as measured by 3D volume is 52%. Right Ventricle: The right ventricular systolic function is normal.The left atrial size is severely increased with an indexed volume of >48 mL/m2.The aortic valve appears to be trileaflet. There is mild aortic valve regurgitation. There is no hemodynamically significant valvular aortic stenosis. GRICELDA ALY MD [address] [place], [address], [facility] 07/05/2024 22:16:38 08/11/2024 text/html Dewey Serna is a 79-year-old male with a history of CLL, hypertension, and hyperlipidemia who presents to the clinic with complaints of low back pain x 2 years that has gotten worse over the past month. He advises that he will on occasion also experience some pain in his right lateral thigh, anterior llanos, and bottom of the right foot. He denies any pain in his left lower extremity. He states that the lower extremity pain is not very bothersome but that the low back pain is very bothersome. His symptoms are worse with walking and he feels as if he has to lean on things often. He denies any numbness, paresthesias, weakness, loss of control of his bowel or bladder, or saddle anesthesia. He has had 1 visit with physical therapy. He has not seen pain management for injections. He has tried naproxen and meloxicam in the past for his low back pain with some mild relief. JANEL CARMONA PA-C [address] [place], [address], [facility] 08/11/2024 11:06:22
--- OUTSIDE RECORDS SUMMARY | 2024-08-14 10:53 | XMS_ITS ---
Author Organization [facility] Address [address] [place] [id number] Care Team Providers Care Solar Sales Representative And Assessor Name Role Phone Tab Veronica MD Primary Care Provider Active Problems Problem Noted Date Diagnosed Date Other neutropenia 11/19/2023 Pancytopenia 06/17/2023 Shock 06/17/2023 Hypotension 06/17/2023 Retained plastic fragment 09/06/2021 CLL (chronic lymphocytic leukemia) 09/04/2021 Cancer Staging:Clinical stage from 10/24/2021:Modified Tejada Stage 0(Modified Tejada risk: Low, Binet: Stage A, Lugano: Stage I, Lymphocytosis: Absent, Adenopathy: Absent, Organomegaly: Absent, Anemia: Absent, Thrombocytopenia: Absent) - Signed by Ruddy Encarnacion MD on 10/24/2021 A-fib 09/04/2021 Cancer 09/04/2021 CAD (coronary artery disease) 09/04/2021 DVT (deep venous thrombosis) 09/04/2021 Hyperlipemia 09/04/2021 Essential hypertension 09/04/2021 Old GA (myocardial infarction) 09/04/2021 PVD (peripheral vascular disease) 09/04/2021 DDD (degenerative disc disease), lumbar 09/20/19 16 Back pain 09/19/2015 Current Treatment and Therapy Plans HEM/BMT Blood Administration for Outpatient* Plan Start Date:06/17/2023 Plan Provider:Yashira Cervantes MD Linked Problems CLL (chronic lymphocytic allen kemia) (CMS/HCC) Treatment Medications No medications scheduled. Past Treatment and Therapy Plans Infusion Treatment 1 Plan Name Start Date Discontinue Date Treatment Medications Discontinue Reason Plan Provider (HEM/ONC) Bone Marrow Modulators 11/19/2023 01/22/2024 No medications scheduled. Therapy Complete Ruddy Encarnacion MD (HEM/ONC) NEUTROPENIC FEVER 06/17/2023 07/11/2023 No medications scheduled. Other (See Comments) Yashira Cervantes MD Oncology Treatment Plan Name Start Date Discontinue Date Treatment Medications Discontinue Reason Plan Provider Cycles Obinutuzumab + venetoclax Every 28 Days 06/10/2023 01/21/2024 obinutuzumab (Gazyva) IVPB in 250 mL NSvenetoclax (Venclexta)Vene toclax tablet therapy pack Therapy Complete Ruddy Encarnacion MD 6 of 6 cycles started
--- OUTSIDE RECORDS SUMMARY | 2024-08-14 10:53 | XMS_ITS | Encounter Summary ---
Author Organization [facility] Address [address] [place] [address] Care Team Providers Care Information Technology Professor Name Role Phone Tab Veronica MD Primary Care Provider [phone] Encounter Details Date Type Department Care Team (Late st Contact Info) Description 07/08/2024 Orders Only External Location [address] [place] [address] Vannesa Bedoya PA [address] [place] [address] Social History Tobacco Use Types Packs/Day Years [...] Description 08/25/2024 9:30 AM EDT Office Visit [facility] Interventional Pain Medicine [address] [place] [address] Otis Hyman MD [address] [facility] [address] [place] [address] 10/06/2024 10:00 AM EDT Clinical Support [facility] Hematology/BMT and Cellular Therapy Program [address] [place] [address] 10/06/2024 10:30 AM EDT Office Visit [facility]ology/BMT and Cellular Therapy Program [address] [place] [address] Ruddy Encarnacion MD 800 [facility] [address] [place] [address] documented as of this encounter Procedures Procedure Name Priority Date/Time Associated Diagnosis Comments XR MSK OUTSIDE IMAGES 07/08/2024 11:09 AM EDT documented in this encounter Results * XR MSK OUTSIDE IMAGES (07/08/2024 11:09 AM EDT) Anatomical Region Laterality Modality Radiographic Carlita ging 07/08/2024 11:0 9 AM EDT Vannesa CLARK IMG XR PROCEDURES Final Result documented in this encounter Visit Diagnoses Not on filedocumented in this encounter Additional Health Concerns Assessment Noted Time A fall risk assessment has been complete d for the patient 07/07/2024 1:59 PM EDT A Body Mass Index follow-up plan has been documented for the patient 06/01/2024 2:47 PM EDT documented as of this encounter Care Teams Information Technology Professor Relationship Specialty Start Date End Date Tab Veronica MD [address] [place] [address] PCP - General 07/22/20 documented as of this encounter
--- OUTSIDE RECORDS SUMMARY | 2024-08-14 10:53 | XMS_ITS | Encounter Summary ---
Author Organization [facility] Address [address] [place] [address] Care Team Providers Care Concrete Stone Fabricator Name Role Phone Tab Veronica MD Primary Care Provider [phone] Encounter Details Date Type Department Care Team (Late Contact Info) Description 07/07/2024 Orders Only [facility] Hematology/BMT and Cellular Therapy Program [address] [place] [address] Kalpesh Morocho, PharmD 800 [facility] [address] [place] [address] Social History Tobacco Use Types Packs/Day Years [...] Upcoming Encounters Date Type Department Care Team ([facility] Contact Info) Description 08/25/2024 9:30 AM EDT Office Visit [facility] Interventional Pain Medicine [address] [place] [address] Otis Hyman MD [address]00 [facility] [address] [place] [address] 10/06/2024 10:00 AM EDT Clinical Support [facility]ematology/BMT and Cellular Therapy Program [address] [address] 10/06/2024 10:30 AM EDT Office Visit [facility]ology[facility]BMT and Cellular Therapy Program [address] [phone] Ruddy Encarnacion MD 800 [facility] [address] [place] [address] documented as of this encounter Visit Diagnoses Not on filedocumented in this encounter Additional Health Concerns Assessment Noted Time A fall risk assessment has been complete d for the patient 07/07/2024 1:59 PM EDT A Body Mass Index follow-up plan has been documented for the patient 06/01/2024 2:47 PM EDT documented as of this encounter Care Teams Concrete Stone Fabricator Relationship Specialty Start Date End Date Tab Veronica MD [address] [place] [address] PCP - General 07/22/20 documented as of this encounter
--- OUTSIDE RECORDS SUMMARY | 2024-08-14 10:53 | XMS_ITS ---
Author Organization Unknown Medications Date Medication Dosage DosageUnit StartDate StopDate StopReason Active DoseQuantity DoseUnit Dispense DispenseUnit Refills NdcCode DrugCode PharmacyId IsPrescription MappedMedication Srcstatus 10/30 00:00 :00 Acyclovir 400 MG Tablet 04/18/2023 00:00:00 0 21 Tablet 0 92872 579 061 P Discontinu ed 05/28 00:00 :00 Albuterol Sulfate HFA 108 (90 Base) MCG/ACT Aerosol Solution 1 1 0 67975239 287 P Taking 02/26 00:00 :00 Albuterol Sulfate HFA 108 (90 Base) MCG/ACT Aerosol Solution 1 1 0 63825846 287 P Taking 02/12 00:00 :00 Albuterol Sulfate HFA 108 (90 Base) MCG/ACT Aerosol Solution 1 1 0 97580887 287 P Taking 01/07 00:00 :00 Albuterol Sulfate HFA 108 (90 Base) MCG/ACT Aerosol Solution 1 1 0 56193128 287 P Taking 12/16 00:00 :00 Albuterol Sulfate HFA 108 (90 Base) MCG/ACT Aerosol Solution 1 1 0 77768053 287 P Taking 10/30 00:00 :00 Albuterol Sulfate HFA 108 (90 Base) MCG/ACT Aerosol Solution 1 1 0 66634382 287 P Taking 05/28 00:00 :00 Atorvastati n Calcium 40 MG Tablet 1 90 Tablet 1 60198635 499 Taking 05/26 00:00 :00 Atorvastati n Calcium 40 MG Tablet 1 90 Tablet 1 74353360 499 Start 05/26 00:00 :00 Atorvastati n Calcium 40 MG Tablet 0 90 Tablet 1 86228477 499 Stop 02/26 00:00 :00 Atorvastati n Calcium 40 MG Tablet 1 90 Tablet 1 78986536 499 Taking 02/12 00:00 :00 Atorvastati n Calcium 40 MG Tablet 1 90 Tablet 1 96990838 499 Taking 01/07 00:00 :00 Atorvastati n Calcium 40 MG Tablet 1 90 Tablet 1 88994843 499 Taking 12/16 00:00 :00 Atorvastati n Calcium 40 MG Tablet 1 90 Tablet 1 28199314 499 Taking 10/30 00:00 :00 Atorvastati n Calcium 40 MG Tablet 1 90 Tablet 1 55090503 499 Taking 08/01 00:00 :00 Atorvastati n Calcium 40 MG Tablet 1 90 Tablet 1 05425925 499 Start 08/01 00:00 :00 Atorvastati n Calcium 40 MG Tablet 0 90 Tablet 0 12540647 499 Stop 05/28 00:00 :00 BIPAP 1 1 P Taking 02/26 00:00 :00 BIPAP 1 1 P Taking 02/12 00:00 :00 BIPAP 1 1 P Taking 01/07 00:00 :00 BIPAP 1 1 P Taking 12/16 00:00 :00 BIPAP 1 1 P Taking 10/30 00:00 :00 BIPAP 1 1 P Taking 10/30 00:00 :00 Brukinsa 80 MG Capsule 0 0267330 1 102 Discontinu ed 02/12 00:00 :00 Cefdinir 300 MG Capsule 01/08/2024 00:00:00 0 14 Capsule 0 08968063 006 P Discontinu ed 01/07 00:00 :00 Cefdinir 300 MG Capsule 01/08/2024 00:00:00 1 14 Capsule 0 96902938 006 P Start 05/28 00:00 :00 Centrum Silver - Tablet 1 30 669108 17 758 Taking 02/26 00:00 :00 Centrum Silver - Tablet 1 30 575015 17 758 Taking 02/12 00:00 :00 Centrum Silver - Tablet 1 30 417519 17 758 Taking 01/07 00:00 :00 Centrum Silver - Tablet 1 30 362770 17 758 Taking 12/16 00:00 :00 Centrum Silver - Tablet 1 30 233312 17 758 Taking 10/30 00:00 :00 Centrum Silver - Tablet 1 30 731984 17 758 Taking 10/30 00:00 :00 Cephalexin 500 MG Capsule 06/14/2023 00:00:00 0 21 Capsule 0 28222276 701 P Discontinu ed 10/30 00:00 :00 Cephalexin 500 MG Capsule 04/16/2023 00:00:00 0 21 2239872 4 701 P Discontinu ed 10/30 00:00 :00 Doxycycline Hyclate 100 MG Capsule 10/31/2023 00:00:00 1 14 8849983 4 250 P Start 05/28 00:00 :00 Eucerin Advanced Repair - Cream 10/31/2023 00:00:00 1 400 gm 6639191 0 49 P Taking 02/26 00:00 :00 Eucerin Advanced Repair - Cream 10/31/2023 00:00:00 1 400 gm 0488608 0 49 P Taking 02/12 00:00 :00 Eucerin Advanced Repair - Cream 10/31/2023 00:00:00 1 400 gm 4164604 0 49 P Taking 01/07 00:00 :00 Eucerin Advanced Repair - Cream 10/31/2023 00:00:00 1 400 gm 8895711 0 49 P Taking 12/16 00:00 :00 Eucerin Advanced Repair - Cream 10/31/2023 00:00:00 1 400 gm 1571107 0 49 P Taking 10/30 00:00 :00 Eucerin Advanced Repair - Cream 10/31/2023 00:00:00 1 400 gm 8449540 0 49 P Start 05/28 00:00 :00 Flonase Allergy Relief 50 MCG/ACT Suspension 01/08/2024 00:00:00 1 1 0 6687320 7 602 P Taking 02/26 00:00 :00 Flonase Allergy Relief 50 MCG/ACT Suspension 01/08/2024 00:00:00 1 1 0 3199080 7 602 P Taking 02/12 00:00 :00 Flonase Allergy Relief 50 MCG/ACT Suspension 01/08/2024 00:00:00 1 1 0 8063128 7 602 P Taking 01/07 00:00 :00 Flonase Allergy Relief 50 MCG/ACT Suspension 01/08/2024 00:00:00 1 1 0 8189236 7 602 P Start 05/29 00:00 :00 Furosemide 40 MG Tablet 1 90 Tablet 1 0 6045016 925 P Unknown Status 05/28 00:00 :00 Furosemide 40 MG Tablet 1 90 Tablet 1 0 4969312 925 Taking 02/26 00:00 :00 Furosemide 40 MG Tablet 1 90 Tablet 1 0 9778340 925 Taking 02/12 00:00 :00 Furosemide 40 MG Tablet 0 90 Tablet 1 0 1345435 925 Not Taking 01/07 00:00 :00 Furosemide 40 MG Tablet 1 90 Tablet 1 0 9893718 925 Taking 12/16 00:00 :00 Furosemide 40 MG Tablet 1 90 Tablet 1 0 0176647 925 Taking 10/30 00:00 :00 Furosemide 40 MG Tablet 1 90 Tablet 1 0 6259152 925 Taking 10/30 00:00 :00 Gabapentin 100 MG Capsule 01/17/2023 00:00:00 0 60 Capsule 13810138 561 P Discontinu ed 06/08 00:00 :00 Losartan Potassium 25 MG Tablet 02/13/2024 00:00:00 1 90 Tablet 1 03747 704 761 P Unknown Status 06/05 00:00 :00 Losartan Potassium 25 MG Tablet 02/13/2024 00:00:00 1 60 Tablet 2 44182 704 761 P Unknown Status 05/28 00:00 :00 Losartan Potassium 25 MG Tablet 02/13/2024 00:00:00 1 60 Tablet 2 62387 704 761 P Taking 02/26 00:00 :00 Losartan Potassium 25 MG Tablet 02/13/2024 00:00:00 1 60 Tablet 2 88261 704 761 P Taking 02/12 00:00 :00 Losartan Potassium 25 MG Tablet 02/13/2024 00:00:00 1 60 Tablet 2 81877 704 761 P Start 10/30 00:00 :00 Losartan Potassium 100 MG Tablet 0 30 Tablet 5 57545417 410 Discontinu ed 10/30 00:00 :00 Meclizine HCl 12.5 MG Tablet 01/15/2023 00:00:00 0 30 1 6539646 9 701 P Discontinu ed 05/28 00:00 :00 Nitroglycer in 0.4 MG Tablet Sublingual 1 30 0 210709 43 601 P Taking 02/26 00:00 :00 Nitroglycer in 0.4 MG Tablet Sublingual 1 30 0 089697 43 601 P Taking 02/12 00:00 :00 Nitroglycer in 0.4 MG Tablet Sublingual 1 30 0 367673 43 601 P Taking 01/07 00:00 :00 Nitroglycer in 0.4 MG Tablet Sublingual 1 30 0 539614 43 601 P Taking 12/16 00:00 :00 Nitroglycer in 0.4 MG Tablet Sublingual 1 30 0 820739 43 601 P Taking 10/30 00:00 :00 Nitroglycer in 0.4 MG Tablet Sublingual 1 30 0 497473 43 601 P Taking 01/07 00:00 :00 Polymyxin B-Trimethop rim 18048-8 .1 UNIT/ML Solution 12/17/2023 00:00:00 0 8788403 1 510 P Stop 01/07 00:00 :00 Polymyxin B-Trimethop rim 82337-2 .1 UNIT/ML Solution 12/17/2023 00:00:00 1 1 1 9106824 1 510 P Taking 12/16 00:00 :00 Polymyxin B-Trimethop rim 32918-1 .1 UNIT/ML Solution 12/17/2023 00:00:00 1 1 1 4783783 1 510 P Start 05/28 00:00 :00 Sulfacetami de Sodium 10 % Solution 01/08/2024 00:00:00 0 1 0 4470758 7 004 P Discontinu ed 02/26 00:00 :00 Sulfacetami de Sodium 10 % Solution 01/08/2024 00:00:00 1 1 0 5001671 7 004 P Taking 02/12 00:00 :00 Sulfacetami de Sodium 10 % Solution 01/08/2024 00:00:00 1 1 0 8440647 7 004 P Taking 01/07 00:00 :00 Sulfacetami de Sodium 10 % Solution 01/08/2024 00:00:00 1 1 0 8741223 7 004 P Start 10/30 00:00 :00 traMADol HCl 50 MG Tablet 05/08/2022 00:00:00 0 40 5926839 5 801 P Discontinu ed 05/28 00:00 :00 Venclexta 100 MG Tablet 1 994616 57 611 Taking 02/26 00:00 :00 Venclexta 100 MG Tablet 1 346011 57 611 Taking 02/12 00:00 :00 Venclexta 100 MG Tablet 1 133754 57 611 Taking 01/07 00:00 :00 Venclexta 100 MG Tablet 1 041804 57 611 Taking 12/16 00:00 :00 Venclexta 100 MG Tablet 1 420195 57 611 Taking 10/30 00:00 :00 Venclexta 100 MG Tablet 1 Taking 05/28 00:00 :00 Vitamin B-12 100 MCG Tablet 0 30 50361 037 220 Not Taking 02/26 00:00 :00 Vitamin B-12 100 MCG Tablet 0 30 89089 037 220 Not Taking 02/12 00:00 :00 Vitamin B-12 100 MCG Tablet 1 30 33344 037 220 Taking 01/07 00:00 :00 Vitamin B-12 100 MCG Tablet 1 30 78569 037 220 Taking 12/16 00:00 :00 Vitamin B-12 100 MCG Tablet 1 30 02175 037 220 Taking 10/30 00:00 :00 Vitamin B-12 100 MCG Tablet 1 30 28406 037 220 Taking 05/28 00:00 :00 Vitamin C 500 MG Tablet 0 30 824587 52 360 Not Taking 02/26 00:00 :00 Vitamin C 500 MG Tablet 0 30 464250 52 360 Not Taking 02/12 00:00 :00 Vitamin C 500 MG Tablet 1 30 271654 52 360 Taking 01/07 00:00 :00 Vitamin C 500 MG Tablet 1 30 270491 52 360 Taking 12/16 00:00 :00 Vitamin C 500 MG Tablet 1 30 215600 52 360 Taking 10/30 00:00 :00 Vitamin C 500 MG Tablet 1 30 443151 52 360 Taking 05/28 00:00 :00 Vitamin D3 50 MCG (1999) Capsule 0 30 35310728 301 Not Taking 02/26 00:00 :00 Vitamin D3 50 MCG (1999) Capsule 0 30 69987975 301 Not Taking 02/12 00:00 :00 Vitamin D3 50 MCG (1999 UT) Capsule 1 30 57985027 301 Taking 01/07 00:00 :00 Vitamin D3 50 MCG (1999) Capsule 1 30 84293637 301 Taking 12/16 00:00 :00 Vitamin D3 50 MCG (1999 UT) Capsule 1 30 50755376 301 Taking 10/30 00:00 :00 Vitamin D3 50 MCG (1999 UT) Capsule 1 30 80493068 301 Taking
--- OUTSIDE RECORDS SUMMARY | 2024-08-14 10:53 | XMS_ITS | Encounter Summary ---
Author Organization [facility] Address [address] [place] [address] Care Team Providers Care Registered Safety Engineer Name Role Phone Tab Veornica MD Primary Care Provider [phone] Encounter Details Date Type Department Care Team (Latest Contact Info) Description 07/28/2024 Travel Social History Tobacco Use Types Packs/Day Years [...] Description 08/25/2024 9:30 AM EDT Office Visit [facility] Interventional Pain Medicine [address] [facility] [place] [address] Otis Hyman MD [address] [facility] [address] [place] [address] 10/06/2024 10:00 AM EDT Clinical Support [facility] Hematology/BMT and Cellular Therapy Program [address] [facility] [place] [address] 10/06/2024 10:30 AM EDT Office Visit [facility] Hematology/BMT and Cellular Therapy Program [address] [facility] [address] [address] Ruddy Encarnacion MD 800 [facility] [address] [place] [address] documented as of this encounter Visit Diagnoses Not on filedocumented in this encounter Additional Health Concerns Assessment Noted Time A fall risk assessment has been complete d for the patient 07/28/2024 8:39 AM EDT A Body Mass Index follow-up plan has been documented for the patient 08/05/2024 3:19 PM EDT documented as of this encounter Care Teams Registered Safety Engineer Relationship Specialty Start Date End Date Tab Veronica MD [address] [place] [address] PCP - General 07/22/20 documented as of this encounter
--- OUTSIDE RECORDS SUMMARY | 2024-08-14 10:53 | XMS_ITS | Encounter Summary ---
Author Organization [facility] Address [address] [place] [address] Care Team Providers Care Electrotype Molder Name Role Phone Tab Veronica MD Primary Care Provider [phone] Encounter Details Date Type Department Care Team (Late st Contact Info) Description 07/08/2024 Orders Only External Location [address] [place] [address] Vannesa Bedoya PA [address] [place] [address] Social History Tobacco Use Types Packs/Day Years [...] Description 08/25/2024 9:30 AM EDT Office Visit [facility] Interventional Pain Medicine [address] [place] [address] Otis Hyman MD [address] [facility] [address] [place] [address] 10/06/2024 10:00 AM EDT Clinical Support [facility] [address] [place] [phone] 10/06/2024 10:30 AM EDT Office Visit [facility] [address] [place] [phone] Ruddy Encarnacion MD 800 [facility] [address] [place] [address] documented as of this encounter Procedures Procedure Name Priority Date/Time Associated Diagnosis Comments XR OUTSIDE IMAGES 07/08/2024 11:09 AM EDT documented in this encounter Results * XR OUTSIDE IMAGES (07/08/2024 11:09 AM [...] documented as of this encounter Care Teams Electrotype Molder Relationship Specialty Start Date End Date Tab Veronica MD [address] [place] [address] PCP - General 07/22/20 documented as of this encounter
--- OUTSIDE RECORDS SUMMARY | 2024-08-14 10:53 | XMS_ITS | Encounter Summary ---
Author Organization [facility] Address [address] [place] [address] Care Team Providers Care Senior Principal Process Engineer Name Role Phone Tab Veronica MD Primary Care Provider [phone] Encounter Details Date Type Department Care Team (Latest Contact Info) Description 06/26/2024 Travel Social History Tobacco Use Types Packs/Day [...] Description 08/25/2024 9:30 AM EDT Office Visit [facility] Interventional Pain Medicine 24[address] [facility] [place] [phone] Otis Hyman MD 2400 [facility] [address] [place] [address] 10/06/2024 10:00 AM EDT Clinical Support [facility] [address] [facility] [place] [address] 10/06/2024 10:30 AM EDT Office Visit [facility] 750 [facility] [address] [place] [address] Ruddy Encarnacion MD 800 [facility] [address] [place] [address] documented as of this encounter Visit Diagnoses Not on filedocumented in this encounter Additional Health Concerns Assessment Noted Time A fall risk assessment has been complete d for the patient 05/27/2024 2:55 PM EDT A Body Mass Index follow-up plan has been documented for the patient 06/01/2024 2:47 PM EDT documented as of this encounter Care Teams Senior Principal Process Engineer Relationship Specialty Start Date End Date Tab Veronica MD [address] [place] [address] PCP - General 07/22/20 documented as of this encounter
--- OUTSIDE RECORDS SUMMARY | 2024-08-14 10:53 | XMS_ITS | Encounter Summary ---
Author Organization [facility] Address [address] [place] [address] Care Team Providers Care Manager Stone Name Role Phone Tab Veronica MD Primary Care Provider [phone] Encounter Details Date Type Department Care Team (Latest Contact Info) Description 07/07/2024 Travel Social History Tobacco Use Types Packs/Day [...] Description 08/25/2024 9:30 AM EDT Office Visit [facility] Interventional Pain Medicine 24[address] [facility] [place] [phone] Otis Hyman MD [address] [facility] [address] [place] [address] 10/06/2024 10:00 AM EDT Clinical Support [facility] [address] [facility] [place] [address] 10/06/2024 10:30 AM EDT Office Visit [facility] 750 [facility] [address] [place] [address] Ruddy Encarnacion MD 800 [facility] [address] [place] [address] documented as of this encounter Visit Diagnoses Not on filedocumented in this encounter Additional Health Concerns Assessment Noted Time A fall risk assessment has been complete d for the patient 07/07/2024 1:59 PM EDT A Body Mass Index follow-up plan has been documented for the patient 06/01/2024 2:47 PM EDT documented as of this encounter Care Teams Manager Stone Relationship Specialty Start Date End Date Tab Veronica MD [address] [place] [address] PCP - General 07/22/20 documented as of this encounter
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
== END 2024-08-14 23:59 | disposition home or self-care (01) ==
LOC: RAD 10:50
PROVIDERS: PCP Family Medicine; Visit Provider Nurse Practitioner
DX: R91.8 Other nonspecific abnormal finding of lung field (principal); R05.9 Cough, unspecified; R09.89 Other specified symptoms and signs involving the circulatory and respiratory systems
CPT/HCPCS: 71046

== ENCOUNTER 2024-09-16 16:16 | Outpatient (CLI) | payer MEDICARE, SELFPAY ==
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
--- OUTSIDE RECORDS SUMMARY | 2024-07-28 08:55 | XMS_ITS | Encounter Summary ---
Author Organization [facility] Address [address] [place] [address] Care Team Providers Care Casting Associate Name Role Phone Tab Veronica MD Primary Care Provider [phone] Reason for Referral * Consultation (Routine) - Authorized Specialty Diagnoses / Procedures Referred By Contac t Referred To Contact Pain Medicine Diagnoses Other intervertebral disc displacement, lumbar region Lumbar disc herniation Stenosis of lateral recess of lumbar spine Radicular pain of right lower extremity Mackenzie Gerber PA [address] [place] [address] Phone: tel: fax: [facility] Interventional Pain Medicine [address] [place] [address] Phone: tel: fax: Referral ID Status Reason Start Date Expiration Date Visits Requested Visits Authorized [id number] Authorized Specialty Services Required 08/05/2024 02/04/2026 1 1 Scheduling Instructions Please schedule with Dr. Acosta for LESIs, median branch blocks, rediofrequency nerve ablations, and facet blocks Reason for Visit * Reason Comments Consult * Consultation (Routine) - Closed Specialty Diagnoses / Procedures Referred By Contac t Referred To Contact Neurosurgery Diagnoses Other intervertebral disc displacement, lumbar region Vannesa Bedoya PA [address] [place] [address] Phone: tel: fax: [facility] [address] [place] [address] Phone: tel: fax: Referral ID Status Reason Start Date Expiration Date V isits Requested Visits Authorized [id number] Closed Specialty Services Required 07/20/2024 01/19/2026 1 1 Encounter Details Date Type Department Care Team (Late st Contact Info) Description 07/28/2024 8:55 AM EDT Consult [facility] [address] [facility], [place] [id number] Mackenzie Gerber PA [address] [place] [address] Lumbar disc herniation (Primary Dx); Other intervertebral disc displacement, lumbar region; Stenosis of lateral recess of lumbar spine; Radicular pain of right lower extremity Social History Tobacco Use Types Packs/Day Years [...] Sign Reading Time Taken Comments Blood Pressure 156/94 07/28/2024 8:37 AM EDT Pulse 67 07/28/2024 8:37 AM EDT Temperature - - Respiratory Rate - - Oxygen Saturation 94% 07/28/2024 8:37 AM EDT Inhaled Oxygen Concentration - - Weight 86.8 kg (191 lb 6.4 oz) 07/28/2024 8:37 A M EDT Height 170.2 cm (5' 7 ) 07/28/2024 8:37 AM EDT Body Mass Index 29.98 07/28/2024 8:37 AM EDT documented in this encounter Miscellaneous Notes * Progress Notes - Mackenzie Gerber PA - 07/28/2024 8:55 AM EDT Vannesa Bedoya PA We had the pleasure of seeing your patient in our clinic today for Neurosurgical consultation. I personally reviewed approximately 10 pages of new patient referral paperwork that was sent to the clinic which may have included imaging. Chief Complaint Low back and right leg pain. History Of Present Illness Dewey Serna is a 79 y.o. male who presents to neurosurgical clinic today for consultation regarding low back and right leg pain. He felt a sharp pain while turning in his right lower back. Onset 6-8 weeks ago. Presenting symptoms include right low back pain. It goes to the lateral hip. It goes across the topof the thigh to the groin. No pain in the posterior or lateral thigh. He does have pain anterior lower leg that goes to the bottom of the foot. It does not involve toes. He states the back pain is sharp. The anterior thigh pain is dull with sharp steps. The right lowerleg is aching. He reports stumbling. He states he has had to catch himself by grabbing onto something. He states he had taken NSAID p.r.n. but now having to take frequently/scheduled. These symptoms are provoked by being in any position for too long, walking. Symptoms are alleviatedwith tries to lift or shift his weight off the right buttock. Limitation to daily activities include sleep interruption. Work disruption. Difficulty with ADLs. Difficulty doing steps. No change bowel/bladder function. Denies saddle anesthesia. Past medical/surgical history includes CLL. CAD with 2 stents. (he does not take aspirin secondary to anemia) Hypothyroid. Hypertension. Hypercholesterolemia. Seasonal allergies.. Medications include below. Smoking: No tobacco or nicotine use They report absence of autonomic deficits, no falls, no constitutional symptoms. Non-surgical management as below, and have been unattempted to the options the patient is amenable to attempting. Prior Treatments (for the current issue): Injections: None PT/Chiro: None Medications: Mobic p.r.n.. Naprosyn p.r.n. Surgery: None for this issue Past Medical History He has a past medical history of A-fib ([facility]), AAA (abdominal aortic aneurysm) ([facility]), CLL (chronic lymphocytic leukemia) (CMS/HCC), Coronary artery disease, DVT (deep venous thrombosis) ([facility]), GI bleed, Hypertension, Personal history of non-Hodgkin lymphomas, and Sleep apnea, obstructive. Surgical History He has a past surgical history that includes Hand surgery (N/A); Portacath placement (N/A); and Eyesurgery (Bilateral). Family History Family History[1] Social History He reports that he has never smoked. He has never used smokeless tobacco. He reports that he does not currently use alcohol. He reports that he does not use drugs. Medications Current Medications[2] Allergies Levofloxacin and Obinutuzumab Review of Systems 14 point review of systems was performed and was negative except as noted per HPI. Last Recorded Vitals Visit Vitals BP (!) 156/94 (BP Location: Left arm, Patient Position: Sitting, BP Cuff Size: Large adult) Pulse 67 Ht 1.702 m (5' 7 ) Wt 86.8 kg (191 lb 6.4 oz) SpO2 94% BMI 29.98 kg/m?? Smoking Status Never BSA 2.03 m?? Physical Exam GEN: well developed, no acute distress Head: normocephalic, atraumatic Eyes:EOMs intact Ears: normal auditory acuity PULM: no increased work of breathing, normal effort MSK: no joint swelling, normal range of motion SKIN: warm and dry, intact PSYCHE: normal mood and affect, appropriate historian Neuro Exam Strength 5/5 upper and lower extremities Sensation intact throughout DTRs 2+ upper and lower extremities Arnaldo's absent, clonus absent Straight leg raise negative Stone's negative Able to rise from chair without difficulty. Unable to walk secondary to pain Imaging I personally reviewed lumbar MRI dated July 10, 2024. L3-L4 right lateral recess stenosis. Bilateral foraminal stenosis. I have reviewed images with patient and family if available. Assessment and Plan Dewey Serna is a 79 y.o. male presenting with low back and right leg pain for approximately6-8 weeks. It began with a sharp pain after he turned. He has not participated in physical therapy or interventional pain management. He has had some relief after NSAIDs. Imaging as detailed above. He does have difficulty with walking secondary to pain. Given that he is still very early in his symptoms, I recommend conservative treatment. I have given him an order for physical therapy. I will also place an order for evaluation with interventional pain management. After these are completed, I have asked him to contact the clinic with an update of his symptoms. Red flag symptoms to watch for were discussed. Patient and/or family were instructed to contact theclinic sooner for any changes, worsening or other concerns. Patient and/or family voiced understanding and agreement with plan. Patient and/or family were given opportunity to ask questions which were answered to best of ability and to their satisfaction. Assessment/Plan Problem List Items Addressed This Visit None Visit Diagnoses Lumbar disc herniation - Primary Relevant Orders PT eval and treat Other intervertebral disc displacement, lumbar region Relevant Orders PT eval and treat Mackenzie Gerber PA-C [facility] Department of Neurosurgery Thank you for allowing us to be a part of your patient's care. Please do not hesitate to contact [facility]at [facility] if there are any questions or concerns. This note was dictated using voice to text software and may contain minor errors. [1] Family History Problem Relation Name Age of Onset Alcohol abuse Mother Other cancer Mother Heart attack Father [2] Current Outpatient Medications Medication Sig Dispense Refill atorvastatin (Lipitor) 40 MG tablet Take 1 tablet (40 mg) by mouth daily. biotin 5 MG capsule Take 1 capsule by mouth daily. cholecalciferol (Vitamin D-3) 50 MCG (2000 UT) capsule 1 (one) time each day at the same time. furosemide (Lasix) 40 MG tablet Take 1 tablet (40 mg) by mouth daily. loratadine (Claritin) 10 MG tablet Take 1 tablet (10 mg) by mouth 1 (one) time each day. 30 tablet 3 losartan (Cozaar) 25 MG tablet Take 1 tablet (25 mg) by mouth daily. meloxicam (Mobic) 15 MG tablet Take 1 tablet by mouth daily. pohrxrbvcyac-peaz-thzbuvrv-folic acid (Centrum Silver, geriatric,) tablet Take 1 tablet by mouth Daily. Naprosyn 500 MG tablet every 12 hours. nitroglycerin (Nitrostat) 0.[address] 1 tablet (0.4 mg) under the tongue every 5 (five) minutes if needed for chest pain. cephalexin (Keflex) 500 MG capsule 1 capsule. (Patient not taking: Reported on 07/28/2024) cyanocobalamin (Vitamin B-12) 100 MCG tablet Take 1 tablet (100 mcg) by mouth Daily. (Patient not taking: Reported on 07/28/2024) cyclobenzaprine (Flexeril) 5 MG tablet 1 tablet Orally tid prn (Patient not taking: Reported on 07/28/2024) erythromycin (Romycin) 5 MG/GM ophthalmic ointment INSTILL OINTMENT TO SUTURES TWICE DAILY FOR 7 DAYS OR DIRECTED THEN BEGIN DAILY MASSAGE (Patient not taking: Reported on 07/28/2024) fluticasone (Flonase) 50 MCG/ACT nasal spray USE 1 SPRAY(S) IN EACH NOSTRIL ONCE DAILY (Patient nottaking: Reported on 07/28/2024) lidocaine (Lidoderm) 5 % patch Apply 1 patch topically 1 (one) time each day over 12 hours. Remove & discard patch within 12 hours or as directed by MD. (Patient not taking: Reported on 07/28/2024) 14 patch 1 MEDROL, LENO, 4 MG tablets 1 (one) time each day at the same time. (Patient not taking: Reported on 07/28/2024) prednisoLONE acetate (Pred-Forte) 1 % ophthalmic suspension INSTILL 1 DROP INTO EACH EYE THREE TIMES DAILY FOR 7 DAYS (Patient not taking: Reported on 07/28/2024) tobramycin (Tobrex) 0.3 % ophthalmic solution (Patient not taking: Reported on 07/28/2024) No current facility-administered medications for this visit. documented in this encounter Plan of Treatment Upcoming Encounters Date Type Department Care Team ([facility] st Contact Info) Description 10/06/2024 10:00 AM EDT Clinical Support [facility] [address] [phone] 10/06/2024 10:30 AM EDT Office Visit [facility] [address] [address] Ruddy Encarnacion MD [address] [facility] [address] [place] [phone] Scheduled Referrals Name Type Priority Associated Diagnoses Orde r Schedule Ambulatory referral to Pain Medicine Outpatient Referral Routine Other intervertebral disc displacement, lumbar region Lumbar disc herniation Stenosis of lateral recess of lumbar spine Radicular pain of right lower extremity 1 Occurrences starting 08/05/2024 until 02/05/2026 documented as of this encounter Visit Diagnoses Diagnosis Lumbar disc herniation- Primary Displacement of lumbar intervertebral disc without myelopathy Other intervertebral disc displacement, 

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
--- OUTSIDE RECORDS SUMMARY | 2024-09-16 16:18 | XMS_ITS | Data Portability ---
Author Organization [facility] [place] [facility] Address [address] [place] [phone] Assessment No assessment recorded. Plan of Treatment [...] audio gram No observ ation record ed. [email or web address] Not Available 2023 14:23:12 09/25/19 24 09/25/2023 heari ng aid evalu ation * No observ ation record ed. [email or web address] Not Available 2023 14:23:58 Result Notes None recorded. Problems Name Problem SNOMED Code Status Onset Date Resolution Date Notes Provider Name and Address Organization Details Recorded Time Sensorineural hearing loss [id number] Active 2023 PRASHANT BARTLETT, AUD [address] [facility], [place], [address] , [facility] [place] 14:05:22 Problem Notes None recorded. Medical Equipment [...] SNOMED-CT Code Diagnosis ICD10 Code Diagnosis Note [id number] [facility] [place] [id number] 8 09/03/2023 13:30:13 09/03/2023 13:36:43 Sensorineural hearing loss 95531348 H90.3 [id number] J[facility]H [facility] [place] [phone] 10/16/2023 15:36:43 10/16/2023 15:46:00 Sensorineural hearing loss 85274194 H90.3 [id number] J[facility]H [facility] [place] [phone] 04/29/2024 09:11:03 04/29/2024 09:23:33 Sensorineural hearing loss 57363326 H90.3 [id number] [facility] [address], [facility] [address] 07/15/2024 11:41:09 07/15/2024 11:45:10 Sensorineural hearing loss 97301647 H90.3 Health Concerns Section Related Observation LastModified [...] He recently had a hearing [facility] via [facility]. 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 1-Discussed findings with Mr. Green. 2-Rec hearing aids bilaterally; he will pursue through [facility]. 3-F/u when hearing aids arrive. PRASHANT BARTLETT, JOSH [address] , [place], [address], [facility] [place] 09/03/2023 14:06:45 10/16/2023 text/html Mr. Green was seen today for a hearing aid fitting via [facility]. Mr. Green was fit with [employer] AI 24 R MANISHA hearing aids bilaterally. He was instructed on proper use, function, and cleaning. F/u prn. JOSH SÁNCHEZ [address], [place], [address], [facility] [place] 10/16/2023 15:50:13 04/29/2024 text/html Patient was seen today for a hearing aid service. Cleaned and adjusted hearing aids this date. JOSH SÁNCHEZ [address], [place], [address], [facility] [place] 04/29/2024 09:24:03 07/15/2024 text/html Patient was seen today for a hearing aid service. Cleaned and adjusted hearing aids this date. PRASHANT BARTLETT, AUD [address], [place], [address], [facility] [place] [facility] [place] [facility] [place] 07/15/2024 11:54:55
--- NOTE | 2024-09-16 16:19 | XR_ITS ---
PROCEDURE INFORMATION: Exam: XR Chest Exam date and time: 09/16/2024 4:22 PM Age: 79 years old Clinical indication: Cough TECHNIQUE: Imaging protocol: Radiologic exam of the chest. Views: 2 views. PA and Lateral COMPARISON: CR XR CHEST 2V 08/14/2024 10:58 AM FINDINGS: Tubes, catheters and devices: Right chest port catheter is demonstrated. Catheter tip overlies the SVC region. Lungs: Lung volumes are decreased. Bilateral pulmonary linear interstitial opacities identified within lower lungs. The bilateral upper lungs appear clear. No pulmonary venous congestion is demonstrated within the lungs. Pleural spaces: No pleural effusion. No pneumothorax. Heart/Mediastinum: Mediastinum and clara appear unremarkable. Vasculature: Mild atherosclerotic calcification demonstrated within the aorta. Tortuous and ectatic aorta is demonstrated. Bones/joints: Generalized bony degenerative changes. IMPRESSION: Pulmonary atelectasis or acute infiltrates within lower chest bilaterally.
--- OUTSIDE RECORDS SUMMARY | 2024-09-16 16:19 | XMS_ITS | Encounter Summary ---
Author Organization [facility] Address [address] [place] [address] Care Team Providers Care Felt Cutting Machine Operator Name Role Phone Tab Veronica MD Primary Care Provider [phone] Encounter Details Date Type Department Care Team [...] Care Team (Late st Contact Info) Description 10/06/2024 10:00 AM EDT Clinical Support [facility] [address] [place] [address] 10/06/2024 10:30 AM EDT Office Visit [facility] [address] [place] [address] Ruddy Encarnacion MD [address] [facility] [address] [place] [phone] documented as of this encounter Visit Diagnoses Not on filedocumented in this encounter Additional Health Concerns Assessment Noted Time A fall risk assessment has been complete d for the patient 07/28/2024 8:39 AM EDT A Body Mass Index follow-up plan has been documented for the patient 08/05/2024 3:19 PM EDT documented as of this encounter Care Teams Felt Cutting Machine Operator Relationship Specialty Start Date End Date Tab Veronica MD [address] [place] [address] PCP - General 07/22/20 documented as of this encounter
--- OUTSIDE RECORDS SUMMARY | 2024-09-16 16:19 | XMS_ITS | Data Portability ---
Author Organization KELLY SUSIE Morales [facility] Address [address] [place] [address] Care Team Providers Care Cigar Brander Name Role Phone SUSAN WHALEN Primary Care Provider [phone] Michelle JIMENEZ Referring Provider [phone] Assessment Encounter Date Assessment Date Assessment LastModified [...] about 12 months, or sooner if needed. Not available 07/05/2024 22:16:32 08/11/2024 08/11/2024 Dewey [...] questions, concerns, or new or worsening symptoms. [email or web address] Not available 08/11/2024 11:05:57 Plan of Treatment [...] By Organization Details Last Modified Time 12/10/2022 [id number] body mass index: care instructions [email or web address] Not available 12/10/2022 10:48:24 Reason for Referral None Reported. Results Created Date Observation Date Name Description Value Unit Range Abnormal Flag Note LastModifiedBy Organization Detail LastModifiedTime 11/29/19 22 11/28/2021 elect rocar diogr am No observ ation record ed. BARCODE Not Available 2021 15:45:29 12/15/1912/10/2022 elect rocar diogr am No observ ation record ed. BARCODE Not Available 2022 07:58:42 12/21/1912/18/2022 clinton r monit or No observ ation record ed. [email or web address] Not Available 2022 09:56:25 07/31/19 25 07/10/2024 MRI, lumba r spine , w/o contr ast No observ ation record ed. [email or web address] [facility] [address], [place], [address], 07/31/2024 09:18:20 Result Notes None recorded. Problems Name Problem SNOMED Code Status Onset Date Resolution Date Notes Provider Name and Address Organization Details Recorded Time History of percutaneou s coronary interventio n 437746551 Active 2020 LEYDA 2016 ZULEMA RODRIGUEZ MD [address] [place] [address], [phone] , [facility] 11:26:36 Obstructive sleep apnea syndrome 26598647 Active 2020 ZULEMA RODRIGUEZ MD [address] [place] [address], [address] 1, [facility] 1 11:23:59 Leukemia 55555996 Active 2020 ZULEMA RODRIGUEZ MD [address] [place] [address], [address] 1, [facility] 11:24:07 AV junctional rhythm 78845341 Completed 202004/17/2020 ZULEMA RODRIGUEZ MD [address] [place] [address], [address] 1, [facility] 11:28:50 Hyperlipide isatu 54712618 Active 2020 LDL 53 ZULEMA RODRIGUEZ MD [address] [place] [address], [address] 1, [facility] 11:25:48 Diabetes mellitus 56672458 Active 2020 ZULEMA RODRIGUEZ MD [address] [place] [address], [address] 1, [facility] 11:26:40 History of myocardial infarction 989676929 Active 2020 ZULEMA RODRIGUEZ MD [address] [place] [address], [address] 1, [facility] 11:26:48 Paroxysmal atrial fibrillatio n 475765770 Active 2020 ZULEMA RODRIGUEZ MD [address] [place] [address], [address]63[address] 1, [facility] 11:26:55 Deep venous thrombosis 945820897 Active 2020 ZULEMA RODRIGUEZ MD [address] [place] [address], [address]38[address] 1, [facility] 11:27:03 Hypertensiv e disorder 49504350 Active 2020 ZULEMA RODRIGUEZ MD [address] [place] [address], [address]98[address] 1, [facility] 11:27:08 Peripheral vascular disease 040074831 Active 2020 ZULEMA RODRIGUEZ MD [address] [place] [address], [address] 1, [facility] 11:27:16 Chronotropi c incompetenc e 704434134 Active 2020 ZULEMA RODRIGUEZ MD [address] [place] [address], [address] 1, [facility] 12:38:52 Problem Notes None recorded. Procedures Surgical History Date Name Laterality Status Provider Name and Address Organization Details Recorded Time 12/11/19 EKG completed Neida Short [facility] 12/10/2022 10:25:55 12/15/19 22 Stress Test - Nuclear Lexiscan completed ZULEMA RODRIGUEZ MD [address] [place] [address], [phone], [facility] 12/14/2021 14:41:29 11/29/19 22 EKG completed Christine Szymanskiut [facility] 11/28/2021 14:59:29 01/04/20 21 Injection Joint/Bursa, Major, w/o US completed ALE SIMON MD [address] [place] [address], [phone], [facility] 01/03/2021 15:04:41 05/05/19 21 Echocardiogram completed ZULEMA RODRIGUEZ MD [address] [place] [address], [phone], [facility] 05/05/2020 12:40:09 03/29/19 21 Injection Joint/Bursa, Major, w/o US completed ALE SIMON MD [address] [place] [address], [address], [facility] 03/29/2020 11:19:21 03/08/20 20 Post Void Residual; Ultrasound completed [facility] 03/08/2020 15:18:50 09/30/19 20 Post Void Residual; Ultrasound completed [facility] 09/30/2019 09:42:52 01/14/20 19 Post Void Residual; Ultrasound completed Radha White [facility] 01/13/2019 13:04:49 07/09/19 19 Post Void Residual; Ultrasound completed [facility] 07/08/2018 15:04:35 04/08/19 19 Post Void Residual; Ultrasound completed [facility] 04/08/2018 10:20:30 03/18/19 19 Post Void Residual; Ultrasound completed Lillian Ndiaye [facility] 03/18/2018 09:44:28 01/29/20 18 Post Void Residual; Ultrasound completed [facility] 01/28/2018 13:38:01 01/15/20 18 Post Void Residual; Ultrasound completed [facility] 01/14/2018 14:21:21 01/14/20 18 Uroflowmetry; Complex completed [facility] 01/13/2018 10:06:47 01/11/20 18 LASER VAPORIZATION OF PROSTATE, INCLUDING CONTROL OF POSTOPERATIVE BLEEDING, COMPLETE (SURG) completed [facility] 01/13/2018 09:39:27 12/24/19 18 Cystoscopy - male completed EMELIA HARMON MD [address] [place] [address], [phone], [facility] 12/23/2017 09:05:25 12/20/19 18 Urodynamics completed EMELIA HARMON MD [address] [place] [address], [address], [facility] 12/19/2017 10:30:50 12/19/19 18 Uroflowmetry; Complex completed EMELIA HARMON MD [address] [place] [address], [phone], [facility] 12/18/2017 14:45:30 Cardiac Catheterization completed [facility] 04/18/2020 13:52:21 insertion of implantable venous access port completed [facility] 04/18/2020 13:54:07 Imaging Results None recorded. Procedure [...] blood by Pulse oximetry Heart rate Systolic And Diastolic Provider Name and Address Organization Details Last Updated DateTime 5 00168.4 4 g 97 % 97 % 64 /min 114/72 mm[Hg] [facility] 5 14:20:03 Date Recorded Body height Body mass index (BMI) Body weight Systolic And Diastolic Provider Name and Address Organization Details Last Updated DateTime 08/11/2024 170.18 cm 29.8 kg/m2 07852.55 g 124/82 mm[Hg] Shelby Cortes [facility] 08/11/2024 10:07:01 Date Recorded Body height Body mass index (BMI) Body weight Heart rate Systolic And Diastolic Provider Name and Address Organization Details Last Updated DateTime 12/10/2022 170.18 cm 30.7 kg/m2 49019.1 g 58 /min 122/90 mm[Hg] Neida Angelica [facility] 12/10/2022 10:32:16 Social History Question Answer Notes LastModified by Organizat ion Details LastModified Time Tobacco Smoking Status Never [facility]oker [facility] 12/18/2017 14:15:54 How Much Tobacco Do You Chew? None Information not available 03/29/2020 Which Illicit Or Recreational Drugs Have You Used? None Information not available 04/18/2020 Marital Status Informatio n not available 04/18/2020 What Was The Date Of Your Most Recent Tobacco Screening? 12/10/2022 [email or web address] Information not available 12/10/2022 How Much Tobacco Do You Smoke? No Information not available 03/29/2020 Has Tobacco Cessation Counseling Been Provided? No [email or web address] Information not available 12/10/2022 How Many Years [...] Coronary Artery Disease Y Atrial Fibrillation N Heart Arrhythmia N Emphysema N COPD N Peripheral Arterial Disease N Nervous Illness N Edema N Anxiety Disorder N Arthritis Y Hiatal hernia N Acid Reflux (GERD) N Cancer Y Stroke N Arrhythmia N Rheumatoid Arthritis N Endocrine Disorder N Heart Problems N Heart Conditions N Implanted Cardiac Device N Black Lung N Ulcers N Rheumatic Fever N Bleeding Disorder N Tuberculosis N AIDS/HIV N Asthma N Cardiac Disease Y Peripheral Vascular Disease N Jaundice N GERD/Reflux N Restless leg syndrome N Thyroid Disease N Lung Disease N Pacemaker N Vascular Disease N History of Blood Thinners Y Blood Thinners N Shortness of Breath N High Cholesterol N Thyroid Problems N Chest Pain N Diabetes N Cardiomyopathy N Heart Murmur N Congestive Heart Failure (CHF) N Hyperlipidemia N Sleep Apnea Y Warfarin Management N Heart Disease Y Hypertension Y Immunizations Vaccine Type Date Status Note Provider Nam e and Address Organization Details Recorded Time COVID-19, mRNA, LNP-S, PF, 100 mcg/0.5mL dose or 50 mcg/0.25mL dose 1 completed Honey Kenn [facility] 07/02/2024 14:14:28 COVID-19, mRNA, LNP-S, PF, 100 mcg/0.5mL dose or 50 mcg/0.25mL dose 2 completed Honey Kenn [facility] 07/02/2024 14:14:28 COVID-19, mRNA, LNP-S, PF, 100 mcg/0.5mL dose or 50 mcg/0.25mL dose 0 completed Honey Kenn [facility] 07/02/2024 14:14:29 Tdap 8 completed Honey Kenn [facility] 07/02/2024 14:14:29 Pneumococcal conjugate PCV 13 8 completed Honey Kenn [facility] 07/02/2024 14:14:29 Influenza, high-dose, trivalent, PF 8 completed [facility] 07/02/2024 14:14:29 Past Encounters Encounter ID Performer Location Encounter Start Date Encounter Closed Date Diagnosis/Indication Diagnosis SNOMED-CT Code Diagnosis ICD10 Code Diagnosis Note [id number] EMELIA HARMON MD [facility]Y [facility] [address] [place] [address] 1 12/18/2017 13:50:17 12/18/2017 15:02:48 Benign prostatic hyperplasia with outflow obstruction 121865882 N40.1 Chronic re tention of urine 688326514 R33.8 Orchitis a nd epididymitis 411867222 N45.3 [id number] EMELIA HARMON MD [facility]Y [facility] [address] [place] [address] 1 12/19/2017 09:24:35 12/19/2017 15:10:45 Retention of urine 626872108 R33.9 [id number] EMELIA HARMON MD [facility]OLOGY [facility] [address] [place] [address] 1 12/19/2017 10:27:04 12/19/2017 12:36:24 Benign prostatic hyperplasia with outflow obstruction 703350839 N40.1 Acute rete ntion of urine 623811123 R33.8 [id number] EMELIA HARMON MD SURGERY SCHEDULE [address] [place] [address] 1 12/23/2017 07:32:44 12/23/2017 07:34:08 [id number] EMELIA HARMON MD UROLOGY [facility] [address] [place] [address] 1 01/13/2018 09:23:54 01/13/2018 12:34:13 Benign prostatic hyperplasia with outflow obstruction 653606153 N40.1 [id number] EMELIA HARMON MD UROLOGY [facility] [address] [place] [address] 1 01/14/2018 13:40:23 01/14/2018 15:12:08 Benign prostatic hyperplasia with outflow obstruction 020372653 N40.1 Urinary ur gency due to benign prostatic hypertrophy 4977490847 15503 R39.15 [id number] EMELIA HARMON MD UROLOGY [facility] [address] [place] [address] 1 01/28/2018 13:26:50 01/28/2018 13:56:44 Benign prostatic hyperplasia with outflow obstruction 135349047 N40.1 Retention of urine 68124 4002 R33.9 [id number] EMELIA HARMON MD UROLOGY [facility] [address] [place] [address] 1 03/06/2018 15:43:35 03/12/2018 07:40:56 Dysuria 95375629 R30.0 [id number] EMELIA HARMON MD [facility]OLOGY [facility] [address] [place] [address] 1 03/18/2018 09:29:04 03/18/2018 10:08:41 Acute urinary tract infection 643840164 N39.0 Benign pro static hyperplasia with outflow obstruction 905517961 N40.1 Bladder mu scle dysfunction - overactive 979040908 N32.81 [id number] EMELIA HARMON MD [facility]OLOGY [facility] [address] [place] [address] 1 04/08/2018 09:44:20 04/08/2018 10:57:50 Benign prostatic hyperplasia with outflow obstruction 406419834 N40.1 Retention of urine 13864 4002 R33.9 [id number] EMELIA HARMON MD UROLOGY [facility] [address] [place] [address] 1 07/08/2018 14:55:08 07/08/2018 15:30:08 Benign prostatic hyperplasia with outflow obstruction 422879177 N40.1 Bladder mu scle dysfunction - overactive 753723101 N32.81 [id number] EMELIA HARMON MD UROLOGY [facility] [address] [place] [address] 1 01/13/2019 12:43:56 01/13/2019 13:29:42 Benign prostatic hyperplasia with outflow obstruction 728894490 N40.1 [id number] EMELIA HARMON MD [facility]OLOGY [facility] [address] [place] [address] 1 09/30/2019 09:29:33 09/30/2019 10:53:00 Acute urinary tract infection 506141164 N39.0 [id number] EMELIA HARMON MD UROLOGY [facility] [address] [place] [address] 03/08/2020 15:08:09 03/08/2020 15:31:09 Benign prostatic hyperplasia with outflow obstruction 285783557 N40.1 Overactive urinary bladder 937252917 N32.81 Blood in urine 30135101 R31.9 [id number] AEL SIMON MD RHEUMATOL OGY [address] [place] [address] 03/29/2020 09:53:57 03/29/2020 10:56:28 Osteoarthritis of right knee joint 2190740225 59393 M17.11 74-year-ol d gentleman with osteoarthr itic [...] x-rays for physical therapy. Generalize d osteoarthritis 861190583 M15.9 generalize d osteoarthr itis with mechanical [...] X-rays bilateral hip and lower back obtained. [id number] ZULEMA RODRIGUEZ MD CARDIOLOG [address] [place] [address] 04/18/2020 13:30:41 04/18/2020 14:49:31 Bradycardia 36790582 R00.1 Asymptomat ic bradycardi a was noted [...] the contributi ng factor in his symptoms. [id number] ZULEMA RODRIGUEZ MD [facility] [address] [place] [address] 04/18/2020 14:21:15 04/18/2020 14:22:00 Palpitations 37192135 R00.2 [id number] ZULEMA RODRIGUEZ MD CARDIOLOG Y [address] [place] [address] 05/05/2020 11:10:03 05/05/2020 13:11:57 Chronotropic incompetence 515488433 I45.89 Mr. Serna has a class II [...] discussion an informed of their final decision. [id number] ZULEMA RODRIGUEZ MD [facility] [address] [place] [address] [place] [address] 05/05/2020 11:06:28 05/06/2020 08:19:42 Bradycardia 47940725 R00.1 Asymptomat ic bradycardi a was noted [...] the contributi ng factor in his symptoms. [id number] ALE SIMON MD RHEUMATOL [place] [address] 06/23/2020 10:13:54 06/23/2020 11:31:54 Generalized osteoarthritis 105668897 M15.9 75-year-ol d gentleman with generalize d [...] NSAIDs. Follow-up with me in 6 months. [id number] ZULEMA RODRIGUEZ MD CARDIOLOG [address] [place] [address] 11/21/2020 11:03:28 11/21/2020 12:04:24 Hypertensive disorder 97042785 I10 Continued current therapy Hyperlipidemia 11947471 E78.5 No change in current medical regimen Coronary arteriosclerosis 71750907 I25.10 Continued optimal medical therapy for stable ischemic heart disease Abdominal aortic aneurysm 814863386 I71.4 Mild aneurysmal findings were noted at 3 cm involving the infrarenal abdominal aorta. Serial imaging has been planned. [id number] ALE SIMON MD RHEUMATOL OGY [place] [address] 01/03/2021 12:56:49 01/03/2021 15:46:00 Generalized osteoarthritis 323157091 M15.9 75-year-ol d gentleman with generalize d [...] NSAIDs. Pain of bi lateral knee joints 7298724352 37173 M25.561 M25.562 Secondary to moderately advanced osteoarthr itis. We have discussed the surgical interventi ons including knee replacemen ts. However he would like to hold off on the knee replacemen ts. Today both knees were given intra-maik cular steroid injection without any complicati ons. He tolerated the procedure well. [id number] ZULEMA RODRIGUEZ MD CARDIOLOG Y [address] [place] [place] [address] 5 11/28/2021 14:10:39 11/28/2021 16:01:28 Obese 388878034 E66.9 History of percutaneous coronary intervention 875825947 Z98.890 Patient reports an atypical anginal symptom complex. Given his history of coronary artery disease I have suggested we undergo nuclear perfusion stress testing. Otherwise continued optimal medical therapy for stable ischemic heart disease Hyperlipidemia 65839022 E78.5 No change in current medical regimen Hypertensive disorder 38 982533 I10 Continued current therapy [id number] ZULEMA RODRIGUEZ MD HEART [address] [place] [address] 5 12/14/2021 11:32:01 12/14/2021 14:46:47 [id number] ZULEMA RODRIGUEZ MD CARDIOLOG Y [address] [place],[address] [place] [address] 5 12/10/2022 10:20:37 12/10/2022 11:25:45 Obesity 102539498 E66.9 History of percutaneous coronary intervention 631104498 Z98.890 Continued optimal medical therapy for stable ischemic heart disease. Hyperlipidemia 14548812 E78.5 No change in current medical regimen Hypertensive disorder 38 954461 I10 Continued current therapy Paroxysmal atrial fibrillation 910643106 I48.0 The patient has a questionab le history of paroxysmal atrial fibrillati on in the past. In light of reported elevated heart rates a quality assurance monitor final will be placed. [id number] ZULEMA RODRIGUEZ MD [facility]ATION [address] [place] [address] 12/10/2022 12:15:35 12/10/2022 12:16:51 [id number] GRICELDA ALY MD CARDIOLOG Y [address] [place] [place] [address] 07/02/2024 14:08:22 07/02/2024 15:08:58 Coronary atherosclerosis 831575998 I25.10 ND and LEYDA PCI 2015 (Dr Chavarria) [facility] ECHO 08/28/2023: Left Ventricle: The left [...] homa significan t valvular aortic stenosis. Palpitations 40014386 R0 0.2 07/02/2024: Recommend Kardia monitoring Left atria l enlargement 5666819103 9109 I51.7 Mild aorti c valve regurgitation 038352334 I35.1 [id number] JANEL CARMONA PA-C NEUROSURG [address] [place] [address] 08/11/2024 09:57:22 08/12/2024 04:33:32 Chronic low back pain 615803268 M54.50 G89.29 Health Concerns Section Related Observation LastModified by Organization Detai ls LastModified Time None Recorded Concern Status LastModified by Organization Details LastModified Time None Recorded Advance Directives Directive None Recorded Payers Insurance Date Sequence Insurance Name Policy Number Policy Cm Covered Member ID Cm Member ID Guarantor Name 08/09/2024 1 [employer] (MEDICARE REPLACEMENT/A DVANTAGE - PPO) Dewey Rojogoner [id number] Dewey Gibbs Daphne Notes Date Note Type Note Provider Name and Address Organization Details Recorded Time 12/10/2022 text/html Mr. Serna pres ents for f/u of:1. ASHD s/p [place] and LEYDA PCI 24397. HTN3. HLP with LDL 53 on high [...] any exertional chest pain. ZULEMA RODRIGUEZ MD [address] [place] [address], [address], [facility] 12/10/2022 10:48:42 07/02/2024 text/html 04/06/2024 Initia l visit:Mr. Serna was previously under the care of Dr Rodriguez. I reviewed his prior office notes. He presents for f/u of:1. ASCVD s/p ND and LEYDA PCI 2015 (Dr Chavarria)2. HTN3. [...] to assist in diagnosing the arrhythmia. The [employer] Mobile device can e used for self monitoring and storage of EKG tracings. These devices have a built in algorithm for detecting AFib, and can store tracing for further review. With proper use, clinical data suggests diagnositic accuracy of around 95%. EKG: Normal sinus rhythm at a rate of 64bpm.QRS duration 98 and QTc 433ms. [facility] ECHO 08/28/2023:Left Ventricle: The left ventricle [...] valvular aortic stenosis. GRICELDA ALY MD [address] [place], [address], [facility] 07/05/2024 22:16:38 08/11/2024 text/html Dewey [...] some mild relief. JANEL CARMONA PA-C [address] [place], [address], [facility] 08/11/2024 11:06:22
--- OUTSIDE RECORDS SUMMARY | 2024-09-16 16:19 | XMS_ITS | Continuity of Care Document ---
Author Organization [facility], NEUROSURGERY [address] [place] [address] Care Team Providers Care Gelatin Dynamite Packing Operator Name Role Phone SUSAN WHALEN Primary Care Provider [phone] Michelle JIMENEZ Referring Provider Assessment Encounter Date Assessment Date Assessment LastModified by Organization Details LastModified Time 08/11/2024 08/11/2024 Dewey Serna is a 79-year-old [...] questions, concerns, or new or worsening symptoms. [email or web address] Not available 08/11/2024 11:05:57 Plan of Treatment [...] recorded . Patient TargetsNo targets recorded. Patient InstructionsNo instructions recorded. Reason for Referral None Reported. Results Created Date Observation Date Name Description Value Unit Range Abnormal Flag Note LastModifiedBy Organization Detail LastModifiedTime 07/31/19 25 07/10/2024 MRI, lumba r spine , w/o contr ast No observ ation record ed. [email or web address] [facility] [address], [place], [address], 07/31/2024 09:18:20 Result Notes None recorded. Problems Name Problem SNOMED Code Status Onset Date Resolution Date Notes Provider Name and Address Organization Details Recorded Time History of percutaneou s coronary interventio n 704666247 Active 2020 LEYDA 2015 ZULEMA RODRIGUEZ MD [address] [place] [address], [address] 1, [facility] 11:26:36 Obstructive sleep apnea syndrome 43045061 Active 2020 ZULEMA RODRIGUEZ MD [address] [place] [address], [address] 1, [facility] 11:23:59 Leukemia 95493054 Active 2020 ZULEMA RODRIGUEZ MD [address] [place] [address], [address] 1, [facility] 11:24:07 AV junctional rhythm 27750795 Completed 202004/17/2020 ZULEMA RODRIGUEZ MD [address] [place] [address], 62221-900 1, [facility] 11:28:50 Hyperlipide isatu 45301824 Active 2020 LDL 53 ZULEMA RODRIGUEZ MD [address] [place] [phone] 1, [facility] 1 11:25:48 Diabetes mellitus 69094329 Active 2020 ZULEMA RODRIGUEZ MD [address] [place] [phone] 1, [facility] 11:26:40 History of myocardial infarction 033951796 Active 2020 ZULEMA RODRIGUEZ MD [address] [place] [address], [address]743 1, [facility] 11:26:48 Paroxysmal atrial fibrillatio n 049453539 Active 2020 ZULEMA RODRIGUEZ MD [address] [place] [address], 384[address]-641 1, [facility] 11:26:55 Deep venous thrombosis 809663240 Active 2020 ZULEMA RODRIGUEZ MD [address] [place] [address], 00[address]-262 1, [facility] 11:27:03 Hypertensiv e disorder 23879810 Active 2020 ZULEMA RODRIGUEZ MD [address] [place] [address], 04702-499 1, [facility] 11:27:08 Peripheral vascular disease 395540257 Active 2020 ZULEMA RODRIGUEZ MD [address] [place] [address], 95914-043 1, [facility] 11:27:16 Chronotropi c incompetenc e 763907548 Active 2020 ZULEMA RODRIGUEZ MD [address] [place] [address], 11273-872 1, [facility] 12:38:52 Problem Notes None recorded. Procedures Surgical History Date Name Laterality Status Provider Name and Address Organization Details Recorded Time 12/11/19 23 EKG completed Neida Short [facility] 12/10/2022 10:25:55 12/15/19 22 Stress Test - Nuclear Lexiscan completed ZULEMA RODRIGUEZ MD [address] [place] [address], [address], [facility] 12/14/2021 14:41:29 11/29/19 22 EKG completed Christine Chen [facility] 11/28/2021 14:59:29 01/04/20 21 Injection Joint/Bursa, Major, w/o US completed ALE SIMON MD [address] [place], [address], [facility] 01/03/2021 15:04:41 05/05/19 21 Echocardiogram completed ZULEMA RODRIGUEZ MD [address] [place] [address], [address], [facility] 05/05/2020 12:40:09 03/29/19 21 Injection Joint/Bursa, Major, w/o US completed ALE SIMON MD [address] [place] [address], [address], [facility] 03/29/2020 11:19:21 03/08/20 20 Post Void Residual; Ultrasound completed [facility] 03/08/2020 15:18:50 09/30/19 20 Post Void Residual; Ultrasound completed [facility] 09/30/2019 09:42:52 01/14/20 19 Post Void Residual; Ultrasound completed [facility] 01/13/2019 13:04:49 07/09/19 19 Post Void Residual; Ultrasound completed [facility] 07/08/2018 15:04:35 04/08/19 19 Post Void Residual; Ultrasound completed [facility] 04/08/2018 10:20:30 03/18/19 19 Post Void Residual; Ultrasound completed [facility] 03/18/2018 09:44:28 01/29/20 18 Post Void Residual; Ultrasound completed [facility] 01/28/2018 13:38:01 01/15/20 18 Post Void Residual; Ultrasound completed [facility] 01/14/2018 14:21:21 01/14/20 18 Uroflowmetry; Complex completed [facility] 01/13/2018 10:06:47 01/11/20 18 LASER VAPORIZATION OF PROSTATE, INCLUDING CONTROL OF POSTOPERATIVE BLEEDING, COMPLETE (SURG) completed Vandana [facility] 01/13/2018 09:39:27 12/24/19 18 Cystoscopy - male completed EMELIA HARMON MD [address] [place] [address], [phone], [facility] 12/23/2017 09:05:25 12/20/19 18 Urodynamics completed EMELIA HARMON MD [address] [place] [address], [address], [facility] 12/19/2017 10:30:50 12/19/19 18 Uroflowmetry; Complex completed EMELIA HARMON MD [address] [place] [address], [address], [facility] 12/18/2017 14:45:30 Cardiac Catheterization completed [facility] 04/18/2020 13:52:21 insertion of implantable venous access port completed [facility] 04/18/2020 13:54:07 Imaging Results None recorded. Procedure [...] No t Available Vitals Date Recorded Body height Body mass index (BMI) Body weight Systolic And Diastolic Provider Name and Address Organization Details Last Updated DateTime 08/11/2024 170.18 cm 29.8 kg/m2 34005.55 g 124/82 mm[Hg] Shelby Cortes [facility] 08/11/2024 10:07:01 Social History Question Answer Notes LastModified by OrganizMachine Talker ion Details LastModified Time Tobacco Smoking Status [email or web address]2017 14:15:54 How Much Tobacco Do You Chew? None Information not available 03/29/2020 Which Illicit Or Recreational Drugs Have You Used? None Information not available 04/18/2020 Marital Status Informatio n not available 04/18/2020 What Was The Date Of Your Most Recent Tobacco Screening? 12/10/2022 [email or web address] Information not available 12/10/2022 How Much Tobacco Do You Smoke? No Information not available 03/29/2020 Has Tobacco Cessation Counseling Been Provided? No [email or web address] Information not available 12/10/2022 How Many Years [...] Disease N Heart Arrhythmia N Emphysema N COPD N Lung Disease N Peripheral Arterial Disease N Pacemaker N [...] dose or 50 mcg/0.25mL dose 1 completed Freda [facility] 07/02/2024 14:14:28 COVID-19, mRNA, LNP-S, PF, 100 mcg/0.5mL dose or 50 mcg/0.25mL dose 2 completed Freda Hawk [facility] 07/02/2024 14:14:28 COVID-19, mRNA, LNP-S, PF, 100 mcg/0.5mL dose or 50 mcg/0.25mL dose 0 completed Freda [facility] 07/02/2024 14:14:29 Tdap 8 completed Freda Hawk [facility] 07/02/2024 14:14:29 Pneumococcal conjugate PCV 13 8 completed Freda carcamo, [facility] 07/02/2024 14:14:29 Influenza, high-dose, trivalent, PF 8 completed Freda Hwak [facility] 07/02/2024 14:14:29 Past Encounters Encounter ID Performer Location Encounter Start Date Encounter Closed Date Diagnosis/Indication Diagnosis SNOMED-CT Code Diagnosis ICD10 Code Diagnosis Note [id number] JANEL CARMONA PA-C [facility] [address] [place] [address] 08/11/2024 09:57:22 08/12/2024 04:33:32 Chronic low back pain 554380346 M54.50 G89.29 Health Concerns Section Related Observation LastModified by Organization Detai ls LastModified Time None Recorded Concern Status LastModified by Organization Details LastModified Time None Recorded Payers Encounter Date Sequence Insurance Name Policy Number Policy Cm Covered Member ID Cm Member ID Guarantor Name 08/11/2024 1 [employer] (MEDICARE REPLACEMENT/A DVANTAGE - PPO) Dewey Serna [id number] Dewey Serna Notes Date Note Type Note Provider Name and Address Organization Details Recorded Time 08/11/2024 text/html Dewey Serna is a 79-year-old [...] some mild relief. JANEL CARMONA PA-C [address] [place], [address], [facility] 08/11/2024 11:06:22
--- OUTSIDE RECORDS SUMMARY | 2024-09-16 16:19 | XMS_ITS ---
Author Organization [facility] Address [address] [place] [id number] Care Team Providers Care Ground Water Pump Installer Name Role Phone Tab Veronica MD Primary Care Provider [phone] Active Problems Problem Noted Date Diagnosed Date [...] 09/04/2021 Hyperlipemia 09/04/2021 Essential hypertension 09/04/2021 Old [place] (myocardial infarction) 09/04/2021 PVD (peripheral vascular disease) [...]
--- OUTSIDE RECORDS SUMMARY | 2024-09-16 16:19 | XMS_ITS | Encounter Summary ---
Author Organization [facility] Address [address] [place] [address] Care Team Providers Care Waste Examiner Name Role Phone Tab Veronica MD Primary Care Provider [phone] Encounter Details Date Type Department Care Team ([facility] Contact Info) Description 07/10/2024 Orders Only External Location [address] [place] [address] Provider, External Social History Tobacco Use Types [...] Upcoming Encounters Date Type Department Care Team ([facility] Contact Info) Description 10/06/2024 10:00 AM EDT Clinical Support [facility] H[facility]ology/BMT and Cellular Therapy Program [address] [place] [address] 10/06/2024 10:30 AM EDT Office Visit [facility]BMT and Cellular Therapy Program [address] [place] [address] Ruddy Encarnacion MD [address] [facility] [address] [place] [address] documented as of this encounter Procedures Procedure [...] documented as of this encounter Care Teams Waste Examiner Relationship Specialty Start Date End Date Tab Veronica MD [address] [place] [address] PCP - General 07/22/20 documented as of this encounter
--- OUTSIDE RECORDS SUMMARY | 2024-09-16 16:19 | XMS_ITS | Encounter Summary ---
Author Organization [facility] Address [address] [place] [id number] Care Team Providers Care Title Closer Name Role Phone Tab Veronica MD Primary Care Provider [phone] Encounter Details Date Type Department Care Team ([facility] Contact Info) Description 07/08/2024 Orders Only External Location [address] [place] [address] Vannesa Bedoya PA [address] [place] [address] Social History Tobacco Use Types Packs/Day Years [...] Upcoming Encounters Date Type Department Care Team ([facility] Contact Info) Description 10/06/2024 10:00 AM EDT Clinical Support [facility]/BMT and Cellular Therapy Program [address] [place] [address] 10/06/2024 10:30 AM EDT Office Visit [facility]BMT and Cellular Therapy Program [address] [address] Ruddy Encarnacion MD 800 [facility] [address] [place] [address] documented as of this encounter Procedures Procedure [...] documented as of this encounter Care Teams Title Closer Relationship Specialty Start Date End Date Tab Veronica MD [address] [place] [address] PCP - General 07/22/20 documented as of this encounter
--- OUTSIDE RECORDS SUMMARY | 2024-09-16 16:19 | XMS_ITS | Clinical Summary ---
Author Organization [facility] Address [address] [place] [address] Care Team Providers Care Insurance Actuary Name Role Phone Tab Veronica MD Primary [...] DIRECTED THEN BEGIN DAILY MASSAGE Active multivitamin-ir or-bxucsnik-nxl ic acid (Centrum Silver, geriatric,) tablet Take [...] Absent, Thrombocytopenia: Absent) - Signed by Sylvia Gonzalez MD on 10/24/2021 A-fib 09/04/2021 Cancer 09/04/2021 CAD (coronary artery disease) 09/04/2021 DVT (deep venous thrombosis) 09/04/2021 Hyperlipemia 09/04/2021 Essential hypertension 09/04/2021 Old [place] (myocardial infarction) 09/04/2021 PVD (peripheral vascular disease) 09/04/2021 DDD (degenerative disc disease), lumbar 09/20/19 16 Back pain 09/19/2015 Encounters Date Type Department Care Team Description 07/28/2024 8:55 AM EDT Consult [facility] [address], [place] [address] Mackenzie Gerber PA Lumbar disc herniation (Primary Dx); Other intervertebral disc displacement, lumbar region; Stenosis of lateral recess of lumbar spine; Radicular pain of right lower extremity 07/28/2024 Travel 07/10/2024 Orders Only External Location [address] [place] [address] Provider, External 07/08/2024 Orders Only External Location [address] [place] [address] Vannesa Bedoya PA 07/08/2024 Orders Only External Location [address] [place] [address] Vannesa Bedoya PA 07/07/2024 2:00 PM EDT Office Visit [facility]/BMT and Cellular Therapy Program 750 [facility], [address] [place] [phone] Sylvia Gonzalez MD CLL (chronic lymphocytic leukemia) ([facility]/HCC) (Primary Dx) 07/07/2024 1:30 PM EDT Clinical Support [facility]BMT and Cellular Therapy Program [address] [place] [address], [address] [place] [phone] 07/07/2024 Orders Only [facility]BMT and Cellular Therapy Program [address] [place] [phone] Kalpesh Morocho, PharmD 07/07/2024 Travel 06/26/2024 12:54 PM EDT - 06/26/2024 11:59 PM EDT Hospital Encounter [facility] [address] [place] [address] CLL (chronic lymphocytic leukemia) (CMS/HCC) Discharge Disposition: Home or Self Care 06/26/2024 Travel from Last 3 Months Immunizations Immunization [...] Upcoming Encounters Date Type Department Care Team ([facility] st Contact Info) Description 10/06/2024 10:00 AM EDT Clinical Support [facility]ology/BMT and Cellular Therapy Program [address] [place] [address] 10/06/2024 10:30 AM EDT Office Visit [facility]ology/BMT and Cellular Therapy Program [address] [place] [address] Sylvia Gonzalez MD 800 [facility] [address] [place] [phone] Health Maintenance Due Date Last Done Comments [facility]-Diabetes: Hemoglobin A1C 1945 [facility]-Medicare Annual Wellness (AWV) 1945 [facility]-Infant/Child/Adol SDOH Screenings 1945 Diabetes: Dental Exam 1957 [facility]- SDOH Screenings 1965 [facility]-Adult SDOH Screenings 1965 [facility]-Zoster Vaccines (1 of 2) 1966 [facility]-RSV Vaccine: 60+ Years or (1 - 1-dose 75+ series) 2022 [id number] Vaccine ( - season) 2023 10/02/2021, 04/06/2020, 03/07/2020, Additional history exists [facility]-Influenza Vaccine (#1) 2024 11/14/2017, [facility]-Depression Screening 04/30/2025 04/30/2024 [facility]-DTaP,Tdap,and Td Vaccines [...] 07/08/2024 11:0 9 AM EDT us Vannesa Bedoya PA IMG XR PROCEDURES Final Result * (ABNORMAL) CBC and differential (07/07/2024 1:39 PM EDT) WBC Count 11.40(H) 3.70 - 10.30 10*3/uL LAB HEMATOLOGY METHOD 07/07/2024 1:54 PM EDT [facility] RBC Count 3.78(L) 4.60 - 6.10 10*6/uL LAB HEMATOLOGY METHOD 07/07/2024 1:54 PM EDT [facility] HGB 13.3(L) 13.7 - 17.5 g/dL LAB HEMATOLOGY METHOD 07/07/2024 1:54 PM EDT [facility] HCT 37.9(L) 40.0 - 51.0 % LAB HEMATOLOGY METHOD 07/07/2024 1:54 PM EDT [facility] Platelet Count 142(L) 155 - 369 10*3/uL LAB HEMATOLOGY METHOD 07/07/2024 1:54 PM EDT [facility] MCV 100(H) 79 - 98 fL LAB HEMATOLOGY METHOD 07/07/2024 1:54 PM EDT [facility] MCH 35.2(H) 26.0 - 32.0 pg LAB HEMATOLOGY METHOD 07/07/2024 1:54 PM EDT [facility] MCHC 35.1 30.7 - 35.5 g/dL LAB HEMATOLOGY METHOD 07/07/2024 1:54 PM EDT [facility] RDW 14.9(H) 11.5 - 14.5 % LAB HEMATOLOGY METHOD 07/07/2024 1:54 PM EDT [facility] MPV 8.4(L) 8.8 - 12.5 fL LAB HEMATOLOGY METHOD 07/07/2024 1:54 PM EDT [facility] nRBC 0.0 <=0.0 per 100 WBCs LAB HEMATOLOGY METHOD 07/07/2024 1:54 PM EDT [facility] Differential Type Automated LAB HEMATOLOGY METHOD 07/07/2024 1:54 PM EDT [facility] Neutrophils % 75 % LAB HEMATOLOGY METHOD 07/07/2024 1:54 PM EDT [facility] Lymphocytes % 10 % LAB HEMATOLOGY METHOD 07/07/2024 1:54 PM EDT [facility] Monocytes % 13 % LAB HEMATOLOGY METHOD 07/07/2024 1:54 PM EDT [facility] Eosinophils % 1 % LAB HEMATOLOGY METHOD 07/07/2024 1:54 PM EDT [facility] Basophils % 0 % LAB HEMATOLOGY METHOD 07/07/2024 1:54 PM EDT [facility] Immature Granulocytes % 1 % LAB HEMATOLOGY METHOD 07/07/2024 1:54 PM EDT [facility] Neutrophils Absolute 8.61(H) 1.60 - 6.10 10*3/uL LAB HEMATOLOGY METHOD 07/07/2024 1:54 PM EDT [facility] Lymphocytes Absolute 1.17(L) 1.20 - 3.90 10*3/uL LAB HEMATOLOGY METHOD 07/07/2024 1:54 PM EDT [facility] Monocytes Absolute 1.45(H) 0.30 - 0.90 10*3/uL LAB HEMATOLOGY METHOD 07/07/2024 1:54 PM EDT [facility] Eosinophils Absolute 0.07 0.00 - 0.50 10*3/uL LAB HEMATOLOGY METHOD 07/07/2024 1:54 PM EDT [facility] Basophils Absolute 0.04 0.00 - 0.10 10*3/uL LAB HEMATOLOGY METHOD 07/07/2024 1:54 PM EDT [facility] Immature Granulocytes Absolute 0.06 0.00 - 0.06 10*3/uL LAB HEMATOLOGY METHOD 07/07/2024 1:54 PM EDT [facility] Blood Venous blood specimen / Unknown Venipuncture / Unknown 07/07/2024 1:39 PM EDT 07/07/2024 1:52 PM EDT Narrative [facility] - 07/07/2024 1:54 PM EDT Therapeutic decision making should be based on absolute values, rather than percentages. us Sylvia Gonzalez MD LAB BLOOD ORDERABLES Final Res ult [facility] [address] [place] [address] * (ABNORMAL) Comprehensive metabolic panel (07/07/2024 1:39 PM EDT) [facility] Glucose, Plasma 100(H) 74 - 99 mg/dL 07/07/2024 2:46 PM EDT [facility] BUN, Plasma 22 8 - 23 mg/dL 07/07/2024 2:46 PM EDT [facility] Creatinine, Plasma 0.79 0.70 - 1.20 mg/dL 07/07/2024 2:46 PM EDT [facility] BUN/Creatinine Ratio 07/07/2024 2:46 PM EDT [facility] Sodium, Plasma 139 136 - 145 mmol/L 07/07/2024 2:46 PM EDT [facility] Potassium, Plasma 4.3 3.6 - 4.9 mmol/L 07/07/2024 2:46 PM EDT [facility] Chloride, Plasma 104 97 - 107 mmol/L 07/07/2024 2:46 PM EDT [facility] CO2, Plasma 28 22 - 29 mmol/L 07/07/2024 2:46 PM EDT [facility] Anion Gap 7 6 - 16 mmol/L 07/07/2024 2:46 PM EDT [facility] Total Calcium, Plasma 8.9 8.9 - 10.2 mg/dL 07/07/2024 2:46 PM EDT [facility] Total Protein 5.8(L) 6.3 - 7.9 g/dL 07/07/2024 2:46 PM EDT [facility] Albumin, Plasma 4.2 3.5 - 5.2 g/dL 07/07/2024 2:46 PM EDT [facility] AST, Plasma 25 10 - 50 U/L 07/07/2024 2:46 PM EDT [facility] ALT, Plasma 24 10 - 50 U/L 07/07/2024 2:46 PM EDT [facility] Alkaline Phosphatase, Plasma 85 40 - 115 U/L 07/07/2024 2:46 PM EDT [facility] Total Bilirubin, Plasma 0.7 0.2 - 1.1 mg/dL 07/07/2024 2:46 PM EDT [facility] eGFRcr 91.5 mL/min/1.7 3m*2 07/07/2024 2:46 PM EDT [facility] Comment:Reported eGFRcr in m L/min/1.73m2 is based the CKD-EPI 2020 equation that does not use a race coefficient. Blood Venous blood specimen / Unknown Venipuncture / Unknown 07/07/2024 1:39 PM EDT 07/07/2024 2:16 PM EDT us Sylvia Gonzalez MD LAB BLOOD ORDERABLES Final Res ult [facility] [address] [place] [address] * CT Abdomen Pelvis w IV Contrast [...] Total DLP (Dose-Length Product): 1955.18 mGy.cm (accession [id number]), 1955.18 mGy.cm (accession [id number]) Please note: The reported value represents the [...] Total DLP (Dose-Length Product): 1955.18 mGy.cm (accession [id number]),1955.18 mGy.cm (accession [id number]) Please note: The reported valuerepresents the total [...] MD on 06/26/2024 2:50 PM us Sylvia Gonzalez MD IMG CT PROCEDURES Edited [...] Total DLP (Dose-Length Product): 1955.18 mGy.cm (accession [id number]), 1955.18 mGy.cm (accession [id number]) Please note: The reported value represents the [...] Total DLP (Dose-Length Product): 1955.18 mGy.cm (accession [id number]),1955.18 mGy.cm (accession [id number]) Please note: The reported valuerepresents the total [...] 07/03/2024 12:47 PM us Sylvia Gonzalez MD [facility] PROCEDURES Final Result * Hepatitis C antibody (05/29/2023 9:32 AM EDT) Hepatitis C Antibody Negative Negative 05/29/2023 10:31 AM EDT [facility] Blood Venous blood specimen / Unknown Venipuncture / Unknown 05/29/2023 9:32 AM EDT 05/29/2023 9:50 AM EDT us Sylvia Gonzalez MD LAB BLOOD ORDERABLES Final Res ult [facility] [address] [place] [address] from Last 3 Months or Most Recently Relevant to Health Maintenance Insurance [facility] MEDICARE Advance Directives * Full Code (Latest Code Status on File) Date Activated Date Inactivated Comments 06/17/2023 3:32 PM 06/18/2023 4:58 PM Question Answer Comments Patient has decision-making capacity? Yes Care Teams Insurance Actuary Relationship Specialty Start Date End Date Tab Veronica MD [address] [place] [address] PCP - General 07/22/20
--- OUTSIDE RECORDS SUMMARY | 2024-09-16 16:19 | XMS_ITS | Encounter Summary ---
Author Organization [facility] Address [address] [place] [id number] Care Team Providers Care Advertising Sales Manager Name Role Phone Tab Veronica MD Primary Care Provider [phone] Encounter Details Date Type Department Care Team ([facility] Contact Info) Description 07/08/2024 Orders Only External Location [address] [place] [address] Vannesa Bedoya PA [address] [place] [address] Social History Tobacco Use Types Packs/Day Years [...] Upcoming Encounters Date Type Department Care Team ([facility] Contact Info) Description 10/06/2024 10:00 AM EDT Clinical Support [facility]/BMT and Cellular Therapy Program [address] [place] [address] 10/06/2024 10:30 AM EDT Office Visit [facility] H[facility]ology/BMT and Cellular Therapy Program [address] [address] Ruddy Encarnacion MD 800 [facility] [address] [place] [address] documented as of this encounter Procedures Procedure [...] documented as of this encounter Care Teams Advertising Sales Manager Relationship Specialty Start Date End Date Tab Veronica MD [address] [place] [address] PCP - General 07/22/20 documented as of this encounter
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
== END 2024-09-16 23:59 | disposition home or self-care (01) ==
LOC: RAD 16:17
PROVIDERS: PCP Family Medicine; Visit Provider Physician Assistant
DX: R91.8 Other nonspecific abnormal finding of lung field (principal); R05.3 Chronic cough
CPT/HCPCS: 71046

== ENCOUNTER 2024-12-23 14:44 | Outpatient (CLI) | payer MEDICARE, SELFPAY ==
--- NOTE | 2024-12-23 14:47 | XR_ITS ---
FINAL REPORT CLINICAL HISTORY: BRONCHITIS COMPARISON: 10/19/2018 FINDINGS: PA and lateral views of the chest were obtained. There has been no change in the right Port-A-Cath. The cardiac and mediastinal silhouettes are within normal limits. Mild increased interstitial markings are favored to be chronic. No focal infiltrate. There is no pleural effusion or pneumothorax. No acute osseous abnormality is identified. IMPRESSION: No radiographic evidence of acute cardiac or pulmonary disease. Mild increased interstitial markings, favor chronic. Reviewed, Interpreted and Dictated by Kathryn Bello MD Transcribed by Yulia Vance Authenticated and [facility]
== END 2024-12-23 23:59 | disposition home or self-care (01) ==
LOC: RAD 14:45
PROVIDERS: PCP Family Medicine; Visit Provider Physician Assistant
DX: J40 Bronchitis, not specified as acute or chronic (principal)
CPT/HCPCS: 71046

== ENCOUNTER 2025-02-18 11:45 | Outpatient (CLI) | payer MEDICARE, SELFPAY ==
[2025-02-18 12:10] LABS: Potassium 4.0 mmoL/L (3.5-5.1)
== END 2025-02-18 23:59 | disposition home or self-care (01) ==
LOC: LAB 11:46
PROVIDERS: PCP Family Medicine; Visit Provider Ophthalmology
DX: H04.553 Acquired stenosis of bilateral nasolacrimal duct (principal)
CPT/HCPCS: 36415; 84132